=== PATIENT | male | born 1945 | race Caucasian/White ===

== ENCOUNTER 2020-01-24 09:18 | Outpatient (REF) | payer MEDICARE, OTHER, SELFPAY ==
[2020-01-24 11:12] LABS: INTERNATIONAL NORM RATIO 2.7 (0.9-1.1)
== END 2020-01-24 09:19 | disposition home or self-care (01) ==
LOC: HO.HSHHMC 09:18
PROVIDERS: PCP Internal Medicine Interventional Cardiology; Visit Provider Internal Medicine Interventional Cardiology
DX: I48.91 Unspecified atrial fibrillation (principal)
CPT/HCPCS: 36415; 85610

== ENCOUNTER 2020-01-31 | Outpatient (REF) | payer MEDICARE, OTHER, SELFPAY ==
[2020-01-31 11:33] LABS: INTERNATIONAL NORM RATIO 2.7 (0.9-1.1); Prothrombin Time 32.5 SEC (10.8-13.0)
== END 2020-01-31 00:01 | disposition home or self-care (01) ==
LOC: HO.HSHHMC
PROVIDERS: Visit Provider Internal Medicine Interventional Cardiology
DX: I48.91 Unspecified atrial fibrillation (principal)
CPT/HCPCS: 36415; 85610

== ENCOUNTER 2020-02-07 07:18 | Outpatient (REF) | payer MEDICARE, OTHER, SELFPAY ==
[2020-02-07 10:04] LABS: INTERNATIONAL NORM RATIO 3.2 (0.9-1.1)
[2020-02-07 10:13] LABS: Anion Gap 13 (12-20); Blood Urea Nitrogen 21 mg/dL (9-16); Calcium 8.6 mg/dL (8.4-10.2); Carbon Dioxide 24 mmol/L (22-29); Chloride 109 mmol/L (96-108); Estimated Glomerular Filt Rate 45; Phosphorus 3.2 mg/dL (2.7-4.5); Potassium 3.9 mmol/l (3.3-5.1); Sodium 142 mmol/L (135-145)
[2020-02-07 13:58] LABS: Renal w Reflex Lab Use Only Order verified
== END 2020-02-07 07:19 | disposition home or self-care (01) ==
LOC: HO.HSHHMC 07:18
PROVIDERS: Referring Provider Internal Medicine Nephrology; Visit Provider Internal Medicine Interventional Cardiology
DX: I95.1 Orthostatic hypotension (principal); E21.1 Secondary hyperparathyroidism, not elsewhere classified; N18.30 Chronic kidney disease, stage 3 unspecified; I48.91 Unspecified atrial fibrillation
CPT/HCPCS: 36415; 80051; 82310; 82565; 84100; 84520; 85610

== ENCOUNTER 2020-02-14 | Outpatient (REF) | payer MEDICARE, OTHER, SELFPAY ==
[2020-02-14 09:20] LABS: INTERNATIONAL NORM RATIO 3.1 (0.9-1.1); Prothrombin Time 36.8 SEC (10.8-13.0)
== END 2020-02-14 00:01 | disposition home or self-care (01) ==
LOC: HO.HSHHMC
PROVIDERS: Visit Provider Internal Medicine Interventional Cardiology
DX: I48.91 Unspecified atrial fibrillation (principal); Z79.01 Long term (current) use of anticoagulants
CPT/HCPCS: 36415; 85610

== ENCOUNTER 2020-02-21 | Outpatient (REF) | payer MEDICARE, OTHER, SELFPAY ==
[2020-02-21 08:55] LABS: INTERNATIONAL NORM RATIO 2.1 (0.9-1.1); Prothrombin Time 25.6 SEC (10.8-13.0)
== END 2020-02-21 00:01 | disposition home or self-care (01) ==
LOC: HO.HSHHMC
PROVIDERS: Visit Provider Internal Medicine Interventional Cardiology
DX: I48.91 Unspecified atrial fibrillation (principal); Z79.01 Long term (current) use of anticoagulants
CPT/HCPCS: 36415; 85610

== ENCOUNTER 2020-02-28 06:32 | Outpatient (REF) | payer MEDICARE, OTHER, SELFPAY ==
[2020-02-28 09:12] LABS: INTERNATIONAL NORM RATIO 2.6 (0.9-1.1); Prothrombin Time 31.7 SEC (10.8-13.0)
== END 2020-02-28 06:33 | disposition home or self-care (01) ==
LOC: HO.HSHHMC 06:32
PROVIDERS: Visit Provider Internal Medicine Interventional Cardiology
DX: I48.91 Unspecified atrial fibrillation (principal); K58.0 Irritable bowel syndrome with diarrhea; Z87.19 Personal history of other diseases of the digestive system; Z86.19 Personal history of other infectious and parasitic diseases; K64.9 Unspecified hemorrhoids
CPT/HCPCS: 36415; 85610; 99212

== ENCOUNTER 2020-03-13 11:19 | Outpatient (REF) | payer MEDICARE, OTHER, SELFPAY ==
[2020-03-13 09:44] LABS: INTERNATIONAL NORM RATIO 1.9 (0.9-1.1); Prothrombin Time 22.5 SEC (10.8-13.0)
== END 2020-03-13 11:20 | disposition home or self-care (01) ==
LOC: HO.HSHHMC 11:19
PROVIDERS: Visit Provider Internal Medicine Interventional Cardiology
DX: I48.91 Unspecified atrial fibrillation (principal)
CPT/HCPCS: 36415; 85610

== ENCOUNTER 2020-03-21 10:27 | Outpatient (REF) | payer MEDICARE, OTHER, SELFPAY ==
[2020-03-21 10:19] LABS: Prothrombin Time 23.8 SEC (10.8-13.0)
== END 2020-03-21 10:28 | disposition home or self-care (01) ==
LOC: HO.HSHHMC 10:27
PROVIDERS: Visit Provider Internal Medicine Interventional Cardiology
DX: I48.91 Unspecified atrial fibrillation (principal)
CPT/HCPCS: 36415; 85610

== ENCOUNTER 2020-04-04 08:38 | Outpatient (REF) | payer MEDICARE, OTHER, SELFPAY ==
[2020-04-04 08:48] LABS: INTERNATIONAL NORM RATIO 1.8 (0.9-1.1); Prothrombin Time 21.2 SEC (10.8-13.0)
== END 2020-04-04 08:39 | disposition home or self-care (01) ==
LOC: HO.HSHHMC 08:38
PROVIDERS: Visit Provider Internal Medicine Interventional Cardiology
DX: I48.91 Unspecified atrial fibrillation (principal)
CPT/HCPCS: 36415; 85610

== ENCOUNTER 2020-04-11 10:31 | Outpatient (REF) | payer MEDICARE, OTHER, SELFPAY ==
[2020-04-11 09:28] LABS: INTERNATIONAL NORM RATIO 2.4 (0.9-1.1); Prothrombin Time 28.8 SEC (10.8-13.0)
== END 2020-04-11 10:32 | disposition home or self-care (01) ==
LOC: HO.HSHHMC 10:31
PROVIDERS: Visit Provider Internal Medicine Interventional Cardiology
DX: I48.91 Unspecified atrial fibrillation (principal)
CPT/HCPCS: 36415; 85610

== ENCOUNTER 2020-04-24 09:17 | Outpatient (REF) | payer MEDICARE, OTHER, SELFPAY ==
[2020-04-24 09:17] LABS: INTERNATIONAL NORM RATIO 3.2 (0.9-1.1); Prothrombin Time 38.2 SEC (10.8-13.0)
== END 2020-04-24 09:18 | disposition home or self-care (01) ==
LOC: HO.HSHHMC 09:17
PROVIDERS: Visit Provider Internal Medicine Interventional Cardiology
DX: I48.91 Unspecified atrial fibrillation (principal)
CPT/HCPCS: 36415; 85610

== ENCOUNTER 2020-04-30 06:24 | Outpatient (REF) | payer MEDICARE, OTHER, SELFPAY ==
[2020-04-30 09:40] LABS: INTERNATIONAL NORM RATIO 2.6 (0.9-1.1); Prothrombin Time 31.4 SEC (10.8-13.0)
== END 2020-04-30 06:25 | disposition home or self-care (01) ==
LOC: HO.HSHHMC 06:24
PROVIDERS: Visit Provider Internal Medicine Interventional Cardiology
DX: I48.91 Unspecified atrial fibrillation (principal)
CPT/HCPCS: 36415; 85610

== ENCOUNTER 2020-05-07 07:31 | Outpatient (REF) | payer MEDICARE, OTHER, SELFPAY ==
[2020-05-07 09:31] LABS: INTERNATIONAL NORM RATIO 2.4 (0.9-1.1); Prothrombin Time 28.5 SEC (10.8-13.0)
== END 2020-05-07 07:32 | disposition home or self-care (01) ==
LOC: HO.HSHHMC 07:31
PROVIDERS: Visit Provider Internal Medicine Interventional Cardiology
DX: I48.91 Unspecified atrial fibrillation (principal)
CPT/HCPCS: 36415; 85610

== ENCOUNTER 2020-05-14 08:21 | Outpatient (REF) | payer MEDICARE, OTHER, SELFPAY ==
[2020-05-14 10:07] LABS: INTERNATIONAL NORM RATIO 1.6 (0.9-1.1); Prothrombin Time 18.5 SEC (10.8-13.0)
== END 2020-05-14 08:22 | disposition home or self-care (01) ==
LOC: HO.HSHHMC 08:21
PROVIDERS: Visit Provider Internal Medicine Interventional Cardiology
DX: I48.91 Unspecified atrial fibrillation (principal)
CPT/HCPCS: 36415; 85610

== ENCOUNTER 2020-05-21 10:45 | Outpatient (REF) | payer MEDICARE, OTHER, SELFPAY ==
[2020-05-21 11:42] LABS: INTERNATIONAL NORM RATIO 2.1 (0.9-1.1); Prothrombin Time 24.9 SEC (10.8-13.0)
== END 2020-05-21 10:46 | disposition home or self-care (01) ==
LOC: HO.HSHHMC 10:45
PROVIDERS: Visit Provider Internal Medicine Interventional Cardiology
DX: I48.91 Unspecified atrial fibrillation (principal)
CPT/HCPCS: 36415; 85610

== ENCOUNTER 2020-05-28 07:34 | Outpatient (REF) | payer MEDICARE, OTHER, SELFPAY ==
[2020-05-28 08:53] LABS: INTERNATIONAL NORM RATIO 2.4 (0.9-1.1); Prothrombin Time 29.2 SEC (10.8-13.0)
== END 2020-05-28 07:35 | disposition home or self-care (01) ==
LOC: HO.HSHHMC 07:34
PROVIDERS: Visit Provider Internal Medicine Interventional Cardiology
DX: I48.91 Unspecified atrial fibrillation (principal)
CPT/HCPCS: 36415; 85610

== ENCOUNTER 2020-06-04 07:36 | Outpatient (REF) | payer MEDICARE, OTHER, SELFPAY ==
[2020-06-04 09:20] LABS: INTERNATIONAL NORM RATIO 2.7 (0.9-1.1); Prothrombin Time 31.8 SEC (10.8-13.0)
== END 2020-06-04 07:37 | disposition home or self-care (01) ==
LOC: HO.HSHHMC 07:36
PROVIDERS: Visit Provider Internal Medicine Interventional Cardiology
DX: I48.91 Unspecified atrial fibrillation (principal)
CPT/HCPCS: 36415; 85610

== ENCOUNTER 2020-06-11 05:54 | Outpatient (REF) | payer MEDICARE, OTHER, SELFPAY ==
[2020-06-11 09:01] LABS: Prothrombin Time 23.8 SEC (10.8-13.0)
== END 2020-06-11 05:55 | disposition home or self-care (01) ==
LOC: HO.HSHHMC 05:54
PROVIDERS: Visit Provider Internal Medicine Interventional Cardiology
DX: I48.91 Unspecified atrial fibrillation (principal)
CPT/HCPCS: 36415; 85610

== ENCOUNTER 2020-06-25 05:48 | Outpatient (REF) | payer MEDICARE, OTHER, SELFPAY ==
[2020-06-25 08:50] LABS: INTERNATIONAL NORM RATIO 1.8 (0.9-1.1)
== END 2020-06-25 05:49 | disposition home or self-care (01) ==
LOC: HO.HSHHMC 05:48
PROVIDERS: Visit Provider Internal Medicine Interventional Cardiology
DX: I48.91 Unspecified atrial fibrillation (principal)
CPT/HCPCS: 36415; 85610

== ENCOUNTER 2020-07-02 05:42 | Outpatient (REF) | payer MEDICARE, OTHER, SELFPAY ==
[2020-07-02 09:11] LABS: INTERNATIONAL NORM RATIO 1.9 (0.9-1.1); Prothrombin Time 22.7 SEC (10.8-13.0)
== END 2020-07-02 05:43 | disposition home or self-care (01) ==
LOC: HO.HSHHMC 05:42
PROVIDERS: Visit Provider Internal Medicine Interventional Cardiology
DX: I48.91 Unspecified atrial fibrillation (principal)
CPT/HCPCS: 36415; 85610

== ENCOUNTER 2020-07-09 05:41 | Outpatient (REF) | payer MEDICARE, OTHER, SELFPAY ==
[2020-07-09 08:58] LABS: INTERNATIONAL NORM RATIO 3.9 (0.9-1.1); Prothrombin Time 46.6 SEC (10.8-13.0)
== END 2020-07-09 05:42 | disposition home or self-care (01) ==
LOC: HO.HSHHMC 05:41
PROVIDERS: Visit Provider Internal Medicine Interventional Cardiology
DX: I48.91 Unspecified atrial fibrillation (principal)
CPT/HCPCS: 36415; 85610

== ENCOUNTER 2020-07-16 06:38 | Outpatient (REF) | payer MEDICARE, OTHER, SELFPAY ==
[2020-07-16 09:18] LABS: INTERNATIONAL NORM RATIO 2.2 (0.9-1.1); Prothrombin Time 26.4 SEC (10.8-13.0)
== END 2020-07-16 06:39 | disposition home or self-care (01) ==
LOC: HO.HSHHMC 06:38
PROVIDERS: Visit Provider Internal Medicine Interventional Cardiology
DX: I48.91 Unspecified atrial fibrillation (principal)
CPT/HCPCS: 36415; 85610

== ENCOUNTER 2020-07-23 05:32 | Outpatient (REF) | payer MEDICARE, OTHER, SELFPAY ==
[2020-07-23 09:11] LABS: INTERNATIONAL NORM RATIO 2.4 (0.9-1.1)
== END 2020-07-23 05:33 | disposition home or self-care (01) ==
LOC: HO.HSHHMC 05:32
PROVIDERS: Visit Provider Internal Medicine Interventional Cardiology
DX: I48.91 Unspecified atrial fibrillation (principal)
CPT/HCPCS: 36415; 85610

== ENCOUNTER 2020-07-30 07:08 | Outpatient (REF) | payer MEDICARE, SELFPAY ==
[2020-07-30 09:17] LABS: INTERNATIONAL NORM RATIO 3.3 (0.9-1.1); Prothrombin Time 39.4 SEC (10.8-13.0)
== END 2020-07-30 07:09 | disposition home or self-care (01) ==
LOC: HO.HSHHMC 07:08
PROVIDERS: Visit Provider Internal Medicine Interventional Cardiology
DX: I48.91 Unspecified atrial fibrillation (principal)
CPT/HCPCS: 36415; 85610

== ENCOUNTER 2020-08-06 | Outpatient (REF) | payer MEDICARE, OTHER, SELFPAY ==
[2020-08-06 10:48] LABS: INTERNATIONAL NORM RATIO 2.2 (0.9-1.1); Prothrombin Time 26.8 SEC (10.8-13.0)
== END 2020-08-06 00:01 | disposition home or self-care (01) ==
LOC: HO.HSHHMC
PROVIDERS: Visit Provider Internal Medicine
DX: I48.91 Unspecified atrial fibrillation (principal)
CPT/HCPCS: 36415; 85610

== ENCOUNTER 2020-08-13 01:38 | Outpatient (REF) | payer MEDICARE, OTHER, SELFPAY ==
[2020-08-13 10:39] LABS: INTERNATIONAL NORM RATIO 2.9 (0.9-1.1); Prothrombin Time 34.4 SEC (10.8-13.0)
== END 2020-08-13 01:39 | disposition home or self-care (01) ==
LOC: HO.LHD 01:38
PROVIDERS: Visit Provider Internal Medicine Interventional Cardiology
DX: I48.91 Unspecified atrial fibrillation (principal)
CPT/HCPCS: 36415; 85610

== ENCOUNTER 2020-08-22 15:00 | Outpatient (RCR) | payer MEDICARE, OTHER, SELFPAY ==
[2020-03-11 15:04] VITALS: BP 112/62; PULSE 84; RESP 14
--- NOTE | 2020-03-11 16:48 | MHC.PT.EP ---
[facility] [place] [facility] [place] [facility] [place] [facility] [address] Michael Longoria [address] [phone] F: [phone] F: [phone] F: [phone] F: [phone] Physical Therapy Plan of Care Date of Evaluation: 03/11/20 Date of Surgery: NA Diagnosis: VERTIGO Assessment: MADISON PRESENTS WITH C/O DISEQUILIBRIUM AND VERTIGO. UPON EXAM HE TESTED (+) FOR LEFT HORIZONTAL CANALITHISIS WITH (-) RETESTING. HE ALSO DEMONSTRATES A WEAKENED VOR. FUNCTIONAL LIMITATIONS INCLUDE DECREASED INDEPENDENCE WITH WALKING AND STAIR CLIMBING, DECREASED ABILITY TO PERFORM HOMEMAKING TASKS, DECREASED ABILITY TO PERFORM EXERCISE AND FITNESS ACTIVITIES. MADISON WILL BENEFIT FROM PT TO ADDRESS BPPV SYMPTOMS AND PROMOTE IMPROVED BALANCE AND GAIT. Frequency and Duration: The patient will be seen 1 X WEEK FOR 6 WEEKS Short Term Goals: Pt WILL BE (-) FOR NYSTAGMUS OR REPORTS OF VERTIGO IN ALL DIRECTIONS IN 2 WEEKS Half-Way Goals: Pt TO BE ABLE TO MOVE FUNCTIONALLY IN ALL PLANES WITHOUT PROVOKATION OF DIZZINESS AND RETURN TO PLOF 4 WEEK Pt TO BE EDUC IN SYMPTOMS AND THE NEED TO RETURN TO PT FOR ADDITIONAL TREATMENT IN 4 WEEKS Treatment Plan: Modalities to reduce pain, spasms and effusion. Manual therapy to restore motion and function. Therapeutic exercise to improve strength and flexibility. Neuromuscular re-education for posture and balance. Therapeutic activities to return to functional activities of daily living. Please sign and return to therapist. Thank you for your referral.
== END 2020-09-16 15:24 | disposition other institution (70) ==
LOC: HO.PT 15:00
PROVIDERS: PCP Internal Medicine Interventional Cardiology; Visit Provider Otolaryngology
DX: R42 Dizziness and giddiness (principal)
CPT/HCPCS: 95992; 97110; 97112; 97116; 97140; 97162; 97530

== ENCOUNTER 2020-08-27 | Outpatient (REF) | payer MEDICARE, SELFPAY ==
[2020-08-27 10:58] LABS: INTERNATIONAL NORM RATIO 1.7 (0.9-1.1); Prothrombin Time 20.7 SEC (10.8-13.0)
== END 2020-08-27 00:01 ==
LOC: HO.HSHHMC
PROVIDERS: Visit Provider Internal Medicine Interventional Cardiology
DX: I48.91 Unspecified atrial fibrillation (principal); Z79.01 Long term (current) use of anticoagulants
CPT/HCPCS: 36415; 85610

== ENCOUNTER 2020-09-03 00:06 | Outpatient (REF) | payer MEDICARE, SELFPAY ==
[2020-09-03 12:13] LABS: INTERNATIONAL NORM RATIO 2.1 (0.9-1.1); Prothrombin Time 24.6 SEC (10.8-13.0)
== END 2020-09-03 00:07 | disposition home or self-care (01) ==
LOC: HO.LHD 00:06
PROVIDERS: Visit Provider Internal Medicine Interventional Cardiology
DX: I48.91 Unspecified atrial fibrillation (principal)
CPT/HCPCS: 36415; 85610

== ENCOUNTER 2020-09-10 00:24 | Outpatient (REF) | payer MEDICARE, SELFPAY ==
[2020-09-10 11:02] LABS: INTERNATIONAL NORM RATIO 2.6 (0.9-1.1); Prothrombin Time 30.9 SEC (10.8-13.0)
== END 2020-09-10 00:25 | disposition home or self-care (01) ==
LOC: HO.LHD 00:24
PROVIDERS: Visit Provider Internal Medicine Interventional Cardiology
DX: I48.91 Unspecified atrial fibrillation (principal)
CPT/HCPCS: 36415; 85610

== ENCOUNTER 2020-09-17 01:33 | Outpatient (REF) | payer MEDICARE, SELFPAY ==
[2020-09-17 11:21] LABS: INTERNATIONAL NORM RATIO 2.3 (0.9-1.1); Prothrombin Time 27.9 SEC (10.8-13.0)
== END 2020-09-17 01:34 | disposition home or self-care (01) ==
LOC: HO.LHD 01:33
PROVIDERS: Visit Provider Internal Medicine Interventional Cardiology
DX: I48.19 Other persistent atrial fibrillation (principal)
CPT/HCPCS: 36415; 85610

== ENCOUNTER 2020-10-01 06:22 | Outpatient (REF) | payer MEDICARE, SELFPAY ==
[2020-10-01 09:32] LABS: INTERNATIONAL NORM RATIO 1.8 (0.9-1.1); Prothrombin Time 21.3 SEC (10.8-13.0)
== END 2020-10-01 06:23 | disposition home or self-care (01) ==
LOC: HO.HSHHMC 06:22
PROVIDERS: Visit Provider Internal Medicine Interventional Cardiology
DX: Z13.89 Encounter for screening for other disorder (principal)
CPT/HCPCS: 36415; 85610

== ENCOUNTER 2020-10-02 11:04 | Inpatient (IN) | payer MEDICARE, SELFPAY ==
--- NOTE | ~2020-10-02 | XR_ITS ---
EXAMINATION: XR CHEST CLINICAL INFORMATION: Coughing up blood COMPARISON: None TECHNIQUE: 2 views of the chest were obtained. FINDINGS: The lungs are hyperinflated but clear of acute pneumonic process. Heart size and pulmonary vascularity is normal. There are dual pacer electrodes in right atrium and right ventricle. There are median sternotomy sutures and mediastinal xuan from previous CABG. No gross bony abnormality seen. XR/XR chest 2V IMPRESSION: Hyperinflated lungs with no acute pneumonic process.
--- NOTE | ~2020-10-02 | XR_ITS ---
EXAMINATION: PORTABLE CHEST 1 VIEW CLINICAL INFORMATION: sob . COMPARISON: Previous studies including the exam. TECHNIQUE: Portable frontal view of the chest was obtained. FINDINGS: Lungs well-expanded. Small layering right pleural effusion with associated right basilar consolidation/atelectasis similar to yesterday's study. Mild central vascular prominence but no overt edema currently. No pneumothorax. Cardiac silhouette is prominent. Patient status post sternotomy and CABG. Biventricular pacemaker/AICD is again noted with lead tips overlying the expected right ventricle and coronary sinus. Old healed left-sided rib fractures. XR/XR chest 1V IMPRESSION: Small layering right effusion with associated right basilar consolidation/atelectasis similar to yesterday's study. There is mild central vascular prominence but no overt edema.
--- NOTE | ~2020-10-02 | CT_ITS ---
EXAMINATION: CTA of the Abdomen and Pelvis CLINICAL INFORMATION: Suspected abdominal aortic aneurysm rupture. TECHNIQUE: Multiple axial images were obtained through the abdomen and pelvis using a [address] scan. 80 mL's of Omnipaque 350 was administered intravenously. Images will be evaluated on independent dedicated 3-D workstation and 3-D images will be reconstructed. An addendum will be dictated following obtaining the 3-D images. COMPARISON: CT of the abdomen and pelvis done on 09/29/[address] of the chest done on 10/08/2020. DLP: 223.0 mGy-cm. FINDINGS: VASCULAR: Significant atherosclerotic disease is present throughout the aorta and is branches. 1. Mesenteric arteries: The celiac axis, the superior mesenteric arteries appear patent. The MICHAEL is not visualized. 2. Renal arteries: Patent bilaterally. 3. Abdominal aorta: Large partially thrombosed saccular infrarenal abdominal aortic aneurysm is identified extending to just above the level of the aortic bifurcation. The aneurysmal sac measures 5.1 x 5.1 cm at its maximum dimension. There are no evidence of any periaortic stranding, retroperitoneal or intraperitoneal hematoma or contrast extravasation present. There are no evidence of any secondary signs of aortic aneurysmal rupture. 4. Iliac arteries: Proximal visualized part of both common iliac arteries are patent. Significant atherosclerotic disease is present. NONVASCULAR: LUNG BASES: Small volume right-sided pleural effusion with Hounsfield value of 0, consistent with simple appearing effusion is seen, shows interval increase since 10/02/2020. Trace amount of left-sided pleural effusion is noted, new since prior study. Interval development of dense airspace consolidation is noted within the right lung base, new since 10/02/2020. Underlying severe emphysematous disease is present bilaterally within the included visualized lung bases. LIVER, GALLBLADDER, AND BILIARY TREE: Stable pneumobilia within the left lobe. Subcentimeter hypodense lesion within the left lobe, unchanged. No focal liver lesion within the right lobe, unchanged. The gallbladder is surgically absent. PANCREAS: Unremarkable. SPLEEN: Unremarkable. ADRENAL GLANDS: Unremarkable. KIDNEYS AND URETERS: The kidneys are normal in size, shape, and attenuation. No hydronephrosis, hydroureter, or calculi seen. No perinephric stranding. Incidental note is made of significant atherosclerotic calcifications of the renal arterial branches bilaterally, similar to prior study dated 09/29/2019. BLADDER: Not completely included. Appears distended and is partially visualized within the upper part of the included pelvis. GASTROINTESTINAL TRACT: Colonic diverticulosis related changes are noted within the large bowel. The visualized small and large bowel otherwise appear unremarkable. The stomach is decompressed. Stable nonspecific hyper densities are noted along the distal part of the esophagus and GE junction and also along the lesser curvature of the stomach, unchanged since 09/29/2019. ABDOMINAL WALL: No significant hernia is appreciated. LYMPH NODES: Normal. PELVIC VISCERA: Not included within the [id number] and accordingly not evaluated. OSSEOUS STRUCTURES: Unremarkable. CT/CT angio abdomen IMPRESSION: 1. 5.1 x 5.1 cm maximum dimension partially thrombosed infrarenal saccular abdominal aortic aneurysm extending to just above the level of the aortic bifurcation showing no CT evidence of any primary or secondary signs of aortic rupture. 2. Diffuse atherosclerotic disease of the aorta and is branches with patent celiac axis, superior mesenteric artery and both renal arteries. 3. Small volume right-sided pleural effusion, shows interval increase since most recent prior CT of the chest done on 10/08/2020. Interval development of trace amount of left-sided pleural effusion is also noted, new since prior chest CT study done on 10/02/2020.
--- NOTE | ~2020-10-02 | CT_ITS ---
EXAMINATION: CT HEAD WITHOUT CONTRAST CLINICAL INFORMATION: Change in speech. COMPARISON: CT head 09/29/2019 and 06/14/2019. TECHNIQUE: Contiguous axial imaging was performed from the skull base to vertex without intravenous administration of contrast. This CT examination was performed using dose optimization techniques as appropriate, variously including the following: *Automated exposure control. *Adjustment of mA and/or kV according to patient size (this includes techniques or standardized protocols for targeted exams where dose is matched to indication/reason for exam; i.e. extremities or head). *Use of iterative reconstruction technique. DLP: 685 mGy-cm FINDINGS: There is no evidence of acute intracranial hemorrhage or territorial infarction. No abnormal mass effect or midline shift is seen. Wwra-vn-pyboz matter differentiation is well preserved. No extra-axial fluid collections are identified. There is moderate global volume loss with proportionate dilatation of the ventricles and cortical sulci. No hydrocephalus. No significant areas of abnormal parenchymal attenuation are seen. Moderate calcific atherosclerosis of the internal carotid arteries. The osseous structures and soft tissues are normal. Small mucous retention cysts are noted in the bilateral maxillary sinuses. Mild opacification of the ethmoid air cells and sphenoid sinuses. Mastoid air cells and middle ear cavities are well aerated. The patient is status post bilateral lens extraction. CT/CT head/brain wo con IMPRESSION: No acute intracranial abnormality. Specifically, there is no evidence of acute territorial infarction or acute intracranial hemorrhage.
--- NOTE | ~2020-10-02 | XR_ITS ---
EXAMINATION: XR CHEST CLINICAL INFORMATION: Shortness of breath. COMPARISON: Previous chest x-ray and chest CT 10/02/2020 TECHNIQUE: Frontal view of the chest was obtained. FINDINGS: The cardiac silhouette is enlarged. There are post-CABG changes. There is a left subclavian pacemaker and defibrillator device that appears unchanged. There is pulmonary venous redistribution and increased interstitial markings suggestive of pulmonary edema. This is new from previous exam. There is a new small right pleural effusion. There is no left pleural effusion. There is no pneumothorax. There are healing left lower rib fractures. XR/XR chest 1V IMPRESSION: New CHF.
--- NOTE | ~2020-10-02 | CT_ITS ---
EXAMINATION: CT CHEST WITHOUT CONTRAST CLINICAL INFORMATION: Hemoptysis for 2 weeks. COMPARISON: Chest CT dated December 30, 2019. TECHNIQUE: Multidetector volumetric CT imaging of the chest was done. Axial MIP volume rendering provided. Sagittal and coronal reformatted images were obtained. This CT examination was performed using dose optimization techniques as appropriate, variously including the following: *Automated exposure control *Adjustment of mA and/or kV according to patient size (this includes techniques or standardized protocols for targeted exams where dose is matched to indication/reason for exam; i.e. extremities or head) *Use of iterative reconstruction technique DLP: 252 mGy-cm FINDINGS: ROTOR BALANCER: Chest wall AICD with leads positioned in the right ventricle and coronary sinus respectively. Lungs and pleural spaces: Upper and lower lobe centrilobular emphysema. Bibasilar intralobular septal thickening more prominent in the right lower lobe. Mild bronchiectatic changes in the lower lobes. Ground glass opacities in the posterior right lower lobe similar to October 02, 2019 examination suspicious for sequelae of chronic inflammatory process. No lung mass. No enlarging pulmonary nodules. Trace debris in the distal trachea extending toward the right mainstem bronchus (3:26-29). Small right pleural effusion. No pneumothorax. Thoracic lymph nodes: There is no hilar or axillary lymphadenopathy. Similar appearance of borderline mildly enlarged mediastinal lymph nodes similar appearance to 10/02/2019 examination. Cardiovascular, mediastinal structures and thyroid: The heart is normal in size. Coronary vascular calcifications. There is no pericardial effusion. The thoracic aorta is normal in diameter without evidence of aneurysm. Mild aortic atherosclerotic calcifications. The main pulmonary artery is normal in caliber. The visualized thyroid gland is within normal limits. The esophagus appears partially collapsed but otherwise unremarkable. Skeletal, diaphragm and chest wall: Chronic left 9-11 rib fractures. No acute osseous abnormality.. The subcutaneous tissues are unremarkable. Upper abdomen: The visualized liver demonstrates unchanged degree of pneumobilia. Gallbladder is absent. Pancreas, spleen, and adrenal glands are normal. Bilateral renal cortical thinning. The proximal stomach and visualized upper abdominal bowel loops are poorly evaluated but appear unremarkable. Partially visualized aneurysmal dilatation of the abdominal aorta. CT/CT chest wo con IMPRESSION: Diffuse upper and lower lobe emphysema. Right basilar groundglass opacities similar to comparison 10/02/2019 examination suggesting chronic inflammatory process. No pulmonary mass or enlarging pulmonary nodules. Small right pleural effusion. Coronary vascular disease. Similar appearance of borderline lymphadenopathy in the mediastinum in comparison to October 02, 2019 examination. Mild debris in the distal trachea extending into the right mainstem bronchus. Partially visualized abdominal aortic aneurysm.
[2020-10-02 11:54] VITALS: BP 112/75; PULSE 81; RESP 18; TEMP 36.5; O2SAT 97; BMI 18.7
[2020-10-02 14:29] LABS: Hematocrit 36.7 % (42-52); Hemoglobin 11.5 g/dl (14.0-18.0); Mean Corpuscular HGB Conc 31.3 g/dl (31.0-36.0); Mean Corpuscular Hemoglobin 28.9 pg (27.0-33.0); Mean Corpuscular Volume 92.2 fL (80-98); Mean Platelet Volume 9.1 fL (9.4-12.4); Platelet Count 138 X10*3/uL (160-400); Red Blood Count 3.98 X10*6/uL (4.60-5.80); Red Cell Distribution Width 14.8 % (11.0-16.0); White Blood Count 7.5 X10*3/uL (4.8-10.8)
[2020-10-02 14:56] LABS: Anion Gap 13 (12-20); Blood Urea Nitrogen 29 mg/dL (9-16); Calcium 9.5 mg/dL (8.4-10.2); Carbon Dioxide 25 mmol/L (22-29); Chloride 107 mmol/L (96-108); Creatinine Clr Calc Pharmacy 30.5; Estimated Glomerular Filt Rate 33; Glucose Random 87 mg/dL (60-115); Potassium 4.8 mmol/L (3.3-5.1); Sodium 140 mmol/L (135-145)
[2020-10-02 15:13] VITALS: BP 138/75; PULSE 81; RESP 19; TEMP 36.5; O2SAT 99
--- NOTE | 2020-10-02 15:54 | ED.GENADULT ---
HPI - General Adult General Chief complaint: Upper Respiratory Symptoms Stated complaint: coughing up blood Time Seen by Provider: 10/02/20 15:31 Source: patient Mode of arrival: ambulatory Limitations: no limitations History of Present Illness HPI narrative: 75-year-old male who presents emergency department for evaluation of hemoptysis. Patient states that he has been coughing up blood for approximately 2 weeks. States that the symptoms seem to come on after he eats. He states that he coughs up small amounts of dark blood which she states would fill a half of a medicine cup. States that he does this multiple times a day. He states that the symptoms have not gotten worse but been persistent therefore came to the emergency department today for evaluation. The patient states that he has hemorrhoids and always has bright red blood per rectum. He has not noticed any dark stools. He states that he has a history stomach ulcers but they never with bleeding. He denied dysphagia or odynophagia. He states that he has no teeth approximately 2 weeks ago he ate a piece of breath when he swelled a spread he felt as a there was a sharp pain in his epigastric area but otherwise he has had no odynophagia. He denied chest pain, fever, chills, cough. He states that he does have shortness of breath and dyspnea on exertion with minimal exertion. The patient is on Coumadin/warfarin. Related Data Previous Rx's Medication Instructions Recorded sucralfate 1 gram tablet 3 g PO DAILY 30 Days #90 tab 04/23/20 lidocaine HCl 2 % mucosal jelly 1 appl TOPICAL BID-QID PRN #30 ml 09/24/20 Allergies Allergy/AdvReac Type Severity Reaction Status Date / Time codeine [Codeine] Allergy Intermediate RASH Verified 03/27/20 09:54 fludrocortisone Allergy Unknown Unknown Verified 03/27/20 09:54 Review of Systems Review of Systems: Yes all other systems are reviewed and are negative [facility] Past Medical History [facility] Narrative: Past medical history: as below, myocardial infarction, anxiety. Social history: The patient lives with his . He stops smoking cigarettes 12 years ago but has a greater than 30 pack-year history of smoking. He denies alcohol or drug use. Medical History COPD (chronic obstructive pulmonary disease) Kidney disease, chronic, stage III (GFR 30-59 ml/min) Surgical History History of esophagogastroduodenoscopy (EGD) History of open heart surgery Hx of appendectomy Hx of arterial bypass of lower limb Hx of cholecystectomy Hx of colonoscopy Hx of esophageal hernia repair Hx of tonsillectomy Family History Family History Father Myocardial infarction CVD (cardiovascular disease) Mother Myocardial infarction Type 2 diabetes mellitus CVD (cardiovascular disease) Brother Heart failure Brother Heart failure Sister No problems noted. Son No problems noted. Social History Social History Alcohol intake: current Alcohol intake frequency: does not drink Advance Directives: No Advance Directives Information Provided: No Advance Directives Date on File: 01/24/20 Physical Exam Vital Signs: Vital Signs: Last Vital Signs Temp 97.7 F 10/02/20 15:13 Pulse 81 10/02/20 15:13 Resp 19 10/02/20 15:13 BP 138/75 10/02/20 15:13 Pulse Ox 99 10/02/20 16:22 Body Mass Index 18.7 Const: General: cooperative and other (Anxious) Orientation/consciousness: oriented to person and oriented to place Limitations: no limitations HENMT: Head: Yes normal to inspection, Yes normocephalic and Yes atraumatic Ears: external ears normal General nose exam: Normal external nose present Face and sinus: Yes normal facial exam Mouth: Normal oral and palatal mucosa present Throat: Yes posterior oropharynx normal Eyes: Periorbital: periorbital findings normal Eyelids: Yes eyelids normal Conjunctivae: conjunctivae normal Sclerae: sclerae normal Corneas: corneas normal Pupils: Equal, round and reactive pupils present Direct Ophthalmoscopy: normal light reflex Neck: Neck: Yes full ROM, Yes no lymphadenopathy, Yes no meningeal signs, Yes trachea midline and Yes supple Chest: Chest palpation & inspection: normal inspection of the chest and normal palpation of entire chest wall Resp: Effort & Inspection: normal respiratory effort and able to speak in complete sentences Auscultation: clear to auscultation bilaterally Cardio: Rate: regular rate Rhythm: regular rhythm Heart sounds: S1 normal heart sound present, S2 normal heart sound present and no murmurs GI: Inspection: Yes normal to inspection Palpation (GI): Soft to palpation, nontender, no guarding, not rigid and No hepatosplenomegaly present : General: Yes no CVA tenderness Back/Spine/Pelvis: Back: no CVA tenderness Cervical Spine: normal cervical lordosis Thoracic/Lumbar Spine: thoracic and lumbar spine normal to inspection Skin: Lesions: no lesions Rashes: no rashes Wounds: no wounds Neuro: General: oriented to person, oriented to place and no meningeal signs Cranial nerves: Yes CN's II-XII intact bilaterally and Yes Equal, round and reactive pupils present Cognition (Neuro): normal cognition Motor exam (neuro): 5/5 motor strength present throughout Extrem: General: Yes normal to inspection and Yes full ROM Psych: Appearance: well kempt Mental Status: mental status grossly normal Speech and movement: Normal speech and movement present Affect: normal affect Attitude: cooperative Thought process: Normal thought process present Thought content: Normal thought content present Course Course Course Narrative: 75-year-old male who presents to emergency department for evaluation of 2 weeks of small amounts of hemoptysis but seemed to occur after he eats. The patient is on warfarin. He states that he also has hemorrhoids and has frequent blood per rectum. Vital signs were normal. Physical examination was unremarkable, the patient deferred rectal examination. At this time, I am concerned that the patient may have pulmonary embolism, lung mass or GI source for his hemoptysis. A CBC, BMP, LFTs, type and screen. He was ordered to get normal saline IV x1 L. patient is very anxious knee was ordered to get Ativan 1 mg IV. 1602: The patient's CBC revealed mild anemia with an H&H of 11.5 and 36.7, this is chronic. Patient had thrombocytopenia with a platelet count of 138, he has had similar values in the past. The patient's BUN and creatinine were elevated at 29 1.98, again this is chronic. PT/INR was subtherapeutic at 21.3 and 1.8. Chest x-ray was unremarkable. LFTs and CT pulmonary angiogram PE protocol is pending. Medical Decision Making Lab Data Result diagrams: 10/02/20 14:19 10/02/20 14:19 Labs: Lab Results 06/02/1210/02/20 10/02/20 Range/Units 14:19 14:19 16:26 WBC 7.5 (4.8-10.8) X10*3/uL RBC 3.98 L (4.60-5.80) X10*6/uL Hgb 11.5 L (14.0-18.0) g/dl Hct 36.7 L (42-52) % MCV 92.2 (80-98) fL MCH 28.9 (27.0-33.0) pg MCHC 31.3 (31.0-36.0) g/dl RDW 14.8 (11.0-16.0) % Plt Count 138 L (160-400) X10*3/uL MPV 9.1 L (9.4-12.4) fL Absolute Nucleated RBC 0.000 (0.0-0.012) X10*3/uL Nucleated RBC % (auto) 0.0 (0.0-0.2) /100WBC Sodium 140 (135-145) mmol/L Potassium 4.8 (3.3-5.1) mmol/L Chloride 107 (96-108) mmol/L Carbon Dioxide 25 (22-29) mmol/L Anion Gap 13 (12-20) BUN 29 H (9-16) mg/dL Creatinine 1.98 H (0.5-1.4) mg/dL Estim Creat Clear Calc 30.5 Estimated GFR 33 Random Glucose 87 (60-115) mg/dL Calcium 9.5 D (8.4-10.2) mg/dL Total Bilirubin 0.7 (0.0-1.0) mg/dL Direct Bilirubin 0.4 (0.0-0.5) mg/dL AST 14 (5-37) U/L ALT 6 (0-40) U/L Alkaline Phosphatase 68 (39-117) U/L Total Protein 6.9 (6.5-8.0) g/dL Albumin 4.0 (3.5-5.0) g/dL Blood Type A Positive Antibody Screen NEGATIVE Discharge Plan Discharge Prescriptions: No Action sucralfate [Carafate] 1 gram tablet 3 g PO DAILY 30 Days Qty: 90 RF: 6 lidocaine HCl 2 % jelly 1 appl topical BID-QID PRN (Reason: pain) Qty: 30 RF: 2
[2020-10-02] MEDS: 0.9 % Sodium Chloride 1,000 ML 999 ML IV (16:16)
[2020-10-02] MEDS: LORazepam 2 MG/ML VIAL 1 MG IVPUSH (16:16)
[2020-10-02 16:22] VITALS: O2SAT 99
[2020-10-02 16:34] LABS: Alanine Aminotransferase 6 U/L (0-40); Alkaline Phosphatase 68 U/L (39-117); Aspartate Amino Transferase 14 U/L (5-37); Bilirubin Direct 0.4 mg/dL (0.0-0.5); Bilirubin Total 0.7 mg/dL (0.0-1.0); Total Protein 6.9 g/dL (6.5-8.0)
--- NOTE | 2020-10-02 19:12 | PC.NURSE ---
Pt's son called, would like call back [phone]
[2020-10-02 20:29] VITALS: BP 117/73; PULSE 75; RESP 20; TEMP 36.6; O2SAT 95
[2020-10-02] MEDS: cefTRIAXone sodium 1 GM in 0.9 % Sodium Chloride 50 ML IV (20:31)
--- NOTE | 2020-10-02 21:20 | ECG_ITS ---
Test Reason : HEMOPTYSIS Blood Pressure : / mmHG Vent. Rate : 076 BPM Atrial Rate : 075 BPM P-R Int : 000 ms QRS Dur : 178 ms QT Int : 470 ms P-R-T Axes : 000 -30 148 degrees QTc Int : 528 ms Ventricular-paced rhythm Possible Underlying atrial fibrillation Abnormal ECG When compared with ECG of 29-SEP-2019 13:29, Vent. rate has decreased BY 12 BPM Referred By: Esmer Harris Electronically Signed By:DAYAN LOMAX MD
[2020-10-02] MEDS: diazePAM 5 MG TABLET PO (21:33)
--- NOTE | 2020-10-02 22:07 | PHA.MEDREC ---
Pharmacy Consult ? Medication Reconciliation Pharmacy has completed the medication reconciliation and there were no significant medication issues requiring provider attention. Patient wasn't a great historian so confirmed through outpatient pharmacy claim history mostly. Melinda Angeles, PharmD [phone]
--- NOTE | 2020-10-02 23:11 | P.HPHOSP_ITS ---
History of Present Illness Date of Service: 10/02/20 Chief Complaint: Blood in the vomitus 75-year-old male with a past medical history GI bleed, hemorrhoids, peripheral vascular disease/CAD/mi on Coumadin, COPD, chronic kidney disease presented to the hospital with a chief complaint of blood in the vomitus/cough. Patient reported that about a week ago he had frozen food and subsequently had some throat discomfort and since then she has been having cough/intermittent episodes of blood. Denies any fevers. Denies any numbness tingling. Denies any difficulty swallowing. Denies any chest pain or palpitations. Review of all other systems is negative except mentioned above ER course: Per ER team patient denied any rectal examination; hemoglobin stable. Vitals stable. INR subtherapeutic at 1.8. CT chest showed ground- glass opacities. Saturating well on room air. Also noted to have UTI-given ceftriaxone. Admitted for further management. [facility] Medical History (Updated 10/05/20 @ 13:15 by Salvador Patel MD) COPD (chronic obstructive pulmonary disease) Kidney disease, chronic, stage III (GFR 30-59 ml/min) Family History Father Myocardial infarction CVD (cardiovascular disease) Mother Myocardial infarction Type 2 diabetes mellitus CVD (cardiovascular disease) Brother Heart failure Brother Heart failure Sister No problems noted. Son No problems noted. Surgical History History of esophagogastroduodenoscopy (EGD) History of open heart surgery Hx of appendectomy Hx of arterial bypass of lower limb Hx of cholecystectomy Hx of colonoscopy Hx of esophageal hernia repair Hx of tonsillectomy Social History Household Members: Spouse and Family Housing: House Do you presently have visiting nurse or other home services: Yes Alcohol intake: former Patient Tobacco Use Status: Former Tobacco user Quit Date: 12 years ago Tobacco use type: Cigarette Cigarette Packs Per Day: 1 Cigarettes Per Day: 20.0 Smoked in Last 30 Days: No Patient Interested in Nicotine Replacement: No Patient Given Instructions on How to Stop Smoking: No Second Hand Smoke Exposure: No Use of substances other than those prescribed or required for medical reasons: No Currently Displaying Signs/Symptoms of Drug Intoxication Withdrawal: No Any prior treatment program specific to substance use: No Have you been hit, kicked, punched, or otherwise hurt by someone within the past year? If so, by whom?: No Do you feel safe in your current relationship?: Yes Is there a partner from a previous relationship who is making you feel unsafe now?: No Advance Directives: No Advance Directives Information Provided: No Advance Directives Date on File: 01/24/20 Do you have thoughts of harming others: None Do you have a plan to hurt others: No Plan Recently lost weight without trying: Yes How much weight loss: 34pounds or more Eating poorly because of decreased appetite: Yes Nutrition screen score: 7 Nutrition Risks: Emaciation/Cachexia and Poor intake 0-25% >4 days Poor oral hygiene: No service: No Current occupational status: retired [employer] Allergies Allergy/AdvReac Type Severity Reaction Status Date / Time codeine [Codeine] Allergy Intermediate RASH Verified 03/27/20 09:54 fludrocortisone Allergy Unknown Unknown Verified 03/27/20 09:54 Active Medications: Current Medications Generic Name Dose Route Start Last Admin Trade Name Freq PRN Reason Stop Dose Admin Albuterol Sulfate 2 puff 10/03/20 09:00 Albuterol Sulfate 90 Mcg 8 Gm Inhaler INHALE QID [facility] Diazepam 5 mg 10/03/20 09:00 Diazepam 5 Mg Tablet PO TID [facility] Digoxin mg 10/02/20 22:30 Digoxin 0.125 Mg Tablet PO 3XW [facility] Midodrine 10 mg 10/03/20 09:00 Midodrine Hcl 10 Mg Tablet PO TID [facility] Pantoprazole Sodium 40 mg 10/03/20 06:30 Pantoprazole Sodium 40 Mg/10 Ml Vial IVPUSH DAILY@0630 [facility] Pharmacy Consult 1 each 10/02/20 21:32 Consult Rx Perform Med Rec MISCELLANE ONCE PRN Consult order Sertraline HCl 100 mg 10/03/20 09:00 Sertraline Hcl 100 Mg Tablet PO DAILY [facility] Sucralfate 2 gm 10/03/20 09:00 Sucralfate 1 Gm Tablet PO DAILY [facility] Tiotropium [place] 1 puff 10/03/20 09:00 Tiotropium [place] 18 Mcg Cap.W.Dev INHALE DAILY [facility] Vitamin D 50 mcg 10/03/20 09:00 Cholecalciferol (Vitamin D3) 25 Mcg Tablet PO DAILY [facility] Warfarin Sodium 2.5 mg 10/03/20 09:00 Warfarin Sodium 2.5 Mg Tablet PO DAILY [facility] Home Medications Medication Instructions Recorded Confirmed Last Taken Type albuterol sulfate 2 puff PO QID 10/02/20 10/02/20 Unknown History cholecalciferol (vitamin D3) 50 mcg PO DAILY 10/02/20 10/02/20 Unknown History diazepam 5 mg PO TID 10/02/20 10/02/20 10/02/20 History digoxin 1 tab PO 3XW 10/02/20 10/02/20 Unknown History midodrine 10 mg PO TID 10/02/20 10/02/20 10/02/20 History sertraline 100 mg PO DAILY 10/02/20 10/02/20 10/02/20 History sucralfate 2 g PO DAILY 10/02/20 10/02/20 Unknown History tamsulosin 1 cap PO DAILY 10/02/20 10/03/20 Unknown History tiotropium bromide [Spiriva with 1 puff INHALATION DAILY 10/02/20 10/02/20 10/02/20 History HandiHaler] warfarin 2.5 mg PO DAILY 10/02/20 10/02/20 10/02/20 History Physical Exam Vital Signs and Narrative: Vital Signs: Last Vital Signs Temp 97.8 F 10/02/20 20:29 Pulse 75 10/02/20 20:29 Resp 20 10/02/20 20:29 BP 117/73 10/02/20 20:29 Pulse Ox 95 10/02/20 20:29 Body Mass Index 18.7 Gen: Appears be in no acute distress; speaks in full sentences. Saturating well on room air. A HEENT: NCAT, Moist mucosa. Pulmonary: Vesicular breath sounds, fair air entry CVS: Normal S1-S2 Abdomen: BS+, Soft, Nontender Extremities: Warm well perfused Neuro: Alert and awake. Results Labs CBC and Chem 7: 10/05/20 05:20 10/05/20 05:20 Labs: Laboratory Results - last 24 hr 10/02/20 10/02/20 10/02/20 14:19 14:19 16:26 MCV 92.2 MCH 28.9 MCHC 31.3 RDW 14.8 Plt Count 138 L MPV 9.1 L Absolute Nucleated RBC 0.000 Nucleated RBC % (auto) 0.0 Anion Gap 13 Estim Creat Clear Calc 30.5 Estimated GFR 33 Random Glucose 87 Calcium 9.5 D Total Bilirubin 0.7 Direct Bilirubin 0.4 AST 14 ALT 6 Alkaline Phosphatase 68 Total Protein 6.9 Albumin 4.0 Blood Type A Positive Antibody Screen NEGATIVE Imaging Radiologist's Impressions: Impressions Chest X-Ray 10/02/20 12:20 IMPRESSION: Hyperinflated lungs with no acute pneumonic process. Chest CT 10/02/20 15:53 IMPRESSION: Diffuse upper and lower lobe emphysema. Right basilar groundglass opacities similar to comparison 10/02/2019 examination suggesting chronic inflammatory process. No pulmonary mass or enlarging pulmonary nodules. Small right pleural effusion. Coronary vascular disease. Similar appearance of borderline lymphadenopathy in the mediastinum in comparison to October 02, 2019 examination. Mild debris in the distal trachea extending into the right mainstem bronchus. Partially visualized abdominal aortic aneurysm. Assessment and Plan (1) GI bleed: Status: Acute A 75-year-old male with a past medical history of COPD, history of GI bl eed, hemorrhoids, irritable bowel syndrome, peripheral vascular disease/PR on Coumadin presented to the hospital with a chief complaint of blood in the vomitus/cough. Noted to have UTI. UTI: Continue ceftriaxone. Follow up cultures. ? GI bleed versus hemoptysis: CT chest showed no acute findings except for ground-glass opacities. But also noted to have diabetes in the trachea. Patient denied rectal examination. Patient respiratory status is stable. Will consult pulmonology for possible bronchoscopy Will consult GI for possible endoscopy. IV ppi Serial H&H. Will hold the home Coumadin for now. INR is 1.8-will monitor. DVT prophylaxis: SCD boots Code status: Full code
[2020-10-02 23:40] VITALS: BP 108/69; PULSE 85; RESP 16; TEMP 36.6; O2SAT 94
[2020-10-02 23:53] LABS: COVID-19 Test Negative (Negative); IDNOW Serial# 9DD0AD1C
[2020-10-03] VITALS (7 sets, daily range): BP systolic 84–129; BP diastolic 44–82; PULSE 79–91; RESP 18–24; TEMP 36.4–36.6; O2SAT 93–96
[2020-10-03] MEDS: Dextrose 5 % and 0.45 % NaCl 1,000 ML 100 ML IVCONT ×2 (06:41→18:06)
[2020-10-03] MEDS: Pantoprazole Sodium 40 MG/10 ML VIAL IVPUSH (06:41)
[2020-10-03 06:56] LABS: INTERNATIONAL NORM RATIO 1.8 (0.9-1.1); Prothrombin Time 21.6 SEC (10.8-13.0)
--- NOTE | 2020-10-03 07:24 | P.CNGI_ITS ---
History of Present Illness Data of Consult Service Date: 10/03/20 Primary Care Provider: Yoshi Cervantes MD HPI Reason for consult: GI Bleeding 75 YM with AF on chronic anticoagulation, CKD stage 3, ischemic cardiomyopathy LVEF 10-15% status post medtronic biventricular ICD implantation, CAD S/P CABG x 2, CHF, PVD, COPD seen at [facility] on 10/02/2020 with 2 week history of hemoptysis: .The patient is on Coumadin/warfarin . HPI narrative: 75-year-old male who presents emergency department for evaluation of hemoptysis. Patient states that he has been coughing up blood for approximately 2 weeks. States that the symptoms seem to come on after he eats. He states that he coughs up small amounts of dark blood which she states would fill a half of a medicine cup. States that he does this multiple times a day. He states that the symptoms have not gotten worse but been persistent therefore came to the emergency department today for evaluation. The patient states that he has hemorrhoids and always has bright red blood per rectum. He has not noticed any dark stools. He states that he has a history stomach ulcers but they never with bleeding. He denied dysphagia or odynophagia. He states that he has no teeth approximately 2 weeks ago he ate a piece of breath when he swelled a spread he felt as a there was a sharp pain in his epigastric area but otherwise he has had no odynophagia. He denied chest pain, fever, chills, cough. He states that he does have shortness of breath and dyspnea on exertion with minimal exertion Pt reports eating a frozen donut a week ago followed by throat irritation, cough with hemoptysis. Pt denies abdominal pain, dysphagia, past history of peptic ulcer disease or GI bleeding He denies fever, chills, chest pain or worsening shortness of breath. Patient denies recent change in appetite or weight, change in bowel habits, constipation, diarrhea, black stools or rectal bleeding. Family history is noncontributory due to advanced age. Pt is followed in GI by Phuong Benavides NP for IBS with diarrhea. IMAGING STUDIES: 10/02/[address] SCAN SHOWED: Diffuse upper and lower lobe emphysema. Right basilar groundglass opacities similar to comparison 10/02/2019 examination suggesting chronic inflammatory process. No pulmonary mass or enlarging pulmonary nodules. Small right pleural effusion. Coronary vascular disease. Similar appearance of borderline lymphadenopathy in the mediastinum in comparison to October 02, 2019 examination. Mild debris in the distal trachea extending into the right mainstem bronchus. Partially visualized abdominal aortic aneurysm. 10/[address] SCAN SHOWED: 1. Partial small bowel obstruction , transition zone found in the lower midabdomen LEFT of midline. (Fountain image) may consider follow-up small bowel series to assess degree of obstruction. 2. Infrarenal fusiform aneurysm of the abdominal aorta measure up to 4.6 cm. The aorta is heavily calcified. 3. Postsurgical changes of prior cholecystectomy, pneumobilia. 4. Atrophic small kidneys. 5. Diffuse rangel lobar advanced pulmonary emphysema, peripheral interlobular septal thickening and peripheral subpleural honeycombing suggesting pulmonary fibrosis 6. No lung mass. There are subcentimeter lung nodules largest 9 x 7 mm. Please see below Fleischner criteria for follow-up recommendation. 6. Aneurysmal dilatation of ascending aorta 4.3 cm. 7. Enlarged pulmonary artery suggesting pulmonary hypertension. 8. Coronary calcifications. ENDOSCOPIC STUDIES: 11/[address] Glass showed minimal edema of sigmoid wall with some diverticulae. 11/2000 Colonoscopy showed scarring consistent with a history of previous systole and perirectal abscesses. Loss of vascular pattern throughout the bowel consistent with probable colitis - no obvious friability ulcerations. No polyps were detected. Random biopsies obtained from the right and left colon were normal without appears colitis Review of Systems Constitutional: Constitutional: Denies fever(s), Denies headache(s) and Denies weight loss Eyes: Eyes: Denies eye discharge and Denies irritation ENT: Reports Normal hearing present, Denies dysphagia, Denies dizziness and Denies headache(s) Cardiovascular: Cardiovascular: Denies chest pain, Denies leg edema, Reports dyspnea and Denies dyspnea on exertion Respiratory: Respiratory: Reports cough, Reports hemoptysis, Reports dyspnea, Denies dyspnea on exertion and Denies wheezing Gastrointestinal: Gastrointestinal: Denies abdominal pain, Denies change in bowel habits, Denies dysphagia and Denies heartburn Genitourinary: Genitourinary: Denies dysuria Musculoskeletal: Musculoskeletal: Denies back pain and Denies arthralgias Integumentary/Breasts: Skin/Breast: Denies pruritus, Denies rash and Denies jaundice Neurologic: Reports Normal hearing present, Denies Abnormal speech present, Reports confusion, Denies dizziness, Denies headache(s) and Denies seizure-like activity Psychiatric: Psychiatric: Denies anxiety, Reports confusion, Denies depression and Denies panic attacks Endocrine: Endocrine: Denies cold intolerance, Denies flushing and Denies heat intolerance Hematologic/Lymphatic: Hematologic/Lymphatic: Denies easy bleeding and Denies easy bruising Allergic/Immunologic: Allergic/Immunologic: Denies wheezing PMFSH Past Medical History Medical History (Updated 12/16/20 @ 13:50 by Marlon Garcia MD) Abdominal aortic aneurysm Bacteremia Bronchopneumonia COPD (chronic obstructive pulmonary disease) COPD exacerbation Cough with hemoptysis Hemoptysis History of epigastric pain Hypotension Irritable bowel syndrome with diarrhea Kidney disease, chronic, stage III (GFR 30-59 ml/min) Need for rapid response team activation Pleural effusion Severe sepsis Systolic congestive heart failure Family History Family History Father Myocardial infarction CVD (cardiovascular disease) Mother Myocardial infarction Type 2 diabetes mellitus CVD (cardiovascular disease) Brother Heart failure Brother Heart failure Sister No problems noted. Son No problems noted. Surgical History Surgical History History of esophagogastroduodenoscopy (EGD) History of open heart surgery Hx of appendectomy Hx of arterial bypass of lower limb Hx of cholecystectomy Hx of colonoscopy Hx of esophageal hernia repair Hx of tonsillectomy Social History Social History Household Members: Spouse and Family Housing: House Do you presently have visiting nurse or other home services: Yes Alcohol intake: never Patient Tobacco Use Status: Former Tobacco user Quit Date: 12 years ago Tobacco use type: Cigarette Cigarette Packs Per Day: 1 Cigarettes Per Day: 20.0 e-Cigarette/Vaping Use: Never Used Second Hand Smoke Exposure: No Advance Directives Date on File: 01/24/20 service: No Current occupational status: retired Current occupational exposures/hazards: No Meds Allergies Allergy/AdvReac Type Severity Reaction Status Date / Time codeine [Codeine] Allergy Intermediate RASH Verified 04/07/21 15:11 fludrocortisone Allergy Unknown Unknown Verified 04/07/21 15:11 Active Medications: Current Medications Generic Name Dose Route Start Last Admin Trade Name Nat PRN Reason Stop Dose Admin Acetaminophen 650 mg 10/03/20 05:41 Acetaminophen 325 Mg Tablet PO Q6H PRN Pain, Mild (Pain Scale 1-3) Albuterol Sulfate 2 puff 10/03/20 09:00 Albuterol Sulfate 90 Mcg 8 Gm Inhaler INHALE QID [facility] Albuterol/Ipratropium 3 ml 10/02/20 23:16 Albuterol/Iprat 2.5/0.5mg 3 Ml Ampul.Neb INHALE RQ4H PRN Shortness of Breath/Wheezing Diazepam 5 mg 10/03/20 09:00 Diazepam 5 Mg Tablet PO TID [facility] Digoxin 0.125 mg 10/03/20 09:00 Digoxin 0.125 Mg Tablet PO MoWeFr@0900 [facility] Ceftriaxone Sodium 1 gm/ 50 mls @ 100 mls/hr 10/03/20 20:00 Sodium Chloride IV Q24H [facility] Dextrose/Sodium Chloride 1,000 mls @ 100 mls/hr 10/03/20 05:45 10/03/20 06:41 D51/2ns IVCONT 100 mls/hr .Q10H [facility] Administration Midodrine 10 mg 10/03/20 09:00 Midodrine Hcl 10 Mg Tablet PO TID [facility] Pantoprazole Sodium 40 mg 10/03/20 06:30 10/03/20 06:41 Pantoprazole Sodium 40 Mg/10 Ml Vial IVPUSH 40 mg DAILY@0630 [facility] Administration Pharmacy Consult 1 each 10/02/20 21:32 Consult Rx Perform Med Rec MISCELLANE ONCE PRN Consult order Sertraline HCl 100 mg 10/03/20 09:00 Sertraline Hcl 100 Mg Tablet PO DAILY [facility] Sodium Chloride 3 ml 10/03/20 08:00 0.9 % Sodium Chloride Flush 3 Ml Syringe IVFLUSH QSHIFT [facility] Sucralfate 2 gm 10/03/20 09:00 Sucralfate 1 Gm Tablet PO DAILY [facility] Tiotropium [place] 1 puff 10/03/20 09:00 Tiotropium [place] 18 Mcg Cap.W.Dev INHALE DAILY [facility] Vitamin D 50 mcg 10/03/20 09:00 Cholecalciferol (Vitamin D3) 25 Mcg Tablet PO DAILY [facility] Home Medications Medication Instructions Recorded Confirmed Last Taken Type sucralfate 1 gram tablet 2 g PO DAILY 10/02/20 04/02/21 Unknown History tiotropium bromide 18 mcg capsule 1 puff INHALATION DAILY 10/02/20 04/02/21 10/02/20 History with inhalation device (Spiriva with HandiHaler) Physical Exam Vital Signs: Vital Signs: Last Vital Signs Temp 97.8 F 10/03/20 05:10 Pulse 91 10/03/20 05:10 Resp 24 H 10/03/20 05:10 BP 127/82 10/03/20 05:10 Pulse Ox 95 10/03/20 05:10 Body Mass Index 18.7 Const: General: no acute distress, anxious, confusion and ill appearing Nutritional Appearance: average body habitus Orientation/consciousness: confusion Limitations: no limitations HENMT: Head: Yes normal to inspection Ears: hearing grossly normal bilaterally Mouth: Normal oral and palatal mucosa present Eyes: Sclerae: sclerae normal Pupils: Equal, round and reactive pupils p resent Neck: Neck: Yes normal visual inspection Chest: Chest palpation & inspection: normal inspection of the chest Resp: Effort & Inspection: normal respiratory effort Auscultation: clear to auscultation bilaterally, rales (bilateral) and diminished lung sounds Cardio: Palpation: normal PMI Rate: regular rate Rhythm: regular rhythm Heart sounds: S1 normal heart sound present, S2 normal heart sound present and no murmurs GI: Palpation (GI): Soft to palpation, nontender and No hepatosplenomegaly present Auscultation: normal bowel sounds Rectal Exam - Male: Yes deferred Skin: General skin exam: no rashes or lesions noted Neuro: General: gait normal, moves all extremities and confusion Cranial nerves: Yes Equal, round and reactive pupils present and Yes Normal hearing present Speech: No Abnormal speech present Psych: Appearance: grossly normal Mental Status: mental status grossly normal Results Labs CBC & Chem 7: 10/12/20 05:31 10/12/20 05:32 Labs: Short CBC 10/02/20 Range/Units 14:19 WBC 7.5 (4.8-10.8) X10*3/uL Hgb 11.5 L (14.0-18.0) g/dl Hct 36.7 L (42-52) % Plt Count 138 L (160-400) X10*3/uL BMP 10/02/20 14:19 Sodium 140 Potassium 4.8 Chloride 107 Carbon Dioxide 25 BUN 29 H Creatinine 1.98 H Calcium 9.5 D Liver Function 10/02/20 Range/Units 14:19 Total Bilirubin 0.7 (0.0-1.0) mg/dL Direct Bilirubin 0.4 (0.0-0.5) mg/dL AST 14 (5-37) U/L ALT 6 (0-40) U/L Alkaline Phosphatase 68 (39-117) U/L Albumin 4.0 (3.5-5.0) g/dL Assessment and Plan (1) Irritable bowel syndrome with diarrhea: (2) History of epigastric pain: (3) GI bleed: Status: Resolved 75 YM with AF on chronic anticoagulation, CKD stage 3, ischemic cardiomyopathy LVEF 10-15% status post medtronic biventricular ICD implantation, CAD S/P CABG x 2, CHF, PVD, COPD seen at [facility] on 10/02/2020 with 2 week history of hemoptysis/? Hematemesis. The patient is on Coumadin/warfarin . Symptoms started after he ate some frozen foods Pt complains of intermittent rectal bleeding which he attributes to hemorrhoids. The patient deferred rectal examination in the ED. He is hemodynamically stable. Hemoptysis/hematemesis possibly due to mucosal tear of the esophagus while ingesting frozen food Labs showed mild chronic anemia (H&H of 11.5 and 36.7) and thrombocytopenia with a platelet count of 138 (stable). PT/INR was subtherapeutic at 21.3 and 1.8. Chest x-ray was unremarkable. RECOMMENDATIONS: 1. Monitor CBC daily. 2. Continue PPI and Carafate. 3. If he has continued symptoms with decline and H&H, he can be scheduled for further evaluation with an upper endoscopy. Symptoms improve, he can be discharged home and follow up in GI with Phuong Benavides NP as an outpatient. I did discuss scheduling an EGD and possible colonoscopy as an outpatient. Procedures Date of Service Date of Service: 10/03/20
[2020-10-03] MEDS: Cholecalciferol (Vitamin D3) 25 MCG TABLET 50 MCG PO (09:36)
[2020-10-03] MEDS: Midodrine HCl 10 MG TABLET PO ×3 (09:36→20:00)
[2020-10-03] MEDS: Sertraline HCL 100 MG TABLET PO (09:37)
[2020-10-03] MEDS: diazePAM 5 MG TABLET PO ×3 (09:37→20:00)
[2020-10-03] MEDS: Sucralfate 1 GM TABLET 2 GM PO (09:37)
--- NOTE | 2020-10-03 10:37 | PM.EVENT ---
Event Note Date of Service: 10/03/20 Event Note: PULMONARY NOTE THIS 75 YEARS OLD GENTLEMAN IS SEEN IN THE EMERGENCY ROOM SUITE,. HE CAME WITH HISTORY OF INTERMITTENT HEMOPTYSIS FOR THE LAST FEW DAYS. PRESENTLY HE DENIES COUGHING UP ANY BLOOD. ON EXAMINATION HE DOES HAVE EVIDENCE OF CHRONIC OBSTRUCTIVE PULMONARY DISEASE WITH FIBROTIC CHANGES IN THE LOWER LOBES ESPECIALLY ON THE RIGHT SIDE. CT SCAN FINDING IS NOTED, DESCRIBING SOME DEBRIS IN THE DISTAL PART OF TRACHEA. THAT PROBABLY REPRESENTS MUCUS. PATIENT DOES HAVE CHANGES OF CHRONIC OBSTRUCTIVE PULMONARY DISEASE AND CHRONIC FIBROSIS, WITH SOME BRONCHIECTATIC CHANGES IN THE LOWER LOBES. COMPLETE NOTE IS DICTATED. P: CONTINUE TO TREAT WITH DUONEB UPDRAFTS Q.4 HOURS P.R.N.. O2 2 L/MINUTE AG IN CASE HE NEEDS TO KEEP O2 SAT ABOVE 90. HE IS STARTED ON ROCEPHIN FOR UTI AND THIS SHOULD BE APPROPRIATE EVEN FOR RESPIRATORY INFECTION IN CASE. NO NEED OF 0 BRONCHOSCOPY AT THIS TIME. IF HE IS ADMITTED, WILL RE-EVALUATE HIM , IF THERE IS RECURRENCE OF HEMOPTYSIS.
--- NOTE | 2020-10-03 12:34 | CONS_ITS ---
DATE OF SERVICE: 10/03/2020 HISTORY OF PRESENT ILLNESS: This 75-year-old gentleman is seen by me in the emergency room suite. He has been here since yesterday. The patient presented with chief complaint of blood when he coughed up and it is not clear whether the blood came with cough or when he was trying to vomit. The patient is quite confused and not able to describe clearly. It is reported that about 1 week ago, he ate some frozen food and subsequently has had throat irritation with some cough, and apparently, he has had bouts of small amount of blood, which he coughed up. He does not have any difficulty in swallowing and does not have any increased amount of dyspnea. Also, no fever or chills. Denies any chest pain. REVIEW OF SYSTEMS: Not possible because he is not very clear mentally, but as mentioned in the history above, he denies any chest pain, fever, or chills. His main issue is that he has had some problem after eating the frozen food, probably a bagel from the Fridge. PAST MEDICAL HISTORY: Reviewed from the records and he does have chronic obstructive pulmonary disease for some time. He is on Spiriva inhaler 1 inhalation daily and albuterol just p.r.n. In addition, he has chronic kidney disease. From the chest examination, it appeared that he has had CABG in the past and he also has a pacemaker battery in the left pectoral area. The patient denies smoking at this time. PHYSICAL EXAMINATION: GENERAL: 75-year-old gentleman of a very thin build, is alert, but does not converse very clearly. When I was talking to him, his main concern was that he had lost his dentures, which he could not find. THROAT: Looks very clear. No infection. NECK: No JVD. Trachea midline. CHEST: Thin. Percussion note resonant. Breath sounds are quite distant. He has inspiratory crepitations over the basilar areas, especially on the right side. CARDIAC: Sounds are distant. Rhythm is regular. No murmurs or gallops. ABDOMEN: Flat, soft, and nontender. EXTREMITIES: No edema or varicosities. Peripheral pulses are not palpable. DIAGNOSTIC DATA: Chest x-ray shows hyperinflated lungs. No consolidation is noted. The patient has evidence of a pacemaker battery in the left chest wall and evidence of CABG from before. CT scan of the chest consistent with chronic obstructive pulmonary disease. Also, there is some degree of peripheral pulmonary fibrosis in the right lower lobe and left lower lobe and there is some bronchiectasis. There is a faint density in the lower part of the trachea, most likely representing mucous. CLINICAL IMPRESSION: 1. Hemoptysis, most likely due to mild tracheitis or bronchitis. 2. Chronic obstructive pulmonary disease. 3. Chronic pulmonary fibrosis. 4. From pulmonary point of view, he is fairly stable at this time and no further hemoptysis is reported. RECOMMENDATIONS: I do not think he needs bronchoscopy at this time. He should be treated with a course of antibiotic empirically. Rocephin has been started for UTI. I think that should be enough for his respiratory tract infection as well. He should continue his Spiriva inhaler 1 inhalation daily at home. Albuterol 2 puffs q.4-6 hours p.r.n. The patient can be followed as outpatient if needed. In case he continues to have hemoptysis and is admitted to the hospital, we would definitely re-evaluate him after the weekend. Thank you very much for asking me to see this patient. MD TONYA Hallman/LEYDA / [id number]
[2020-10-03] MEDS: Digoxin 0.125 MG TABLET PO (13:57)
--- NOTE | 2020-10-03 14:47 | P.PNIM_ITS ---
Subjective Subjective Date of Service: 10/04/20 Interval History: Pt seen and examined at bedside. Twice. Initially when I saw the patient he was alert and oriented. He denied having any recurrent hemoptysis or hematemesis. no abdominal pain, no difficulty breathing. I discussed with him the social worker school and Gastroenterology recommendations which were to follow-up outpatient. this AM his blood cultures did grow gram positive cocci in both bottles. And therefore I went and saw the patient for the 2nd time. Pt was started on vancomycin. At this time we have no source although patient does have a UTI. I discussed the microbiology findings with the patient, he was unhappy that he had to stay in the hospital for further management and evaluation but agreed to stay. 30 minutes after my 2md visit with the patient, a rapid response was called on the patient due to unresponsiveness. His blood pressure had dropped to 60/40s. During the rapid response patient was minimally responsive, blood pressure was 67/48, heart rate of 90s-120s . Patient did not appear in any respiratory distress although pulse ox showed an O2 of 92% There was no evidence of bleed, no evidence of aspiration. Patient started on IV bolus, ICU attending notified and patient will be transferred to the ICU for further management and vasopressors. Physical Exam Vital Signs: Vital Signs: Last Vital Signs Temp 97.8 F 10/03/20 05:10 Pulse 81 10/03/20 13:58 Resp 24 H 10/03/20 05:10 BP 121/48 L 10/03/20 13:58 Pulse Ox 95 10/03/20 05:10 Body Mass Index 18.7 Const: Other: On my initial exam patient was alert oriented, comfortable, no apparent distress During the rapid response, patient minimally responsive, opens eyes, response yes to his name, Eyes: General: appearance normal, both eyes and all related structures Resp: Other: No respiratory distress although pulse ox initially was reading 60s, sensitive pulse ox was applied to the finger and O2 was found to be 92% on non-rebreather Effort & Inspection: normal respiratory effort Cardio: Other: Tachycardic, very thready pulses in the extremities during the rapid response GI: Palpation (GI): Soft to palpation Auscultation: normal bowel sounds Skin: Other: Mottled, Neuro: Cognition (Neuro): normal cognition Objective Data Current Medications Generic Name Dose Route Start Last Admin Trade Name Freq PRN Reason Stop Dose Admin Acetaminophen 650 mg 10/03/20 05:41 Acetaminophen 325 Mg Tablet PO Q6H PRN Pain, Mild (Pain Scale 1-3) Albuterol Sulfate 2 puff 10/03/20 16:00 Albuterol Sulfate 90 Mcg 8 Gm Inhaler INHALE RQID OLIVIA Albuterol/Ipratropium 3 ml 10/02/20 23:16 Albuterol/Iprat 2.5/0.5mg 3 Ml Ampul.Neb INHALE RQ4H PRN Shortness of Breath/Wheezing Diazepam 5 mg 10/03/20 09:00 10/03/20 13:58 Diazepam 5 Mg Tablet PO 5 mg TID OLVIIA Administration Digoxin 0.125 mg 10/03/20 09:00 10/03/20 13:57 Digoxin 0.125 Mg Tablet PO 0.125 mg MoWeFr@0900 OLIVIA Administration Ceftriaxone Sodium 1 gm/ 50 mls @ 100 mls/hr 10/03/20 20:00 Sodium Chloride IV Q24H OLIVIA Dextrose/Sodium Chloride 1,000 mls @ 100 mls/hr 10/03/20 05:45 10/03/20 06:41 D51/2ns IVCONT 100 mls/hr .Q10H OLIVIA Administration Midodrine 10 mg 10/03/20 09:00 10/03/20 13:58 Midodrine Hcl 10 Mg Tablet PO 10 mg TID OLIVIA Administration Pantoprazole Sodium 40 mg 10/03/20 06:30 10/03/20 06:41 Pantoprazole Sodium 40 Mg/10 Ml Vial IVPUSH 40 mg DAILY@0630 OLIVIA Administration Pharmacy Consult 1 each 10/02/20 21:32 Consult Rx Perform Med Rec MISCELLANE ONCE PRN Consult order Sertraline HCl 100 mg 10/03/20 09:00 10/03/20 09:37 Sertraline Hcl 100 Mg Tablet PO 100 mg DAILY OLIVIA Administration Sodium Chloride 3 ml 10/03/20 08:00 10/03/20 09:45 0.9 % Sodium Chloride Flush 3 Ml Syringe IVFLUSH Not Given QSHIFT OLIVIA Sucralfate 2 gm 10/03/20 09:00 10/03/20 09:37 Sucralfate 1 Gm Tablet PO 2 gm DAILY OLIVIA Administration Tiotropium [place] 1 puff 10/03/20 09:00 10/03/20 07:45 Tiotropium [place] 18 Mcg Cap.W.Dev INHALE Not Given DAILY OLIVIA Vitamin D 50 mcg 10/03/20 09:00 10/03/20 09:36 Cholecalciferol (Vitamin D3) 25 Mcg Tablet PO 50 mcg DAILY OLIVIA Administration Labs CBC & Chem 7: 10/04/20 05:53 10/04/20 05:53 Microbiology Microbiology Results: Microbiology 10/02/20 20:26 Blood - Venous Blood Culture - Preliminary Assessment and Plan (1) Severe sepsis: Status: Acute (2) Need for rapid response team activation: Status: Acute (3) Cough with hemoptysis: Status: Acute (4) Acute UTI: Status: Acute (5) Bacteremia: Status: Acute Assessment and Plan: This is a 75-year-old male who presented initially to the hospital with complaints of hemoptysis. Patient was evaluated by both social worker school who felt no need for bronchoscopy and also by GI who felt that the patient's hemoglobin was stable and therefore no need for further intervention. This a.m. a rapid response was called on patient after he became semi unresponsive with a drop in his O2 as well as BP # severe sepsis - a rapid response was called on the patient on the floor for semi unresponsiveness as well as drop in his BP - patient is bacteremic although source is unclear at this point - patient was being treated for ATN with ceftriaxone - repeat cultures have been sent this a.m. - vancomycin started - patient is being transferred to the ICU for further management and vasopressor # bacteremia - patient found to have positive blood cultures with Gram-positive cocci in clusters - IV antibiotics - follow cultures - infectious disease on consult - further management per ICU team # hemoptysis - possible secondary to injury by frozen food ingestion secondary to tracheitis or bronchitis. - social worker school evaluated patient, do not feel the patient needs any further bronchoscopy. - H&H has remained stable - follow CBC - patient was also evaluated by GI with no recommendation for further intervention in-patient. To continue PPI and Carafate. And can follow-up outpatient with GI office. # UTI - was being treated with IV ceftriaxone - UA repeat this morning is negative - patient's antibiotics are being upgraded as he is being transferred to the ICU for severe sepsis # COPD - No exacerbation DVT prophylaxis: Per ICU
--- NOTE | 2020-10-03 15:35 | MHC.CM.PN ---
CM MET WITH PT WHO REPORTS BEING VERY UPSET AND HUNGRY HE STATES HE HAS NOT EATEN SINCE BREAKFAST. PT THEN REPORTS HE HAS NOT BEEN ABLE TO WALK FOR THE PAST 6 MONTHS BECAUSE HE WAS MISDIAGNOSED WITH A KNEE SPRAIN THAT TURNED OUT TO BE BROKEN. PT REPORTS HE LIVES WITH HIS AND HAS A PP PRICE LISTER THAT IS MORE LIKE FAMILY . PT REPORTS HE USES A CANE TO AMBULATE. PT REPORTS HE DOES NOT HAVE A HCP AND DOES NOT WANT TO DO ONE TODAY. OBS NOTICE DELIVERED CURRENT DC PLAN IS TBD PT REPORTS HIS SON WILL ARRANGE TRANSPORT AT DC
[2020-10-03] MEDS: cefTRIAXone sodium 1 GM in 0.9 % Sodium Chloride 50 ML IV (19:48)
[2020-10-03] MEDS: 0.9 % Sodium Chloride Flush 3 ML SYRINGE IVFLUSH (20:00)
--- NOTE | 2020-10-03 23:48 | PM.CNNEP ---
History of Present Illness Reason for Consult Consult date: 10/03/20 Reason for consult: GAMALIEL/CKD Requesting physician: Noel Jones Chief Complaint Chief complaint: GI Bleed History of Present Illness Narrative: 75-year-old male note incr SCr on CKD in setting of adm of UGIB. No GH/dysuria. PMH: CAD and HFrEF ( 10-15%), Low BP maintained on midridine, GI bleed, hemorrhoids, peripheral vascular disease/CAD/mi on Coumadin, COPD, chronic kidney Review of Systems Review of Systems Yes all other systems are reviewed and are negative Constitutional: Denies fever(s), Denies headache(s) and Denies weight loss Eyes: Denies eye discharge and Denies irritation Reports Normal hearing present, Denies dysphagia, Denies dizziness and Denies headache(s) Cardiovascular: Denies chest pain, Denies leg edema, Reports dyspnea and Denies dyspnea on exertion Respiratory: Reports cough, Reports hemoptysis, Reports dyspnea, Denies dyspnea on exertion and Denies wheezing Gastrointestinal: Denies abdominal pain, Denies change in bowel habits, Denies dysphagia and Denies heartburn Genitourinary: Denies dysuria Musculoskeletal: Denies back pain and Denies arthralgias Skin/Breast: Denies pruritus, Denies rash and Denies jaundice Reports Normal hearing present, Denies Abnormal speech present, Reports confusion, Denies dizziness, Denies headache(s) and Denies seizure-like activity Psychiatric: Denies anxiety, Reports confusion, Denies depression and Denies panic attacks Endocrine: Denies cold intolerance, Denies flushing and Denies heat intolerance Hematologic/Lymphatic: Denies easy bleeding and Denies easy bruising Allergic/Immunologic: Denies wheezing PMFSH Past Medical History Medical History COPD (chronic obstructive pulmonary disease) Kidney disease, chronic, stage III (GFR 30-59 ml/min) Family History Family History Father Myocardial infarction CVD (cardiovascular disease) Mother Myocardial infarction Type 2 diabetes mellitus CVD (cardiovascular disease) Brother Heart failure Brother Heart failure Sister No problems noted. Son No problems noted. Surgical History Surgical History History of esophagogastroduodenoscopy (EGD) History of open heart surgery Hx of appendectomy Hx of arterial bypass of lower limb Hx of cholecystectomy Hx of colonoscopy Hx of esophageal hernia repair Hx of tonsillectomy Social History Social History Household Members: Spouse and Family Housing: House Do you presently have visiting nurse or other home services: Yes Alcohol intake: former Patient Tobacco Use Status: Former Tobacco user Quit Date: 12 years ago Tobacco use type: Cigarette Cigarette Packs Per Day: 1 Cigarettes Per Day: 20.0 Smoked in Last 30 Days: No Patient Interested in Nicotine Replacement: No Patient Given Instructions on How to Stop Smoking: No Second Hand Smoke Exposure: No Use of substances other than those prescribed or required for medical reasons: No Currently Displaying Signs/Symptoms of Drug Intoxication Withdrawal: No Any prior treatment program specific to substance use: No Have you been hit, kicked, punched, or otherwise hurt by someone within the past year? If so, by whom?: No Do you feel safe in your current relationship?: Yes Is there a partner from a previous relationship who is making you feel unsafe now?: No Advance Directives: No Advance Directives Information Provided: No Advance Directives Date on File: 01/24/20 Do you have thoughts of harming others: None Do you have a plan to hurt others: No Plan Recently lost weight without trying: Yes How much weight loss: 34pounds or more Eating poorly because of decreased appetite: Yes Nutrition screen score: 7 Nutrition Risks: Emaciation/Cachexia and Poor intake 0-25% >4 days Poor oral hygiene: No service: No Current occupational status: retired [employer] Allergies Allergy/AdvReac Type Severity Reaction Status Date / Time codeine [Codeine] Allergy Intermediate RASH Verified 03/27/20 09:54 fludrocortisone Allergy Unknown Unknown Verified 03/27/20 09:54 Active Medications: Current Medications Generic Name Dose Route Start Last Admin Trade Name Freq PRN Reason Stop Dose Admin Acetaminophen 650 mg 10/03/20 05:41 Acetaminophen 325 Mg Tablet PO Q6H PRN Pain, Mild (Pain Scale 1-3) Albuterol Sulfate 2 puff 10/03/20 16:00 10/03/20 19:31 Albuterol Sulfate 90 Mcg 8 Gm Inhaler INHALE Not Given RQID OLIVIA Albuterol/Ipratropium 3 ml 10/02/20 23:16 Albuterol/Iprat 2.5/0.5mg 3 Ml Ampul.Neb INHALE RQ4H PRN Shortness of Breath/Wheezing Diazepam 5 mg 10/03/20 09:00 10/03/20 20:00 Diazepam 5 Mg Tablet PO 5 mg TID [facility] Administration Digoxin 0.125 mg 10/03/20 09:00 10/03/20 13:57 Digoxin 0.125 Mg Tablet PO 0.125 mg MoWeFr@0900 [facility] Administration Ceftriaxone Sodium 1 gm/ 50 mls @ 100 mls/hr 10/03/20 20:00 10/03/20 20:38 Sodium Chloride IV Infused Q24H OLIVIA Infusion Dextrose/Sodium Chloride 1,000 mls @ 100 mls/hr 10/03/20 05:45 10/03/20 18:06 D51/2ns IVCONT 100 mls/hr .Q10H [facility] Administration Midodrine 10 mg 10/03/20 09:00 10/03/20 20:00 Midodrine Hcl 10 Mg Tablet PO 10 mg TID [facility] Administration Pantoprazole Sodium 40 mg 10/03/20 06:30 10/03/20 06:41 Pantoprazole Sodium 40 Mg/10 Ml Vial IVPUSH 40 mg DAILY@0630 [facility] Administration Pharmacy Consult 1 each 10/02/20 21:32 Consult Rx Perform Med Rec MISCELLANE ONCE PRN Consult order Sertraline HCl 100 mg 10/03/20 09:00 10/03/20 09:37 Sertraline Hcl 100 Mg Tablet PO 100 mg DAILY [facility] Administration Sodium Chloride 3 ml 10/03/20 08:00 10/03/20 20:00 0.9 % Sodium Chloride Flush 3 Ml Syringe IVFLUSH 3 ml QSHIFT [facility] Administration Sucralfate 2 gm 10/03/20 09:00 10/03/20 09:37 Sucralfate 1 Gm Tablet PO 2 gm DAILY [facility] Administration Tiotropium [place] 1 puff 10/03/20 09:00 10/03/20 07:45 Tiotropium [place] 18 Mcg Cap.W.Dev INHALE Not Given DAILY [facility] Vitamin D 50 mcg 10/03/20 09:00 10/03/20 09:36 Cholecalciferol (Vitamin D3) 25 Mcg Tablet PO 50 mcg DAILY OLIVIA Administration Home Medications Medication Instructions Recorded Confirmed Last Taken Type albuterol sulfate 2 puff PO QID 10/02/20 10/02/20 Unknown History cholecalciferol (vitamin D3) 50 mcg PO DAILY 10/02/20 10/02/20 Unknown History diazepam 5 mg PO TID 10/02/20 10/02/20 10/02/20 History digoxin 1 tab PO 3XW 10/02/20 10/02/20 Unknown History midodrine 10 mg PO TID 10/02/20 10/02/20 10/02/20 History sertraline 100 mg PO DAILY 10/02/20 10/02/20 10/02/20 History sucralfate 2 g PO DAILY 10/02/20 10/02/20 Unknown History tamsulosin 1 cap PO DAILY 10/02/20 10/03/20 Unknown History tiotropium bromide [Spiriva with 1 puff INHALATION DAILY 10/02/20 10/02/20 10/02/20 History HandiHaler] warfarin 2.5 mg PO DAILY 10/02/20 10/02/20 10/02/20 History Physical Exam Vital Signs: Last Vital Signs Temp 97.7 F 10/03/20 19:24 Pulse 89 10/03/20 19:53 Resp 18 10/03/20 19:24 BP 96/58 L 10/03/20 19:53 Pulse Ox 93 10/03/20 19:24 Body Mass Index 18.7 Const General: cooperative, no acute distress, anxious, confusion, ill appearing and other (Anxious) Nutritional Appearance: average body habitus Orientation/consciousness: oriented to person, oriented to place and confusion Limitations: no limitations [facility] Head: Yes normal to inspection, Yes normocephalic and Yes atraumatic Ears: hearing grossly normal bilaterally and external ears normal General nose exam: Normal external nose present Face and sinus: Yes normal facial exam Mouth: Normal oral and palatal mucosa present Throat: Yes posterior oropharynx normal Eyes Periorbital: periorbital findings normal Eyelids: Yes eyelids normal Conjunctivae: conjunctivae normal Sclerae: sclerae normal Corneas: corneas normal Pupils: Equal, round and reactive pupils present Direct Ophthalmoscopy: normal light reflex Neck Neck: Yes normal visual inspection, Yes full ROM, Yes no lymphadenopathy, Yes no meningeal signs, Yes trachea midline and Yes supple Chest Chest palpation & inspection: normal inspection of the chest and normal palpation of entire chest wall Resp Effort & Inspection: normal respiratory effort and able to speak in complete sentences Auscultation: clear to auscultation bilaterally, rales (bilateral) and diminished lung sounds Cardio Palpation: normal PMI Rate: regular rate Rhythm: regular rhythm Heart sounds: S1 normal heart sound present, S2 normal heart sound present and no murmurs GI Inspection: Yes normal to inspection Palpation (GI): Soft to palpation, nontender, no guarding, not rigid and No hepatosplenomegaly present Auscultation: normal bowel sounds Rectal Exam - Male: Yes deferred General: Yes no CVA tenderness Back/Spine/Pelvis Back: no CVA tenderness Cervical Spine: normal cervical lordosis Thoracic/Lumbar Spine: thoracic and lumbar spine normal to inspection Skin General skin exam: no rashes or lesions noted Lesions: no lesions Rashes: no rashes Wounds: no wounds Neuro General: oriented to person, oriented to place, gait normal, moves all extremities, no meningeal signs and confusion Cranial nerves: Yes CN's II-XII intact bilaterally, Yes Equal, round and reactive pupils present and Yes Normal hearing present Cognition (Neuro): normal cognition Speech: No Abnormal speech present Motor exam (neuro): 5/5 motor strength present throughout Extrem General: Yes normal to inspection and Yes full ROM Psych Appearance: grossly normal and well kempt Mental Status: mental status grossly normal Speech and movement: Normal speech and movement present Affect: normal affect Attitude: cooperative Thought process: Normal thought process present Thought content: Normal thought content present Results Lab Results Result Diagrams: 10/02/20 14:19 10/02/20 14:19 Lab results: Chemistry 10/02/20 14:19 Sodium 140 Potassium 4.8 Carbon Dioxide 25 BUN 29 H Creatinine 1.98 H Calcium 9.5 D Hematology 10/02/20 14:19 WBC 7.5 Hgb 11.5 L Plt Count 138 L Assessment and Plan (1) Irritable bowel syndrome with diarrhea: Status: Acute (2) History of epigastric pain: Status: Acute (3) GI bleed: Status: Acute 75 YM GAMALIEL on CKDadm UGIB and mulct chronic med prob including chronic low BPs maiantianed on midrdine and HFrEF 1. GAMALIEL: incr SCr d/t renal hypoperfusion from UGIB 2. CKD 3: CRSyn with low BPs/renal perfusion 3. GIB REC: repeat renal labs and if incr SCr in am then will need additional renal eval; cont midrdine; may need cautious IVF if incr Scr Procedures Date of Service Date of Service: 10/03/20
[2020-10-04] VITALS (28 sets, daily range): BP systolic 60–134; BP diastolic 40–83; PULSE 70–98; RESP 12–25; TEMP 36.4–37; O2SAT 91–99
--- NOTE | 2020-10-04 | ECG_ITS ---
Test Reason : R/O NC Blood Pressure : / mmHG Vent. Rate : 092 BPM Atrial Rate : 088 BPM P-R Int : 160 ms QRS Dur : 118 ms QT Int : 402 ms P-R-T Axes : 000 082 093 degrees QTc Int : 497 ms Atrial fibrillation with Right bundle branch block with Right ventricular hypertrophy ventricular-paced complexes Low voltage QRS Abnormal ECG When compared with ECG of 02-OCT-2020 21:35, No significant changes seen Referred By: Trev Alva Electronically Signed By:DAYAN LOMAX MD
[2020-10-04] MEDS: Pantoprazole Sodium 40 MG/10 ML VIAL IVPUSH (06:24)
[2020-10-04 06:45] LABS: MANUAL DIFF FLAG NO
[2020-10-04 06:58] LABS: Basophils Percent Auto 0.4 % (0-2); Eosinophils Absolute Auto 0.4 X10*3/uL (0.0-0.4); Eosinophils Percent Auto 6.1 % (0-4); Hematocrit 30.2 % (42-52); Hemoglobin 9.5 g/dl (14.0-18.0); Imm Gran Abs Auto 0.02 X10*3/uL (0.00-0.03); Imm Gran Pct Auto 0.4 % (0.0-0.4); Lymphocytes Absolute Auto 0.7 X10*3/uL (1.2-4.9); Lymphocytes Percent Auto 11.9 % (20-40); Mean Corpuscular HGB Conc 31.5 g/dl (31.0-36.0); Mean Corpuscular Hemoglobin 28.8 pg (27.0-33.0); Mean Corpuscular Volume 91.5 fL (80-98); Mean Platelet Volume 9.7 fL (9.4-12.4); Monocytes Absolute Auto 0.4 X10*3/uL (0.1-1.2); Monocytes Percent Auto 6.5 % (2-11); Neutrophils Absolute Auto 4.3 X10*3/uL (2.0-8.3); Neutrophils Percent Auto 74.7 % (45-73); Platelet Count 121 X10*3/uL (160-400); White Blood Count 5.7 X10*3/uL (4.8-10.8)
[2020-10-04 07:19] LABS: Anion Gap 14 (12-20); Carbon Dioxide 21 mmol/L (22-29); Chloride 109 mmol/L (96-108); Creatinine Clr Calc Pharmacy 35.3; Estimated Glomerular Filt Rate 39; Potassium 4.4 mmol/L (3.3-5.1); Sodium 140 mmol/L (135-145)
[2020-10-04 07:43] LABS: Anion Gap 15 (12-20); Blood Urea Nitrogen 25 mg/dL (9-16); Calcium 8.2 mg/dL (8.4-10.2); Carbon Dioxide 21 mmol/L (22-29); Chloride 110 mmol/L (96-108); Creatinine Clr Calc Pharmacy 36.4; Estimated Glomerular Filt Rate 40; Glucose Random 82 mg/dL (60-115); Potassium 4.5 mmol/L (3.3-5.1); Sodium 141 mmol/L (135-145)
[2020-10-04] MEDS: Albuterol Sulfate 90 MCG 8 GM INHALER 2 PUFF INHALE (08:19)
[2020-10-04 09:21] LABS: INTERNATIONAL NORM RATIO 1.7 (0.9-1.1); Prothrombin Time 20.6 SEC (10.8-13.0)
[2020-10-04] MEDS: Sertraline HCL 100 MG TABLET PO (09:56)
[2020-10-04] MEDS: vancomycin HCL 1,500 MG in 0.9 % Sodium Chloride 500 ML 333.33 MG IV (09:56)
[2020-10-04] MEDS: Sucralfate 1 GM TABLET 2 GM PO (09:56)
[2020-10-04] MEDS: Cholecalciferol (Vitamin D3) 25 MCG TABLET 50 MCG PO (09:56)
[2020-10-04] MEDS: Midodrine HCl 10 MG TABLET PO ×3 (09:57→20:08)
[2020-10-04] MEDS: diazePAM 5 MG TABLET PO (09:57)
[2020-10-04 10:42] LABS: Glucose Urine UA NEG (NEG); Leukocyte Esterase Urine NEG (NEG); Nitrite Urine NEG (NEG); PH 5.5 (5.0-8.0); Urine Blood NEG (NEG); Urine Ketones NEG (NEG); Urine Protein NEG (NEG-TRACE)
[2020-10-04 10:45] LABS: Color Urine YELLOW
[2020-10-04 10:46] LABS: Appearance Urine CLEAR
[2020-10-04 11:01] LABS: ABG Base Excess -8.1 mmol/L; ABG HCO3 17 mmol/L (22-26); ABG pCO2 38 mmHg (32-45); ABG pCO2 TC 37 mmHg (32-45); ABG pH 7.27 (7.35-7.45); ABG pH TC 7.28 (7.35-7.45); ABG pO2 362 mmHg (83-108); ABG pO2 TC 359 (83-108)
[2020-10-04 11:05] LABS: Glucose, Whole Blood 149 mg/dL (60-115)
[2020-10-04 11:08] LABS: Creatinine Urine 44.71 mg/dL
[2020-10-04 11:09] LABS: Hematocrit 35.3 % (42-52); Mean Corpuscular HGB Conc 31.2 g/dl (31.0-36.0); Mean Corpuscular Hemoglobin 28.6 pg (27.0-33.0); Mean Corpuscular Volume 91.9 fL (80-98); Mean Platelet Volume 9.4 fL (9.4-12.4); Platelet Count 160 X10*3/uL (160-400); Red Blood Count 3.84 X10*6/uL (4.60-5.80); Red Cell Distribution Width 15.1 % (11.0-16.0); White Blood Count 4.9 X10*3/uL (4.8-10.8)
--- NOTE | 2020-10-04 11:25 | ECG_ITS ---
Test Reason : Rule out AR Blood Pressure : / mmHG Vent. Rate : 114 BPM Atrial Rate : 097 BPM P-R Int : 000 ms QRS Dur : 128 ms QT Int : 398 ms P-R-T Axes : 000 093 266 degrees QTc Int : 548 ms Atrial fibrillation with ventricular-paced complexes Non-specific intra-ventricular conduction block Possible Lateral infarct , age undetermined T wave abnormality, consider inferior ischemia Abnormal ECG When compared to the previous EKG of AF with intermittent natice conduction noted IVCD is present on [place] conduction Referred By: Trev Alva Electronically Signed By:DAYAN LOMAX MD
[2020-10-04 11:27] LABS: Lactic Acid 1.7 mmol/L (0.5-2.0)
[2020-10-04 11:34] LABS: Anion Gap 13 (12-20); Blood Urea Nitrogen 25 mg/dL (9-16); Calcium 7.8 mg/dL (8.4-10.2); Carbon Dioxide 19 mmol/L (22-29); Chloride 113 mmol/L (96-108); Creatinine Clr Calc Pharmacy 35.5; Estimated Glomerular Filt Rate 39; Glucose Random 111 mg/dL (60-115); Potassium 4.1 mmol/L (3.3-5.1); Sodium 141 mmol/L (135-145)
[2020-10-04 11:36] LABS: Troponin-I High Sensitivity 26.2 ng/L (<3.5-35.0)
[2020-10-04] MEDS: Lactated Ringers 500 ML 999 ML IV (11:45)
--- NOTE | 2020-10-04 11:57 | PC.NURSE ---
At approximately 1015 this AM, patient complained he did not feel well. Patients skin appeared ashen. Blood pressure in the 50s/40s. Patient was staring at ceiling and speech was garbled and aphasic. Rapid Response called. Dr. Quiles at bedside along with other staff to assist. Two boluses of fluids ordered and begun. STAT EKG ordered and completed. STAT labs ordered. Blood pressure in the 60s/40s. Patient transferred down to the ICU. Report given to ICU nurse.
--- NOTE | 2020-10-04 13:59 | PM.CCPN ---
Subjective Subjective Date of Service: 10/04/20 Interval History: Mr. Lujan was transferred to ICU this morning after becoming unresponsive and hypotensive on IMC. The patient is a 75 yo M with PMHx of CAD, s/p CABG in , s/p PPM/ICD 1999, atrial fibrillation on Coumadin, peripheral vascular disease status post interventional procedure, COPD, CKD (baseline about 21/1.5), GI bleed, and hemorrhoids. The patient has dilated ischemic CMOP with low BP and is chronically on midodrine. Last echo in 2014 showed: - atrial fibrillation - markedly dilated left ventricle with normal wall thickness. - Severely reduced ejection fraction, approximately 20%, with marked regional wall motion abnormalities: Basal and septal akinesis and apical dyskinesis. - normal right ventricle. - Markedly dilated left atrium. - Mild to moderate MR. - mild TR; CWD jet 2.95 m/sec. -inferior vena cava dilated with poor inspiratory collapse; RVSP 43mm. He presented to the hospital on October 02 with a chief complaint of blood in the vomitus or cough. Patient reported that about a week ago he had frozen food and subsequently had some throat discomfort and since then she has been having cough/intermittent episodes of blood. Denied any fevers. Denied any difficulty swallowing. Denies any chest pain or palpitations. The pt declined a rectal examination; hemoglobin stable. Vitals stable. Sat high 90?s on room air. INR subtherapeutic at 1.8. BUN/creat were 29/1.9. CT chest showed severe emphysema with some borderline ground-glass in the periphery of the lower right lung, and small right pl effusion -- all unchanged from one year ago. The urinalysis in the [facility] records was misread and he was thought to have a UTI (the positive U/A was actually from 2019) and he was given ceftriaxone. The patient was admitted for further management. In regards to poss hemoptysis, he was seen by pulmonary and they rec?d a course of Abx and bronchodilators, with reevaluation if he continued to have hemoptysis. In regards to poss hematemesis, he was seen by GI, who felt that hemoptysis/hematemesis could possibly be due to mucosal tear of the esophagus while ingesting frozen food. Rec?d continuing PPI and Carafate that he takes at home, and endoscopy if he had continued symptoms with Hb decline. As a consequence of the mistaken read of his U/A, the patient had blood cultures drawn in the ED. This morning, 2/2 sets came back positive at 36 hours, one showing GPC in chains, the other one showing GPC in clusters. Blood cultures were redrawn, and the patient was put on Vanco and Zosyn. A short time after the patient was seen by the hospitalist (Dr. Correa) this morning, the patient was found unresponsive. Blood pressure was 60/40 with shallow respirations. There was no evidence of bleed or aspiration, and no respiratory distress. The patient was given a bolus of IV fluids and transferred to the ICU for further management. Upon arrival to the ICU, the patient appeared cachectic and chronically ill, but thoroughly nontoxic. MS was completely intact, with a fairly good memory. I asked him what happened. He told me that all of a sudden he felt hot and couldn?t keep his head up. He said he feels fine now. He?s breathing easy with Sat about 90% on room air, 94-97% on 1L NC. HR 90, afib, sometimes paced. BP 100-110 systolic on Levophed 0.02ug. He?s been afebrile throughout. Has 1 cm JVD at 30?. Chest is CTA with normal exp phase. Pacemaker pocket looks OK. IV sites look OK. Very distant heart tones, no murmur or gallop appreciated. Abdomen is benign. He has no peripheral edema. LABORATORY DATA: White count 4.9, hemoglobin 11.0 (no change). INR this morning 1.7. ABG on NRBFM at the rapid response: 7.27/38/362/-8. BUN/creat 25/1.7 (unchanged), bicarb 19, lactate 1.7, trop 26, repeat trop 31. EKG (d/w Dr. Alan) shows LBBB. No acute ischemic changes. Screening u/a is negative. ECHOCARDIOGRAM done by me at the bedside. Image quality: Good. Findings: 1. LV wall thickness is normal. 2. LV cavity is dilated with severe global hypokinesis and definite regional wall motion abnormalities. The entire septum is akinetic; the apex is dyskinetic. EF approximately 15%, possibly as low as 10%. 3. RV size is normal. 4. Left atrium is huge. 5. Aortic valve is trileaflet with trace AI by color-flow, no . 6. Mitral valve is morphologically normal, with 2+ MR by color flow. 7. Tricuspid valve is morphologically normal, with 1+ TR. CWD jet measures 3.0 m/s. Gradient 36mm. 8. IVC measures 2.3cm, with about 50% insp collapse. Est CVP 10mm. RVSP 46mm. [Findings on echo seem almost identical to report from 2015.] IMPRESSION: Mr. Lujan seems to have sustained some kind of syncopal or near syncopal episode, or a vasovagal episode. He seems to be back to his usual self at this time. He certainly is not acutely ill or septic, and I?m highly doubtful that he is bacteremic, or has any other kind of infection (other than possibly some bronchitis), given that he?s thoroughly nontoxic, he?s afebrile, has a normal WBC, and no skin/soft tissue source of infection. Plan for now is to continue Abx pending the new cultures (which were drawn with the patient getting ceftriaxone). Continue his midodrine and get him off Levophed. Might be stable for transfer back to [facility] later today. Addendum: Repeat lactate came back at 2.5. I?ve given him 500cc crystalloid. Given his severe dilated CMOP, I?m not giving him any more fluids, and I?ll repeat the lactate in the morning. Again, it is a certainty that the patient is not septic. (Current Quick-SOFA score is 0.) Note: Anticoagulation will be held bec of patient?s hemoptysis. Time (including old chart and hospital course review): 85 min. ([id number]) Critical Care Time (minutes): 0 Physical Exam Vital Signs: Vital Signs: Last Vital Signs Temp 97.6 F 10/04/20 12:00 Pulse 85 10/04/20 13:00 Resp 25 H 10/04/20 13:00 BP 115/68 10/04/20 13:00 Pulse Ox 98 10/04/20 13:00 Body Mass Index 18.7 Objective Data Labs CBC & Chem 7: 10/04/20 14:45 10/04/20 10:51 Labs: Laboratory Results - last 24 hr 10/04/20 10/04/20 10/04/20 05:53 05:53 05:53 WBC 5.7 RBC 3.30 L Hgb 9.5 L Hct 30.2 L MCV 91.5 MCH 28.8 MCHC 31.5 RDW 15.0 Plt Count 121 L MPV 9.7 Immature Gran % (Auto) 0.4 Neut % (Auto) 74.7 H Lymph % (Auto) 11.9 L [place] % (Auto) 6.5 Eos % (Auto) 6.1 H Baso % (Auto) 0.4 Lymph # (Auto) 0.7 L [place] # (Auto) 0.4 Eos # (Auto) 0.4 Baso # (Auto) 0.0 Abs Immat Gran (auto) 0.02 Absolute Neuts (auto) 4.3 Absolute Nucleated RBC 0.000 Nucleated RBC % (auto) 0.0 PT INR O2 Saturation ABG pH at Pt Temp ABG pH (Temp Correct) ABG pCO2 at Pt Temp ABG pCO2 (Temp Corrct ABG pO2 at Pt Temp ABG pO2 (Temp Correct ABG HCO3 ABG Base Excess (Actual) Sodium 140 141 Potassium 4.4 4.5 Chloride 109 H 110 H Carbon Dioxide 21 L 21 L Anion Gap 14 15 BUN 25 H Creatinine 1.71 H 1.66 H Estim Creat Clear Calc 35.3 36.4 Estimated GFR 39 40 POC Glucose Random Glucose 82 Lactic Acid Calcium 8.2 L D Troponin I High Sens Urine Color Urine Appearance Urine pH Ur Specific [place] Urine Protein Urine Glucose (UA) Urine Ketones Urine Blood Urine Nitrite Ur Leukocyte Esterase Ur Random Sodium Urine Creatinine 10/04/20 10/04/20 10/04/20 08:27 10:30 10:30 WBC RBC Hgb Hct MCV MCH MCHC RDW Plt Count MPV Immature Gran % (Auto) Neut % (Auto) Lymph % (Auto) [place] % (Auto) Eos % (Auto) Baso % (Auto) Lymph # (Auto) [place] # (Auto) Eos # (Auto) Baso # (Auto) Abs Immat Gran (auto) Absolute Neuts (auto) Absolute Nucleated RBC Nucleated RBC % (auto) PT 20.6 H INR 1.7 H O2 Saturation ABG pH at Pt Temp ABG pH (Temp Correct) ABG pCO2 at Pt Temp ABG pCO2 (Temp Corrct ABG pO2 at Pt Temp ABG pO2 (Temp Correct ABG HCO3 ABG Base Excess (Actual) Sodium Potassium Chloride Carbon Dioxide Anion Gap BUN Creatinine Estim Creat Clear Calc Estimated GFR POC Glucose Random Glucose Lactic Acid Calcium Troponin I High Sens Urine Color YELLOW Urine Appearance CLEAR Urine pH 5.5 Ur Specific [place] 1.010 Urine Protein NEG Urine Glucose (UA) NEG Urine Ketones NEG Urine Blood NEG Urine Nitrite NEG Ur Leukocyte Esterase NEG Ur Random Sodium 44.0 Urine Creatinine 44.71 10/04/20 10/04/20 10/04/20 10:50 10:51 10:51 WBC 4.9 RBC 3.84 L Hgb 11.0 L Hct 35.3 L MCV 91.9 MCH 28.6 MCHC 31.2 RDW 15.1 Plt Count 160 D MPV 9.4 Immature Gran % (Auto) Neut % (Auto) Lymph % (Auto) [place] % (Auto) Eos % (Auto) Baso % (Auto) Lymph # (Auto) [place] # (Auto) Eos # (Auto) Baso # (Auto) Abs Immat Gran (auto) Absolute Neuts (auto) Absolute Nucleated RBC 0.000 Nucleated RBC % (auto) 0.0 PT INR O2 Saturation ABG pH at Pt Temp ABG pH (Temp Correct) ABG pCO2 at Pt Temp ABG pCO2 (Temp Corrct ABG pO2 at Pt Temp ABG pO2 (Temp Correct ABG HCO3 ABG Base Excess (Actual) Sodium 141 Potassium 4.1 Chloride 113 H Carbon Dioxide 19 L Anion Gap 13 BUN 25 H Creatinine 1.70 H Estim Creat Clear Calc 35.5 Estimated GFR 39 POC Glucose 149 H Random Glucose 111 D Lactic Acid Calcium 7.8 L Troponin I High Sens Urine Color Urine Appearance Urine pH Ur Specific [place] Urine Protein Urine Glucose (UA) Urine Ketones Urine Blood Urine Nitrite Ur Leukocyte Esterase Ur Random Sodium Urine Creatinine 10/04/20 10/04/20 10/04/20 10:51 10:51 10:53 WBC RBC Hgb Hct MCV MCH MCHC RDW Plt Count MPV Immature Gran % (Auto) Neut % (Auto) Lymph % (Auto) [place] % (Auto) Eos % (Auto) Baso % (Auto) Lymph # (Auto) [place] # (Auto) Eos # (Auto) Baso # (Auto) Abs Immat Gran (auto) Absolute Neuts (auto) Absolute Nucleated RBC Nucleated RBC % (auto) PT INR O2 Saturation 100.0 ABG pH at Pt Temp 7.27 L ABG pH (Temp Correct) 7.28 L ABG pCO2 at Pt Temp 38 ABG pCO2 (Temp Corrct 37 ABG pO2 at Pt Temp 362 H ABG pO2 (Temp Correct 359 H ABG HCO3 17 L ABG Base Excess (Actual) -8.1 Sodium Potassium Chloride Carbon Dioxide Anion Gap BUN Creatinine Estim Creat Clear Calc Estimated GFR POC Glucose Random Glucose Lactic Acid 1.7 Calcium Troponin I High Sens 26.2 Urine Color Urine Appearance Urine pH Ur Specific [place] Urine Protein Urine Glucose (UA) Urine Ketones Urine Blood Urine Nitrite Ur Leukocyte Esterase Ur Random Sodium Urine Creatinine Microbiology Microbiology Results: Microbiology 10/02/20 20:26 Blood - Venous Blood Culture - Preliminary 10/02/20 20:26 Blood - Venous Blood Culture - Preliminary
[2020-10-04 14:57] LABS: Hematocrit 33.2 % (42-52); Hemoglobin 10.7 g/dl (14.0-18.0)
--- NOTE | 2020-10-04 15:06 | P.CNID_ITS ---
History of Present Illness Data of Consult Service Date: 10/04/20 Requesting physician: Trev Alva Primary Care Provider: Yoshi Cervantes MD HPI Reason for consult: bacteremia He presents to hospital with spitting out blood (about capful mixed with sputum) for two weeks. He has no fever or chills He has blood culture gram positive cocci in chains He is in ICU Review of Systems Review of Systems: Yes all other systems are reviewed and are negative PMFSH Past Medical History Medical History (Updated 10/16/20 @ 00:01 by Ronal Valentin) Abdominal aortic aneurysm Bacteremia Bronchopneumonia COPD (chronic obstructive pulmonary disease) COPD exacerbation Cough with hemoptysis Hemoptysis History of epigastric pain Hypotension Irritable bowel syndrome with diarrhea Kidney disease, chronic, stage III (GFR 30-59 ml/min) Need for rapid response team activation Pleural effusion Severe sepsis Systolic congestive heart failure Family History Family History Father Myocardial infarction CVD (cardiovascular disease) Mother Myocardial infarction Type 2 diabetes mellitus CVD (cardiovascular disease) Brother Heart failure Brother Heart failure Sister No problems noted. Son No problems noted. Surgical History Surgical History History of esophagogastroduodenoscopy (EGD) History of open heart surgery Hx of appendectomy Hx of arterial bypass of lower limb Hx of cholecystectomy Hx of colonoscopy Hx of esophageal hernia repair Hx of tonsillectomy Social History Social History Household Members: Spouse and Family Housing: House Do you presently have visiting nurse or other home services: Yes Alcohol intake: former Patient Tobacco Use Status: Former Tobacco user Quit Date: 12 years ago Tobacco use type: Cigarette Cigarette Packs Per Day: 1 Cigarettes Per Day: 20.0 Second Hand Smoke Exposure: No Advance Directives Date on File: 01/24/20 service: No Current occupational status: retired Meds Allergies Allergy/AdvReac Type Severity Reaction Status Date / Time codeine [Codeine] Allergy Intermediate RASH Verified 03/27/20 09:54 fludrocortisone Allergy Unknown Unknown Verified 03/27/20 09:54 Active Medications: Current Medications Generic Name Dose Route Start Last Admin Trade Name Freq PRN Reason Stop Dose Admin Acetaminophen 650 mg 10/03/20 05:41 Acetaminophen 325 Mg Tablet PO Q6H PRN Pain, Mild (Pain Scale 1-3) Albuterol Sulfate 2 puff 10/03/20 16:00 10/04/20 08:19 Albuterol Sulfate 90 Mcg 8 Gm Inhaler INHALE 2 puff RQID OLIVIA Administration Albuterol/Ipratropium 3 ml 10/02/20 23:16 Albuterol/Iprat 2.5/0.5mg 3 Ml Ampul.Neb INHALE RQ4H PRN Shortness of Breath/Wheezing Diazepam 5 mg 10/03/20 09:00 10/04/20 09:57 Diazepam 5 Mg Tablet PO 5 mg TID OLIVIA Administration Digoxin 0.125 mg 10/03/20 09:00 10/03/20 13:57 Digoxin 0.125 Mg Tablet PO 0.125 mg [id number] OLIVIA Administration Ceftriaxone Sodium 1 gm/ 50 mls @ 100 mls/hr 10/03/20 20:00 10/03/20 20:38 Sodium Chloride IV Infused Q24H OLIVIA Infusion Dextrose/Sodium Chloride 1,000 mls @ 100 mls/hr 10/03/20 05:45 10/04/20 13:23 D51/2ns IVCONT Not Given .Q10H OLIVIA Vancomycin HCl 1,000 mg/ 270 mls @ 270 mls/hr 10/05/20 10:00 Sodium Chloride IV Q24H OLIVIA Midodrine 10 mg 10/03/20 09:00 10/04/20 09:57 Midodrine Hcl 10 Mg Tablet PO 10 mg TID OLIVIA Administration Pantoprazole Sodium 40 mg 10/03/20 06:30 10/04/20 06:24 Pantoprazole Sodium 40 Mg/10 Ml Vial IVPUSH 40 mg DAILY@0630 OLIVIA Administration Pharmacy Consult 1 each 10/02/20 21:32 Consult Rx Perform Med Rec MISCELLANE ONCE PRN Consult order Pharmacy Consult 1 each 10/04/20 08:58 Consult Rx Vancomycin Dosing MISCELLANE DAILY PRN Consult order Sertraline HCl 100 mg 10/03/20 09:00 10/04/20 09:56 Sertraline Hcl 100 Mg Tablet PO 100 mg DAILY OLIVIA Administration Sodium Chloride 3 ml 10/03/20 08:00 10/04/20 09:04 0.9 % Sodium Chloride Flush 3 Ml Syringe IVFLUSH Not Given QSHIFT OLIVIA Sucralfate 2 gm 10/03/20 09:00 10/04/20 09:56 Sucralfate 1 Gm Tablet PO 2 gm DAILY OLIVIA Administration Tiotropium [place] 1 puff 10/03/20 09:00 10/04/20 08:14 Tiotropium [place] 18 Mcg Cap.W.Dev INHALE 1 puff DAILY OLIVIA Administration Vitamin D 50 mcg 10/03/20 09:00 10/04/20 09:56 Cholecalciferol (Vitamin D3) 25 Mcg Tablet PO 50 mcg DAILY OLIVIA Administration Home Medications Medication Instructions Recorded Confirmed Last Taken Type Spiriva with HandiHaler 1 puff INHALATION DAILY 10/02/20 10/02/20 10/02/20 History albuterol sulfate 2 puff PO QID 10/02/20 10/02/20 Unknown History cholecalciferol (vitamin D3) 50 mcg PO DAILY 10/02/20 10/02/20 Unknown History diazepam 5 mg PO TID 10/02/20 10/02/20 10/02/20 History digoxin 1 tab PO 3XW 10/02/20 10/02/20 Unknown History midodrine 10 mg PO TID 10/02/20 10/02/20 10/02/20 History sertraline 100 mg PO DAILY 10/02/20 10/02/20 10/02/20 History sucralfate 2 g PO DAILY 10/02/20 10/02/20 Unknown History tamsulosin 1 cap PO DAILY 10/02/20 10/03/20 Unknown History Physical Exam Vital Signs: Vital Signs: Last Vital Signs Temp 97.6 F 10/04/20 12:00 Pulse 78 10/04/20 14:59 Resp 13 10/04/20 14:59 BP 116/72 10/04/20 14:59 Pulse Ox 97 10/04/20 14:59 Body Mass Index 18.7 Const: General: cooperative HENMT: Head: Yes normal to inspection Mouth: Normal oral and palatal mucosa present Teeth and gingiva: edentulous Throat: Yes posterior oropharynx normal Resp: Effort & Inspection: normal respiratory effort Cardio: Rate: regular rate Rhythm: regular rhythm GI: Palpation (GI): Soft to palpation and nontender : General: Yes no CVA tenderness Back/Spine/Pelvis: Back: no CVA tenderness Skin: General skin exam: no rashes or lesions noted Extrem: General: Yes normal to inspection Results Labs CBC & Chem 7: 10/12/20 05:31 10/12/20 05:32 Labs: Short CBC 10/04/20 10/04/20 10/04/20 Range/Units 05:53 10:51 14:45 WBC 5.7 4.9 (4.8-10.8) X10*3/uL Hgb 9.5 L 11.0 L 10.7 L (14.0-18.0) g/dl Hct 30.2 L 35.3 L 33.2 L (42-52) % Plt Count 121 L 160 D (160-400) X10*3/uL BMP 10/04/20 10/04/20 10/04/20 05:53 05:53 10:51 Sodium 140 141 141 Potassium 4.4 4.5 4.1 Chloride 109 H 110 H 113 H Carbon Dioxide 21 L 21 L 19 L BUN 25 H 25 H Creatinine 1.71 H 1.66 H 1.70 H Calcium 8.2 L D 7.8 L Urine 10/04/20 Range/Units 10:30 Urine Color YELLOW Urine Appearance CLEAR Urine pH 5.5 (5.0-8.0) Ur Specific [place] 1.010 (1.005-1.025) Urine Protein NEG (NEG-TRACE) MG/DL Urine Glucose (UA) NEG (NEG) MG/DL Microbiology Microbiology Results: Microbiology 10/02/20 20:26 Blood - Venous Blood Culture - Preliminary 10/02/20 20:26 Blood - Venous Blood Culture - Preliminary Assessment and Plan (1) Severe sepsis: Blood culture may be due to strep He has possible lung or abdominal source,prior hernia Would continue Vancomycin and Zosyn,cover VRE and enterococcus (2) Bacteremia: (3) Cough with hemoptysis: (4) Need for rapid response team activation:
[2020-10-04 15:28] LABS: Lactic Acid 2.5 mmol/L (0.5-2.0)
[2020-10-04 15:31] LABS: Troponin-I High Sensitivity 31.1 ng/L (<3.5-35.0)
--- NOTE | 2020-10-04 16:08 | PM.EVENT ---
Event Note Date of Service: 10/04/20 Event Note: I am aware of consult and have reviewed the notes and RR intervention and ICU note. Pt with Vamshi in the setting of GP sepsis, potential lung source with hemoptysis on presentation; nonoliguric. Being resuscitated and treated with broad spectrum antibiotics. 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 Full consult to follow in am.
[2020-10-04] MEDS: Piperacillin Sodium/Tazobactam 2.25 GM in 0.9 % Sodium Chloride 50 ML IV ×2 (16:12→21:07)
[2020-10-04] MEDS: 0.9 % Sodium Chloride Flush 3 ML SYRINGE IVFLUSH (16:13)
[2020-10-04 16:50] LABS: Reflex Lactate? Lactic Acid Added
[2020-10-04 16:59] LABS: Cancel Lactic Acid Canceled
[2020-10-04] MEDS: Dextrose 5 % and 0.45 % NaCl 1,000 ML 100 ML IVCONT (20:25)
[2020-10-04] MEDS: diazePAM 2 MG TABLET PO (20:41)
[2020-10-04] MEDS: Melatonin 3 MG TABLET 6 MG PO (21:26)
[2020-10-05] VITALS (19 sets, daily range): BP systolic 89–116; BP diastolic 47–75; PULSE 75–82; RESP 15–23; TEMP 36.2–37; O2SAT 93–100
[2020-10-05] MEDS: Piperacillin Sodium/Tazobactam 2.25 GM in 0.9 % Sodium Chloride 50 ML IV ×4 (03:12→21:26)
[2020-10-05] MEDS: 0.9 % Sodium Chloride Flush 3 ML SYRINGE IVFLUSH ×4 (03:15→21:27)
--- NOTE | 2020-10-05 03:19 | PC.NURSE ---
on initial interaction, pt awake and asking for his valium pill as well as a sleeping agent. 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 he can be forgetfull in regard to short term events. he has frail and chronically ill appearance. skin turgor is decreased. he has accidentally dislodged one of his iv angios. complexion pale. he is wearing supplemental o2 via nasal cannula at 1 lpm. resp effort is regular unlabored. breath sounds cta/diminished. he has a well healed medial sternotomy scar as well as a protruding pacemaker box in the right subclavian region. ecg displays a vpaced rhythm with 100% capture. sbp 90-100 mmhg. abdomen flat/soft/nontender. voided 150 ml of joanie urine.
[2020-10-05 05:27] LABS: VBG HCO3 23 mmol/L (22-26); VBG pCO2 44 mmHg; VBG pH 7.31 (7.32-7.43); VBG pO2 29 mmHg
[2020-10-05 05:30] LABS: MANUAL DIFF FLAG NO
[2020-10-05 05:34] LABS: Venous Blood Gas Refer to POC result
[2020-10-05 05:58] LABS: Lactic Acid 0.9 mmol/L (0.5-2.0)
[2020-10-05 05:59] LABS: Basophils Percent Auto 0.3 % (0-2); Eosinophils Absolute Auto 0.4 X10*3/uL (0.0-0.4); Hematocrit 30.1 % (42-52); Hemoglobin 9.4 g/dl (14.0-18.0); Imm Gran Abs Auto 0.04 X10*3/uL (0.00-0.03); Imm Gran Pct Auto 0.6 % (0.0-0.4); Lymphocytes Absolute Auto 0.8 X10*3/uL (1.2-4.9); Lymphocytes Percent Auto 11.3 % (20-40); Mean Corpuscular HGB Conc 31.2 g/dl (31.0-36.0); Mean Corpuscular Hemoglobin 29.1 pg (27.0-33.0); Mean Corpuscular Volume 93.2 fL (80-98); Mean Platelet Volume 9.6 fL (9.4-12.4); Monocytes Absolute Auto 0.4 X10*3/uL (0.1-1.2); Monocytes Percent Auto 5.6 % (2-11); Neutrophils Absolute Auto 5.6 X10*3/uL (2.0-8.3); Neutrophils Percent Auto 77.2 % (45-73); Platelet Count 124 X10*3/uL (160-400); Red Blood Count 3.23 X10*6/uL (4.60-5.80); Red Cell Distribution Width 15.1 % (11.0-16.0); White Blood Count 7.2 X10*3/uL (4.8-10.8)
[2020-10-05 06:04] LABS: Anion Gap 12 (12-20); Blood Urea Nitrogen 24 mg/dL (9-16); Calcium 8.2 mg/dL (8.4-10.2); Carbon Dioxide 20 mmol/L (22-29); Chloride 114 mmol/L (96-108); Creatinine Clr Calc Pharmacy 36.2; Estimated Glomerular Filt Rate 40; Glucose Random 82 mg/dL (60-115); INTERNATIONAL NORM RATIO 1.6 (0.9-1.1); Magnesium 1.8 mg/dL (1.6-2.6); Phosphorus 3.8 mg/dL (2.7-4.5); Potassium 4.2 mmol/L (3.3-5.1); Prothrombin Time 18.9 SEC (10.8-13.0); Sodium 142 mmol/L (135-145)
[2020-10-05] MEDS: Pantoprazole Sodium 40 MG/10 ML VIAL IVPUSH (06:17)
[2020-10-05 06:22] LABS: Procalcitonin 0.55 ng/mL
--- NOTE | 2020-10-05 08:01 | PM.PNNEP ---
Subjective Subjective Date of Service: 10/05/20 Principal diagnosis: Pt feeling better; BP better with IVF overnight; made 800 cc urine Interval history: Mr. Lujan was transferred to ICU this morning after becoming unresponsive and hypotensive on IMC. The patient is a 75 yo M with PMHx of CAD, s/p CABG in , s/p PPM/ICD 1999, atrial fibrillation on Coumadin, peripheral vascular disease status post interventional procedure, COPD, CKD (baseline about 21/1.5), GI bleed, and hemorrhoids. The patient has dilated ischemic CMOP with low BP and is chronically on midodrine. Last echo in 2014 showed: - atrial fibrillation - markedly dilated left ventricle with normal wall thickness. - Severely reduced ejection fraction, approximately 20%, with marked regional wall motion abnormalities: Basal and septal akinesis and apical dyskinesis. - normal right ventricle. - Markedly dilated left atrium. - Mild to moderate MR. - mild TR; CWD jet 2.95 m/sec. -inferior vena cava dilated with poor inspiratory collapse; RVSP 43mm. He presented to the hospital on October 02 with a chief complaint of blood in the vomitus or cough. Patient reported that about a week ago he had frozen food and subsequently had some throat discomfort and since then she has been having cough/intermittent episodes of blood. Denied any fevers. Denied any difficulty swallowing. Denies any chest pain or palpitations. The pt declined a rectal examination; hemoglobin stable. Vitals stable. Sat high 90?s on room air. INR subtherapeutic at 1.8. BUN/creat were 29/1.9. CT chest showed severe emphysema with some borderline ground-glass in the periphery of the lower right lung, and small right pl effusion -- all unchanged from one year ago. The urinalysis in the [facility] records was misread and he was thought to have a UTI (the positive U/A was actually from 2019) and he was given ceftriaxone. The patient was admitted for further management. In regards to poss hemoptysis, he was seen by pulmonary and they rec?d a course of Abx and bronchodilators, with reevaluation if he continued to have hemoptysis. In regards to poss hematemesis, he was seen by GI, who felt that hemoptysis/hematemesis could possibly be due to mucosal tear of the esophagus while ingesting frozen food. Rec?d continuing PPI and Carafate that he takes at home, and endoscopy if he had continued symptoms with Hb decline. As a consequence of the mistaken read of his U/A, the patient had blood cultures drawn in the ED. This morning, 2/2 sets came back positive at 36 hours, one showing GPC in chains, the other one showing GPC in clusters. Blood cultures were redrawn, and the patient was put on Vanco and Zosyn. A short time after the patient was seen by the hospitalist (Dr. Correa) this morning, the patient was found unresponsive. Blood pressure was 60/40 with shallow respirations. There was no evidence of bleed or aspiration, and no respiratory distress. The patient was given a bolus of IV fluids and transferred to the ICU for further management. Upon arrival to the ICU, the patient appeared cachectic and chronically ill, but thoroughly nontoxic. MS was completely intact, with a fairly good memory. I asked him what happened. He told me that all of a sudden he felt hot and couldn?t keep his head up. He said he feels fine now. He?s breathing easy with Sat about 90% on room air, 94-97% on 1L NC. HR 90, afib, sometimes paced. BP 100-110 systolic on Levophed 0.02ug. He?s been afebrile throughout. Has 1 cm JVD at 30?. Chest is CTA with normal exp phase. Pacemaker pocket looks OK. IV sites look OK. Very distant heart tones, no murmur or gallop appreciated. Abdomen is benign. He has no peripheral edema. LABORATORY DATA: White count 4.9, hemoglobin 11.0 (no change). INR this morning 1.7. ABG on NRBFM at the rapid response: 7.27/38/362/-8. BUN/creat 25/1.7 (unchanged), bicarb 19, lactate 1.7, trop 26, repeat trop 31. EKG (d/w Dr. Alan) shows LBBB. No acute ischemic changes. Screening u/a is negative. ECHOCARDIOGRAM done by me at the bedside. Image quality: Good. Findings: 1. LV wall thickness is normal. 2. LV cavity is dilated with severe global hypokinesis and definite regional wall motion abnormalities. The entire septum is akinetic; the apex is dyskinetic. EF approximately 15%, possibly as low as 10%. 3. RV size is normal. 4. Left atrium is huge. 5. Aortic valve is trileaflet with trace AI by color-flow, no . 6. Mitral valve is morphologically normal, with 2+ MR by color flow. 7. Tricuspid valve is morphologically normal, with 1+ TR. CWD jet measures 3.0 m/s. Gradient 36mm. 8. IVC measures 2.3cm, with about 50% insp collapse. Est CVP 10mm. RVSP 46mm. [Findings on echo seem almost identical to report from 2015.] IMPRESSION: Mr. Lujan seems to have sustained some kind of syncopal or near syncopal episode, or a vasovagal episode. He seems to be back to his usual self at this time. He certainly is not acutely ill or septic, and I?m highly doubtful that he is bacteremic, or has any other kind of infection (other than possibly some bronchitis), given that he?s thoroughly nontoxic, he?s afebrile, has a normal WBC, and no skin/soft tissue source of infection. Plan for now is to continue Abx pending the new cultures (which were drawn with the patient getting ceftriaxone). Continue his midodrine and get him off Levophed. Might be stable for transfer back to [facility] later today. Addendum: Repeat lactate came back at 2.5. I?ve given him 500cc crystalloid. Given his severe dilated CMOP, I?m not giving him any more fluids, and I?ll repeat the lactate in the morning. Again, it is a certainty that the patient is not septic. (Current Quick-SOFA score is 0.) Note: Anticoagulation will be held bec of patient?s hemoptysis. Time (including old chart and hospital course review): 85 min. ([id number]) Physical Exam Vital Signs: Vital Signs: Last Vital Signs Temp 97.2 F 10/05/20 03:16 Pulse 75 10/05/20 07:00 Resp 16 10/05/20 07:00 BP 106/57 L 10/05/20 07:00 Pulse Ox 100 10/05/20 07:00 Body Mass Index 18.7 Const: General: cooperative, comfortable and no acute distress Eyes: General: appearance normal, both eyes and all related structures Chest: Other: Midline sterniotomy scar, cachectic Resp: Effort & Inspection: normal respiratory effort and able to speak in complete sentences Auscultation: clear to auscultation bilaterally Cardio: Jugular venous distension: no JVD Palpation: abnormal PMI Rate: regular rate Heart sounds: S1 normal heart sound present and S2 normal heart sound present Bruits: Abdominal aortic bruit present GI: Inspection: Yes normal to inspection Palpation (GI): Abdominal aortic bruit present Auscultation: normal bowel sounds Extrem: General: Yes no pedal edema Objective Data Labs CBC & Chem 7: 10/05/20 05:20 10/05/20 05:20 Labs: Laboratory Results - last 24 hr 10/04/20 10/04/20 10/04/20 08:27 10:30 10:30 WBC RBC Hgb Hct MCV MCH MCHC RDW Plt Count MPV Immature Gran % (Auto) Neut % (Auto) Lymph % (Auto) [place] % (Auto) Eos % (Auto) Baso % (Auto) Lymph # (Auto) [place] # (Auto) Eos # (Auto) Baso # (Auto) Abs Immat Gran (auto) Absolute Neuts (auto) Absolute Nucleated RBC Nucleated RBC % (auto) PT 20.6 H INR 1.7 H O2 Saturation ABG pH at Pt Temp ABG pH (Temp Correct) ABG pCO2 at Pt Temp ABG pCO2 (Temp Corrct ABG pO2 at Pt Temp ABG pO2 (Temp Correct ABG HCO3 ABG Base Excess (Actual) VBG pH VBG pCO2 VBG pO2 VBG HCO3 VBG O2 Saturation VBG Base Excess Sodium Potassium Chloride Carbon Dioxide Anion Gap BUN Creatinine Estim Creat Clear Calc Estimated GFR POC Glucose Random Glucose Lactic Acid Calcium Phosphorus Magnesium Troponin I High Sens Procalcitonin Urine Color YELLOW Urine Appearance CLEAR Urine pH 5.5 Ur Specific [place] 1.010 Urine Protein NEG Urine Glucose (UA) NEG Urine Ketones NEG Urine Blood NEG Urine Nitrite NEG Ur Leukocyte Esterase NEG Ur Random Sodium 44.0 Urine Creatinine 44.71 10/04/20 10/04/20 10/04/20 10:50 10:51 10:51 WBC 4.9 RBC 3.84 L Hgb 11.0 L Hct 35.3 L MCV 91.9 MCH 28.6 MCHC 31.2 RDW 15.1 Plt Count 160 D MPV 9.4 Immature Gran % (Auto) Neut % (Auto) Lymph % (Auto) [place] % (Auto) Eos % (Auto) Baso % (Auto) Lymph # (Auto) [place] # (Auto) Eos # (Auto) Baso # (Auto) Abs Immat Gran (auto) Absolute Neuts (auto) Absolute Nucleated RBC 0.000 Nucleated RBC % (auto) 0.0 PT INR O2 Saturation ABG pH at Pt Temp ABG pH (Temp Correct) ABG pCO2 at Pt Temp ABG pCO2 (Temp Corrct ABG pO2 at Pt Temp ABG pO2 (Temp Correct ABG HCO3 ABG Base Excess (Actual) VBG pH VBG pCO2 VBG pO2 VBG HCO3 VBG O2 Saturation VBG Base Excess Sodium 141 Potassium 4.1 Chloride 113 H Carbon Dioxide 19 L Anion Gap 13 BUN 25 H Creatinine 1.70 H Estim Creat Clear Calc 35.5 Estimated GFR 39 POC Glucose 149 H Random Glucose 111 D Lactic Acid Calcium 7.8 L Phosphorus Magnesium Troponin I High Sens Procalcitonin Urine Color Urine Appearance Urine pH Ur Specific [place] Urine Protein Urine Glucose (UA) Urine Ketones Urine Blood Urine Nitrite Ur Leukocyte Esterase Ur Random Sodium Urine Creatinine 10/04/20 10/04/20 10/04/20 10:51 10:51 10:53 WBC RBC Hgb Hct MCV MCH MCHC RDW Plt Count MPV Immature Gran % (Auto) Neut % (Auto) Lymph % (Auto) [place] % (Auto) Eos % (Auto) Baso % (Auto) Lymph # (Auto) [place] # (Auto) Eos # (Auto) Baso # (Auto) Abs Immat Gran (auto) Absolute Neuts (auto) Absolute Nucleated RBC Nucleated RBC % (auto) PT INR O2 Saturation 100.0 ABG pH at Pt Temp 7.27 L ABG pH (Temp Correct) 7.28 L ABG pCO2 at Pt Temp 38 ABG pCO2 (Temp Corrct 37 ABG pO2 at Pt Temp 362 H ABG pO2 (Temp Correct 359 H ABG HCO3 17 L ABG Base Excess (Actual) -8.1 VBG pH VBG pCO2 VBG pO2 VBG HCO3 VBG O2 Saturation VBG Base Excess Sodium Potassium Chloride Carbon Dioxide Anion Gap BUN Creatinine Estim Creat Clear Calc Estimated GFR POC Glucose Random Glucose Lactic Acid 1.7 Calcium Phosphorus Magnesium Troponin I High Sens 26.2 Procalcitonin Urine Color Urine Appearance Urine pH Ur Specific [place] Urine Protein Urine Glucose (UA) Urine Ketones Urine Blood Urine Nitrite Ur Leukocyte Esterase Ur Random Sodium Urine Creatinine 10/04/20 10/04/20 10/04/20 14:45 14:45 14:45 WBC RBC Hgb 10.7 L Hct 33.2 L MCV MCH MCHC RDW Plt Count MPV Immature Gran % (Auto) Neut % (Auto) Lymph % (Auto) [place] % (Auto) Eos % (Auto) Baso % (Auto) Lymph # (Auto) [place] # (Auto) Eos # (Auto) Baso # (Auto) Abs Immat Gran (auto) Absolute Neuts (auto) Absolute Nucleated RBC Nucleated RBC % (auto) PT INR O2 Saturation ABG pH at Pt Temp ABG pH (Temp Correct) ABG pCO2 at Pt Temp ABG pCO2 (Temp Corrct ABG pO2 at Pt Temp ABG pO2 (Temp Correct ABG HCO3 ABG Base Excess (Actual) VBG pH VBG pCO2 VBG pO2 VBG HCO3 VBG O2 Saturation VBG Base Excess Sodium Potassium Chloride Carbon Dioxide Anion Gap BUN Creatinine Estim Creat Clear Calc Estimated GFR POC Glucose Random Glucose Lactic Acid 2.5 H* Calcium Phosphorus Magnesium Troponin I High Sens 31.1 Procalcitonin Urine Color Urine Appearance Urine pH Ur Specific [place] Urine Protein Urine Glucose (UA) Urine Ketones Urine Blood Urine Nitrite Ur Leukocyte Esterase Ur Random Sodium Urine Creatinine 10/05/20 10/05/20 10/05/20 05:19 05:19 05:20 WBC 7.2 RBC 3.23 L Hgb 9.4 L Hct 30.1 L MCV 93.2 MCH 29.1 MCHC 31.2 RDW 15.1 Plt Count 124 L MPV 9.6 Immature Gran % (Auto) 0.6 H Neut % (Auto) 77.2 H Lymph % (Auto) 11.3 L [place] % (Auto) 5.6 Eos % (Auto) 5.0 H Baso % (Auto) 0.3 Lymph # (Auto) 0.8 L [place] # (Auto) 0.4 Eos # (Auto) 0.4 Baso # (Auto) 0.0 Abs Immat Gran (auto) 0.04 H Absolute Neuts (auto) 5.6 Absolute Nucleated RBC 0.000 Nucleated RBC % (auto) 0.0 PT INR O2 Saturation ABG pH at Pt Temp ABG pH (Temp Correct) ABG pCO2 at Pt Temp ABG pCO2 (Temp Corrct ABG pO2 at Pt Temp ABG pO2 (Temp Correct ABG HCO3 ABG Base Excess (Actual) VBG pH 7.31 L VBG pCO2 44 VBG pO2 29 VBG HCO3 23 VBG O2 Saturation 35.0 VBG Base Excess -3.0 Sodium Potassium Chloride Carbon Dioxide Anion Gap BUN Creatinine Estim Creat Clear Calc Estimated GFR POC Glucose Random Glucose Lactic Acid 0.9 Calcium Phosphorus Magnesium Troponin I High Sens Procalcitonin Urine Color Urine Appearance Urine pH Ur Specific [place] Urine Protein Urine Glucose (UA) Urine Ketones Urine Blood Urine Nitrite Ur Leukocyte Esterase Ur Random Sodium Urine Creatinine 10/05/20 10/05/20 10/05/20 05:20 05:20 05:20 WBC RBC Hgb Hct MCV MCH MCHC RDW Plt Count MPV Immature Gran % (Auto) Neut % (Auto) Lymph % (Auto) [place] % (Auto) Eos % (Auto) Baso % (Auto) Lymph # (Auto) [place] # (Auto) Eos # (Auto) Baso # (Auto) Abs Immat Gran (auto) Absolute Neuts (auto) Absolute Nucleated RBC Nucleated RBC % (auto) PT 18.9 H INR 1.6 H O2 Saturation ABG pH at Pt Temp ABG pH (Temp Correct) ABG pCO2 at Pt Temp ABG pCO2 (Temp Corrct ABG pO2 at Pt Temp ABG pO2 (Temp Correct ABG HCO3 ABG Base Excess (Actual) VBG pH VBG pCO2 VBG pO2 VBG HCO3 VBG O2 Saturation VBG Base Excess Sodium 142 Potassium 4.2 Chloride 114 H Carbon Dioxide 20 L Anion Gap 12 BUN 24 H Creatinine 1.67 H Estim Creat Clear Calc 36.2 Estimated GFR 40 POC Glucose Random Glucose 82 Lactic Acid Calcium 8.2 L Phosphorus 3.8 Magnesium 1.8 Troponin I High Sens Procalcitonin 0.55 Urine Color Urine Appearance Urine pH Ur Specific [place] Urine Protein Urine Glucose (UA) Urine Ketones Urine Blood Urine Nitrite Ur Leukocyte Esterase Ur Random Sodium Urine Creatinine Microbiology Microbiology Results: Microbiology 10/02/20 20:26 Blood - Venous Blood Culture - Preliminary 10/02/20 20:26 Blood - Venous Blood Culture - Preliminary Assessment & Plan Assessment and plan (1) Severe sepsis: Status: Acute (2) Kidney disease, chronic, stage III (GFR 30-59 ml/min): Status: Acute (3) GI bleed: Status: Acute (4) Acute UTI: Status: Acute Assessment and Plan: Pt seen by Dr. Fernandez on 10/03; has CKD and now in with GIB, UTI and bacteremia/sepsis; has underlying cardiomyopathy; pt is nonoliguric and creat is close to baseline; appears euvolemic presently I reviewed ICU note and ID note. Agree with current management; monitor bicarb Time Spent With Patient Time: Total time spent is greater than 50% in coordination of care (as documented) at patient's floor/unit and/or counseling patient: Procedures Date of Service Date of Service: 10/05/20
[2020-10-05] MEDS: Lactated Ringers 250 ML 999 ML IV (09:17)
[2020-10-05] MEDS: iohexoL 350 MG/ML 100 ML INFUS..BTL IV (10:16)
[2020-10-05] MEDS: diazePAM 2 MG TABLET PO ×3 (10:33→21:26)
[2020-10-05] MEDS: Cholecalciferol (Vitamin D3) 25 MCG TABLET 50 MCG PO (10:33)
[2020-10-05] MEDS: Midodrine HCl 10 MG TABLET PO ×3 (10:33→21:25)
[2020-10-05] MEDS: Sucralfate 1 GM TABLET 2 GM PO (10:33)
[2020-10-05] MEDS: Sertraline HCL 100 MG TABLET PO (10:34)
--- NOTE | 2020-10-05 10:37 | PM.EVENT ---
Event Note Date of Service: 10/05/20 Event Note: I spoke with the radiologist from [facility] this morning about the Chest CT from October 02, which on the lower cuts thru the abdomen shows an abdominal aortic aneurysm that measures about 5.2 cm. This is of interest vis-a-vis the possibility of a ruptured aneurysm or an aortoenteric fistula, given the patient's history of hematemesis or hemoptysis, and in view of the patient's apparent syncopal episode yesterday. The patient?s baseline Hb is about 10.7. His Hb drawn after the syncopal episode yesterday was 11.0, and it?s 9.4 this morning. He hasn?t spit up any more blood, altho yesterday I saw a few tiny specs of blood in a sputum sample he coughed up. The patient declined a rectal exam and hasn?t had a bowel movement yet, so we don?t have a stool sample yet to send for occult blood. And he has no belly or back pain or tenderness. Nor has he had recurrence of the syncopal episode yesterday or any episode of unusual hypotension. (The patient has severe dilated CMOP and chronically runs low BP. He's on midodrine.) I discussed all the above with the radiologist. We reviewed his old films which include an abdominal CT from September,, and another one from October,. The 2019 CT had the abdominal aneurysm measuring 4.7 cm, in addition to dilatation of the ascending aorta to 4.[address] measured the abdominal aneurysm at 4.6cm, and the ascending aorta at 4.3 cm. I discussed all the above by telephone with Dr. Box. He recommended a CT angiogram to r/o a perforation, even in the face of the patients CKD. I discussed that at length with Mr. Lujan, with particular reference to the risk of GAMALIEL. Mr. Lujan consented to the study. I also discussed it with Dr. Alan, in reference to the possibility of causing acute CHF with the dye load. Dr. Alan wasn?t concerned about the latter. So we ?pre-fluid loaded? the patient with 250 cc LR and did the angiogram. It shows a large thrombus in the abdominal aorta, but no leak. Discussed that with Dr. Box. He will review the scan himself shortly, but from what I described to him, his opinion was that thrombus is common in AAAs and not of any danger. Spoke with Dr. Barger at 11am and let her know about all the above. I put in a formal consult to Dr. Box. No urgency, he can see the patient tomorrow if the CT angio so indicates. Time: 50 min. ([id number] [phone] [id number])
[2020-10-05] MEDS: vancomycin HCL 1,000 MG in 0.9 % Sodium Chloride 250 ML 270 MG IV (11:29)
--- NOTE | 2020-10-05 12:20 | MHC.PIE ---
P: RADIOLOGIST'S REPORT FOR ABDOMINAL CT DESCRIBED ABDOMINAL AORTIC ANEURYSM FOR PATIENT I: ASSESSED PATIENT, PULSES WERE EQUAL, ABDOMEN FLAT, CONCAVE, NO MASSES NOTED. PATIENT'S BLOOD PRESSURE HAD BEEN LABILE E: DISCUSSED WITH MD, NEW ORDER FOR CT WITH CONTRAST AND CONSENT REVIEWED WITH PATIENT BY MD. REPORT GIVEN TO [facility], WHO TOOK PATIENT TO CT
--- NOTE | 2020-10-05 13:09 | P.PNIM_ITS ---
Subjective Subjective Date of Service: 10/05/20 Interval History: Patient sitting comfortably in bed eating lunch, denies any further episodes of hemoptysis or hematemesis denies abdominal pain no shortness of breath not aware of history of abdominal aortic aneurysm, wants to know how much she can ambulate, patient transferred out of ICU yesterday after a brief stay in ICU for hypotension for pressors. [employer] no headache no dizziness CVS no chest pain, no palpitation GI denies nausea no vomiting no diarrhea Skin no rash Physical Exam Vital Signs: Vital Signs: Last Vital Signs Temp 98.6 F 10/05/20 11:23 Pulse 77 10/05/20 10:33 Resp 18 10/05/20 10:31 BP 116/73 10/05/20 10:33 Pulse Ox 95 10/05/20 10:31 Body Mass Index 18.7 General sitting comfortably no apparent distress Neck is supple Heart, regular, no peripheral edema Lungs clear to auscultation no respiratory distress Abdomen soft nontender bowel sounds are audible Extremities no clubbing cyanosis or edema Skin no rash Neuro nonfocal Objective Data Current Medications Generic Name Dose Route Start Last Admin Trade Name Freq PRN Reason Stop Dose Admin Acetaminophen 650 mg 10/03/20 05:41 Acetaminophen 325 Mg Tablet PO Q6H PRN Pain, Mild (Pain Scale 1-3) Albuterol Sulfate 2 puff 10/03/20 16:00 10/05/20 12:32 Albuterol Sulfate 90 Mcg 8 Gm Inhaler INHALE Not Given RQID OLIVIA Albuterol/Ipratropium 3 ml 10/02/20 23:16 Albuterol/Iprat 2.5/0.5mg 3 Ml Ampul.Neb INHALE RQ4H PRN Shortness of Breath/Wheezing Diazepam 2 mg 10/04/20 21:00 10/05/20 10:33 Diazepam 2 Mg Tablet PO 2 mg TID OLIVIA Administration Digoxin 0.125 mg 10/03/20 09:00 10/03/20 13:57 Digoxin 0.125 Mg Tablet PO 0.125 mg [id number] OLIVIA Administration Vancomycin HCl 1,000 mg/ 270 mls @ 270 mls/hr 10/05/20 10:00 10/05/20 12:56 Sodium Chloride IV Infused Q24H OLIVIA Infusion Piperacillin Sod/Tazobactam 50 mls @ 100 mls/hr 10/04/20 16:00 10/05/20 11:21 Sod 2.25 gm/ Sodium Chloride IV Infused Q6H [facility] Infusion Midodrine 10 mg 10/03/20 09:00 10/05/20 10:33 Midodrine Hcl 10 Mg Tablet PO 10 mg TID [facility] Administration Pantoprazole Sodium 40 mg 10/03/20 06:30 10/05/20 06:17 Pantoprazole Sodium 40 Mg/10 Ml Vial IVPUSH 40 mg DAILY@0630 [facility] Administration Pharmacy Consult 1 each 10/02/20 21:32 Consult Rx Perform Med Rec MISCELLANE ONCE PRN Consult order Pharmacy Consult 1 each 10/04/20 08:58 Consult Rx Vancomycin Dosing MISCELLANE DAILY PRN Consult order Sertraline HCl 100 mg 10/03/20 09:00 10/05/20 10:34 Sertraline Hcl 100 Mg Tablet PO 100 mg DAILY [facility] Administration Sodium Chloride 3 ml 10/03/20 08:00 10/05/20 09:13 0.9 % Sodium Chloride Flush 3 Ml Syringe IVFLUSH 3 ml QSHIFT [facility] Administration Sucralfate 2 gm 10/03/20 09:00 10/05/20 10:33 Sucralfate 1 Gm Tablet PO 2 gm DAILY [facility] Administration Tamsulosin HCl 0.4 mg 10/05/20 16:30 Tamsulosin Hcl 0.4 Mg Capsule PO DAILY@1630 [facility] Tiotropium [place] 1 puff 10/03/20 09:00 10/05/20 09:51 Tiotropium [place] 18 Mcg Cap.W.Dev INHALE Not Given DAILY [facility] Vitamin D 50 mcg 10/03/20 09:00 10/05/20 10:33 Cholecalciferol (Vitamin D3) 25 Mcg Tablet PO 50 mcg DAILY [facility] Administration Labs CBC & Chem 7: 10/05/20 05:20 10/05/20 05:20 Microbiology Microbiology Results: Microbiology 10/04/20 09:22 Blood - Venous Blood Culture - Preliminary No growth after 24 hours. 10/04/20 09:25 Blood - Venous Blood Culture - Preliminary No growth after 24 hours. 10/02/20 20:26 Blood - Venous Blood Culture - Preliminary Gram positive cocci 10/02/20 20:26 Blood - Venous Blood Culture - Final Coag negative Staphylococcus Assessment and Plan (1) Bacteremia: Status: Acute (2) Kidney disease, chronic, stage III (GFR 30-59 ml/min): Status: Acute (3) Cough with hemoptysis: Status: Acute (4) Shortness of breath: Status: Acute (5) Acute UTI: Status: Acute (6) Hypotension: Status: Acute (7) Abdominal aortic aneurysm: Status: Acute Assessment and Plan: 75-year-old male who presented initially to the hospital with complaints of hemoptysis. Patient was evaluated by both bit tapper who felt no need for bronchoscopy and also by GI who felt that the patient's hemoglobin was stable and therefore no need for further intervention. # syncope/near-syncope Patient diagnosed to have syncopal episode question cause of syncope ddx vasovagal episode less likely due to sepsis since patient appears nontoxic, History of abdominal aortic aneurysm, CT angiogram today showed 5.2 ce ntimetres abdominal aortic aneurysm with thrombus, Dr. jones discuss case with Dr. Box he is going to see patient To give further recommendation, continue tele monitor and follow blood pressure closely Patient with history of CABG status post pacemaker placement/ICD, is history of a failure with poor EF therefore has chronically low blood pressure on midodrine Please refer to detailed note by ICU # sepsis - blood cultures positive for gram-positive cocci in clusters and Gram-positive cocci in chains, repeat blood culture pending question source of infection UA negative Continue IV vancomycin and Zosyn, lactic acid normalized # hemoptysis - possible secondary to injury by frozen food ingestion with mucosal injury to esophgus - bit tapper evaluated patient, do not feel the patient needs any further bronchoscopy,hct stable. - follow CBC - evaluated by GI with no recommendation for further intervention in-patient, continue PPI and Carafate.outpatient follow-up with GI office. # COPD - No exacerbation DVT prophylaxis: Compression boots.
[2020-10-05] MEDS: Tamsulosin HCL 0.4 MG CAPSULE PO (16:36)
[2020-10-05 17:05] LABS: OBS Int Ctl Valid YES; OBS1 NEGATIVE (NEGATIVE)
[2020-10-05] MEDS: Albuterol Sulfate 90 MCG 8 GM INHALER 2 PUFF INHALE (19:57)
[2020-10-06] VITALS (8 sets, daily range): BP systolic 92–147; BP diastolic 51–84; PULSE 75–97; RESP 18–21; TEMP 36.4–37; O2SAT 93–99; BMI 18.7
[2020-10-06] MEDS: Piperacillin Sodium/Tazobactam 2.25 GM in 0.9 % Sodium Chloride 50 ML IV ×2 (04:09→10:11)
[2020-10-06] MEDS: Pantoprazole Sodium 40 MG/10 ML VIAL IVPUSH (05:30)
[2020-10-06 06:33] LABS: MANUAL DIFF FLAG NO
[2020-10-06 06:58] LABS: Basophils Percent Auto 0.3 % (0-2); Eosinophils Absolute Auto 0.4 X10*3/uL (0.0-0.4); Eosinophils Percent Auto 6.5 % (0-4); Hemoglobin 8.9 g/dl (14.0-18.0); Imm Gran Abs Auto 0.06 X10*3/uL (0.00-0.03); Imm Gran Pct Auto 0.9 % (0.0-0.4); Lymphocytes Absolute Auto 0.7 X10*3/uL (1.2-4.9); Lymphocytes Percent Auto 10.4 % (20-40); Mean Corpuscular HGB Conc 30.7 g/dl (31.0-36.0); Mean Corpuscular Hemoglobin 28.6 pg (27.0-33.0); Mean Corpuscular Volume 93.2 fL (80-98); Monocytes Absolute Auto 0.4 X10*3/uL (0.1-1.2); Monocytes Percent Auto 5.8 % (2-11); Neutrophils Absolute Auto 5.1 X10*3/uL (2.0-8.3); Neutrophils Percent Auto 76.1 % (45-73); Platelet Count 131 X10*3/uL (160-400); Red Blood Count 3.11 X10*6/uL (4.60-5.80); Red Cell Distribution Width 15.5 % (11.0-16.0); White Blood Count 6.7 X10*3/uL (4.8-10.8)
[2020-10-06 06:59] LABS: INTERNATIONAL NORM RATIO 1.4 (0.9-1.1); Prothrombin Time 17.2 SEC (10.8-13.0)
[2020-10-06 07:02] LABS: Anion Gap 13 (12-20); Blood Urea Nitrogen 23 mg/dL (9-16); Carbon Dioxide 21 mmol/L (22-29); Chloride 112 mmol/L (96-108); Creatinine Clr Calc Pharmacy 34.5; Estimated Glomerular Filt Rate 38; Glucose Random 78 mg/dL (60-115); Potassium 4.3 mmol/L (3.3-5.1); Sodium 142 mmol/L (135-145)
--- NOTE | 2020-10-06 09:29 | P.PNPL_ITS ---
Subjective Subjective Date of Service: 10/06/20 Principal diagnosis: Pt feeling better; BP better with IVF overnight; made 800 cc urine Interval history: The patient was seen and examined. Clinically feels better with no evidence of significant hemoptysis. Although, he does feel tired. Currently on multiple antibiotics. He is concerned about the aortic aneurysm at this time. I explained to him that before anything the infections have to be dealt with and treated and is reassuring that he is not coughing up any significant amount blood and further. Therefore bronchoscopy is not warranted. I did review the CT scan of the chest with the patient demonstrating a small right-sided pleural effusion as well as what appears to be some airspace disease just adjacent to it. This is likely the source of the coughing up blood. Objective Data Labs CBC & Chem 7: 10/06/20 05:34 10/06/20 05:34 Labs: Laboratory Results - last 24 hr 10/05/20 10/06/20 10/06/20 14:12 05:34 05:34 WBC 6.7 RBC 3.11 L Hgb 8.9 L Hct 29.0 L MCV 93.2 MCH 28.6 MCHC 30.7 L RDW 15.5 Plt Count 131 L MPV 10.0 Immature Gran % (Auto) 0.9 H Neut % (Auto) 76.1 H Lymph % (Auto) 10.4 L [place] % (Auto) 5.8 Eos % (Auto) 6.5 H Baso % (Auto) 0.3 Lymph # (Auto) 0.7 L [place] # (Auto) 0.4 Eos # (Auto) 0.4 Baso # (Auto) 0.0 Abs Immat Gran (auto) 0.06 H Absolute Neuts (auto) 5.1 Absolute Nucleated RBC 0.000 Nucleated RBC % (auto) 0.0 PT 17.2 H INR 1.4 H Sodium Potassium Chloride Carbon Dioxide Anion Gap BUN Creatinine Estim Creat Clear Calc Estimated GFR Random Glucose Calcium Stool Occult Blood NEGATIVE 10/06/20 05:34 WBC RBC Hgb Hct MCV MCH MCHC RDW Plt Count MPV Immature Gran % (Auto) Neut % (Auto) Lymph % (Auto) [place] % (Auto) Eos % (Auto) Baso % (Auto) Lymph # (Auto) [place] # (Auto) Eos # (Auto) Baso # (Auto) Abs Immat Gran (auto) Absolute Neuts (auto) Absolute Nucleated RBC Nucleated RBC % (auto) PT INR Sodium 142 Potassium 4.3 Chloride 112 H Carbon Dioxide 21 L Anion Gap 13 BUN 23 H Creatinine 1.75 H Estim Creat Clear Calc 34.5 Estimated GFR 38 Random Glucose 78 Calcium 8.0 L Stool Occult Blood Microbiology Microbiology Results: Microbiology 10/02/20 20:26 Blood - Venous Blood Culture - Final Streptococcus salivarius Viridans streptococcus group 10/04/20 09:22 Blood - Venous Blood Culture - Preliminary No growth after 24 hours. 10/04/20 09:25 Blood - Venous Blood Culture - Preliminary No growth after 24 hours. 10/02/20 20:26 Blood - Venous Blood Culture - Final Coag negative Staphylococcus Review of Systems Constitutional: Denies night sweats Denies change in voice, Denies lip swelling, Denies mouth pain, Reports nasal congestion, Reports nasal discharge and Denies tongue swelling Cardiovascular: Denies chest pain Respiratory: Reports cough and Reports hemoptysis (scant) Gastrointestinal: Denies abdominal pain Musculoskeletal: Denies no additional musculoskeletal complaints Denies Neuro-related abnormal movements Psychiatric: Denies no additional psychiatric complaints Hematologic/Lymphatic: Denies easy bleeding and Denies lymphadenopathy Allergic/Immunologic: Denies lip swelling and Denies tongue swelling Physical Exam Vital Signs: Vital Signs: Last Vital Signs Temp 97.8 F 10/06/20 07:22 Pulse 79 10/06/20 07:22 Resp 21 H 10/06/20 07:22 BP 112/67 10/06/20 07:22 Pulse Ox 99 10/06/20 07:22 Body Mass Index 18.7 Const: General: alert Neck: Neck: Yes normal visual inspection, Yes full ROM and Yes no lymphad enopathy Chest: Chest palpation & inspection: normal inspection of the chest Resp: Auscultation: diminished lung sounds Cardio: Rate: regular rate Rhythm: regular rhythm Heart sounds: S1 normal heart sound present and S2 normal heart sound present GI: Palpation (GI): Soft to palpation and nontender Auscultation: normal bowel sounds Skin: General skin exam: rashes and/or lesions noted Procedures Date of Service Date of Service: 10/06/20 Assessment and Plan Assessment and plan (1) Bacteremia: Status: Acute (2) Bronchopneumonia: Status: Acute (3) Pleural effusion: Status: Acute (4) Hemoptysis: Status: Acute Assessment and Plan: Continue antibiotic regimen as per Infectious Disease Bronchoscopy not warranted Serial imaging studies to make sure the pleural effusion does not worsen Time Spent With Patient Time: Total time spent is greater than 50% in coordination of care (as documented) at patient's floor/unit and/or counseling patient: Time with patient: 15 - 24 minutes
[2020-10-06 09:50] LABS: Vancomycin Random 9.1 mcg/mL (15-20)
[2020-10-06] MEDS: Sucralfate 1 GM TABLET 2 GM PO (10:10)
[2020-10-06] MEDS: Cholecalciferol (Vitamin D3) 25 MCG TABLET 50 MCG PO (10:10)
[2020-10-06] MEDS: 0.9 % Sodium Chloride Flush 3 ML SYRINGE IVFLUSH ×2 (10:10→15:31)
[2020-10-06] MEDS: Midodrine HCl 10 MG TABLET PO ×3 (10:10→20:44)
[2020-10-06] MEDS: diazePAM 2 MG TABLET PO ×3 (10:11→20:45)
[2020-10-06] MEDS: Sertraline HCL 100 MG TABLET PO (10:12)
[2020-10-06] MEDS: Digoxin 0.125 MG TABLET PO (10:16)
--- NOTE | 2020-10-06 11:17 | P.PNNP_ITS ---
Subjective Subjective Date of Service: 10/07/20 Principal diagnosis: Pt feeling better; BP better with IVF overnight; made 800 cc urine Interval history: Events noted Physical Exam Vital Signs: Vital Signs: Last Vital Signs Temp 97.6 F 10/06/20 11:04 Pulse 75 10/06/20 11:04 Resp 20 10/06/20 11:04 BP 128/65 10/06/20 11:04 Pulse Ox 99 10/06/20 11:04 Body Mass Index 18.7 Objective Data Labs CBC & Chem 7: 10/07/20 06:01 10/07/20 06:01 Labs: Laboratory Results - last 24 hr 10/05/20 10/06/20 10/06/20 14:12 05:34 05:34 WBC 6.7 RBC 3.11 L Hgb 8.9 L Hct 29.0 L MCV 93.2 MCH 28.6 MCHC 30.7 L RDW 15.5 Plt Count 131 L MPV 10.0 Immature Gran % (Auto) 0.9 H Neut % (Auto) 76.1 H Lymph % (Auto) 10.4 L [place] % (Auto) 5.8 Eos % (Auto) 6.5 H Baso % (Auto) 0.3 Lymph # (Auto) 0.7 L [place] # (Auto) 0.4 Eos # (Auto) 0.4 Baso # (Auto) 0.0 Abs Immat Gran (auto) 0.06 H Absolute Neuts (auto) 5.1 Absolute Nucleated RBC 0.000 Nucleated RBC % (auto) 0.0 PT 17.2 H INR 1.4 H Sodium Potassium Chloride Carbon Dioxide Anion Gap BUN Creatinine Estim Creat Clear Calc Estimated GFR Random Glucose Calcium Stool Occult Blood NEGATIVE Random Vancomycin 10/06/20 10/06/20 05:34 08:45 WBC RBC Hgb Hct MCV MCH MCHC RDW Plt Count MPV Immature Gran % (Auto) Neut % (Auto) Lymph % (Auto) [place] % (Auto) Eos % (Auto) Baso % (Auto) Lymph # (Auto) [place] # (Auto) Eos # (Auto) Baso # (Auto) Abs Immat Gran (auto) Absolute Neuts (auto) Absolute Nucleated RBC Nucleated RBC % (auto) PT INR Sodium 142 Potassium 4.3 Chloride 112 H Carbon Dioxide 21 L Anion Gap 13 BUN 23 H Creatinine 1.75 H Estim Creat Clear Calc 34.5 Estimated GFR 38 Random Glucose 78 Calcium 8.0 L Stool Occult Blood Random Vancomycin 9.1 L Microbiology Microbiology Results: Microbiology 10/02/20 20:26 Blood - Venous Blood Culture - Final Streptococcus salivarius Viridans streptococcus group 10/04/20 09:22 Blood - Venous Blood Culture - Preliminary No growth after 24 hours. 10/04/20 09:25 Blood - Venous Blood Culture - Preliminary No growth after 24 hours. 10/02/20 20:26 Blood - Venous Blood Culture - Final Coag negative Staphylococcus Assessment & Plan Assessment and plan (1) Kidney disease, chronic, stage III (GFR 30-59 ml/min): Status: Acute Assessment and Plan: 75 YM GAMALIEL on CKD with UGIB and chronic med prob including chronic low BPs maintained on midordine and HFrEF 1. GAMALIEL: incr SCr d/t renal hypoperfusion from UGIB 2. CKD 3: CRSyn with low BPs/renal perfusion 3. GIB Suggest: Follow renal panel cont midordine; Keep I > O Time Spent With Patient Time: Total time spent is greater than 50% in coordination of care (as documented) at patient's floor/unit and/or counseling patient: Procedures Date of Service Date of Service: 10/06/20
--- NOTE | 2020-10-06 12:07 | MHC.CM.PN ---
CM met with Patient and his PP GIS CONSULTANT at bedside to discuss PT's recommendation for STR.Patient adamantly refused STR and wants to go home with a new referral to [facility]. Referral has been made to [facility] and MD is aware of Patient's choice to go home.Per MD, will try to wean patient off o@ with goal to dc home tomorrow. CM will follow.
--- NOTE | 2020-10-06 12:21 | PM.CNGS ---
History of Present Illness Consult details Consult date: 10/06/20 Reason for consult: other (AAA) Narrative: Very pleasant 75-year-old gentleman presents for evaluation of abdominal aortic aneurysm. Notes any vents from the ICU were reviewed. It appears that he regionally presented for some hemoptysis. There was a question of a septic picture. It all appears to have significantly improved over the weekend. Upon his workup there is concern a finding of an aortic aneurysm. It was a finding on the inferior cuts of a chest CT. Due to the concern of the aneurysm and the hemoptysis a CT angiogram was undertaken. He now presents to us for vascular evaluation. Of note he is resting comfortably on a floor bed. Hemoptysis according to the patient has completely resolved. In general feels significantly better. Review of Systems Review of Systems: Yes all other systems are reviewed and are negative Constitutional: Constitutional: Reports no additional constitutional complaints ENT: Reports Normal hearing present Cardiovascular: Cardiovascular: Denies chest pain, Denies chest pain at rest, Denies chest pain with activity and Denies pedal edema Respiratory: Respiratory: Denies cough Gastrointestinal: Gastrointestinal: Denies abdominal pain Musculoskeletal: Musculoskeletal: Denies abnormal gait, Denies muscle cramps and Denies radiating pain into limb Integumentary/Breasts: Skin/Breast: Denies skin ulcer and Denies wounds Neurologic: Reports Normal hearing present and Denies abnormal gait Psychiatric: Psychiatric: Reports no additional psychiatric complaints [facility] Past Medical History Medical History (Updated 10/06/20 @ 12:24 by Man Box MD) COPD (chronic obstructive pulmonary disease) Kidney disease, chronic, stage III (GFR 30-59 ml/min) Family History Family History Father Myocardial infarction CVD (cardiovascular disease) Mother Myocardial infarction Type 2 diabetes mellitus CVD (cardiovascular disease) Brother Heart failure Brother Heart failure Sister No problems noted. Son No problems noted. Surgical History Surgical History History of esophagogastroduodenoscopy (EGD) History of open heart surgery Hx of appendectomy Hx of arterial bypass of lower limb Hx of cholecystectomy Hx of colonoscopy Hx of esophageal hernia repair Hx of tonsillectomy Social History Social History Household Members: Spouse and Family Housing: House Do you presently have visiting nurse or other home services: Yes Alcohol intake: former Patient Tobacco Use Status: Former Tobacco user Quit Date: 12 years ago Tobacco use type: Cigarette Cigarette Packs Per Day: 1 Cigarettes Per Day: 20.0 Smoked in Last 30 Days: No Patient Interested in Nicotine Replacement: No Patient Given Instructions on How to Stop Smoking: No Second Hand Smoke Exposure: No Use of substances other than those prescribed or required for medical reasons: No Currently Displaying Signs/Symptoms of Drug Intoxication Withdrawal: No Any prior treatment program specific to substance use: No Have you been hit, kicked, punched, or otherwise hurt by someone within the past year? If so, by whom?: No Do you feel safe in your current relationship?: Yes Is there a partner from a previous relationship who is making you feel unsafe now?: No Advance Directives: No Advance Directives Information Provided: No Advance Directives Date on File: 01/24/20 Do you have thoughts of harming others: None Do you have a plan to hurt others: No Plan Recently lost weight without trying: Yes How much weight loss: 34pounds or more Eating poorly because of decreased appetite: Yes Nutrition screen score: 7 Nutrition Risks: Emaciation/Cachexia and Poor intake 0-25% >4 days Poor oral hygiene: No service: No Current occupational status: retired Meds Allergies Allergy/AdvReac Type Severity Reaction Status Date / Time codeine [Codeine] Allergy Intermediate RASH Verified 03/27/20 09:54 fludrocortisone Allergy Unknown Unknown Verified 03/27/20 09:54 Active Medications: Current Medications Generic Name Dose Route Start Last Admin Trade Name Freq PRN Reason Stop Dose Admin Acetaminophen 650 mg 10/03/20 05:41 Acetaminophen 325 Mg Tablet PO Q6H PRN Pain, Mild (Pain Scale 1-3) Albuterol Sulfate 2 puff 10/03/20 16:00 10/06/20 07:50 Albuterol Sulfate 90 Mcg 8 Gm Inhaler INHALE Not Given RQID OLIVIA Albuterol/Ipratropium 3 ml 10/02/20 23:16 Albuterol/Iprat 2.5/0.5mg 3 Ml Ampul.Neb INHALE RQ4H PRN Shortness of Breath/Wheezing Diazepam 2 mg 10/04/20 21:00 10/06/20 10:11 Diazepam 2 Mg Tablet PO 2 mg TID OLIVIA Administration Digoxin 0.125 mg 10/03/20 09:00 10/06/20 10:16 Digoxin 0.125 Mg Tablet PO 0.125 mg [id number] [facility] Administration Doxycycline Hyclate 100 mg 10/06/20 12:30 Doxycycline Hyclate 100 Mg Tablet PO Q12H [facility] Midodrine 10 mg 10/03/20 09:00 10/06/20 10:10 Midodrine Hcl 10 Mg Tablet PO 10 mg TID [facility] Administration Pharmacy Consult 1 each 10/02/20 21:32 Consult Rx Perform Med Rec MISCELLANE ONCE PRN Consult order Pharmacy Consult 1 each 10/04/20 08:58 Consult Rx Vancomycin Dosing MISCELLANE DAILY PRN Consult order Sertraline HCl 100 mg 10/03/20 09:00 10/06/20 10:12 Sertraline Hcl 100 Mg Tablet PO 100 mg DAILY [facility] Administration Sodium Chloride 3 ml 10/03/20 08:00 10/06/20 10:10 0.9 % Sodium Chloride Flush 3 Ml Syringe IVFLUSH 3 ml QSHIFT [facility] Administration Sucralfate 2 gm 10/03/20 09:00 10/06/20 10:10 Sucralfate 1 Gm Tablet PO 2 gm DAILY [facility] Administration Tamsulosin HCl 0.4 mg 10/05/20 16:30 10/05/20 16:36 Tamsulosin Hcl 0.4 Mg Capsule PO 0.4 mg DAILY@1630 [facility] Administration Tiotropium [place] 1 puff 10/03/20 09:00 10/06/20 07:50 Tiotropium [place] 18 Mcg Cap.W.Dev INHALE Not Given DAILY [facility] Vitamin D 50 mcg 10/03/20 09:00 10/06/20 10:10 Cholecalciferol (Vitamin D3) 25 Mcg Tablet PO 50 mcg DAILY [facility] Administration Home Medications Medication Instructions Recorded Confirmed Last Taken Type albuterol sulfate 2 puff PO QID 10/02/20 10/02/20 Unknown History cholecalciferol (vitamin D3) 50 mcg PO DAILY 10/02/20 10/02/20 Unknown History diazepam 5 mg PO TID 10/02/20 10/02/20 10/02/20 History digoxin 1 tab PO 3XW 10/02/20 10/02/20 Unknown History midodrine 10 mg PO TID 10/02/20 10/02/20 10/02/20 History sertraline 100 mg PO DAILY 10/02/20 10/02/20 10/02/20 History sucralfate 2 g PO DAILY 10/02/20 10/02/20 Unknown History tamsulosin 1 cap PO DAILY 10/02/20 10/03/20 Unknown History tiotropium bromide [Spiriva with 1 puff INHALATION DAILY 10/02/20 10/02/20 10/02/20 History HandiHaler] warfarin 2.5 mg PO DAILY 10/02/20 10/02/20 10/02/20 History Physical Exam Vital Signs: Vital Signs: Last Vital Signs Temp 97.6 F 10/06/20 11:04 Pulse 75 10/06/20 11:04 Resp 20 10/06/20 11:04 BP 128/65 10/06/20 11:04 Pulse Ox 99 10/06/20 11:04 Body Mass Index 18.7 Const: General: cooperative, healthy appearing and comfortable Orientation/consciousness: oriented to person, oriented to place and oriented to time HENMT: Head: Yes normal to inspection Neck: Neck: Yes normal visual inspection Carotids: no bruits Chest: Chest palpation & inspection: normal inspection of the chest Resp: Effort & Inspection: normal respiratory effort and able to speak in complete sentences Auscultation: crackles, rales, rhonchi and wheezes Cardio: Rate: regular rate Rhythm: regular rhythm Heart sounds: S1 normal heart sound present and S2 normal heart sound present Bruits: no carotid bruits Peripheral pulses: Peripheral pulses 2+ throughout GI: Inspection: Yes normal to inspection Skin: Wounds: no wounds Hair: normal Neuro: General: oriented to person, oriented to place and oriented to time Cranial nerves: Yes CN's II-XII intact bilaterally and Yes Normal hearing present Cognition (Neuro): normal cognition Motor exam (neuro): 5/5 motor strength present throughout Extrem: Other: venous exam: No significant superficial varicosities or spider telangiectasias, minimal edema General: No clubbing, No cyanosis and No edema Psych: Appearance: grossly normal Mental Status: mental status grossly normal Speech and movement: Normal speech and movement present Results Labs Result diagrams: 10/06/20 05:34 10/06/20 05:34 Labs: Abnormal lab results 10/06/20 10/06/20 10/06/20 Range/Units 05:34 05:34 05:34 RBC 3.11 L (4.60-5.80) X10*6/uL Hgb 8.9 L (14.0-18.0) g/dl Hct 29.0 L (42-52) % MCHC 30.7 L (31.0-36.0) g/dl Plt Count 131 L (160-400) X10*3/uL Immature Gran % (Auto) 0.9 H (0.0-0.4) % Neut % (Auto) 76.1 H (45-73) % Lymph % (Auto) 10.4 L (20-40) % Eos % (Auto) 6.5 H (0-4) % Lymph # (Auto) 0.7 L (1.2-4.9) X10*3/uL Abs Immat Gran (auto) 0.06 H (0.00-0.03) X10*3/uL PT 17.2 H (10.8-13.0) SEC INR 1.4 H (0.9-1.1) Chloride 112 H (96-108) mmol/L Carbon Dioxide 21 L (22-29) mmol/L BUN 23 H (9-16) mg/dL Creatinine 1.75 H (0.5-1.4) mg/dL Calcium 8.0 L (8.4-10.2) mg/dL Random Vancomycin (15-20) mcg/mL 10/06/20 Range/Units 08:45 RBC (4.60-5.80) X10*6/uL Hgb (14.0-18.0) g/dl Hct (42-52) % MCHC (31.0-36.0) g/dl Plt Count (160-400) X10*3/uL Immature Gran % (Auto) (0.0-0.4) % Neut % (Auto) (45-73) % Lymph % (Auto) (20-40) % Eos % (Auto) (0-4) % Lymph # (Auto) (1.2-4.9) X10*3/uL Abs Immat Gran (auto) (0.00-0.03) X10*3/uL PT (10.8-13.0) SEC INR (0.9-1.1) Chloride (96-108) mmol/L Carbon Dioxide (22-29) mmol/L BUN (9-16) mg/dL Creatinine (0.5-1.4) mg/dL Calcium (8.4-10.2) mg/dL Random Vancomycin 9.1 L (15-20) mcg/mL Short CBC 10/06/20 Range/Units 05:34 WBC 6.7 (4.8-10.8) X10*3/uL Hgb 8.9 L (14.0-18.0) g/dl Hct 29.0 L (42-52) % Plt Count 131 L (160-400) X10*3/uL BMP 10/06/20 05:34 Sodium 142 Potassium 4.3 Chloride 112 H Carbon Dioxide 21 L BUN 23 H Creatinine 1.75 H Calcium 8.0 L Urine 10/04/20 Range/Units 10:30 Urine Color YELLOW Urine Appearance CLEAR Urine pH 5.5 (5.0-8.0) Ur Specific [place] 1.010 (1.005-1.025) Urine Protein NEG (NEG-TRACE) MG/DL Urine Glucose (UA) NEG (NEG) MG/DL All other labs normal. Imaging Abdomen CT scan report/results: report reviewed and image reviewed Assessment and Plan (1) Abdominal aortic aneurysm: Qualifiers: Presence of rupture: without rupture Qualified Code(s): I71.4 - Abdominal aortic aneurysm, without rupture Status: Acute In short patient has a 5.1 cm aneurysm. There appears to be no extravasation of contrast or concern of an aortoenteric fistula. It appears to be quite stable. There is some thrombus within which is a usual normal finding. Would start back on Coumadin once stable from a GI perspective in terms of his hemoptysis. In addition he does have a prior history a lower extremity bypass. I will have to try to delve in and figure out who performed that. Pending that he may need to return to his prior vascular surgeon for better coordinated care in terms of his aneurysm and lower extremity bypass. I will follow-up with the patient. Thank you for allowing us to assist in his care. If there are any questions or concerns please do not hesitate to contact us. Procedures Date of Service Date of Service: 10/06/20
--- NOTE | 2020-10-06 12:26 | MHC.CLN ---
PT IS MODERATELY MALNOURISHED PT WITH MILDLY DEPLETED SUBCUTANEOUS FAT AND MUSCLE MASS, BMI 18.7 AND POOR PO X 2 WEEKS DIET RX: REGULAR-APPROPRIATE PT EATING SERBIAN FRIES UPON INTERVIEW WITH SNACKS AT BEDSIDE BROUGHT IN BY VISITOR PT RECEPTIVE TO DRINKING ENSURE TID SUPPLEMENT TO PROVIDE 1050KCALS, 60G PROTEIN MONITOR PO INTAKE CLOSELY SEE ALSO CLINICAL NUTRITION ASSESSMENT
--- NOTE | 2020-10-06 12:48 | HO.PM.IMPN ---
Subjective Subjective Date of Service: 10/06/20 Interval History: Sitting comfortably, denies further episode of hemoptysis has been coughing with clear phlegm, no fever chills feel depressed about his current medical issues, denies shortness of breath. 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 no dizziness CVS no chest pain, no palpitation GI denies nausea, no vomiting, no diarrhea, no hematemesis Skin no rash Physical Exam Vital Signs: Vital Signs: Last Vital Signs Temp 97.6 F 10/06/20 11:04 Pulse 75 10/06/20 11:04 Resp 20 10/06/20 11:04 BP 128/65 10/06/20 11:04 Pulse Ox 99 10/06/20 11:04 Body Mass Index 18.7 General sitting comfortably no apparent distress Neck is supple Heart, regular, no peripheral edema Lungs clear to auscultation , diminished breath sound, no wheeze, no crackles, no respiratory distress Abdomen soft nontender bowel sounds are audible Extremities no clubbing cyanosis or edema Skin no rash Neuro nonfocal Objective Data Current Medications Generic Name Dose Route Start Last Admin Trade Name Freq PRN Reason Stop Dose Admin Acetaminophen 650 mg 10/03/20 05:41 Acetaminophen 325 Mg Tablet PO Q6H PRN Pain, Mild (Pain Scale 1-3) Albuterol Sulfate 2 puff 10/03/20 16:00 10/06/20 07:50 Albuterol Sulfate 90 Mcg 8 Gm Inhaler INHALE Not Given RQID [facility] Albuterol/Ipratropium 3 ml 10/02/20 23:16 Albuterol/Iprat 2.5/0.5mg 3 Ml Ampul.Neb INHALE RQ4H PRN Shortness of Breath/Wheezing Diazepam 2 mg 10/04/20 21:00 10/06/20 10:11 Diazepam 2 Mg Tablet PO 2 mg TID [facility] Administration Digoxin 0.125 mg 10/03/20 09:00 10/06/20 10:16 Digoxin 0.125 Mg Tablet PO 0.125 mg MoWeFr@0900 [facility] Administration Doxycycline Hyclate 100 mg 10/06/20 12:30 Doxycycline Hyclate 100 Mg Tablet PO Q12H [facility] Midodrine 10 mg 10/03/20 09:00 10/06/20 10:10 Midodrine Hcl 10 Mg Tablet PO 10 mg TID [facility] Administration Pharmacy Consult 1 each 10/02/20 21:32 Consult Rx Perform Med Rec MISCELLANE ONCE PRN Consult order Pharmacy Consult 1 each 10/04/20 08:58 Consult Rx Vancomycin Dosing MISCELLANE DAILY PRN Consult order Sertraline HCl 100 mg 10/03/20 09:00 10/06/20 10:12 Sertraline Hcl 100 Mg Tablet PO 100 mg DAILY OLIVIA Administration Sodium Chloride 3 ml 10/03/20 08:00 10/06/20 10:10 0.9 % Sodium Chloride Flush 3 Ml Syringe IVFLUSH 3 ml QSHIFT OLIVIA Administration Sucralfate 2 gm 10/03/20 09:00 10/06/20 10:10 Sucralfate 1 Gm Tablet PO 2 gm DAILY OLIVIA Administration Tamsulosin HCl 0.4 mg 10/05/20 16:30 10/05/20 16:36 Tamsulosin Hcl 0.4 Mg Capsule PO 0.4 mg DAILY@1630 OLIVIA Administration Tiotropium [place] 1 puff 10/03/20 09:00 10/06/20 07:50 Tiotropium [place] 18 Mcg Cap.W.Dev INHALE Not Given DAILY [facility] Vitamin D 50 mcg 10/03/20 09:00 10/06/20 10:10 Cholecalciferol (Vitamin D3) 25 Mcg Tablet PO 50 mcg DAILY OLIVIA Administration Labs CBC & Chem 7: 10/06/20 05:34 10/06/20 05:34 Labs: Laboratory Results - last 24 hr 10/05/20 10/06/20 10/06/20 14:12 05:34 05:34 WBC 6.7 RBC 3.11 L Hgb 8.9 L Hct 29.0 L MCV 93.2 MCH 28.6 MCHC 30.7 L RDW 15.5 Plt Count 131 L MPV 10.0 Immature Gran % (Auto) 0.9 H Neut % (Auto) 76.1 H Lymph % (Auto) 10.4 L [place] % (Auto) 5.8 Eos % (Auto) 6.5 H Baso % (Auto) 0.3 Lymph # (Auto) 0.7 L [place] # (Auto) 0.4 Eos # (Auto) 0.4 Baso # (Auto) 0.0 Abs Immat Gran (auto) 0.06 H Absolute Neuts (auto) 5.1 Absolute Nucleated RBC 0.000 Nucleated RBC % (auto) 0.0 PT 17.2 H INR 1.4 H Sodium Potassium Chloride Carbon Dioxide Anion Gap BUN Creatinine Estim Creat Clear Calc Estimated GFR Random Glucose Calcium Stool Occult Blood NEGATIVE Random Vancomycin 10/06/20 10/06/20 05:34 08:45 WBC RBC Hgb Hct MCV MCH MCHC RDW Plt Count MPV Immature Gran % (Auto) Neut % (Auto) Lymph % (Auto) [place] % (Auto) Eos % (Auto) Baso % (Auto) Lymph # (Auto) [place] # (Auto) Eos # (Auto) Baso # (Auto) Abs Immat Gran (auto) Absolute Neuts (auto) Absolute Nucleated RBC Nucleated RBC % (auto) PT INR Sodium 142 Potassium 4.3 Chloride 112 H Carbon Dioxide 21 L Anion Gap 13 BUN 23 H Creatinine 1.75 H Estim Creat Clear Calc 34.5 Estimated GFR 38 Random Glucose 78 Calcium 8.0 L Stool Occult Blood Random Vancomycin 9.1 L Microbiology Microbiology Results: Microbiology 10/04/20 09:22 Blood Culture - Preliminary Blood - Venous No growth after 48 hours. 10/04/20 09:25 Blood Culture - Preliminary Blood - Venous No growth after 48 hours. 10/02/20 20:26 Blood Culture - Final Blood - Venous Streptococcus salivarius Viridans streptococcus group Assessment and Plan (1) Hemoptysis: Status: Acute (2) Pleural effusion: Status: Acute (3) Bronchopneumonia: Status: Acute (4) Abdominal aortic aneurysm: Status: Acute (5) Hypotension: Status: Acute (6) Kidney disease, chronic, stage III (GFR 30-59 ml/min): Status: Acute Assessment and Plan: 75-year-old male who presented initially to the hospital with complaints of hemoptysis. Patient was evaluated by both emergency physician who felt no need for bronchoscopy and also by GI who felt that the patient's hemoglobin was stable and therefore no need for further intervention. # syncope/near-syncope Patient diagnosed to have syncopal episode while on the floor 10/04 question cause of syncope patient transferred to ICU was briefly treated with vasopressors, in ICU patient was noted to be awake alert offers no acute complaints blood pressure was low stable, patient underwent CTA abdomen with history of abdominal aortic aneurysm that showed large thrombus within a 5.2 centimetre aneurysm, there was no leak or rupture noted and was felt not to be the cause of syncope, echocardiogram showed EF 10-15%, large left atrium Likely patient had a vasovagal episode, no recurrent sepsis was noted since patient appeared nontoxic Patient seen by Dr. Box this morning, he will have outpatient follow-up no acute surgery planned at this time # hypotension Patient with history of CABG status post pacemaker placement/ICD, history of heart failure with poor EF therefore has chronically low blood pressure on midodrine # sepsis likely due to bronchitis - initially felt to have severe sepsis but patient with history of chronic hypotension, appeared nontoxic and was felt not to have severe sepsis Initial blood cultures were positive but had non pathogenic bacteria/contamination, repeat blood cultures negative Case discussed with ID she recommend to discontinue IV Vanco and Zosyn Patient placed on by mouth doxycycline for total 7 days # hemoptysis - possible secondary to injury by frozen food ingestion with mucosal injury to esophgus/bronchitis - emergency physician evaluated patient, do not feel the patient needs any further bronchoscopy,hct stable. - hematocrit stable no further hemoptysis since last 24 hours - evaluated by GI with no recommendation for further intervention in-patient, continue PPI and Carafate.outpatient follow-up with GI office. # COPD - No exacerbation continue home inhalers Spiriva and albuterol # atrial fibrillation on Coumadin currently on hold due to hemoptysis will discuss with GI /pulmonology when to resume Coumadin inr 1.4 today Disposition patient was seen by PT and referred short-term rehab however patient declined therefore will be discharged home with services tomorrow since patient chair lift is broken and will be fixed today. DVT prophylaxis: Compression boots.
[2020-10-06] MEDS: Albuterol Sulfate 90 MCG 8 GM INHALER 2 PUFF INHALE ×3 (13:15→19:15)
[2020-10-06] MEDS: Tamsulosin HCL 0.4 MG CAPSULE PO (15:31)
--- NOTE | 2020-10-06 16:05 | P.PNID_ITS ---
Subjective Subjective Date of Service: 10/06/20 Interval History: he has some whitish sputum Critical Care Time (minutes): 15 Objective Data Labs CBC & Chem 7: 10/06/20 05:34 10/06/20 05:34 Labs: Laboratory Results - last 24 hr 10/05/20 10/06/20 10/06/20 14:12 05:34 05:34 WBC 6.7 RBC 3.11 L Hgb 8.9 L Hct 29.0 L MCV 93.2 MCH 28.6 MCHC 30.7 L RDW 15.5 Plt Count 131 L MPV 10.0 Immature Gran % (Auto) 0.9 H Neut % (Auto) 76.1 H Lymph % (Auto) 10.4 L [place] % (Auto) 5.8 Eos % (Auto) 6.5 H Baso % (Auto) 0.3 Lymph # (Auto) 0.7 L [place] # (Auto) 0.4 Eos # (Auto) 0.4 Baso # (Auto) 0.0 Abs Immat Gran (auto) 0.06 H Absolute Neuts (auto) 5.1 Absolute Nucleated RBC 0.000 Nucleated RBC % (auto) 0.0 PT 17.2 H INR 1.4 H Sodium Potassium Chloride Carbon Dioxide Anion Gap BUN Creatinine Estim Creat Clear Calc Estimated GFR Random Glucose Calcium Stool Occult Blood NEGATIVE Random Vancomycin 10/06/20 10/06/20 05:34 08:45 WBC RBC Hgb Hct MCV MCH MCHC RDW Plt Count MPV Immature Gran % (Auto) Neut % (Auto) Lymph % (Auto) [place] % (Auto) Eos % (Auto) Baso % (Auto) Lymph # (Auto) [place] # (Auto) Eos # (Auto) Baso # (Auto) Abs Immat Gran (auto) Absolute Neuts (auto) Absolute Nucleated RBC Nucleated RBC % (auto) PT INR Sodium 142 Potassium 4.3 Chloride 112 H Carbon Dioxide 21 L Anion Gap 13 BUN 23 H Creatinine 1.75 H Estim Creat Clear Calc 34.5 Estimated GFR 38 Random Glucose 78 Calcium 8.0 L Stool Occult Blood Random Vancomycin 9.1 L Microbiology Microbiology Results: Microbiology 10/04/20 09:22 Blood - Venous Blood Culture - Preliminary No growth after 48 hours. 10/04/20 09:25 Blood - Venous Blood Culture - Preliminary No growth after 48 hours. 10/02/20 20:26 Blood - Venous Blood Culture - Final Streptococcus salivarius Viridans streptococcus group 10/02/20 20:26 Blood - Venous Blood Culture - Final Coag negative Staphylococcus Physical Exam Vital Signs: Vital Signs: Last Vital Signs Temp 98.6 F 10/06/20 15:20 Pulse 97 10/06/20 15:20 Resp 18 10/06/20 15:20 BP 100/61 10/06/20 15:20 Pulse Ox 97 10/06/20 15:20 Body Mass Index 18.7 Const: General: cooperative HENMT: Head: Yes normal to inspection Mouth: Normal oral and palatal mucosa present Resp: Effort & Inspection: normal respiratory effort Cardio: Rate: regular rate Rhythm: regular rhythm GI: Palpation (GI): Soft to palpation and nontender Skin: General skin exam: no rashes or lesions noted Assessment and Plan Assessment and plan (1) Hemoptysis: Problem details: He has no complaints at this time Status: Acute Assessment and Plan: Would change to po Doxycycline for a week (2) Pleural effusion: Status: Acute Time Spent With Patient Time: Total time spent is greater than 50% in coordination of care (as documented) at patient's floor/unit and/or counseling patient: Time with patient: 15 - 24 minutes
[2020-10-07] VITALS (12 sets, daily range): BP systolic 99–142; BP diastolic 54–78; PULSE 72–95; RESP 18–20; TEMP 35.8–37.4; O2SAT 3–98
[2020-10-07] MEDS: 0.9 % Sodium Chloride Flush 3 ML SYRINGE IVFLUSH ×4 (00:40→20:31)
[2020-10-07] MEDS: Albuterol Sulfate 90 MCG 8 GM INHALER 2 PUFF INHALE ×4 (07:02→19:55)
[2020-10-07 07:30] LABS: MANUAL DIFF FLAG NO
[2020-10-07 07:39] LABS: Basophils Percent Auto 0.2 % (0-2); Eosinophils Absolute Auto 0.2 X10*3/uL (0.0-0.4); Eosinophils Percent Auto 2.2 % (0-4); Hematocrit 30.3 % (42-52); Hemoglobin 9.4 g/dl (14.0-18.0); Imm Gran Abs Auto 0.05 X10*3/uL (0.00-0.03); Imm Gran Pct Auto 0.5 % (0.0-0.4); Lymphocytes Absolute Auto 0.6 X10*3/uL (1.2-4.9); Lymphocytes Percent Auto 5.6 % (20-40); Mean Corpuscular Volume 93.5 fL (80-98); Mean Platelet Volume 10.8 fL (9.4-12.4); Monocytes Absolute Auto 0.7 X10*3/uL (0.1-1.2); Monocytes Percent Auto 6.6 % (2-11); Neutrophils Absolute Auto 8.8 X10*3/uL (2.0-8.3); Neutrophils Percent Auto 84.9 % (45-73); Platelet Count 131 X10*3/uL (160-400); Red Blood Count 3.24 X10*6/uL (4.60-5.80); Red Cell Distribution Width 15.3 % (11.0-16.0); White Blood Count 10.3 X10*3/uL (4.8-10.8)
[2020-10-07] MEDS: diazePAM 2 MG TABLET PO (08:16)
[2020-10-07] MEDS: Midodrine HCl 10 MG TABLET PO ×2 (08:16→20:30)
[2020-10-07] MEDS: Sertraline HCL 100 MG TABLET PO (08:16)
[2020-10-07 08:31] LABS: Anion Gap 17 (12-20); Blood Urea Nitrogen 22 mg/dL (9-16); Calcium 8.3 mg/dL (8.4-10.2); Carbon Dioxide 16 mmol/L (22-29); Chloride 112 mmol/L (96-108); Creatinine Clr Calc Pharmacy 35.9; Estimated Glomerular Filt Rate 40; Glucose Random 86 mg/dL (60-115); Sodium 140 mmol/L (135-145)
[2020-10-07 08:50] LABS: Potassium 5.2 mmol/L (3.3-5.1)
--- NOTE | 2020-10-07 09:53 | PM.PNPUL ---
Subjective Subjective Date of Service: 10/07/20 Principal diagnosis: Pt feeling better; BP better with IVF overnight; made 800 cc urine Interval history: The patient was seen and examined. Complaining of worsening dyspnea this morning along with significant nausea and dry heaving. Denies any significant hemoptysis although he did cough up some sputum with blood this morning. He said it was diluted almost like a watermelon color. He was upset about hearing about needing rehabilitation. Objective Data Labs CBC & Chem 7: 10/07/20 06:01 10/07/20 06:01 Labs: Laboratory Results - last 24 hr 10/07/20 10/07/20 06:01 06:01 WBC 10.3 RBC 3.24 L Hgb 9.4 L Hct 30.3 L MCV 93.5 MCH 29.0 MCHC 31.0 RDW 15.3 Plt Count 131 L MPV 10.8 Immature Gran % (Auto) 0.5 H Neut % (Auto) 84.9 H Lymph % (Auto) 5.6 L [place] % (Auto) 6.6 Eos % (Auto) 2.2 Baso % (Auto) 0.2 Lymph # (Auto) 0.6 L [place] # (Auto) 0.7 Eos # (Auto) 0.2 Baso # (Auto) 0.0 Abs Immat Gran (auto) 0.05 H Absolute Neuts (auto) 8.8 H Absolute Nucleated RBC 0.000 Nucleated RBC % (auto) 0.0 Sodium 140 Potassium 5.2 H D Chloride 112 H Carbon Dioxide 16 L Anion Gap 17 BUN 22 H Creatinine 1.68 H Estim Creat Clear Calc 35.9 Estimated GFR 40 Random Glucose 86 Calcium 8.3 L Microbiology Microbiology Results: Microbiology 10/04/20 09:22 Blood - Venous Blood Culture - Preliminary No growth after 48 hours. 10/04/20 09:25 Blood - Venous Blood Culture - Preliminary No growth after 48 hours. 10/02/20 20:26 Blood - Venous Blood Culture - Final Streptococcus salivarius Viridans streptococcus group 10/02/20 20:26 Blood - Venous Blood Culture - Final Coag negative Staphylococcus Review of Systems Constitutional: Denies night sweats Denies change in voice, Denies lip swelling, Denies mouth pain, Reports nasal congestion, Reports nasal discharge and Denies tongue swelling Cardiovascular: Denies chest pain and Reports dyspnea Respiratory: Reports cough, Reports hemoptysis (scant) and Reports dyspnea Gastrointestinal: Denies abdominal pain, Reports dyspepsia, Reports nausea and Reports vomiting Musculoskeletal: Denies no additional musculoskeletal complaints Denies Neuro-related abnormal movements Psychiatric: Denies no additional psychiatric complaints Hematologic/Lymphatic: Denies easy bleeding and Denies lymphadenopathy Allergic/Immunologic: Denies lip swelling and Denies tongue swelling Physical Exam Vital Signs: Vital Signs: Last Vital Signs Temp 97.2 F 10/07/20 07:35 Pulse 95 10/07/20 08:16 Resp 18 10/07/20 07:35 BP 129/76 10/07/20 08:16 Pulse Ox 97 10/07/20 07:35 Body Mass Index 18.7 Const: General: alert Neck: Neck: Yes normal visual inspection, Yes full ROM and Yes no lymphadenopathy Chest: Chest palpation & inspection: normal inspection of the chest Resp: Auscultation: diminished lung sounds Cardio: Rate: regular rate Rhythm: regular rhythm Heart sounds: S1 normal heart sound present and S2 normal heart sound present GI: Palpation (GI): Soft to palpation and nontender Auscultation: normal bowel sounds Skin: General skin exam: rashes and/or lesions noted Procedures Date of Service Date of Service: 10/07/20 Assessment and Plan Assessment and plan (1) Hemoptysis: Problem details: He has no complaints at this time Status: Acute (2) Pleural effusion: Status: Acute (3) Bronchopneumonia: Status: Acute Assessment and Plan: Repeat CXR today Continue Doxycycline x 14 days Time Spent With Patient Time: Total time spent is greater than 50% in coordination of care (as documented) at patient's floor/unit and/or counseling patient: Time with patient: 15 - 24 minutes
[2020-10-07] MEDS: ondansetron HCL 4 MG/2 ML VIAL IVPUSH ×2 (10:50→15:18)
--- NOTE | 2020-10-07 10:55 | PM.PNNEP ---
Subjective Subjective Date of Service: 10/07/20 Principal diagnosis: Pt feeling better; BP better with IVF overnight; made 800 cc urine Interval history: Events noted Physical Exam Vital Signs: Vital Signs: Last Vital Signs Temp 97.2 F 10/07/20 07:35 Pulse 95 10/07/20 08:16 Resp 18 10/07/20 07:35 BP 129/76 10/07/20 08:16 Pulse Ox 97 10/07/20 07:35 Body Mass Index 18.7 Const: General: comfortable Neck: Neck: Yes supple Resp: Auscultation: clear to auscultation bilaterally Cardio: Heart sounds: no rubs Neuro: Motor exam (neuro): No Asterixis during motor activity present Objective Data Labs CBC & Chem 7: 10/07/20 06:01 10/07/20 06:01 Labs: Laboratory Results - last 24 hr 10/07/20 10/07/20 06:01 06:01 WBC 10.3 RBC 3.24 L Hgb 9.4 L Hct 30.3 L MCV 93.5 MCH 29.0 MCHC 31.0 RDW 15.3 Plt Count 131 L MPV 10.8 Immature Gran % (Auto) 0.5 H Neut % (Auto) 84.9 H Lymph % (Auto) 5.6 L [place] % (Auto) 6.6 Eos % (Auto) 2.2 Baso % (Auto) 0.2 Lymph # (Auto) 0.6 L [place] # (Auto) 0.7 Eos # (Auto) 0.2 Baso # (Auto) 0.0 Abs Immat Gran (auto) 0.05 H Absolute Neuts (auto) 8.8 H Absolute Nucleated RBC 0.000 Nucleated RBC % (auto) 0.0 Sodium 140 Potassium 5.2 H D Chloride 112 H Carbon Dioxide 16 L Anion Gap 17 BUN 22 H Creatinine 1.68 H Estim Creat Clear Calc 35.9 Estimated GFR 40 Random Glucose 86 Calcium 8.3 L Microbiology Microbiology Results: Microbiology 10/04/20 09:22 Blood - Venous Blood Culture - Preliminary No growth after 48 hours. 10/04/20 09:25 Blood - Venous Blood Culture - Preliminary No growth after 48 hours. 10/02/20 20:26 Blood - Venous Blood Culture - Final Streptococcus salivarius Viridans streptococcus group 10/02/20 20:26 Blood - Venous Blood Culture - Final Coag negative Staphylococcus Assessment & Plan Assessment and plan (1) Kidney disease, chronic, stage III (GFR 30-59 ml/min): Status: Acute Assessment and Plan: 75 YM GAMALIEL on CKD with UGIB and chronic med prob including chronic low BPs maintained on midordine and HFrEF 1. GAMALIEL: incr SCr d/t renal hypoperfusion from UGIB 2. CKD 3: CRSyn with low BPs/renal perfusion 3. GIB Mild acidosis with hyperkalemia Suggest: Follow renal panel and it appears that creatinine is close to baseline cont midordine; ADD NaHCO3 650 mg BID to correct acidosis. K should improve once acidosis is addressed Time Spent With Patient Time: Total time spent is greater than 50% in coordination of care (as documented) at patient's floor/unit and/or counseling patient: Procedures Date of Service Date of Service: 10/07/20
--- NOTE | 2020-10-07 12:48 | P.PNIM_ITS ---
Subjective Subjective Date of Service: 10/07/20 Interval History: sob, nausea this morning Cardiovascular Cardiovascular: Reports no additional cardiovascular complaints Gastrointestinal Gastrointestinal: Reports no additional gastrointestinal complaints Physical Exam Vital Signs: Vital Signs: Last Vital Signs Temp 98.6 F 10/07/20 11:29 Pulse 76 10/07/20 11:29 Resp 18 10/07/20 11:29 BP 99/54 L 10/07/20 11:29 Pulse Ox 98 10/07/20 11:29 Body Mass Index 18.7 General: lethargic O X 3, ill appearing Resp: Crackles CVS: S1,S2,RRR GI: soft, non tender, non distended Neuro: motor grossly intact Psych: appropriate affect Objective Data Current Medications Generic Name Dose Route Start Last Admin Trade Name Freq PRN Reason Stop Dose Admin Acetaminophen 650 mg 10/03/20 05:41 Acetaminophen 325 Mg Tablet PO Q6H PRN Pain, Mild (Pain Scale 1-3) Albuterol Sulfate 2 puff 10/03/20 16:00 10/07/20 11:09 Albuterol Sulfate 90 Mcg 8 Gm Inhaler INHALE 2 puff RQID OLIVIA Administration Albuterol/Ipratropium 3 ml 10/02/20 23:16 Albuterol/Iprat 2.5/0.5mg 3 Ml Ampul.Neb INHALE RQ4H PRN Shortness of Breath/Wheezing Diazepam 2 mg 10/04/20 21:00 10/07/20 08:16 Diazepam 2 Mg Tablet PO 2 mg TID OLIVIA Administration Digoxin 0.125 mg 10/03/20 09:00 10/06/20 10:16 Digoxin 0.125 Mg Tablet PO 0.125 mg MoWeFr@0900 OLIVIA Administration Doxycycline Hyclate 100 mg 10/06/20 12:30 10/07/20 00:39 Doxycycline Hyclate 100 Mg Tablet PO 100 mg Q12H OLIVIA Administration Furosemide 40 mg 10/07/20 18:00 Furosemide 40 Mg/4 Ml Vial IVPUSH BID@0900,1800 [facility] Protocol Midodrine 10 mg 10/03/20 09:00 10/07/20 08:16 Midodrine Hcl 10 Mg Tablet PO 10 mg TID OLIVIA Administration Ondansetron HCl 4 mg 10/07/20 09:45 10/07/20 10:50 Ondansetron Hcl 4 Mg/2 Ml Vial IVPUSH 4 mg Q6H PRN Administration Nausea Pharmacy Consult 1 each 10/02/20 21:32 Consult Rx Perform Med Rec MISCELLANE ONCE PRN Consult order Pharmacy Consult 1 each 10/04/20 08:58 Consult Rx Vancomycin Dosing MISCELLANE DAILY PRN Consult order Sertraline HCl 100 mg 10/03/20 09:00 10/07/20 08:16 Sertraline Hcl 100 Mg Tablet PO 100 mg DAILY OLIVIA Administration Sodium Bicarbonate 650 mg 10/07/20 15:00 Sodium Bicarbonate 650 Mg Tablet PO TID [facility] Sodium Chloride 3 ml 10/03/20 08:00 10/07/20 07:02 0.9 % Sodium Chloride Flush 3 Ml Syringe IVFLUSH 3 ml QSHIFT [facility] Administration Sucralfate 2 gm 10/03/20 09:00 10/07/20 08:16 Sucralfate 1 Gm Tablet PO Not Given DAILY [facility] Tamsulosin HCl 0.4 mg 10/05/20 16:30 10/06/20 15:31 Tamsulosin Hcl 0.4 Mg Capsule PO 0.4 mg DAILY@1630 [facility] Administration Tiotropium [place] 1 puff 10/03/20 09:00 10/07/20 07:53 Tiotropium Delta 18 Mcg Cap.W.Dev INHALE 1 puff DAILY [facility] Administration Vitamin D 50 mcg 10/03/20 09:00 10/07/20 08:16 Cholecalciferol (Vitamin D3) 25 Mcg Tablet PO Not Given DAILY [facility] Labs CBC & Chem 7: 10/07/20 06:01 10/07/20 06:01 Labs: Laboratory Results - last 24 hr 10/07/20 10/07/20 06:01 06:01 WBC 10.3 RBC 3.24 L Hgb 9.4 L Hct 30.3 L MCV 93.5 MCH 29.0 MCHC 31.0 RDW 15.3 Plt Count 131 L MPV 10.8 Immature Gran % (Auto) 0.5 H Neut % (Auto) 84.9 H Lymph % (Auto) 5.6 L [place] % (Auto) 6.6 Eos % (Auto) 2.2 Baso % (Auto) 0.2 Lymph # (Auto) 0.6 L [place] # (Auto) 0.7 Eos # (Auto) 0.2 Baso # (Auto) 0.0 Abs Immat Gran (auto) 0.05 H Absolute Neuts (auto) 8.8 H Absolute Nucleated RBC 0.000 Nucleated RBC % (auto) 0.0 Sodium 140 Potassium 5.2 H D Chloride 112 H Carbon Dioxide 16 L Anion Gap 17 BUN 22 H Creatinine 1.68 H Estim Creat Clear Calc 35.9 Estimated GFR 40 Random Glucose 86 Calcium 8.3 L Microbiology Microbiology Results: Microbiology 10/04/20 09:22 Blood Culture - Preliminary Blood - Venous No growth after 48 hours. 10/04/20 09:25 Blood Culture - Preliminary Blood - Venous No growth after 48 hours. 10/02/20 20:26 Blood Culture - Final Blood - Venous Streptococcus salivarius Viridans streptococcus group Assessment and Plan (1) Hemoptysis: Status: Acute (2) Pleural effusion: Status: Acute (3) Bronchopneumonia: Status: Acute (4) Abdominal aortic aneurysm: Status: Acute (5) Hypotension: Status: Acute (6) Kidney disease, chronic, stage III (GFR 30-59 ml/min): Status: Acute Assessment and Plan: 75-year-old male who presented initially to the hospital with complaints of hemoptysis. Patient was evaluated by both product marketing consultant who felt no need for bronchoscopy and also by GI who felt that the patient's hemoglobin was stable and therefore no need for further intervention. today patient complaining of worsening sob especially on exertion syncope/near-syncope Patient diagnosed to have syncopal episode while on the floor 10/04 question cause of syncope patient transferred to ICU was briefly treated with vasopressors, in ICU patient was noted to be awake alert offers no acute complaints blood pressure was low stable, patient underwent CTA abdomen with history of abdominal aortic aneurysm that showed large thrombus within a 5.2 centimetre aneurysm, there was no leak or rupture noted and was felt not to be the cause of syncope, echocardiogram showed EF 10-15%, large left atrium Likely patient had a vasovagal episode, no recurrent sepsis was noted since patient appeared nontoxic Patient seen by Dr. Box this morning, he will have outpatient follow-up no acute surgery planned at this time hypotension Patient with history of CABG status post pacemaker placement/ICD, history of heart failure with poor EF therefore has chronically low blood pressure on midodrine acute on chronic systolic chf will start on some lasix, monitor sepsis likely due to bronchitis - initially felt to have severe sepsis but patient with history of chronic hypotension, appeared nontoxic and was felt not to have severe sepsis Initial blood cultures were positive but had non pathogenic [place]/contamination, repeat blood cultures negative Case discussed with ID she recommend to discontinue IV Vanco and Zosyn Patient placed on by mouth doxycycline for total 7 days hemoptysis - possible secondary to injury by frozen food ingestion with mucosal injury to esophgus/bronchitis - product marketing consultant evaluated patient, do not feel the patient needs any further bronchoscopy,hct stable. - hematocrit stable no further hemoptysis since last 48 hours - evaluated by GI with no recommendation for further intervention in-patient, continue PPI and Carafate.outpatient follow-up with GI office. COPD - No exacerbation continue home inhalers Spiriva and albuterol atrial fibrillation on Coumadin currently on hold due to hemoptysis will discuss with GI /pulmonology when to resume Coumadin inr 1.4 yesterday Disposition patient was seen by PT and referred short-term rehab however patient declined DVT prophylaxis: Compression boots.
[2020-10-07] MEDS: Sodium Bicarbonate 650 MG TABLET PO ×2 (15:11→20:30)
[2020-10-07] MEDS: Furosemide 40 MG/4 ML VIAL IVPUSH (16:49)
[2020-10-07] MEDS: diazePAM 5 MG TABLET PO (20:30)
[2020-10-07] MEDS: traZODone HCL 25 MG HALFTAB PO (22:49)
[2020-10-08] VITALS (16 sets, daily range): BP systolic 95–128; BP diastolic 50–80; PULSE 76–100; RESP 15–20; TEMP 36–37.3; O2SAT 90–98
[2020-10-08] MEDS: Midodrine HCl 10 MG TABLET PO ×3 (08:35→21:37)
[2020-10-08] MEDS: Sucralfate 1 GM TABLET 2 GM PO (08:35)
[2020-10-08] MEDS: Sertraline HCL 100 MG TABLET PO (08:35)
[2020-10-08] MEDS: diazePAM 5 MG TABLET PO ×3 (08:36→21:37)
[2020-10-08] MEDS: 0.9 % Sodium Chloride Flush 3 ML SYRINGE IVFLUSH ×3 (08:36→21:48)
[2020-10-08] MEDS: Sodium Bicarbonate 650 MG TABLET PO ×3 (08:36→21:37)
[2020-10-08] MEDS: Cholecalciferol (Vitamin D3) 25 MCG TABLET 50 MCG PO (08:36)
[2020-10-08] MEDS: Furosemide 40 MG/4 ML VIAL IVPUSH ×2 (08:36→17:20)
[2020-10-08] MEDS: Digoxin 0.125 MG TABLET PO (08:40)
[2020-10-08 09:16] LABS: Hematocrit 33.4 % (42-52); Hemoglobin 10.3 g/dl (14.0-18.0); Mean Corpuscular HGB Conc 30.8 g/dl (31.0-36.0); Mean Corpuscular Hemoglobin 28.3 pg (27.0-33.0); Mean Corpuscular Volume 91.8 fL (80-98); Mean Platelet Volume 9.5 fL (9.4-12.4); Platelet Count 145 X10*3/uL (160-400); Red Blood Count 3.64 X10*6/uL (4.60-5.80); White Blood Count 10.3 X10*3/uL (4.8-10.8)
[2020-10-08] MEDS: Albuterol Sulfate 90 MCG 8 GM INHALER 2 PUFF INHALE ×2 (09:28→13:14)
[2020-10-08 09:45] LABS: Anion Gap 14 (12-20); Blood Urea Nitrogen 24 mg/dL (9-16); Calcium 8.8 mg/dL (8.4-10.2); Carbon Dioxide 26 mmol/L (22-29); Chloride 104 mmol/L (96-108); Creatinine Clr Calc Pharmacy 33.4; Estimated Glomerular Filt Rate 37; Glucose Fasting 103 mg/dL (60-99); Potassium 4.4 mmol/L (3.3-5.1); Sodium 140 mmol/L (135-145)
[2020-10-08 09:47] LABS: B Type Natriuretic Peptide 2561 pg/mL (<100)
--- NOTE | 2020-10-08 09:59 | PM.PNNEP ---
Subjective Subjective Date of Service: 10/08/20 Principal diagnosis: Pt feeling better; BP better with IVF overnight; made 800 cc urine Interval history: Events noted On Lasix with increased frequency Physical Exam Vital Signs: Vital Signs: Last Vital Signs Temp 98.5 F 10/08/20 07:55 Pulse 80 10/08/20 08:40 Resp 18 10/08/20 07:55 BP 109/58 L 10/08/20 08:35 Pulse Ox 96 10/08/20 07:55 Body Mass Index 18.7 Const: General: comfortable Neck: Neck: Yes supple Resp: Auscultation: clear to auscultation bilaterally Cardio: Heart sounds: no rubs Neuro: Motor exam (neuro): No Asterixis during motor activity present Objective Data Labs CBC & Chem 7: 10/08/20 08:52 10/08/20 08:52 Labs: Laboratory Results - last 24 hr 10/08/20 10/08/20 10/08/20 08:52 08:52 08:52 WBC 10.3 RBC 3.64 L Hgb 10.3 L Hct 33.4 L MCV 91.8 MCH 28.3 MCHC 30.8 L RDW 15.0 Plt Count 145 L MPV 9.5 Absolute Nucleated RBC 0.000 Nucleated RBC % (auto) 0.0 Sodium 140 Potassium 4.4 Chloride 104 Carbon Dioxide 26 Anion Gap 14 BUN 24 H Creatinine 1.81 H Estim Creat Clear Calc 33.4 Estimated GFR 37 Fasting Glucose 103 H Calcium 8.8 D B-Natriuretic Peptide 2561 H Microbiology Microbiology Results: Microbiology 10/04/20 09:22 Blood - Venous Blood Culture - Preliminary No growth after 48 hours. 10/04/20 09:25 Blood - Venous Blood Culture - Preliminary No growth after 48 hours. 10/02/20 20:26 Blood - Venous Blood Culture - Final Streptococcus salivarius Viridans streptococcus group 10/02/20 20:26 Blood - Venous Blood Culture - Final Coag negative Staphylococcus Assessment & Plan Assessment and plan (1) Kidney disease, chronic, stage III (GFR 30-59 ml/min): Status: Acute Assessment and Plan: 75 YM GAMALIEL on CKD with UGIB and chronic med prob including chronic low BPs maintained on midordine and HFrEF 1. GAMALIEL: incr SCr d/t renal hypoperfusion from UGIB 2. CKD 3: CRSyn with low BPs/renal perfusion 3. GIB Mild acidosis with hyperkalemia - stands corrected. Suggest: Follow renal panel and it appears that creatinine is close to baseline cont midordine; Keep NaHCO3 ; Can decrease to 650 mg BID . Time Spent With Patient Time: Total time spent is greater than 50% in coordination of care (as documented) at patient's floor/unit and/or counseling patient: Procedures Date of Service Date of Service: 10/08/20
--- NOTE | 2020-10-08 11:25 | MHC.CM.PN ---
Per ROUNDS discussion, Patient is not yet medically cleared for dc (IV Lasix, still on O2).Home is the goal for dc and CM will continue to follow for possible need to adjust the dc plan.
--- NOTE | 2020-10-08 13:32 | MHC.CLN ---
F/U PO INTAKE 75% AVG DIET RX: REGULAR-APPROPRIATE PT RECEICING ENSURE TID SUPPLEMENT PROVIDES 1050KCALS, 60G PROTEIN CONTINUE TO MONITOR PO INTAKE CLOSELY
--- NOTE | 2020-10-08 16:26 | HO.PM.IMPN ---
Subjective Subjective Date of Service: 10/08/20 Interval History: Patient offers no acute complaints but appears short of breath, difficulty talking in full sentences, evaluated by psych physical therapy and they continue to recommend rehab however patient is adamant about going home without good explanation. 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, no dizziness CVS no chest pain, no palpitation GI no nausea, no vomiting Respiratory cough with clear phlegm, shortness of breath Physical Exam Vital Signs: Vital Signs: Last Vital Signs Temp 98.5 F 10/08/20 15:36 Pulse 86 10/08/20 15:36 Resp 15 10/08/20 15:36 BP 95/50 L 10/08/20 15:36 Pulse Ox 94 10/08/20 15:36 Body Mass Index 18.7 General: Appears short of breath, use of accessory muscles, appears to be in respiratory distress Neck positive JVD Resp: Diminished breath sound bilaterally, no wheeze no rhonchi CVS: S1,S2,RRR GI: soft, non tender, non distended Extremities no edema Neuro: motor grossly intact Psych: appropriate affect Objective Data Current Medications Generic Name Dose Route Start Last Admin Trade Name Freq PRN Reason Stop Dose Admin Acetaminophen 650 mg 10/03/20 05:41 Acetaminophen 325 Mg Tablet PO Q6H PRN Pain, Mild (Pain Scale 1-3) Albuterol Sulfate 2 puff 10/03/20 16:00 10/08/20 13:14 Albuterol Sulfate 90 Mcg 8 Gm Inhaler INHALE 2 puff RQID OLIVIA Administration Albuterol/Ipratropium 3 ml 10/02/20 23:16 Albuterol/Iprat 2.5/0.5mg 3 Ml Ampul.Neb INHALE RQ4H PRN Shortness of Breath/Wheezing Diazepam 5 mg 10/07/20 21:00 10/08/20 14:46 Diazepam 5 Mg Tablet PO 5 mg TID OLIVIA Administration Digoxin 0.125 mg 10/03/20 09:00 10/08/20 08:40 Digoxin 0.125 Mg Tablet PO 0.125 mg MoWeFr@0900 OLIVIA Administration Doxycycline Hyclate 100 mg 10/06/20 12:30 10/08/20 13:24 Doxycycline Hyclate 100 Mg Tablet PO 100 mg Q12H OLIVIA Administration Furosemide 40 mg 10/07/20 18:00 10/08/20 08:36 Furosemide 40 Mg/4 Ml Vial IVPUSH 40 mg BID@0900,1800 [facility] Administration Protocol Midodrine 10 mg 10/03/20 09:00 10/08/20 14:47 Midodrine Hcl 10 Mg Tablet PO 10 mg TID OLIVIA Administration Ondansetron HCl 4 mg 10/07/20 09:45 10/07/20 15:18 Ondansetron Hcl 4 Mg/2 Ml Vial IVPUSH 4 mg Q6H PRN Administration Nausea Pharmacy Consult 1 each 10/02/20 21:32 Consult Rx Perform Med Rec MISCELLANE ONCE PRN Consult order Pharmacy Consult 1 each 10/04/20 08:58 Consult Rx Vancomycin Dosing MISCELLANE DAILY PRN Consult order Sertraline HCl 100 mg 10/03/20 09:00 10/08/20 08:35 Sertraline Hcl 100 Mg Tablet PO 100 mg DAILY [facility] Administration Sodium Bicarbonate 650 mg 10/07/20 15:00 10/08/20 14:46 Sodium Bicarbonate 650 Mg Tablet PO 650 mg TID [facility] Administration Sodium Chloride 3 ml 10/03/20 08:00 10/08/20 14:51 0.9 % Sodium Chloride Flush 3 Ml Syringe IVFLUSH 3 ml QSHIFT [facility] Administration Sucralfate 2 gm 10/03/20 09:00 10/08/20 08:35 Sucralfate 1 Gm Tablet PO 2 gm DAILY [facility] Administration Tamsulosin HCl 0.4 mg 10/05/20 16:30 10/07/20 16:50 Tamsulosin Hcl 0.4 Mg Capsule PO Not Given DAILY@1630 [facility] Tiotropium [place] 1 puff 10/03/20 09:00 10/08/20 13:13 Tiotropium [place] 18 Mcg Cap.W.Dev INHALE 1 puff DAILY [facility] Administration Vitamin D 50 mcg 10/03/20 09:00 10/08/20 08:36 Cholecalciferol (Vitamin D3) 25 Mcg Tablet PO 50 mcg DAILY [facility] Administration Labs CBC & Chem 7: 10/08/20 08:52 10/08/20 08:52 Labs: Laboratory Results - last 24 hr 10/08/20 10/08/20 10/08/20 08:52 08:52 08:52 WBC 10.3 RBC 3.64 L Hgb 10.3 L Hct 33.4 L MCV 91.8 MCH 28.3 MCHC 30.8 L RDW 15.0 Plt Count 145 L MPV 9.5 Absolute Nucleated RBC 0.000 Nucleated RBC % (auto) 0.0 Sodium 140 Potassium 4.4 Chloride 104 Carbon Dioxide 26 Anion Gap 14 BUN 24 H Creatinine 1.81 H Estim Creat Clear Calc 33.4 Estimated GFR 37 Fasting Glucose 103 H Calcium 8.8 D B-Natriuretic Peptide Random Vancomycin 4.0 L 10/08/20 08:52 WBC RBC Hgb Hct MCV MCH MCHC RDW Plt Count MPV Absolute Nucleated RBC Nucleated RBC % (auto) Sodium Potassium Chloride Carbon Dioxide Anion Gap BUN Creatinine Estim Creat Clear Calc Estimated GFR Fasting Glucose Calcium B-Natriuretic Peptide 2561 H Random Vancomycin Quality Stroke Does the patient have a stroke diagnosis?: No VTE Prior VTE?: No VTE Risk Level:: Medical - moderate - high VTE Device Contraindication: N/A - Device Ordered VTE Drug Contraindication: N/A - Med Ordered Assessment and Plan (1) Systolic congestive heart failure: Status: Acute (2) Hemoptysis: Status: Acute (3) Hypotension: Status: Acute (4) Kidney disease, chronic, stage III (GFR 30-59 ml/min): Status: Acute (5) Cough with hemoptysis: Status: Acute (6) Shortness of breath: Status: Acute Assessment and Plan: 75-year-old male who presented initially to the hospital with complaints of hemoptysis. Patient was evaluated by both bullet lubricating machine operator who felt no need for bronchoscopy and also by GI who felt that the patient's hemoglobin was stable and therefore no need for further intervention. today patient complaining of worsening sob especially on exertion syncope/near-syncope had syncopal episode while on the floor 10/04, patient transferred to ICU was briefly treated with vasopressors, in ICU patient was noted to be awake alert offered no acute complaints blood pressure was low stable, patient underwent CTA abdomen with history of abdominal aortic aneurysm that showed large thrombus within a 5.2 centimetre aneurysm, there was no leak or rupture noted and was felt not to be the cause of syncope, echocardiogram showed EF 10-15%, large left atrium Likely patient had a vasovagal episode, no recurrent sepsis was noted since patient appeared nontoxic Patient seen by Dr. Box , he will have outpatient follow-up no acute surgery planned at this time, no recurrent symptoms noted since then hypotension Patient with history of CABG status post pacemaker placement/ICD, history of heart failure with poor EF therefore has chronically low blood pressure on midodrine acute on chronic systolic chf Patient continue to have fluid overload, and respiratory distress will continue IV Lasix place external Hannah catheter, will check BNP, monitor clinical course with strict I's and O's sepsis likely due to bronchitis initially felt to have severe sepsis but patient with history of chronic hypotension, appeared nontoxic and was felt not to have severe sepsis Initial blood cultures were positive but had non pathogenic bacteria/contamination, repeat blood cultures negative Case discussed with ID she recommend to discontinue IV Vanco and Zosyn Patient placed on by mouth doxycycline for total 7 days hemoptysis possible secondary to injury by frozen food ingestion with mucosal injury to esophgus/bronchitis bullet lubricating machine operator evaluated patient, do not feel the patient needs any further bronchoscopy,hct stable. hematocrit stable no further hemoptysis since last 72 hrs evaluated by GI no intervention planned since symptoms resolved, continue PPI and Carafate.outpatient follow-up with GI office. COPD No exacerbation continue home inhalers Spiriva and albuterol atrial fibrillation on Coumadin currently on hold due to hemoptysis will discuss with GI /pulmonology when to resume Coumadin last inr 1.4 Disposition patient was seen by PT and referred short-term rehab however patient declined, will obtain competency eval if patient continued to decline rehab since patient is very weak to be discharged home. DVT prophylaxis: Compression boots.
[2020-10-08] MEDS: Tamsulosin HCL 0.4 MG CAPSULE PO (17:20)
[2020-10-08] MEDS: Albuterol/Iprat 2.5/0.5MG 3 ML AMPUL.NEB INHALE (20:32)
[2020-10-09] VITALS (13 sets, daily range): BP systolic 92–126; BP diastolic 47–82; PULSE 75–94; RESP 17–19; TEMP 36.7–37.1; O2SAT 92–99
[2020-10-09 07:27] LABS: B Type Natriuretic Peptide 1847 pg/mL (<100)
[2020-10-09 07:33] LABS: Anion Gap 12 (12-20); Blood Urea Nitrogen 32 mg/dL (9-16); Calcium 9.1 mg/dL (8.4-10.2); Carbon Dioxide 32 mmol/L (22-29); Chloride 101 mmol/L (96-108); Creatinine Clr Calc Pharmacy 32.1; Estimated Glomerular Filt Rate 35; Glucose Random 95 mg/dL (60-115); Potassium 4.4 mmol/L (3.3-5.1); Sodium 141 mmol/L (135-145)
[2020-10-09] MEDS: Albuterol Sulfate 90 MCG 8 GM INHALER 2 PUFF INHALE ×3 (08:34→15:46)
[2020-10-09] MEDS: Midodrine HCl 10 MG TABLET PO ×3 (08:49→20:42)
[2020-10-09] MEDS: Cholecalciferol (Vitamin D3) 25 MCG TABLET 50 MCG PO (08:50)
[2020-10-09] MEDS: Sucralfate 1 GM TABLET 2 GM PO (08:50)
[2020-10-09] MEDS: Furosemide 40 MG/4 ML VIAL IVPUSH (08:50)
[2020-10-09] MEDS: Sertraline HCL 100 MG TABLET PO (08:50)
[2020-10-09] MEDS: Sodium Bicarbonate 650 MG TABLET PO (08:50)
[2020-10-09] MEDS: diazePAM 5 MG TABLET PO ×3 (08:50→20:42)
[2020-10-09] MEDS: 0.9 % Sodium Chloride Flush 3 ML SYRINGE IVFLUSH ×3 (08:50→20:43)
--- NOTE | 2020-10-09 09:11 | PM.PNNEP ---
Subjective Subjective Date of Service: 10/09/20 Principal diagnosis: Pt feeling better; BP better with IVF overnight; made 800 cc urine Interval history: Events noted Physical Exam Vital Signs: Vital Signs: Last Vital Signs Temp 98.6 F 10/09/20 07:27 Pulse 75 10/09/20 08:49 Resp 19 10/09/20 07:27 BP 108/62 10/09/20 08:49 Pulse Ox 92 10/09/20 07:27 Body Mass Index 18.7 Const: General: comfortable Neck: Neck: Yes supple Resp: Auscultation: clear to auscultation bilaterally Cardio: Heart sounds: no rubs Neuro: Motor exam (neuro): No Asterixis during motor activity present Objective Data Labs CBC & Chem 7: 10/08/20 08:52 10/09/20 05:48 Labs: Laboratory Results - last 24 hr 10/08/20 10/08/20 10/08/20 08:52 08:52 08:52 WBC 10.3 RBC 3.64 L Hgb 10.3 L Hct 33.4 L MCV 91.8 MCH 28.3 MCHC 30.8 L RDW 15.0 Plt Count 145 L MPV 9.5 Absolute Nucleated RBC 0.000 Nucleated RBC % (auto) 0.0 Sodium 140 Potassium 4.4 Chloride 104 Carbon Dioxide 26 Anion Gap 14 BUN 24 H Creatinine 1.81 H Estim Creat Clear Calc 33.4 Estimated GFR 37 Random Glucose Fasting Glucose 103 H Calcium 8.8 D B-Natriuretic Peptide Random Vancomycin 4.0 L 10/08/20 10/09/20 10/09/20 08:52 05:48 05:48 WBC RBC Hgb Hct MCV MCH MCHC RDW Plt Count MPV Absolute Nucleated RBC Nucleated RBC % (auto) Sodium 141 Potassium 4.4 Chloride 101 Carbon Dioxide 32 H Anion Gap 12 BUN 32 H Creatinine 1.88 H Estim Creat Clear Calc 32.1 Estimated GFR 35 Random Glucose 95 Fasting Glucose Calcium 9.1 B-Natriuretic Peptide 2561 H 1847 H Random Vancomycin Microbiology Microbiology Results: Microbiology 10/04/20 09:22 Blood - Venous Blood Culture - Preliminary No growth after 48 hours. 10/04/20 09:25 Blood - Venous Blood Culture - Preliminary No growth after 48 hours. 10/02/20 20:26 Blood - Venous Blood Culture - Final Streptococcus salivarius Viridans streptococcus group 10/02/20 20:26 Blood - Venous Blood Culture - Final Coag negative Staphylococcus Assessment & Plan Assessment and plan (1) Kidney disease, chronic, stage III (GFR 30-59 ml/min): Status: Acute Assessment and Plan: 75 YM GAMALIEL on CKD with UGIB and chronic med prob including chronic low BPs maintained on midordine and HFrEF 1. GAMALIEL: incr SCr d/t renal hypoperfusion from UGIB 2. CKD 3: CRSyn with low BPs/renal perfusion 3. GIB Mild acidosis with hyperkalemia - stands corrected. Suggest: Follow renal panel prn and it appears that creatinine is close to baseline cont midodrine; STOP NaHCO3 due to alkalosis. Supportive care Time Spent With Patient Time: Total time spent is greater than 50% in coordination of care (as documented) at patient's floor/unit and/or counseling patient: Procedures Date of Service Date of Service: 10/09/20 Progress Note: Quality Stroke Does the patient have a stroke diagnosis?: No
[2020-10-09 09:54] LABS: INTERNATIONAL NORM RATIO 1.2 (0.9-1.1); Prothrombin Time 14.5 SEC (10.8-13.0)
--- NOTE | 2020-10-09 13:04 | MHC.CM.PN ---
CM met with Patient again, regarding dc planning and PT's strong recommendation for STR. Patient is still adamantly refusing to consider . MARI has made MD aware.
[2020-10-09] MEDS: Tamsulosin HCL 0.4 MG CAPSULE PO (15:30)
--- NOTE | 2020-10-09 17:01 | P.PNIM_ITS ---
Subjective Subjective Date of Service: 10/10/20 Interval History: Patient appears weak short of breath, complaining of urinary burning has indwelling Hannah catheter placed overnight, complaining that he has difficulty speaking, but able to talk for a long time and become short of breath while speaking. 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, no dizziness CVS no chest pain, no palpitation GI no nausea, no vomiting, no hematemesis Respiratory cough with clear phlegm, shortness of breath, no hemoptysis in last few days Physical Exam Vital Signs: Vital Signs: Last Vital Signs Temp 98.1 F 10/09/20 16:00 Pulse 87 10/09/20 16:00 Resp 18 10/09/20 16:00 BP 110/68 10/09/20 16:00 Pulse Ox 99 10/09/20 16:00 Body Mass Index 18.7 General: Appears short of breath, appears to be in mild respiratory distress Neck no JVD Resp: Diminished breath sound bilaterally, no wheeze no rhonchi CVS: S1,S2,RRR GI: soft, non tender, non distended Extremities no edema Neuro: motor grossly intact Psych: appropriate affect Objective Data Current Medications Generic Name Dose Route Start Last Admin Trade Name Freq PRN Reason Stop Dose Admin Acetaminophen 650 mg 10/03/20 05:41 Acetaminophen 325 Mg Tablet PO Q6H PRN Pain, Mild (Pain Scale 1-3) Albuterol/Ipratropium 3 ml 10/02/20 23:16 10/08/20 20:32 Albuterol/Iprat 2.5/0.5mg 3 Ml Ampul.Neb INHALE 3 ml RQ4H PRN Administration Shortness of Breath/Wheezing Albuterol/Ipratropium 3 ml 10/09/20 20:00 Albuterol/Iprat 2.5/0.5mg 3 Ml Ampul.Neb INHALE RQID OLIVIA Diazepam 5 mg 10/07/20 21:00 10/09/20 15:30 Diazepam 5 Mg Tablet PO 5 mg TID OLIVIA Administration Digoxin 0.125 mg 10/03/20 09:00 10/08/20 08:40 Digoxin 0.125 Mg Tablet PO 0.125 mg MoWeFr@0900 OLIVIA Administration Doxycycline Hyclate 100 mg 10/06/20 12:30 10/09/20 13:03 Doxycycline Hyclate 100 Mg Tablet PO 100 mg Q12H OLIVIA Administration Midodrine 10 mg 10/03/20 09:00 10/09/20 15:30 Midodrine Hcl 10 Mg Tablet PO 10 mg TID OLIVIA Administration Ondansetron HCl 4 mg 10/07/20 09:45 10/07/20 15:18 Ondansetron Hcl 4 Mg/2 Ml Vial IVPUSH 4 mg Q6H PRN Administration Nausea Pharmacy Consult 1 each 10/02/20 21:32 Consult Rx Perform Med Rec MISCELLANE ONCE PRN Consult order Pharmacy Consult 1 each 10/04/20 08:58 Consult Rx Vancomycin Dosing MISCELLANE DAILY PRN Consult order Sertraline HCl 100 mg 10/03/20 09:00 10/09/20 08:50 Sertraline Hcl 100 Mg Tablet PO 100 mg DAILY OLIVIA Administration Sodium Chloride 3 ml 10/03/20 08:00 10/09/20 15:30 0.9 % Sodium Chloride Flush 3 Ml Syringe IVFLUSH 3 ml QSHIFT [facility] Administration Sucralfate 2 gm 10/03/20 09:00 10/09/20 08:50 Sucralfate 1 Gm Tablet PO 2 gm DAILY OLIVIA Administration Tamsulosin HCl 0.4 mg 10/05/20 16:30 10/09/20 15:30 Tamsulosin Hcl 0.4 Mg Capsule PO 0.4 mg DAILY@1630 [facility] Administration Tiotropium [place] 1 puff 10/03/20 09:00 10/09/20 08:34 Tiotropium [place] 18 Mcg Cap.W.Dev INHALE 1 puff DAILY [facility] Administration Vitamin D 50 mcg 10/03/20 09:00 10/09/20 08:50 Cholecalciferol (Vitamin D3) 25 Mcg Tablet PO 50 mcg DAILY OLIVIA Administration Warfarin Sodium 2.5 mg 10/09/20 18:00 Warfarin Sodium 2.5 Mg Tablet PO DAILY@1800 [facility] Labs CBC & Chem 7: 10/08/20 08:52 10/10/20 05:31 Labs: Laboratory Results - last 24 hr 10/09/20 10/09/20 10/09/20 05:48 05:48 09:22 PT 14.5 H INR 1.2 H Sodium 141 Potassium 4.4 Chloride 101 Carbon Dioxide 32 H Anion Gap 12 BUN 32 H Creatinine 1.88 H Estim Creat Clear Calc 32.1 Estimated GFR 35 Random Glucose 95 Calcium 9.1 B-Natriuretic Peptide 1847 H Microbiology Microbiology Results: Microbiology 10/04/20 09:22 Blood Culture - Final Blood - Venous No growth after 5 days. 10/04/20 09:25 Blood Culture - Final Blood - Venous No growth after 5 days. Quality Stroke Does the patient have a stroke diagnosis?: No VTE Prior VTE?: No VTE Risk Level:: Medical - moderate - high VTE Device Contraindication: N/A - Device Ordered VTE Drug Contraindication: N/A - Med Ordered Assessment and Plan (1) Systolic congestive heart failure: Status: Acute (2) COPD exacerbation: Status: Acute (3) Hemoptysis: Status: Acute (4) Bronchopneumonia: Status: Acute (5) Abdominal aortic aneurysm: Status: Acute (6) Hypotension: Status: Acute (7) Kidney disease, chronic, stage III (GFR 30-59 ml/min): Status: Acute Assessment and Plan: 75-year-old male who presented initially to the hospital with complaints of hemoptysis. 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 today patient complaining of worsening sob especially on exertion syncope/near-syncope had syncopal episode while on the floor 10/04, patient transferred to ICU was briefly treated with vasopressors, in ICU patient was noted to be awake alert offered no acute complaints blood pressure was low stable, patient underwent CTA abdomen with history of abdominal aortic aneurysm that showed large thrombus within a 5.2 centimetre aneurysm, there was no leak or rupture noted and was felt not to be the cause of syncope, echocardiogram showed EF 10-15%, large left atrium Likely patient had a vasovagal episode, no recurrent sepsis was noted since patient appeared nontoxic Patient seen by Dr. Box , he will have outpatient follow-up no acute surgery planned at this time, no recurrent symptoms noted since then hypotension Patient with history of CABG status post pacemaker placement/ICD, history of heart failure with poor EF therefore has chronically low blood pressure on midodrine BP stable. acute on chronic systolic chf Less short of breath today, appears euvolemic, will DC IV Lasix, BNP trending down will restrict by mouth fluid, repeat BNP and BMP at a.m. follow clinical course closely, patient not on Lasix at home. sepsis likely due to bronchitis initially felt to have severe sepsis but patient with history of chronic hypotension, appeared nontoxic and was felt not to have severe sepsis Initial blood cultures were positive but had non pathogenic bacteria/contamination, repeat blood cultures negative Case discussed with ID she recommend to discontinue IV Vanco and Zosyn Patient placed on by mouth doxycycline for total 7 days hemoptysis possible secondary to injury by frozen food ingestion with mucosal injury to esophgus/bronchitis trolley coach driver evaluated patient, do not feel the patient needs any further bronchoscopy,hct stable. hematocrit stable no further hemoptysis since last 3-4 days evaluated by GI no intervention planned since symptoms resolved, continue PPI and Carafate.outpatient follow-up with GI office. COPD exacerbation, noted to have mild COPD exacerbation with bilateral wheeze and diminished breath sounds continue home inhalers Spiriva and start low-dose steroids in schedule DuoNeb updraft, continue albuterol MDI as needed, add cough syrup atrial fibrillation heart rate well controlled continue digoxin and resume Coumadin since no hemoptysis noted in last few days case discussed with Dr. Mckinney Disposition patient was seen by PT and referred short-term rehab however patient declined, will obtain competency eval if patient continued to decline rehab sinc e patient is very weak to be discharged home. DVT prophylaxis: Compression boots/resume Coumadin.
[2020-10-09] MEDS: Warfarin Sodium 2.5 MG TABLET PO (17:43)
[2020-10-09] MEDS: guaiFENesin DM 100/10/5 ML 5 ML SYRUP 10 ML PO ×2 (17:43→23:16)
[2020-10-09] MEDS: methylPREDNISolone Sod Succ 40 MG/ML VIAL IVPUSH (17:43)
[2020-10-09] MEDS: Albuterol/Iprat 2.5/0.5MG 3 ML AMPUL.NEB INHALE (20:02)
[2020-10-10] VITALS (14 sets, daily range): BP systolic 91–138; BP diastolic 50–72; PULSE 76–89; RESP 18–20; TEMP 36.1–37; O2SAT 94–99
[2020-10-10] MEDS: methylPREDNISolone Sod Succ 40 MG/ML VIAL IVPUSH ×2 (05:36→17:51)
[2020-10-10] MEDS: guaiFENesin DM 100/10/5 ML 5 ML SYRUP 10 ML PO ×4 (05:36→20:53)
[2020-10-10 06:33] LABS: INTERNATIONAL NORM RATIO 1.2 (0.9-1.1); Prothrombin Time 13.8 SEC (10.8-13.0)
--- NOTE | 2020-10-10 06:37 | PC.NURSE ---
Hannah removed at 0600, pt tolerated well. Due to void by 1200. Urinal placed at bedside.
[2020-10-10 06:42] LABS: Anion Gap 19 (12-20); Blood Urea Nitrogen 36 mg/dL (9-16); Carbon Dioxide 28 mmol/L (22-29); Chloride 99 mmol/L (96-108); Creatinine Clr Calc Pharmacy 35.9; Estimated Glomerular Filt Rate 40; Glucose Random 120 mg/dL (60-115); Potassium 4.5 mmol/L (3.3-5.1); Sodium 141 mmol/L (135-145)
[2020-10-10 06:46] LABS: B Type Natriuretic Peptide 911 pg/mL (<100)
[2020-10-10] MEDS: Albuterol/Iprat 2.5/0.5MG 3 ML AMPUL.NEB INHALE ×2 (07:51→19:26)
[2020-10-10] MEDS: Digoxin 0.125 MG TABLET PO (08:30)
[2020-10-10] MEDS: Sucralfate 1 GM TABLET 2 GM PO (08:31)
[2020-10-10] MEDS: diazePAM 5 MG TABLET PO ×3 (08:31→20:52)
[2020-10-10] MEDS: Midodrine HCl 10 MG TABLET PO ×3 (08:31→20:52)
[2020-10-10] MEDS: Cholecalciferol (Vitamin D3) 25 MCG TABLET 50 MCG PO (08:31)
[2020-10-10] MEDS: Omeprazole 20 MG CAPSULE.DR PO ×2 (08:31→15:37)
[2020-10-10] MEDS: 0.9 % Sodium Chloride Flush 3 ML SYRINGE IVFLUSH ×3 (08:31→20:53)
[2020-10-10] MEDS: Sertraline HCL 100 MG TABLET PO (08:31)
--- NOTE | 2020-10-10 09:58 | PM.PNNEP ---
Subjective Subjective Date of Service: 10/10/20 Principal diagnosis: Pt feeling better; BP better with IVF overnight; made 800 cc urine Interval history: Events noted Physical Exam Vital Signs: Vital Signs: Last Vital Signs Temp 97 F 10/10/20 07:21 Pulse 88 10/10/20 08:31 Resp 18 10/10/20 07:21 BP 106/62 10/10/20 08:31 Pulse Ox 98 10/10/20 07:21 Body Mass Index 18.7 Const: General: comfortable Neck: Neck: Yes supple Resp: Auscultation: clear to auscultation bilaterally Cardio: Heart sounds: no rubs Neuro: Motor exam (neuro): No Asterixis during motor activity present Objective Data Labs CBC & Chem 7: 10/08/20 08:52 10/10/20 05:31 Labs: Laboratory Results - last 24 hr 10/10/20 10/10/20 10/10/20 05:31 05:31 05:31 PT 13.8 H INR 1.2 H Sodium 141 Potassium 4.5 Chloride 99 Carbon Dioxide 28 Anion Gap 19 BUN 36 H Creatinine 1.68 H Estim Creat Clear Calc 35.9 Estimated GFR 40 Random Glucose 120 H Calcium 9.0 B-Natriuretic Peptide 911 H Microbiology Microbiology Results: Microbiology 10/04/20 09:22 Blood - Venous Blood Culture - Final No growth after 5 days. 10/04/20 09:25 Blood - Venous Blood Culture - Final No growth after 5 days. 10/02/20 20:26 Blood - Venous Blood Culture - Final Streptococcus salivarius Viridans streptococcus group 10/02/20 20:26 Blood - Venous Blood Culture - Final Coag negative Staphylococcus Assessment & Plan Assessment and plan (1) Kidney disease, chronic, stage III (GFR 30-59 ml/min): Status: Acute Assessment and Plan: 75 YM GAMALIEL on CKD with UGIB and chronic med prob including chronic low BPs maintained on midodrine and HFrEF 1. GAMALIEL: incr SCr d/t renal hypoperfusion from UGIB 2. CKD 3: CRSyn with low BPs/renal perfusion 3. GIB Mild acidosis with hyperkalemia - stands corrected. Suggest: Follow renal panel prn and it appears that creatinine is close to baseline cont midodrine; Keep O > I Supportive care Time Spent With Patient Time: Total time spent is greater than 50% in coordination of care (as documented) at patient's floor/unit and/or counseling patient: Procedures Date of Service Date of Service: 10/10/20 Progress Note: Quality Stroke Does the patient have a stroke diagnosis?: No
--- NOTE | 2020-10-10 11:10 | MHC.CM.PN ---
Per MD's request, MARI has provided MD with contact info for Patient's Caregiver/PUTTY AND CAULKING SUPERVISOR, Sherlyn Jasso @ [phone]. Patient continues to refuse STR.MARI will continue to follow.
--- NOTE | 2020-10-10 11:32 | PC.NURSE ---
Did wound assessment on patient, the small slit between buttocks is healed. Nurses will continue to apply EPC cream for protection.
--- NOTE | 2020-10-10 13:57 | HO.PM.IMPN ---
Subjective Subjective Date of Service: 10/10/20 Interval History: Feels better this morning denies shortness of breath no chest pain concern about becoming weak with difficulty in speech during afternoon for last 3 days, feels that he is more weaker now than when he came to the hospital No acute issues overnight. ROS [employer] no headache, no dizziness CVS no chest pain, no palpitation GI no nausea, no vomiting, no hematemesis Respiratory cough with clear phlegm,no shortness of breath, no hemoptysis Physical Exam Vital Signs: Vital Signs: Last Vital Signs Temp 97.4 F 10/10/20 11:19 Pulse 77 10/10/20 13:18 Resp 18 10/10/20 11:19 BP 111/57 L 10/10/20 13:18 Pulse Ox 97 10/10/20 13:18 Body Mass Index 18.7 General: Awake alert no distress, talking in full sentences Neck no JVD Resp: Diminished breath sound bilaterally, with occasional expiratory wheeze, no rales CVS: S1,S2,RRR GI: soft, non tender, non distended Extremities no edema Neuro: motor grossly intact Psych: appropriate affect Objective Data Current Medications Generic Name Dose Route Start Last Admin Trade Name Freq PRN Reason Stop Dose Admin Acetaminophen 650 mg 10/03/20 05:41 Acetaminophen 325 Mg Tablet PO Q6H PRN Pain, Mild (Pain Scale 1-3) Albuterol/Ipratropium 3 ml 10/09/20 20:00 10/10/20 11:12 Albuterol/Iprat 2.5/0.5mg 3 Ml Ampul.Neb INHALE Not Given RQID OLIVIA Diazepam 5 mg 10/07/20 21:00 10/10/20 08:31 Diazepam 5 Mg Tablet PO 5 mg TID OLIVIA Administration Digoxin 0.125 mg 10/03/20 09:00 10/10/20 08:30 Digoxin 0.125 Mg Tablet PO 0.125 mg MoWeFr@0900 OLIVIA Administration Doxycycline Hyclate 100 mg 10/06/20 12:30 10/10/20 11:53 Doxycycline Hyclate 100 Mg Tablet PO 100 mg Q12H OLIVIA Administration Guaifenesin/Dextromethorphan 10 ml 10/09/20 17:15 10/10/20 11:53 Guaifenesin Dm 100/10/5 Ml 5 Ml Syrup PO 10 ml Q6H OLIVIA Administration Methylprednisolone Sodium Succinate 40 mg 10/09/20 17:15 10/10/20 05:36 Methylprednisolone Sod Succ 40 Mg/Ml Vial IVPUSH 40 mg Q12H OLIVIA Administration Midodrine 10 mg 10/03/20 09:00 10/10/20 08:31 Midodrine Hcl 10 Mg Tablet PO 10 mg TID OLIVIA Administration Omeprazole 20 mg 10/10/20 08:15 10/10/20 08:31 Omeprazole 20 Mg Capsule.Dr PO 20 mg BID@0630,1630 OLIVIA Administration Ondansetron HCl 4 mg 10/07/20 09:45 10/07/20 15:18 Ondansetron Hcl 4 Mg/2 Ml Vial IVPUSH 4 mg Q6H PRN Administration Nausea Pharmacy Consult 1 each 10/02/20 21:32 Consult Rx Perform Med Rec MISCELLANE ONCE PRN Consult order Pharmacy Consult 1 each 10/04/20 08:58 Consult Rx Vancomycin Dosing MISCELLANE DAILY PRN Consult order Sertraline HCl 100 mg 10/03/20 09:00 10/10/20 08:31 Sertraline Hcl 100 Mg Tablet PO 100 mg DAILY OLIVIA Administration Sodium Chloride 3 ml 10/03/20 08:00 10/10/20 08:31 0.9 % Sodium Chloride Flush 3 Ml Syringe IVFLUSH 3 ml QSHIFT [facility] Administration Sucralfate 2 gm 10/03/20 09:00 10/10/20 08:31 Sucralfate 1 Gm Tablet PO 2 gm DAILY OLIVIA Administration Tamsulosin HCl 0.4 mg 10/05/20 16:30 10/09/20 15:30 Tamsulosin Hcl 0.4 Mg Capsule PO 0.4 mg DAILY@1630 OLIVIA Administration Tiotropium [place] 1 puff 10/03/20 09:00 10/10/20 07:54 Tiotropium [place] 18 Mcg Cap.W.Dev INHALE 1 puff DAILY OLIVIA Administration Vitamin D 50 mcg 10/03/20 09:00 10/10/20 08:31 Cholecalciferol (Vitamin D3) 25 Mcg Tablet PO 50 mcg DAILY OLIVIA Administration Warfarin Sodium 2.5 mg 10/09/20 18:00 10/09/20 17:43 Warfarin Sodium 2.5 Mg Tablet PO 2.5 mg DAILY@1800 OLIVIA Administration Labs CBC & Chem 7: 10/08/20 08:52 10/10/20 05:31 Labs: Laboratory Results - last 24 hr 10/10/20 10/10/20 10/10/20 05:31 05:31 05:31 PT 13.8 H INR 1.2 H Sodium 141 Potassium 4.5 Chloride 99 Carbon Dioxide 28 Anion Gap 19 BUN 36 H Creatinine 1.68 H Estim Creat Clear Calc 35.9 Estimated GFR 40 Random Glucose 120 H Calcium 9.0 B-Natriuretic Peptide 911 H Microbiology Microbiology Results: Microbiology 10/04/20 09:22 Blood Culture - Final Blood - Venous No growth after 5 days. 10/04/20 09:25 Blood Culture - Final Blood - Venous No growth after 5 days. Quality Stroke Does the patient have a stroke diagnosis?: No VTE Prior VTE?: No VTE Risk Level:: Medical - moderate - high VTE Device Contraindication: N/A - Device Ordered VTE Drug Contraindication: N/A - Med Ordered Assessment and Plan (1) Systolic congestive heart failure: Status: Acute (2) COPD exacerbation: Status: Acute (3) Hemoptysis: Status: Acute (4) Pleural effusion: Status: Acute (5) Abdominal aortic aneurysm: Status: Acute (6) Hypotension: Status: Acute (7) Kidney disease, chronic, stage III (GFR 30-59 ml/min): Status: Acute Assessment and Plan: 75-year-old male who presented initially to the hospital with complaints of hemoptysis. Patient was evaluated by both collar closer lockstitch who felt no need for bronchoscopy and also by GI who felt that the patient's hemoglobin was stable and therefore no need for further intervention. today patient complaining of worsening sob especially on exertion syncope/near-syncope had syncopal episode while on the floor 10/04, patient transferred to ICU was briefly treated with vasopressors, in ICU patient was noted to be awake alert offered no acute complaints blood pressure was low stable, patient underwent CTA abdomen with history of abdominal aortic aneurysm that showed large thrombus within a 5.2 centimetre aneurysm, there was no leak or rupture noted and was felt not to be the cause of syncope, echocardiogram showed EF 10-15%, large left atrium Likely patient had a vasovagal episode, no recurrent sepsis was noted since patient appeared nontoxic Patient seen by Dr. Box , he will have outpatient follow-up no acute surgery planned at this time, no recurrent symptoms noted since then hypotension Patient with history of CABG status post pacemaker placement/ICD, history of heart failure with poor EF therefore has chronically low blood pressure on midodrine BP stable. acute on chronic systolic chf Likely due to fluid overload with excessive IV fluid hydration with episode of syncope and hypotension and with EF 10-15% no short of breath today, appears euvolemic, s/p IV Lasix stopped yesterday, BNP trending down from 2561 to911 will restrict by mouth fluid, patient not on Lasix at home, will place on Lasix 20 mg daily and follow labs. sepsis likely due to bronchitis initially felt to have severe sepsis but patient with history of chronic hypotension, appeared nontoxic and was felt not to have severe sepsis Initial blood cultures were positive but had non pathogenic bacteria/contamination, repeat blood cultures negative Case discussed with ID she recommend to discontinue IV Vanco and Zosyn and treat patient with doxy for 7 on day 5 of doxy hemoptysis possible secondary to injury by frozen food ingestion with mucosal injury to esophgus/bronchitis collar closer lockstitch evaluated patient, do not feel the patient needs any further bronchoscopy,hct stable. hematocrit stable no further hemoptysis since last 3-4 days evaluated by GI no intervention planned since symptoms resolved, continue PPI and Carafate.outpatient follow-up with GI office. COPD exacerbation, noted to have mild COPD exacerbation with bilateral wheeze and diminished breath sounds continue home inhalers Spiriva and low-dose steroids ,day 2, continue schedule DuoNeb updraft, continue albuterol MDI as needed, and cough syrup, will transition to by mouth steroids tomorrow, patient not on updrafts at home. atrial fibrillation heart rate well controlled continue digoxin and Coumadin resumed on 10/09 since no hemoptysis noted in last few days case discussed with Dr. Mckinney. Disposition patient was seen by PT and ambulated well today, therefore PT recommends short-term rehab, but if patient declines then discharged home with PT services, patient is adamant that he wishes to be discharged home therefore will make arrangements to be discharged home with PT services Patient has home health aide involved in his care her name is Sherlyn Reyes and she can be reached at [phone] DVT prophylaxis: Compression boots/resume Coumadin.
--- NOTE | 2020-10-10 14:13 | P.EN_ITS ---
Event Note Date of Service: 10/10/20 Event Note: This patient despite hypotension, rapid response and bacteremia en ded up not having severe sepsis as blood cultures ended up as contaminant.
--- NOTE | 2020-10-10 14:13 | PM.EVENT ---
Event Note Date of Service: 10/10/20 Event Note: This patient despite hypotension, rapid response and bacteremia ended up not having severe sepsis as blood cultures ended up as contaminant.
--- NOTE | 2020-10-10 14:54 | MHC.CLN ---
F/U WT STABLE PO INTAKE 75% AVG DIET RX: REGULAR-APPROPRIATE PT RECEICING ENSURE TID SUPPLEMENT PROVIDES 1050KCALS, 60G PROTEIN CONTINUE TO MONITOR PO INTAKE CLOSELY
[2020-10-10] MEDS: Tamsulosin HCL 0.4 MG CAPSULE PO (15:37)
[2020-10-10] MEDS: Warfarin Sodium 2.5 MG TABLET PO (17:51)
[2020-10-11] VITALS (12 sets, daily range): BP systolic 98–115; BP diastolic 52–60; PULSE 72–97; RESP 15–20; TEMP 36–37.4; O2SAT 90–98
[2020-10-11] MEDS: guaiFENesin DM 100/10/5 ML 5 ML SYRUP 10 ML PO ×4 (05:59→22:34)
[2020-10-11] MEDS: Omeprazole 20 MG CAPSULE.DR PO ×2 (05:59→16:26)
[2020-10-11] MEDS: methylPREDNISolone Sod Succ 40 MG/ML VIAL IVPUSH ×2 (06:00→17:31)
[2020-10-11 07:43] LABS: INTERNATIONAL NORM RATIO 1.1 (0.9-1.1); Prothrombin Time 12.9 SEC (10.8-13.0)
[2020-10-11] MEDS: diazePAM 5 MG TABLET PO ×3 (07:49→22:33)
[2020-10-11] MEDS: Cholecalciferol (Vitamin D3) 25 MCG TABLET 50 MCG PO (07:49)
[2020-10-11] MEDS: Midodrine HCl 10 MG TABLET PO ×3 (07:49→20:01)
[2020-10-11] MEDS: Sucralfate 1 GM TABLET 2 GM PO (07:49)
[2020-10-11] MEDS: 0.9 % Sodium Chloride Flush 3 ML SYRINGE IVFLUSH ×3 (07:49→22:34)
[2020-10-11] MEDS: Sertraline HCL 100 MG TABLET PO (07:50)
[2020-10-11] MEDS: Albuterol/Iprat 2.5/0.5MG 3 ML AMPUL.NEB INHALE ×3 (08:24→15:26)
[2020-10-11] MEDS: predniSONE 20 MG TABLET 40 MG PO (11:01)
--- NOTE | 2020-10-11 14:57 | HO.PM.IMPN ---
Subjective Subjective Date of Service: 10/11/20 Interval History: dyspnea improving no chest pain only c/o is of generalized weakness but still does not want to go to STR despite our recommendation Physical Exam Vital Signs: Vital Signs: Last Vital Signs Temp 96.8 F 10/11/20 11:04 Pulse 72 10/11/20 11:04 Resp 20 10/11/20 11:04 BP 98/60 10/11/20 11:04 Pulse Ox 98 10/11/20 11:04 Body Mass Index 18.7 Gen: in no acute distress HEENT: sclera anicteric, moist mucus membranes Neck: supple Lungs: diminished bilaterally Heart: regular rate and rhythm, no murmurs Abd: soft, non-tender, non-distended Ext: no edema Skin: warm/well-perfused Neuro: alert and oriented x3, no focal findings Psych: appropriate affect Objective Data Current Medications Generic Name Dose Route Start Last Admin Trade Name Freq PRN Reason Stop Dose Admin Acetaminophen 650 mg 10/03/20 05:41 Acetaminophen 325 Mg Tablet PO Q6H PRN Pain, Mild (Pain Scale 1-3) Albuterol/Ipratropium 3 ml 10/09/20 20:00 10/11/20 11:23 Albuterol/Iprat 2.5/0.5mg 3 Ml Ampul.Neb INHALE 3 ml RQID OLIVIA Administration Diazepam 5 mg 10/07/20 21:00 10/11/20 07:49 Diazepam 5 Mg Tablet PO 5 mg TID OLIVIA Administration Digoxin 0.125 mg 10/03/20 09:00 10/10/20 08:30 Digoxin 0.125 Mg Tablet PO 0.125 mg MoWeFr@0900 OLIVIA Administration Doxycycline Hyclate 100 mg 10/06/20 12:30 10/11/20 12:05 Doxycycline Hyclate 100 Mg Tablet PO 100 mg Q12H OLIVIA Administration Guaifenesin/Dextromethorphan 10 ml 10/09/20 17:15 10/11/20 11:01 Guaifenesin Dm 100/10/5 Ml 5 Ml Syrup PO 10 ml Q6H OLIVIA Administration Methylprednisolone Sodium Succinate 40 mg 10/09/20 17:15 10/11/20 06:00 Methylprednisolone Sod Succ 40 Mg/Ml Vial IVPUSH 40 mg Q12H OLIVIA Administration Midodrine 10 mg 10/03/20 09:00 10/11/20 07:49 Midodrine Hcl 10 Mg Tablet PO 10 mg TID OLIVIA Administration Omeprazole 20 mg 10/10/20 08:15 10/11/20 05:59 Omeprazole 20 Mg Capsule. PO 20 mg BID@0630,1630 OLIVIA Administration Ondansetron HCl 4 mg 10/07/20 09:45 10/07/20 15:18 Ondansetron Hcl 4 Mg/2 Ml Vial IVPUSH 4 mg Q6H PRN Administration Nausea Pharmacy Consult 1 each 10/02/20 21:32 Consult Rx Perform Med Rec MISCELLANE ONCE PRN Consult order Prednisone 40 mg 10/11/20 09:00 10/11/20 11:01 Prednisone 20 Mg Tablet PO 40 mg DAILY OLIVIA Administration Sertraline HCl 100 mg 10/03/20 09:00 10/11/20 07:50 Sertraline Hcl 100 Mg Tablet PO 100 mg DAILY OLIVIA Administration Sodium Chloride 3 ml 10/03/20 08:00 10/11/20 07:49 0.9 % Sodium Chloride Flush 3 Ml Syringe IVFLUSH 3 ml QSHIFT [facility] Administration Sucralfate 2 gm 10/03/20 09:00 10/11/20 07:49 Sucralfate 1 Gm Tablet PO 2 gm DAILY OLIVIA Administration Tamsulosin HCl 0.4 mg 10/05/20 16:30 10/10/20 15:37 Tamsulosin Hcl 0.4 Mg Capsule PO 0.4 mg DAILY@1630 OLIVAI Administration Tiotropium [place] 1 puff 10/03/20 09:00 10/11/20 08:24 Tiotropium [place] 18 Mcg Cap.W.Dev INHALE 1 puff DAILY OLIVIA Administration Vitamin D 50 mcg 10/03/20 09:00 10/11/20 07:49 Cholecalciferol (Vitamin D3) 25 Mcg Tablet PO 50 mcg DAILY OLIVIA Administration Warfarin Sodium 2.5 mg 10/09/20 18:00 10/10/20 17:51 Warfarin Sodium 2.5 Mg Tablet PO 2.5 mg DAILY@1800 [facility] Administration Labs CBC & Chem 7: 10/08/20 08:52 10/10/20 05:31 Labs: Laboratory Results - last 24 hr 10/11/20 07:03 PT 12.9 INR 1.1 Quality Stroke Does the patient have a stroke diagnosis?: No VTE Prior VTE?: No VTE Risk Level:: Medical - moderate - high VTE Device Contraindication: N/A - Device Ordered VTE Drug Contraindication: N/A - Med Ordered Assessment and Plan (1) Systolic congestive heart failure: Status: Acute (2) COPD exacerbation: Status: Acute (3) Hemoptysis: Status: Acute (4) Pleural effusion: Status: Acute (5) Abdominal aortic aneurysm: Status: Acute (6) Hypotension: Status: Acute (7) Kidney disease, chronic, stage III (GFR 30-59 ml/min): Status: Acute Assessment and Plan: hospital d#10 75yo M with CAD, HFrEF, COPD, AF presented with hemoptysis not requiring intervention hospital course complicated by syncopal episode and worsening dyspnea # syncope - syncopal event on floor 10/04, briefly requiring vasopressors in the ICU - worked up and found to have large AAA not thought to be the cause of syncope. not septic. thought ultimately to have vasovagal episode vs due to underlying hypotension from cardiomyopathy # incidental AAA 5.2 cm with thrombus - not leaking or ruptured; needs outpt Vascular f/u per Dr Box # acute/chronic HFrEF. LVEF 10-15% - fluid overload precipitated by IV fluid resuscitation. Was given IV furosemide, stopped 10/09/2020, now on oral maintenance dosing and appears euvolemic # bacteremia, not - initially thought to have sepsis from bacteremia but ultimately blood culture revealed contamination # hemoptysis, resolved - possible secondary to mucosal injury to esophagus vs bronchi by frozen food ingestion; per Pulmonology, no bronchoscopy warranted - likewise, no GI intervention warranted per strategy planning consultant; continue PPI + sucralfate, f/u as outpt - warfarin resumed with careful monitoring # COPD exacerbation - continue steroid burst, tiotropium, nebulizer treatments, and cough syrup; also on doxycycline d#09/29 # AF - ventricular rate controlled. continue digoxin. warfarin resumed 10/09. INR subtherapeutic, continue daily monitoring # dispo - STR recommended for balance/strength/safety but if pt refuses will arrange home with [facility]NA - patient has home health aide involved in his care her name is Sherlyn Reyes and she can be reached at [phone] # VTE ppx - warfarin, SCDs
[2020-10-11] MEDS: Tamsulosin HCL 0.4 MG CAPSULE PO (16:26)
--- NOTE | 2020-10-11 16:56 | P.PNNP_ITS ---
Subjective Subjective Date of Service: 10/11/20 Interval history: dyspnea improving no chest pain Physical Exam Vital Signs: Vital Signs: Last Vital Signs Temp 98.3 F 10/11/20 15:21 Pulse 77 10/11/20 15:31 Resp 15 10/11/20 15:21 BP 110/60 10/11/20 15:21 Pulse Ox 97 10/11/20 15:21 Body Mass Index 18.7 Const: General: cooperative, comfortable, no acute distress, anxious, confusion, ill appearing and other (Anxious) Nutritional Appearance: average body habitus Orientation/consciousness: oriented to person, oriented to place and confusion Limitations: no limitations HENMT: Head: Yes normal to inspection, Yes normocephalic and Yes atraumatic Ears: hearing grossly normal bilaterally and external ears normal General nose exam: Normal external nose present Face and sinus: Yes normal facial exam Mouth: Normal oral and palatal mucosa present Throat: Yes posterior oropharynx normal Eyes: General: appearance normal, both eyes and all related structures Periorbital: periorbital findings normal Eyelids: Yes eyelids normal Conjunctivae: conjunctivae normal Sclerae: sclerae normal Corneas: corneas normal Pupils: Equal, round and reactive pupils present Direct Ophthalmoscopy: normal light reflex Neck: Neck: Yes normal visual inspection, Yes full ROM, Yes no lymphadenopathy, Yes no meningeal signs, Yes trachea midline and Yes supple Chest: Other: Midline sterniotomy scar, cachectic Chest palpation & inspection: normal inspection of the chest and normal palpation of entire chest wall Resp: Effort & Inspection: normal respiratory effort and able to speak in complete sentences Auscultation: clear to auscultation bilaterally, rales (bilateral) and diminished lung sounds Cardio: Jugular venous distension: no JVD Palpation: normal PMI and abnorm al PMI Rate: regular rate Rhythm: regular rhythm Heart sounds: S1 normal heart sound present, S2 normal heart sound present, no murmurs and no rubs Bruits: Abdominal aortic bruit present GI: Inspection: Yes normal to inspection Palpation (GI): Abdominal aortic bruit present, Soft to palpation, nontender, no guarding, not rigid and No hepatosplenomegaly present Auscultation: normal bowel sounds Rectal Exam - Male: Yes deferred : General: Yes no CVA tenderness Back/Spine/Pelvis: Back: no CVA tenderness Cervical Spine: normal cervical lordosis Thoracic/Lumbar Spine: thoracic and lumbar spine normal to inspection Skin: General skin exam: no rashes or lesions noted Lesions: no lesions Rashes: no rashes Wounds: no wounds Neuro: General: oriented to person, oriented to place, gait normal, moves all extremities, no meningeal signs and confusion Cranial nerves: Yes CN's II-XII intact bilaterally, Yes Equal, round and reactive pupils present and Yes Normal hearing present Cognition (Neuro): normal cognition Speech: No Abnormal speech present Motor exam (neuro): 5/5 motor strength present throughout and No Asterixis during motor activity present Extrem: General: Yes normal to inspection, Yes full ROM and Yes no pedal edema Psych: Appearance: grossly normal and well kempt Mental Status: mental status grossly normal Speech and movement: Normal speech and movement present Affect: normal affect Attitude: cooperative Thought process: Normal thought process present Thought content: Normal thought content present Objective Data Labs CBC & Chem 7: 10/08/20 08:52 10/10/20 05:31 Labs: Laboratory Results - last 24 hr 10/11/20 07:03 PT 12.9 INR 1.1 Microbiology Microbiology Results: Microbiology 10/04/20 09:22 Blood - Venous Blood Culture - Final No growth after 5 days. 10/04/20 09:25 Blood - Venous Blood Culture - Final No growth after 5 days. 10/02/20 20:26 Blood - Venous Blood Culture - Final Streptococcus salivarius Viridans streptococcus group 10/02/20 20:26 Blood - Venous Blood Culture - Final Coag negative Staphylococcus Assessment & Plan Assessment and plan (1) Systolic congestive heart failure: Status: Acute (2) COPD exacerbation: Status: Acute (3) Hemoptysis: Status: Acute (4) Pleural effusion: Status: Acute (5) Abdominal aortic aneurysm: Status: Acute (6) Hypotension: Status: Acute (7) Kidney disease, chronic, stage III (GFR 30-59 ml/min): Status: Acute Assessment and Plan: 75 YM GAMALIEL on CKD with UGIB and chronic med prob including chronic low BPs maintained on midodrine and HFrEF 1. GAMALIEL: incr SCr d/t renal hypoperfusion from UGIB 2. CKD 3: CRSyn with low BPs/renal perfusion 3. GIB Mild acidosis with hyperkalemia - stands corrected. Suggest: Cr 1.75 today Follow renal panel prn and it appears that creatinine is close to baseline cont midodrine; Keep O > I Supportive care F/u with Dr. Carlos Manuel regan d/c Time Spent With Patient Time: Total time spent is greater than 50% in coordination of care (as documented) at patient's floor/unit and/or counseling patient: Procedures Date of Service Date of Service: 10/11/20 Progress Note: Quality Stroke Does the patient have a stroke diagnosis?: No
[2020-10-11] MEDS: Warfarin Sodium 2.5 MG TABLET PO (17:31)
[2020-10-11] MEDS: Albuterol Sulfate 90 MCG 8 GM INHALER 2 PUFF INHALE (19:56)
[2020-10-12] VITALS (12 sets, daily range): BP systolic 102–132; BP diastolic 55–76; PULSE 76–97; RESP 18–21; TEMP 36.2–37.2; O2SAT 89–95
[2020-10-12] MEDS: guaiFENesin DM 100/10/5 ML 5 ML SYRUP 10 ML PO ×4 (05:50→21:48)
[2020-10-12] MEDS: methylPREDNISolone Sod Succ 40 MG/ML VIAL IVPUSH (05:50)
[2020-10-12] MEDS: Omeprazole 20 MG CAPSULE.DR PO ×2 (05:51→16:53)
[2020-10-12 06:15] LABS: Hematocrit 28.4 % (42-52); Hemoglobin 9.2 g/dl (14.0-18.0); Mean Corpuscular HGB Conc 32.4 g/dl (31.0-36.0); Mean Corpuscular Hemoglobin 28.8 pg (27.0-33.0); Mean Platelet Volume 9.2 fL (9.4-12.4); Platelet Count 210 X10*3/uL (160-400); Red Blood Count 3.19 X10*6/uL (4.60-5.80); Red Cell Distribution Width 14.3 % (11.0-16.0); White Blood Count 10.1 X10*3/uL (4.8-10.8)
[2020-10-12 06:20] LABS: INTERNATIONAL NORM RATIO 1.1 (0.9-1.1); Prothrombin Time 12.9 SEC (10.8-13.0)
[2020-10-12 06:46] LABS: Anion Gap 14 (12-20); Blood Urea Nitrogen 45 mg/dL (9-16); Carbon Dioxide 28 mmol/L (22-29); Chloride 100 mmol/L (96-108); Creatinine Clr Calc Pharmacy 39.5; Estimated Glomerular Filt Rate 44; Glucose Random 126 mg/dL (60-115); Magnesium 1.8 mg/dL (1.6-2.6); Potassium 3.7 mmol/L (3.3-5.1); Sodium 138 mmol/L (135-145)
[2020-10-12 06:47] LABS: B Type Natriuretic Peptide 545 pg/mL (<100)
[2020-10-12] MEDS: Albuterol Sulfate 90 MCG 8 GM INHALER 2 PUFF INHALE ×4 (08:24→19:44)
[2020-10-12] MEDS: predniSONE 20 MG TABLET 40 MG PO (08:31)
[2020-10-12] MEDS: diazePAM 5 MG TABLET PO ×2 (08:31→14:31)
[2020-10-12] MEDS: Sertraline HCL 100 MG TABLET PO (08:31)
[2020-10-12] MEDS: Midodrine HCl 10 MG TABLET PO ×3 (08:31→21:48)
[2020-10-12] MEDS: Cholecalciferol (Vitamin D3) 25 MCG TABLET 50 MCG PO (08:31)
[2020-10-12] MEDS: Sucralfate 1 GM TABLET 2 GM PO (08:31)
[2020-10-12] MEDS: 0.9 % Sodium Chloride Flush 3 ML SYRINGE IVFLUSH ×2 (08:31→17:05)
--- NOTE | 2020-10-12 12:54 | P.PNIM_ITS ---
Subjective Subjective Date of Service: 10/12/20 Interval History: continues to improve- weaned off O2 still quite weak and undecided about STR Physical Exam Vital Signs: Vital Signs: Last Vital Signs Temp 98.3 F 10/12/20 12:00 Pulse 85 10/12/20 12:00 Resp 20 10/12/20 12:00 BP 108/64 10/12/20 12:00 Pulse Ox 92 10/12/20 12:00 Body Mass Index 18.7 Gen: in no acute distress HEENT: sclera anicteric, moist mucus membranes Neck: supple Lungs: diminished bilaterally Heart: regular rate and rhythm, 2/6 systolic murmur at apex Abd: soft, non-tender, non-distended Ext: no edema Skin: warm/well-perfused Neuro: alert and oriented x3, no focal findings Psych: appropriate affect Objective Data Current Medications Generic Name Dose Route Start Last Admin Trade Name Freq PRN Reason Stop Dose Admin Acetaminophen 650 mg 10/03/20 05:41 Acetaminophen 325 Mg Tablet PO Q6H PRN Pain, Mild (Pain Scale 1-3) Albuterol Sulfate 2 puff 10/11/20 15:54 10/12/20 11:30 Albuterol Sulfate 90 Mcg 8 Gm Inhaler INHALE 2 puff RQ4H PRN Administration Shortness of Breath/Wheezing Albuterol/Ipratropium 3 ml 10/09/20 20:00 10/12/20 11:31 Albuterol/Iprat 2.5/0.5mg 3 Ml Ampul.Neb INHALE Not Given RQID OLIVIA Diazepam 5 mg 10/07/20 21:00 10/12/20 08:31 Diazepam 5 Mg Tablet PO 5 mg TID OLIVIA Administration Digoxin 0.125 mg 10/03/20 09:00 10/10/20 08:30 Digoxin 0.125 Mg Tablet PO 0.125 mg MoWeFr@0900 OLIVIA Administration Docusate Sodium 100 mg 10/12/20 12:45 Docusate Sodium 100 Mg Capsule PO BID OLIVIA Doxycycline Hyclate 100 mg 10/06/20 12:30 10/12/20 12:31 Doxycycline Hyclate 100 Mg Tablet PO 100 mg Q12H OLIVIA Administration Guaifenesin/Dextromethorphan 10 ml 10/09/20 17:15 10/12/20 12:31 Guaifenesin Dm 100/10/5 Ml 5 Ml Syrup PO 10 ml Q6H [facility] Administration Midodrine 10 mg 10/03/20 09:00 10/12/20 08:31 Midodrine Hcl 10 Mg Tablet PO 10 mg TID [facility] Administration Omeprazole 20 mg 10/10/20 08:15 10/12/20 05:51 Omeprazole 20 Mg Capsule. PO 20 mg BID@0630,1630 [facility] Administration Ondansetron HCl 4 mg 10/07/20 09:45 10/07/20 15:18 Ondansetron Hcl 4 Mg/2 Ml Vial IVPUSH 4 mg Q6H PRN Administration Nausea Pharmacy Consult 1 each 10/02/20 21:32 Consult Rx Perform Med Rec MISCELLANE ONCE PRN Consult order Prednisone 40 mg 10/11/20 09:00 10/12/20 08:31 Prednisone 20 Mg Tablet PO 40 mg DAILY [facility] Administration Sertraline HCl 100 mg 10/03/20 09:00 10/12/20 08:31 Sertraline Hcl 100 Mg Tablet PO 100 mg DAILY [facility] Administration Sodium Chloride 3 ml 10/03/20 08:00 10/12/20 08:31 0.9 % Sodium Chloride Flush 3 Ml Syringe IVFLUSH 3 ml QSHIFT [facility] Administration Sucralfate 2 gm 10/03/20 09:00 10/12/20 08:31 Sucralfate 1 Gm Tablet PO 2 gm DAILY [facility] Administration Tamsulosin HCl 0.4 mg 10/05/20 16:30 10/11/20 16:26 Tamsulosin Hcl 0.4 Mg Capsule PO 0.4 mg DAILY@1630 [facility] Administration Tiotropium [place] 1 puff 10/03/20 09:00 10/12/20 08:28 Tiotropium [place] 18 Mcg Cap.W.Dev INHALE Not Given DAILY [facility] Vitamin D 50 mcg 10/03/20 09:00 10/12/20 08:31 Cholecalciferol (Vitamin D3) 25 Mcg Tablet PO 50 mcg DAILY [facility] Administration Warfarin Sodium 5 mg 10/12/20 18:00 Warfarin Sodium 5 Mg Tablet PO DAILY@1800 [facility] Labs CBC & Chem 7: 10/12/20 05:31 10/12/20 05:32 Labs: Laboratory Results - last 24 hr 10/12/20 10/12/20 10/12/20 05:31 05:32 05:32 WBC 10.1 RBC 3.19 L Hgb 9.2 L Hct 28.4 L MCV 89.0 MCH 28.8 MCHC 32.4 RDW 14.3 Plt Count 210 D MPV 9.2 L Absolute Nucleated RBC 0.000 Nucleated RBC % (auto) 0.0 PT 12.9 INR 1.1 Sodium 138 Potassium 3.7 Chloride 100 Carbon Dioxide 28 Anion Gap 14 BUN 45 H Creatinine 1.53 H Estim Creat Clear Calc 39.5 Estimated GFR 44 Random Glucose 126 H Calcium 9.0 Magnesium 1.8 B-Natriuretic Peptide 10/12/20 05:32 WBC RBC Hgb Hct MCV MCH MCHC RDW Plt Count MPV Absolute Nucleated RBC Nucleated RBC % (auto) PT INR Sodium Potassium Chloride Carbon Dioxide Anion Gap BUN Creatinine Estim Creat Clear Calc Estimated GFR Random Glucose Calcium Magnesium B-Natriuretic Peptide 545 H Quality Stroke Does the patient have a stroke diagnosis?: No VTE Prior VTE?: No VTE Risk Level:: Medical - moderate - high VTE Device Contraindication: N/A - Device Ordered VTE Drug Contraindication: N/A - Med Ordered Assessment and Plan (1) Systolic congestive heart failure: Status: Acute (2) COPD exacerbation: Status: Acute (3) Hemoptysis: Status: Acute (4) Pleural effusion: Status: Acute (5) Abdominal aortic aneurysm: Status: Acute (6) Hypotension: Status: Acute (7) Kidney disease, chronic, stage III (GFR 30-59 ml/min): Status: Acute Assessment and Plan: hospital d#11 75yo M with CAD, HFrEF, COPD, AF presented with hemoptysis not requiring intervention hospital course complicated by syncopal episode and worsening dyspnea # syncope - syncopal event on floor 10/04, briefly requiring vasopressors in the ICU - worked up and found to have large AAA not thought to be the cause of syncope. not septic. thought ultimately to have vasovagal episode vs due to underlying hypotension from cardiomyopathy # incidental AAA 5.2 cm with thrombus - not leaking or ruptured; needs outpt Vascular f/u per Dr Box # acute/chronic HFrEF. LVEF 10-15% - fluid overload precipitated by IV fluid resuscitation. Was given IV furosemide, stopped 10/09/2020, now on oral maintenance dosing and appears euvolemic # acute hypoxic respiratory failure 2/2 COPD exacerbation - wean O2 as tolerated # bacteremia, not - initially thought to have sepsis from bacteremia but ultimately blood culture revealed contamination # hemoptysis, resolved - possible secondary to mucosal injury to esophagus vs bronchi by frozen food ingestion; per Pulmonology, no bronchoscopy warranted - likewise, no GI intervention warranted per medical record consultant; continue PPI + sucralfate, f/u as outpt - warfarin resumed with careful monitoring # COPD exacerbation - continue PO steroid taper, tiotropium, nebulizer treatments, and cough syrup; also on doxycycline d#10/29 # AF - ventricular rate controlled. continue digoxin. warfarin resumed 10/09. INR subtherapeutic; increase warfarin dose from 2.5 to 5 mg/d and continue daily monitoring # dispo - STR recommended for balance/strength/safety but if pt refuses will arrange home with [facility]NA - patient has home health aide involved in his care her name is Sherlyn Reyes and she can be reached at [phone] # VTE ppx - warfarin, SCDs
[2020-10-12] MEDS: Docusate Sodium 100 MG CAPSULE PO ×2 (14:31→21:48)
--- NOTE | 2020-10-12 15:45 | MHC.CM.PN ---
spoke withmd ,pts and pt ..pt is reluctant to agree to str pt is agreeing today if he does not have tostay 4 weeks we discussed pts rights hcp filed and placed on chart referrrals have been made
[2020-10-12] MEDS: Tamsulosin HCL 0.4 MG CAPSULE PO (16:52)
[2020-10-12] MEDS: Warfarin Sodium 5 MG TABLET PO (16:53)
--- NOTE | 2020-10-12 18:35 | PC.NURSE ---
Patient OOB to recliner for majority of the day, 1 assist with walker. In better spirits. Patient having difficulty passing stool, order obtained for colace. Patient reports not sleeping well for the past 2 nights, hospitalist notified, awaiting orders. No further complaints or complications.
[2020-10-12] MEDS: Melatonin 3 MG TABLET PO (21:51)
[2020-10-13] VITALS (9 sets, daily range): BP systolic 104–121; BP diastolic 54–69; PULSE 76–95; RESP 16–20; TEMP 35.3–36.8; O2SAT 92–95
[2020-10-13] MEDS: 0.9 % Sodium Chloride Flush 3 ML SYRINGE IVFLUSH ×3 (00:24→15:32)
[2020-10-13] MEDS: Omeprazole 20 MG CAPSULE.DR PO ×2 (05:34→16:52)
[2020-10-13] MEDS: guaiFENesin DM 100/10/5 ML 5 ML SYRUP 10 ML PO ×3 (05:34→17:09)
--- NOTE | 2020-10-13 06:00 | PC.NURSE ---
Patient's speech was garbled, and slurred at the beginning of shift, no other deficits . Neuros intact.Dr. Correa notified. Ct scan of head ordered. Patient stating this has been happening for several days in a row in the afternoon. Ct Scan negative , symtoms have resolved. Will continue to monitor.
[2020-10-13 06:50] LABS: INTERNATIONAL NORM RATIO 1.2 (0.9-1.1); Prothrombin Time 14.1 SEC (10.8-13.0)
[2020-10-13] MEDS: Albuterol/Iprat 2.5/0.5MG 3 ML AMPUL.NEB INHALE ×3 (07:34→15:34)
[2020-10-13] MEDS: predniSONE 20 MG TABLET 40 MG PO (08:42)
[2020-10-13] MEDS: Digoxin 0.125 MG TABLET PO (08:42)
[2020-10-13] MEDS: Midodrine HCl 10 MG TABLET PO ×2 (08:42→15:31)
[2020-10-13] MEDS: Sucralfate 1 GM TABLET 2 GM PO (08:42)
[2020-10-13] MEDS: Docusate Sodium 100 MG CAPSULE PO (08:42)
[2020-10-13] MEDS: Cholecalciferol (Vitamin D3) 25 MCG TABLET 50 MCG PO (08:43)
[2020-10-13] MEDS: Sertraline HCL 100 MG TABLET PO (08:43)
--- NOTE | 2020-10-13 11:34 | MHC.CLN ---
F/U PO INTAKE REMAINS 75% AVG DIET RX: REGULAR-APPROPRIATE PT RECEICING ENSURE TID SUPPLEMENT PROVIDES 1050KCALS (50% EST KCAL NEEDS), 60G PROTEIN (73% EST PROTEIN NEEDS) CONTINUE TO MONITOR PO INTAKE CLOSELY NOTED NSG REPORTS PRESSURE INJURY HEALED 10/12 OBTAIN CURRENT WT
--- NOTE | 2020-10-13 11:44 | MHC.CM.PN ---
Male 75 Is discharged home today with [facility]. Family will provide transportation. CM will follow.
--- NOTE | 2020-10-13 14:27 | P.F2F_ITS ---
Service Date Service Date: 10/13/20 Encounter Date of encounter: 10/13/20 Reasons for Services Reason for group home: monitoring of PT/INR, medication management, medication treatment and teach disease management Reason for physical therapy: home safety and mobility, therapeutic exercises, gait/transfer training, assess need for DME, ADL training and energy conservation Reason for occupational therapy: home safety and mobility, therapeutic exercises, gait/transfer training, assess need for DME, ADL training and energy conservation MD Overseeing Care: Yoshi Cervantes Homebound: Leaving the home is medically contraindicated at this time without the asist of a device and/or another person due th the listed conditions above and below. Reason homebound: unsteady gait / fall risk, shortness of breath with minimal effort and weakness related to hospital stay Certification: Based on the above findings, I certify that this patient is confined to the home and needs intermittent group home care, physical therapy and/or speech therapy, or continues to need occupational therapy. The patient is under my care, and I have initiated the establishment of the plan of care. The patient will be followed by a physician who will periodically review the plan of care.
--- NOTE | 2020-10-13 14:33 | P.DS_ITS ---
DS: Providers Provider Date of Service: 10/13/20 Date of admission: 10/02/20 23:41 Primary care physician: Yoshi Cervantes MD Consults: 10/02/20 22:26 Consult to Gastroenterology Routine Consulting Provider: Raul Ortega Reason for consultation: GI bleed Consult to Nephrology Routine Consulting Provider: Percy Horowitz Reason for consultation: zuly on ckd Consult to Pulmonology Routine Consulting Provider: Anita Torres Reason for consultation: abnormal CT chest; GGO; Debris in Trachea; ?bronch 10/04/20 08:59 Consult to Infectious Diseases Routine Consulting Provider: Janet Mota Reason for consultation: Bacterimic Has provider been notified: No 10/05/20 11:15 Consult to Vascular Surgery Routine Consulting Provider: Man Box Reason for consultation: AAA Has provider been notified: Yes DS: Diagnosis Discharge Diagnosis (1) Systolic congestive heart failure: Status: Acute (2) COPD exacerbation: Status: Acute (3) Hemoptysis: Status: Acute (4) Pleural effusion: Status: Acute (5) Abdominal aortic aneurysm: Status: Acute (6) Hypotension: Status: Acute (7) Kidney disease, chronic, stage III (GFR 30-59 ml/min): Status: Acute (8) Acute on chronic HFrEF (heart failure with reduced ejection fraction): Status: Acute (9) Atrial fibrillation: Status: Acute (10) Anticoagulated on warfarin: Status: Acute DS: Medications Discharge Medications Home Medications: Home Medications Medication Instructions Recorded Confirmed Spiriva with HandiHaler 1 puff INHALATION DAILY 10/02/20 10/02/20 albuterol sulfate 2 puff PO QID 10/02/20 10/02/20 cholecalciferol (vitamin D3) 50 mcg PO DAILY 10/02/20 10/02/20 diazepam 5 mg PO TID 10/02/20 10/02/20 digoxin 1 tab PO 3XW 10/02/20 10/02/20 midodrine 10 mg PO TID 10/02/20 10/02/20 sertraline 100 mg PO DAILY 10/02/20 10/02/20 sucralfate 2 g PO DAILY 10/02/20 10/02/20 tamsulosin 1 cap PO DAILY 10/02/20 10/03/20 Previous Rx's Medication Instructions Recorded lidocaine HCl 2 % mucosal jelly 1 appl TOPICAL BID-QID PRN #30 ml 09/24/20 lidocaine-prilocaine 2.5 %-2.5 % 1 appl TOPICAL BID-QID PRN #5 g 10/08/20 topical cream prednisone See Rx Instructions .ROUTE 10/13/20 .COMPLEX #15 tab warfarin [Jantoven] 5 mg PO DAILY@1800 #30 tab 10/13/20 DS: Summary Hospital Course Hospital Course: from admission H+P by hospitalist James Tang, 10/02/20: 75-year-old male with a past medical history GI bleed, hemorrhoids, peripheral vascular disease/CAD/mi on Coumadin, COPD, chronic kidney disease presented to the hospital with a chief complaint of blood in the vomitus/cough. Patient reported that about a week ago he had frozen food and subsequently had some t hroat discomfort and since then she has been having cough/intermittent episodes of blood. Denies any fevers. Denies any numbness tingling. Denies any difficulty swallowing. Denies any chest pain or palpitations. Review of all other systems is negative except mentioned above ER course: Per ER team patient denied any rectal examination; hemoglobin stable. Vitals stable. INR subtherapeutic at 1.8. CT chest showed ground- glass opacities. Saturating well on room air. Also noted to have UTI-given ceftriaxone. Admitted for further management The patient was admitted to the [facility] but had a syncopal event with hypotension and was briefly managed in the ICU on vasopressors. There was a question of sepsis from bacteremia but ultimately blood culture revealed contamination.Ultimately, the event was attributed to vasovagal response with underlying hypotension from advanced cardiomyopathy. He was transferred back to the [facility] and ended up getting diuresed with IV furosemide for fluid overload precipitated by IV fluid resuscitation. Hemoptysis resolved without intervention; no bronchoscopy or EGD was deemed warranted by Pulmonology or GI, and mostly likely he had sustained minor mucosal injury from frozen food ingestion. Warfarin was resumed on 10/09/20 without recurrence of hemoptysis. At the time of discharge, INR was still subtherapeutic; warfarin dose was increased from 2.5 to 5 mg/d on 10/12/20 and he should continue daily monitoring until the INR is therapeutic. He was treated for COPD exacerbation with doxycycline and steroids and was initially oxygen-dependent, but was successfully weaned off oxygen. Short-term rehabilitation was recommended at a SNF for balance, strength and safety training, but the patient refused and as such, was discharged home with VNA/PT services. Time Spent with Patient Time attestation: Total time spent providing and/or coordinating discharge services: 45 Discharge coordination time: Greater than 30 minutes Quality: Stroke Does the patient have a stroke diagnosis?: No Physical Exam Vital Signs: Vital Signs: Last Vital Signs Temp 97.9 F 10/13/20 11:52 Pulse 79 10/13/20 11:52 Resp 20 10/13/20 11:52 BP 105/62 10/13/20 11:52 Pulse Ox 95 10/13/20 11:52 Body Mass Index 18.7 Gen: in no acute distress HEENT: sclera anicteric, moist mucus membranes Neck: supple Lungs: diminished bilaterally Heart: regular rate and rhythm, 2/6 systolic murmur at apex Abd: soft, non-tender, non-distended Ext: no edema Skin: warm/well-perfused Neuro: alert and oriented x3, no focal findings Psych: appropriate affect DS: Data Data Completed and Pending Completed studies during hospitalization [Text1]: Laboratory Results WBC 10.1 X10*3/uL (4.8-10.8) 10/12/20 05:31 RBC 3.19 X10*6/uL (4.60-5.80) L 10/12/20 05:31 Hgb 9.2 g/dl (14.0-18.0) L 10/12/20 05:31 Hct 28.4 % (42-52) L 10/12/20 05:31 MCV 89.0 fL (80-98) 10/12/20 05:31 MCH 28.8 pg (27.0-33.0) 10/12/20 05:31 MCHC 32.4 g/dl (31.0-36.0) 10/12/20 05:31 RDW 14.3 % (11.0-16.0) 10/12/20 05:31 Plt Count 210 X10*3/uL (160-400) D 10/12/20 05:31 MPV 9.2 fL (9.4-12.4) L 10/12/20 05:31 Immature Gran % (Auto) 0.5 % (0.0-0.4) H 10/07/20 06:01 Neut % (Auto) 84.9 % (45-73) H 10/07/20 06:01 Lymph % (Auto) 5.6 % (20-40) L 10/07/20 06:01 [place] % (Auto) 6.6 % (2-11) 10/07/20 06:01 Eos % (Auto) 2.2 % (0-4) 10/07/20 06:01 Baso % (Auto) 0.2 % (0-2) 10/07/20 06:01 Lymph # (Auto) 0.6 X10*3/uL (1.2-4.9) L 10/07/20 06:01 [place] # (Auto) 0.7 X10*3/uL (0.1-1.2) 10/07/20 06:01 Eos # (Auto) 0.2 X10*3/uL (0.0-0.4) 10/07/20 06:01 Baso # (Auto) 0.0 X10*3/uL (0.0-0.2) 10/07/20 06:01 Abs Immat Gran (auto) 0.05 X10*3/uL (0.00-0.03) H 10/07/20 06:01 Absolute Neuts (auto) 8.8 X10*3/uL (2.0-8.3) H 10/07/20 06:01 Absolute Nucleated RBC 0.000 X10*3/uL (0.0-0.012) 10/12/20 05:31 Nucleated RBC % (auto) 0.0 /100WBC (0.0-0.2) 10/12/20 05:31 PT 14.1 SEC (10.8-13.0) H 10/13/20 05:21 INR 1.2 (0.9-1.1) H 10/13/20 05:21 O2 Saturation 100.0 % 10/04/20 10:53 ABG pH at Pt Temp 7.27 (7.35-7.45) L 10/04/20 10:53 ABG pH (Temp Correct) 7.28 (7.35-7.45) L 10/04/20 10:53 ABG pCO2 at Pt Temp 38 mmHg (32-45) 10/04/20 10:53 ABG pCO2 (Temp Corrct 37 mmHg (32-45) 10/04/20 10:53 ABG pO2 at Pt Temp 362 mmHg (83-108) H 10/04/20 10:53 ABG pO2 (Temp Correct 359 (83-108) H 10/04/20 10:53 ABG HCO3 17 mmol/L (22-26) L 10/04/20 10:53 ABG Base Excess (Actual) -8.1 mmol/L 10/04/20 10:53 VBG pH 7.31 (7.32-7.43) L 10/05/20 05:19 VBG pCO2 44 mmHg 10/05/20 05:19 VBG pO2 29 mmHg 10/05/20 05:19 VBG HCO3 23 mmol/L (22-26) 10/05/20 05:19 VBG O2 Saturation 35.0 % 10/05/20 05:19 VBG Base Excess -3.0 mmol/L 10/05/20 05:19 Sodium 138 mmol/L (135-145) 10/12/20 05:32 Potassium 3.7 mmol/L (3.3-5.1) 10/12/20 05:32 Chloride 100 mmol/L (96-108) 10/12/20 05:32 Carbon Dioxide 28 mmol/L (22-29) 10/12/20 05:32 Anion Gap 14 (12-20) 10/12/20 05:32 BUN 45 mg/dL (9-16) H 10/12/20 05:32 Creatinine 1.53 mg/dL (0.5-1.4) H 10/12/20 05:32 Estim Creat Clear Calc 39.5 10/12/20 05:32 Estimated GFR 44 10/12/20 05:32 POC Glucose 149 mg/dL (60-115) H 10/04/20 10:50 Random Glucose 126 mg/dL (60-115) H 10/12/20 05:32 Fasting Glucose 103 mg/dL (60-99) H 10/08/20 08:52 Lactic Acid 0.9 mmol/L (0.5-2.0) 10/05/20 05:19 Calcium 9.0 mg/dL (8.4-10.2) 10/12/20 05:32 Phosphorus 3.8 mg/dL (2.7-4.5) 10/05/20 05:20 Magnesium 1.8 mg/dL (1.6-2.6) 10/12/20 05:32 Total Bilirubin 0.7 mg/dL (0.0-1.0) 10/02/20 14:19 Direct Bilirubin 0.4 mg/dL (0.0-0.5) 10/02/20 14:19 AST 14 U/L (5-37) 10/02/20 14:19 ALT 6 U/L (0-40) 10/02/20 14:19 Alkaline Phosphatase 68 U/L (39-117) 10/02/20 14:19 Troponin I High Sens 31.1 ng/L (<3.5-35.0) 10/04/20 14:45 B-Natriuretic Peptide 545 pg/mL (<100) H 10/12/20 05:32 Total Protein 6.9 g/dL (6.5-8.0) 10/02/20 14:19 Albumin 4.0 g/dL (3.5-5.0) 10/02/20 14:19 Procalcitonin 0.55 ng/mL 10/05/20 05:20 Urine Color YELLOW 10/04/20 10:30 Urine Appearance CLEAR 10/04/20 10:30 Urine pH 5.5 (5.0-8.0) 10/04/20 10:30 Ur Specific [place] 1.010 (1.005-1.025) 10/04/20 10:30 Urine Protein NEG MG/DL (NEG-TRACE) 10/04/20 10:30 Urine Glucose (UA) NEG MG/DL (NEG) 10/04/20 10:30 Urine Ketones NEG MG/DL (NEG) 10/04/20 10:30 Urine Blood NEG (NEG) 10/04/20 10:30 Urine Nitrite NEG (NEG) 10/04/20 10:30 Ur Leukocyte Esterase NEG (NEG) 10/04/20 10:30 Ur Random Sodium 44.0 mmol/L 10/04/20 10:30 Urine Creatinine 44.71 mg/dL 10/04/20 10:30 Stool Occult Blood NEGATIVE (NEGATIVE) 10/05/20 14:12 Random Vancomycin 4.0 mcg/mL (15-20) L 10/08/20 08:52 COVID-19 (SHANDA) Negative (Negative) 10/02/20 23:32 COVID-19 Clin Com See Note 10/02/20 23:32 Blood Type A Positive 10/02/20 16:26 Antibody Screen NEGATIVE 10/02/20 16:[address] 10/02/20 15:53 IMPRESSION: Diffuse upper and lower lobe emphysema. Right basilar groundglass opacities similar to comparison 10/02/2019 examination suggesting chronic inflammatory process. No pulmonary mass or enlarging pulmonary nodules. Small right pleural effusion. Coronary vascular disease. Similar appearance of borderline lymphadenopathy in the mediastinum in comparison to October 02, 2019 examination. Mild debris in the distal trachea extending into the right mainstem bronchus. Partially visualized abdominal aortic aneurysm. Abdomen CTA 10/05/20 10:05 IMPRESSION: 1. 5.1 x 5.1 cm maximum dimension partially thrombosed infrarenal saccular abdominal aortic aneurysm extending to just above the level of the aortic bifurcation showing no CT evidence of any primary or secondary signs of aortic rupture. 2. Diffuse atherosclerotic disease of the aorta and is branches with patent celiac axis, superior mesenteric artery and both renal arteries. 3. Small volume right-sided pleural effusion, shows interval increase since most recent prior CT of the chest done on 10/08/2020. Interval development of trace amount of left-sided pleural effusion is also noted, new since prior chest CT study done on 10/02/2020. Chest X-Ray 10/08/20 20:55 IMPRESSION: Small layering right effusion with associated right basilar consolidation/atelectasis similar to yesterday's study. There is mild central vascular prominence but no overt edema. Head CT 10/12/20 21:20 IMPRESSION: No acute intracranial abnormality. Specifically, there is no evidence of acute territorial infarction or acute intracranial hemorrhage. Bedside TTE 10/04/20 1. LV wall thickness is normal. 2. LV cavity is dilated with severe global hypokinesis and definite regional wall motion abnormalities. The entire septum is akinetic; the apex is dyskinetic. EF approximately 15%, possibly as low as 10%. 3. RV size is normal. 4. Left atrium is huge. 5. Aortic valve is trileaflet with trace AI by color-flow, no . 6. Mitral valve is morphologically normal, with 2+ MR by color flow. 7. Tricuspid valve is morphologically normal, with 1+ TR. CWD jet measures 3.0 m/s. Gradient 36mm. 8. IVC measures 2.3cm, with about 50% insp collapse. Est CVP 10mm. RVSP 46mm. Labs on day of discharge: Laboratory Results - last 24 hr 10/13/20 05:21 PT 14.1 H INR 1.2 H Discharge Plan Discharge Patient Disposition: Home Health Service Discharge Diagnosis: Hemoptysis, resolved Syncope, resolved Heart failure exacerbation, resolved COPD exacerbation Atrial fibrillation Abdominal aortic aneurysm Referrals: [facility] WADE [Outside] - 1 Week Man Box MD [Physician] - 1 Month (f/u AAA) Yoshi Cervantes MD [Primary Care Provider] - 1 Week Discharge Medications: New warfarin [Jantoven] 5 mg Tablet 5 mg PO DAILY@1800 Qty: 30 RF: 0 prednisone 10 mg tablet See Rx Instructions .ROUTE .COMPLEX Qty: 15 RF: 0 Continued lidocaine HCl 2 % jelly 1 appl topical BID-QID PRN (Reason: pain) Qty: 30 RF: 2 lidocaine-prilocaine 2.5-2.5 % cream 1 appl topical BID-QID PRN (Reason: pain) Qty: 5 RF: 3 sucralfate 1 gram tablet 2 g PO DAILY RF: 0 sertraline 100 mg tablet 100 mg PO DAILY RF: 0 tamsulosin 0.4 mg capsule 1 cap PO DAILY RF: 0 digoxin 125 mcg (0.125 mg) tablet 1 tab PO 3XW RF: 0 albuterol sulfate 90 mcg/actuation HFA aerosol inhaler 2 puff PO QID RF: 0 diazepam 5 mg tablet 5 mg PO TID RF: 0 midodrine 10 mg tablet 10 mg PO TID RF: 0 Spiriva with HandiHaler 18 mcg capsule, w/inhalation device 1 puff inhalation DAILY RF: 0 cholecalciferol (vitamin D3) 50 mcg (2,000 unit) capsule 50 mcg PO DAILY RF: 0 Discontinued warfarin 2.5 mg tablet 2.5 mg PO DAILY RF: 0 Discharge Orders: Discharge Order (Routine); Ordered 10/13/20 Ordered By: Fermín Arnold Diet: advance to usual diet Activity on Discharge: As tolerated Stand Alone Forms: Patient Portal Discharge page Other Ambulatory Orders: Prothrombin Time INR (DAILY) Timeframe: 20201015 Facility: [facility] - Location: Laboratory Ordered By: Fermín Arnold Prothrombin Time INR (DAILY) Timeframe: 20201016 Facility: [facility] - Location: Laboratory Ordered By: Fermín Arnold Prothrombin Time INR (DAILY) Timeframe: 20201017 Facility: [facility] - Location: Laboratory Ordered By: Fermín Arnold Prothrombin Time INR (DAILY) Timeframe: 20201018 Facility: [facility] - Location: Laboratory Ordered By: Fermín Arnold Care Plan Goals: Avoid bleeding, avoid hospitalization, recovery Health Concerns: Hemoptysis, resolved Syncope, resolved Heart failure exacerbation, resolved COPD exacerbation Atrial fibrillation Abdominal aortic aneurysm Plan of Treatment: COPD exacerbation: take prednisone [steroid] taper for 8 days: 40 mg daily x 2 days 20 mg daily x 2 days 10 mg daily x 2 days 5 mg daily x 2 days Afib: increase warfarin from 2.5 to 5 mg daily. Check INR daily until INR is 2- 3 [today it is 1.2] AAA: not leaking or ruptured; need follow up with Dr Box from Vascular Surgery for monitoring [address], [address] [place] [address] Assessment: as above Discharge Date/Time: 10/13/20 15:33
[2020-10-13] MEDS: Tamsulosin HCL 0.4 MG CAPSULE PO (16:52)
[2020-10-13] MEDS: diazePAM 2 MG TABLET 5 MG PO (17:09)
[2020-10-13] MEDS: Warfarin Sodium 5 MG TABLET PO (17:11)
== END 2020-10-13 15:33 | disposition home health service (06) | DRG 190 ==
LOC: HO.ED 20:49 → HO.EDOVER 10-03 07:19 → HO.IMC 10-04 07:45 → HO.EDOVER 10-04 13:56 → HO.ICU 10-04 13:56 → HO.IMC 10-04 13:56 → HO.ICU 10-05 07:15 → HO.IMC 10-05 07:47
PROVIDERS: Anesthesiology; Emergency Medicine Emergency Medical Services; Hospitalist; Internal Medicine; Internal Medicine Nephrology; Physician Assistant Medical; Admitting Provider Hospitalist; Emergency Provider Emergency Medicine; PCP Internal Medicine Interventional Cardiology; Visit Provider Family Medicine
DX: J44.1 Chronic obstructive pulmonary disease with (acute) exacerbation (principal); N17.0 Acute kidney failure with tubular necrosis; I50.23 Acute on chronic systolic (congestive) heart failure; J96.01 Acute respiratory failure with hypoxia; R04.2 Hemoptysis; N39.0 Urinary tract infection, site not specified; I42.0 Dilated cardiomyopathy; K58.0 Irritable bowel syndrome with diarrhea; I48.91 Unspecified atrial fibrillation; Z95.1 Presence of aortocoronary bypass graft; N18.30 Chronic kidney disease, stage 3 unspecified; I71.4 Abdominal aortic aneurysm, without rupture; R79.1 Abnormal coagulation profile; I25.10 Atherosclerotic heart disease of native coronary artery without angina pectoris; F17.210 Nicotine dependence, cigarettes, uncomplicated; I95.9 Hypotension, unspecified; Z95.810 Presence of automatic (implantable) cardiac defibrillator; Z71.6 Tobacco abuse counseling; Z20.822 Contact with and (suspected) exposure to COVID-19; Z79.01 Long term (current) use of anticoagulants; Z79.899 Other long term (current) drug therapy
CPT/HCPCS: 36415; 70450; 71045; 71046; 71250; 74175; 80048; 80051; 80076; 80202; 81003; 82272; 82565; 82947; 83605; 83735; 83880; 84100; 84145; 84300; 84484; 85014; 85018; 85025; 85027; 85610; 86850; 86900; 86901; 87040; 87077; 87147; 87186; 87205; 87635; 93005; 97110; 97116; 97162; 99285; C1758; J0696; J1940; J2060; J2405; J2543; J2920; J3370; Q9967

== ENCOUNTER 2020-10-08 08:14 | Outpatient (REF) | payer MEDICARE, SELFPAY | END 2020-10-08 08:15 | disposition home or self-care (01) | LOC: HO.HSHHMC 08:14 | PROVIDERS: Visit Provider Internal Medicine Interventional Cardiology | DX: Z13.89 Encounter for screening for other disorder (principal) ==

== ENCOUNTER 2020-10-16 06:07 | Outpatient (REF) | payer MEDICARE, SELFPAY ==
[2020-10-16 10:31] LABS: INTERNATIONAL NORM RATIO 1.7 (0.9-1.1); Prothrombin Time 20.8 SEC (10.8-13.0)
== END 2020-10-16 06:08 | disposition home or self-care (01) ==
LOC: HO.HSHHMC 06:07
PROVIDERS: Visit Provider Internal Medicine Interventional Cardiology
DX: I48.91 Unspecified atrial fibrillation (principal)
CPT/HCPCS: 36415; 85610

== ENCOUNTER 2020-10-20 | Outpatient (REF) | payer OTHER, SELFPAY ==
[2020-10-20 09:29] LABS: INTERNATIONAL NORM RATIO 3.4 (0.9-1.1); Prothrombin Time 40.6 SEC (10.8-13.0)
== END 2020-10-20 00:01 | disposition home or self-care (01) ==
LOC: HO.HSHHMC
PROVIDERS: Visit Provider Internal Medicine Interventional Cardiology
DX: I48.91 Unspecified atrial fibrillation (principal)
CPT/HCPCS: 36415; 85610

== ENCOUNTER 2020-10-23 | Outpatient (REF) | payer OTHER, SELFPAY ==
[2020-10-23 09:57] LABS: INTERNATIONAL NORM RATIO 3.1 (0.9-1.1); Prothrombin Time 37.1 SEC (10.8-13.0)
== END 2020-10-23 00:01 | disposition home or self-care (01) ==
LOC: HO.HSHHMC
PROVIDERS: Visit Provider Internal Medicine Interventional Cardiology
DX: I48.91 Unspecified atrial fibrillation (principal)
CPT/HCPCS: 36415; 85610

== ENCOUNTER 2020-10-28 22:30 | Emergency (ER) | payer OTHER, SELFPAY ==
--- NOTE | ~2020-10-28 | CT_ITS ---
EXAMINATION: CT HEAD WITHOUT CONTRAST CLINICAL INFORMATION: Multiple falls. On Coumadin. COMPARISON: 10/12/2020 TECHNIQUE: Contiguous axial imaging was performed from the skull base to vertex without intravenous contrast. This CT examination was performed using dose optimization techniques as appropriate, variously including the following: * Automated exposure control * Adjustment of mA and/or kV according to patient size (this includes techniques or standardized protocols for targeted exams where dose is matched to indication/reason for exam; i.e. extremities or head) Use of iterative reconstruction technique DLP: 670 mGy-cm. FINDINGS: There is no evidence of acute intracranial hemorrhage or territorial infarction. No abnormal mass effect or midline shift is seen. Jacobs to white matter differentiation is well preserved. No extra-axial fluid collections are identified. No hydrocephalus. Proportional prominence of the ventricles and sulcal spaces is consistent with moderate volume loss. Patchy periventricular and deep white matter hypoattenuation is consistent with mild small vessel ischemic changes. The osseous structures and soft tissues are normal. Mild opacification of the maxillary sinuses. Mild opacification of both sphenoid sinuses. The mastoid air cells and visualized portions of the paranasal sinuses are otherwise well aerated. CT/CT head/brain wo con IMPRESSION: No acute intracranial pathology.
[2020-10-28 22:36] VITALS: BP 104/65; BP 123/65; PULSE 67; PULSE 79; RESP 16; TEMP 36.4; O2SAT 96; O2SAT 97; BMI 19.5
--- NOTE | 2020-10-28 23:39 | ECG_ITS ---
Test Reason : WEAKNESS Blood Pressure : / mmHG Vent. Rate : 083 BPM Atrial Rate : 046 BPM P-R Int : 000 ms QRS Dur : 174 ms QT Int : 462 ms P-R-T Axes : 000 -76 092 degrees QTc Int : 542 ms Ventricular-paced rhythm Atiral fibrillation likely Abnormal ECG When compared with ECG of 04-OCT-2020 11:38, No other significant changes seen Referred By: Esmer Harris Electronically Signed By:SIMRAN ZUNIGA
--- NOTE | 2020-10-28 23:41 | ED.WEAKNESS ---
HPI - Weakness General Chief complaint: Failure to Thrive Stated complaint: falls Time Seen by Provider: 10/28/20 23:00 Source: patient Mode of arrival: EMS Limitations: other ( Patient has difficulty remembering the time line of his recent falls) History of Present Illness HPI Narrative: 75-year-old male who presents emergency department for evaluation of right-sided neck pain, weakness and multiple falls. Information came from the patient and from the ED nurse about information from EMS. The patient told me that he came to the emergency department because he had sudden onset of throat pain. He states approximately 2-1/2 hours prior to coming to the emergency department he developed a burning sensation his left throat area. He states that the sensation is constant and the pain is severe. The pain is worse with swallowing. He denies fever, chills, cough, chest pain, shortness of breath, jaw pain, back pain or arm pain. States that he had similar pain 2 years ago and was treated with a throat spray. Patient also states that he is weak and he is falling frequently. He states that he fell 3 weeks prior any fell yesterday as well. He is vague in describing yesterday's fall and cannot give me details. He also believes that 3 weeks ago he fell and fractured his knee however he is not in a cast or knee brace. According to the ED nursing note the called EMS for the patient's throat pain. The patient is not eating or drinking according to EMS. Patient was also complaining of left knee pain unable to ambulate. Patient has been to multiple rehabs recently and gets discharged home. The patient was seen in the emergency department on 10/02/2020 by me for hemoptysis /hematemesis without a clear etiology. Related Data Home Medications Medication Instructions Recorded Confirmed Spiriva with HandiHaler 1 puff INHALATION DAILY 10/02/20 10/29/20 albuterol sulfate 2 puff PO QID 10/02/20 10/29/20 cholecalciferol (vitamin D3) 50 mcg PO DAILY 10/02/20 10/29/20 diazepam 5 mg PO TID 10/02/20 10/29/20 digoxin 1 tab PO 3XW 10/02/20 10/29/20 midodrine 10 mg PO TID 10/02/20 10/29/20 sertraline 100 mg PO DAILY 10/02/20 10/29/20 sucralfate 2 g PO DAILY 10/02/20 10/29/20 tamsulosin 1 cap PO DAILY 10/02/20 10/29/20 Previous Rx's Medication Instructions Recorded lidocaine-prilocaine 2.5 %-2.5 % 1 appl TOPICAL BID-QID PRN #5 g 10/08/20 topical cream warfarin [Jantoven] 5 mg PO DAILY@1800 #30 tab 10/13/20 Allergies Allergy/AdvReac Type Severity Reaction Status Date / Time codeine [Codeine] Allergy Intermediate RASH Verified 03/27/20 09:54 fludrocortisone Allergy Unknown Unknown Verified 03/27/20 09:54 Review of Systems Review of Systems: Yes all other systems are reviewed and are negative PMFSH Past Medical History Medical History Abdominal aortic aneurysm Bacteremia Bronchopneumonia COPD (chronic obstructive pulmonary disease) COPD exacerbation Cough with hemoptysis Hemoptysis History of epigastric pain Hypotension Irritable bowel syndrome with diarrhea Kidney disease, chronic, stage III (GFR 30-59 ml/min) Need for rapid response team activation Pleural effusion Severe sepsis Systolic congestive heart failure Surgical History History of esophagogastroduodenoscopy (EGD) History of open heart surgery Hx of appendectomy Hx of arterial bypass of lower limb Hx of cholecystectomy Hx of colonoscopy Hx of esophageal hernia repair Hx of tonsillectomy Family History Family History Father Myocardial infarction CVD (cardiovascular disease) Mother Myocardial infarction Type 2 diabetes mellitus CVD (cardiovascular disease) Brother Heart failure Brother Heart failure Sister No problems noted. Son No problems noted. Social History Social History Household Members: Spouse and Family Housing: House Do you presently have visiting nurse or other home services: Yes Alcohol intake: former Patient Tobacco Use Status: Former Tobacco user Quit Date: 12 years ago Tobacco use type: Cigarette Cigarette Packs Per Day: 1 Cigarettes Per Day: 20.0 Second Hand Smoke Exposure: No Advance Directives: Yes Advance Directives on File: Yes Advance Directives Date on File: 01/24/20 service: No Current occupational status: retired Physical Exam Vital Signs: Vital Signs: Last Vital Signs Temp 97.8 F 10/29/20 01:31 Pulse 85 10/29/20 01:31 Resp 12 10/29/20 01:31 BP 107/61 10/29/20 01:31 Pulse Ox 93 10/29/20 01:31 Body Mass Index 19.5 Const: Other: Awake, alert, male, oriented to person and place, he is confused about the timeline of his recent falls and cannot give detailed but is fall that occurred yesterday. HENMT: Head: Yes normal to inspection, Yes normocephalic and Yes atraumatic Ears: external ears normal General nose exam: Normal external nose present Face and sinus: Yes normal facial exam Mouth: Normal oral and palatal mucosa present Throat: Yes posterior oropharynx normal Eyes: Periorbital: periorbital findings normal Eyelids: Yes eyelids normal Conjunctivae: conjunctivae normal Sclerae: sclerae normal Corneas: corneas normal Pupils: Equal, round and reactive pupils present Direct Ophthalmoscopy: normal light reflex Neck: Neck: Yes full ROM, Yes no lymphadenopathy, Yes no meningeal signs, Yes trachea midline and Yes supple Chest: Chest palpation & inspection: normal inspection of the chest and normal palpation of entire chest wall Resp: Effort & Inspection: normal respiratory effort and able to speak in complete sentences Auscultation: clear to auscultation bilaterally Cardio: Rate: regular rate Rhythm: regular rhythm Heart sounds: S1 normal heart sound present, S2 normal heart sound present and no murmurs GI: Inspection: Yes normal to inspection Palpation (GI): Soft to palpation, nontender, no guarding, not rigid and No hepatosplenomegaly present : General: Yes no CVA tenderness Back/Spine/Pelvis: Back: no CVA tenderness Cervical Spine: normal cervical lordosis Thoracic/Lumbar Spine: thoracic and lumbar spine normal to inspection Skin: Rashes: no rashes Neuro: General: no meningeal signs Cranial nerves: Yes CN's II-XII intact bilaterally and Yes Equal, round and reactive pupils present Cognition (Neuro): normal cognition Motor exam (neuro): 5/5 motor strength present throughout Extrem: Other: The patient does have scabs on his knees bilaterally consistent with subacute falls, his lower extremities are very thin, there neurovascularly intact, he is able to flex and extend his knees without any li Psych: Mental Status: mental status grossly normal Speech and movement: Normal speech and movement present Affect: normal affect Attitude: cooperative Course Course Course Narrative: 75-year-old male brought to the emergency department by EMS for evaluation of sudden onset of left sided throat pain which began 2-1/2 hours prior to coming the emergency department, the pain is worse with swallowing. Patient is also complaining of weakness with multiple falls and difficulty ambulating. Patient's physical examination did not reveal any significant findings on this throat examination, he does have scabs his knees bilaterally consistent with subacute injuries from a fall but he has full range of motion of his lower extremities with the limitations. I did order a medical workup to include CBC, CMP, lipase, troponin, CPK, PT/INR, PTT urinalysis,,EKG. A strep throat test will also be obtained. The patient was ordered to get Valium 5 mg orally for his anxiety and Tylenol 975 mg orally for his throat pain. MDM - Weakness ECG Data Attestation: I personally reviewed and interpreted this ECG as follows: Interpretation: 2259: Ventricular paced rhythm with a rate of 83. Discharge Plan Discharge Prescriptions: No Action lidocaine-prilocaine 2.5-2.5 % cream 1 appl topical BID-QID PRN (Reason: pain) Qty: 5 RF: 3 sucralfate 1 gram tablet 2 g PO DAILY RF: 0 sertraline 100 mg tablet 100 mg PO DAILY RF: 0 tamsulosin 0.4 mg capsule 1 cap PO DAILY RF: 0 digoxin 125 mcg (0.125 mg) tablet 1 tab PO 3XW RF: 0 albuterol sulfate 90 mcg/actuation HFA aerosol inhaler 2 puff PO QID RF: 0 diazepam 5 mg tablet 5 mg PO TID RF: 0 midodrine 10 mg tablet 10 mg PO TID RF: 0 Spiriva with HandiHaler 18 mcg capsule, w/inhalation device 1 puff inhalation DAILY RF: 0 cholecalciferol (vitamin D3) 50 mcg (2,000 unit) capsule 50 mcg PO DAILY RF: 0 warfarin [Jantoven] 5 mg Tablet 5 mg PO DAILY@1800 Qty: 30 RF: 0
--- NOTE | 2020-10-28 23:44 | PC.NURSE ---
PT TO ROOM, CHG INTO GOWN, ON MONITOR, AND EKG OBTAINED TO MD. PT IS RAMBLING AND SEEMS SLIGHTLY CONFUSED AT TIMES REGARDING PAST HISTORY WITH HIS LEFT LEG. MD AT BEDSIDE FOR EVAL.
[2020-10-28] MEDS: Acetaminophen 325 MG TABLET 975 MG PO (23:53)
[2020-10-28] MEDS: diazePAM 5 MG TABLET PO (23:53)
[2020-10-29] VITALS (10 sets, daily range): BP systolic 90–113; BP diastolic 47–68; PULSE 75–85; RESP 12–19; TEMP 36.6; O2SAT 93–99
--- NOTE | 2020-10-29 02:15 | PC.NURSE ---
PT RESTING IN STRETCHER, WAKES TO VOICE. PT DENIES COMPLAINTS. PT UNABLE TO URINATE AT THIS TIME. WILL CONTINUE TO MONITOR PT.
[2020-10-29 02:25] LABS: MANUAL DIFF FLAG NO
[2020-10-29 02:33] LABS: Basophils Percent Auto 0.1 % (0-2); Eosinophils Absolute Auto 0.1 X10*3/uL (0.0-0.4); Eosinophils Percent Auto 1.2 % (0-4); Hemoglobin 12.3 g/dl (14.0-18.0); Imm Gran Abs Auto 0.03 X10*3/uL (0.00-0.03); Imm Gran Pct Auto 0.4 % (0.0-0.4); Lymphocytes Absolute Auto 0.7 X10*3/uL (1.2-4.9); Mean Corpuscular HGB Conc 31.5 g/dl (31.0-36.0); Mean Corpuscular Hemoglobin 27.9 pg (27.0-33.0); Mean Corpuscular Volume 88.4 fL (80-98); Mean Platelet Volume 9.2 fL (9.4-12.4); Monocytes Absolute Auto 0.2 X10*3/uL (0.1-1.2); Monocytes Percent Auto 2.8 % (2-11); Neutrophils Absolute Auto 7.1 X10*3/uL (2.0-8.3); Neutrophils Percent Auto 87.5 % (45-73); Platelet Count 199 X10*3/uL (160-400); Red Blood Count 4.41 X10*6/uL (4.60-5.80); Red Cell Distribution Width 14.5 % (11.0-16.0); White Blood Count 8.1 X10*3/uL (4.8-10.8)
[2020-10-29 02:39] LABS: IDNOW Serial# 9DD0AD1C; Strep A Nucleic Acid Negative (Negative)
[2020-10-29 02:45] LABS: Prothrombin Time 65.9 SEC (9.9-13.0)
[2020-10-29 02:53] LABS: Ethanol < 10 mg/dL
[2020-10-29 02:54] LABS: INTERNATIONAL NORM RATIO 5.6 (0.9-1.1); Partial Thromboplastin Time 67.3 SEC (24.1-38.0)
[2020-10-29 02:56] LABS: Alanine Aminotransferase 12 U/L (0-40); Albumin Level 3.6 g/dL (3.5-5.0); Alkaline Phosphatase 61 U/L (39-117); Anion Gap 17 (12-20); Aspartate Amino Transferase 22 U/L (5-37); Bilirubin Total 0.6 mg/dL (0.0-1.0); Blood Urea Nitrogen 21 mg/dL (9-16); Calcium 8.7 mg/dL (8.4-10.2); Carbon Dioxide 21 mmol/L (22-29); Chloride 107 mmol/L (96-108); Creatinine Clr Calc Pharmacy 29.5; Estimated Glomerular Filt Rate 40; Glucose Random 100 mg/dL (60-115); Lipase 36 U/L (8-78); Potassium 4.2 mmol/L (3.3-5.1); Sodium 141 mmol/L (135-145); Total Protein 6.7 g/dL (6.5-8.0)
[2020-10-29 03:26] LABS: Troponin-I High Sensitivity 41.5 ng/L (<3.5-35.0)
--- NOTE | 2020-10-29 04:11 | PC.NURSE ---
PT RESTING IN STRETCHER, PT GIVEN URINAL BUT UNABLE TO URINATE AT THIS TIME. PT DENIES ANY COMPLAINTS/PAIN. PT GIVEN APPLE JUICE TO DRINK AND WILL CONTINUE TO MONITOR PT.
[2020-10-29] MEDS: Phytonadione (Vit K1) Oral 10 MG/ML AMPUL 5 MG PO (05:03)
[2020-10-29 05:27] LABS: INTERNATIONAL NORM RATIO 5.8 (0.9-1.1)
[2020-10-29 05:49] LABS: Troponin-I High Sensitivity 38.6 ng/L (<3.5-35.0)
--- NOTE | 2020-10-29 06:04 | PC.NURSE ---
PT ON MONITOR WITH A HR OF 75, VS OBTAINED. IV PLACED TO LEFT FA, PT DENIES CP OR SOB AT THIS TIME. PT AWAKE AND WATCHING BASKETBALL ON TV. CALL ADAME W/I REACH, BED IN LOW LOCKED POSITION. WILL CONTINUE TO MONITOR PT.
[2020-10-29 06:40] LABS: Glucose Urine UA NEG (NEG); Leukocyte Esterase Urine NEG (NEG); Nitrite Urine NEG (NEG); PH 5.5 (5.0-8.0); Specific Gravity - Urine >= 1.030 (1.005-1.025); Urine Blood NEG (NEG); Urine Ketones NEG (NEG); Urine Protein NEG (NEG-TRACE)
[2020-10-29 06:41] LABS: Appearance Urine CLEAR; Color Urine DARK YELLOW; UACC Culture Trigger NO
--- NOTE | 2020-10-29 09:34 | PC.NURSE ---
plan to redraw inr tomorrow
--- NOTE | 2020-10-29 10:52 | MHC.CM.ED ---
pt want's to go to STR in the [facility], he says he has been to STR in the past. he reports that his ambulation is poor and he needs some tuning up. he has requested to have refs. made in the [facility] and he will choose depending on who is offering a bed. at this time we are waiting for a PT eval, necessary in getting patient into STR, due to patient having an elevated INR. per PT , when the INR is less than 5 then they can eval him; this will most likely not happen until tomorrow. ref's to area SNF's have not been made until we have a PT eval to include c referral. cm to cont .to follow.
--- NOTE | 2020-10-29 12:28 | PHA.MEDREC ---
Pharmacy Consult ? Medication Reconciliation Pharmacy has completed the medication reconciliation. Spoke with the patient and also called his Kyra to confirm medications. Both patient and unable to confirm the dose of warfarin
[2020-10-29] MEDS: Cholecalciferol (Vitamin D3) 25 MCG TABLET 50 MCG PO (14:05)
[2020-10-29] MEDS: Tamsulosin HCL 0.4 MG CAPSULE PO (14:05)
[2020-10-29] MEDS: Midodrine HCl 10 MG TABLET PO ×2 (14:05→22:50)
[2020-10-29] MEDS: Sucralfate 1 GM TABLET 2 GM PO (14:05)
[2020-10-29] MEDS: Sertraline HCL 100 MG TABLET PO (14:05)
[2020-10-29] MEDS: diazePAM 5 MG TABLET PO ×2 (14:05→22:50)
--- NOTE | 2020-10-29 15:40 | PC.NURSE ---
manager rn case at bedside
[2020-10-29] MEDS: Albuterol Sulfate 90 MCG 8 GM INHALER 2 PUFF INHALE ×2 (15:59→20:02)
--- NOTE | 2020-10-29 17:20 | MHC.CM.ED ---
Met with patient. A&O x3. Very talkative. Pt feels he is weak and needs rehab. Multiple falls. PT evaluation held until INR <5. Will re-assess tomorrow. Pt lives with , Kyra, who is also his HCP ([phone]). Pt uses a walker and has an aide, who is a family friend, paid for by his son, Sherlyn Reyes ([phone]). Sherlyn helps with doctors appointments, transportation, groceries and light housekeeping. Pt tells me that his son, Nicholas, suddenly last November and it has been very difficult on him and especially his . Sherlyn, who was a friend of her son's, helps them with whatever they need. Pt insurance was verified by Patient Registration- Pt has Medicare part A only. Pt tells me that there was a problem with non-payment as his usually handles those finances and she was unable secondary to grief. Sherlyn has been helping him get his insurance re-instated. Pt is very upset that Part B is not listed. CM spoke with Sherlyn at request of pt, who verifies above and will look into re-instating part B. CM spoke with /HCP Kyra who also verified above, but seems a bit confused regarding insurance and suggested I speak with Sherlyn. Sherlyn will be in to see patient in the am. Pt is a vet and sees Dr. Cervantes at the [facility]. Pt does not think he has Vet insurance. Unable to verify at this time. Pt requests that referrals be placed at [facility] as first choice, then [facility] and [facility] for STR. D/C plan is STR pending PT recommendations. CM will follow for d/c needs.
--- NOTE | 2020-10-30 01:15 | PC.NURSE ---
pt ate all of his dinner last night and had 16oz of water.
[2020-10-30 06:20] VITALS: BP 103/57; PULSE 78; RESP 19; O2SAT 98
[2020-10-30 07:35] VITALS: BP 111/72; PULSE 76; PULSE 78; RESP 16; O2SAT 98
[2020-10-30] MEDS: Albuterol Sulfate 90 MCG 8 GM INHALER 2 PUFF INHALE ×2 (08:17→12:43)
[2020-10-30 08:20] VITALS: PULSE 75; O2SAT 94
[2020-10-30 08:25] VITALS: BP 111/72; PULSE 79
[2020-10-30] MEDS: Sertraline HCL 100 MG TABLET PO (08:25)
[2020-10-30] MEDS: Cholecalciferol (Vitamin D3) 25 MCG TABLET 50 MCG PO (08:25)
[2020-10-30] MEDS: Sucralfate 1 GM TABLET 2 GM PO (08:25)
[2020-10-30] MEDS: Midodrine HCl 10 MG TABLET PO (08:25)
[2020-10-30] MEDS: diazePAM 5 MG TABLET PO (08:25)
[2020-10-30] MEDS: Tamsulosin HCL 0.4 MG CAPSULE PO (08:25)
--- NOTE | 2020-10-30 08:37 | PC.NURSE ---
Pt is alert and oriented. Reports generalized weakness and feeling down depressed but denies SI or HI states I hurt too much already to hurt myself. Pt aware of plan. reports headache but states scheduled Valium usually helps. Accepted all AM meds in pudding whole. Mild throat discomfort with swallowing meds. Voiding in bedside urinal as needed. Congested cough at times, 98% on room air. Reports junky cough at baseline in AM. Speaking full sentences. Repeat INR obtained/sent. No active bleeding noted. V Paced on tele rate 70s. Neuros are intact. Abrasions to b/l knees from frequent falls at home. Able to make needs known to staff.
[2020-10-30 08:38] LABS: INTERNATIONAL NORM RATIO 1.4 (0.9-1.1)
--- NOTE | 2020-10-30 09:01 | PC.NURSE ---
Pharmacy called to reconcile Coumadin dose as INR 1.4 COVID swab order obtained
[2020-10-30 09:32] LABS: COVID-19 Test Negative (Negative)
--- NOTE | 2020-10-30 09:40 | PC.NURSE ---
Physical therapy to bedside for evaluation
[2020-10-30 09:51] VITALS: BP 111/72; PULSE 79
--- NOTE | 2020-10-30 10:08 | MHC.CM.PN ---
PATIENT'S FIRST CHOICE IS [facility] IN [place]. REFERRAL STARTED CM AWAITING P.T. EVALUATION COMPLETION TO UPLOAD.
--- NOTE | 2020-10-30 10:15 | MHC.CM.PN ---
PHYSICAL THERAPY EVAL UPLOADED. CASE MANAGEMENT CONTINUING TO FOLLOW AND ATTEMPT DISCHARGE TODAY
--- NOTE | 2020-10-30 12:18 | MHC.CM.PN ---
Addendum entered by Agatha Jacobsen 10/30/20 12:20: [facility] Original Note: PATIENT TO TRANSFER TO [facility] VIA [facility] RN, PATIENT, AND UNIT AWARE.
--- NOTE | 2020-10-30 12:37 | MHC.CM.PN ---
PER CONVERSATION WITH EVONNE ([phone]) [employer], PATIENT DOES NOT HAVE [facility] FOR TRANSPORT. PATIENT IS DC ON HIS MEDICARE BENEFIT.
[2020-10-30 12:43] VITALS: PULSE 75; O2SAT 93
== END 2020-10-30 13:19 | disposition skilled nursing facility (03) ==
PROVIDERS: Emergency Medicine Emergency Medical Services; Physician Assistant Medical; Emergency Provider Emergency Medicine
DX: D68.8 Other specified coagulation defects (principal); R53.1 Weakness; R62.7 Adult failure to thrive; R07.0 Pain in throat; M25.562 Pain in left knee; Z91.81 History of falling; I13.0 Hypertensive heart and chronic kidney disease with heart failure and stage 1 through stage 4 chronic kidney disease, or unspecified chronic kidney disease; N18.30 Chronic kidney disease, stage 3 unspecified; I50.9 Heart failure, unspecified; Z79.01 Long term (current) use of anticoagulants; Z51.81 Encounter for therapeutic drug level monitoring; Z20.822 Contact with and (suspected) exposure to COVID-19
CPT/HCPCS: 36415; 70450; 80053; 81003; 82077; 82550; 83690; 84484; 85025; 85610; 85730; 87635; 87651; 93005; 94640; 97162; 99285

== ENCOUNTER 2020-12-15 11:37 | Outpatient (REF) | payer MEDICARE, SELFPAY ==
[2020-12-15 12:30] LABS: Hematocrit 36.7 % (42-52); Hemoglobin 11.6 g/dl (14.0-18.0); Mean Corpuscular HGB Conc 31.6 g/dl (31.0-36.0); Mean Corpuscular Hemoglobin 27.4 pg (27.0-33.0); Mean Corpuscular Volume 86.8 fL (80-98); Mean Platelet Volume 9.3 fL (9.4-12.4); Platelet Count 175 X10*3/uL (160-400); Red Blood Count 4.23 X10*6/uL (4.60-5.80); White Blood Count 8.3 X10*3/uL (4.8-10.8)
[2020-12-15 12:53] LABS: Alanine Aminotransferase 10 U/L (0-40); Albumin Level 3.7 g/dL (3.5-5.0); Alkaline Phosphatase 63 U/L (39-117); Anion Gap 14 (12-20); Aspartate Amino Transferase 16 U/L (5-37); Bilirubin Direct 0.2 mg/dL (0.0-0.5); Bilirubin Total 0.5 mg/dL (0.0-1.0); Blood Urea Nitrogen 22 mg/dL (9-16); Calcium 8.8 mg/dL (8.4-10.2); Carbon Dioxide 23 mmol/L (22-29); Chloride 110 mmol/L (96-108); Cholesterol 125 mg/dL; Estimated Glomerular Filt Rate 41; Glucose Random 88 mg/dL (60-115); HDL Cholesterol 44 mg/dL; LDL Cholesterol Calculated 69 mg/dl; Potassium 4.8 mmol/L (3.3-5.1); Sodium 142 mmol/L (135-145); Total Protein 6.7 g/dL (6.5-8.0); Triglycerides 60 mg/dL
[2020-12-15 13:14] LABS: Thyroid Stimulating Hormone 4.17 uIU/mL (0.32-4.0)
== END 2020-12-15 11:38 | disposition home or self-care (01) ==
LOC: HO.LAB 11:37
PROVIDERS: PCP Internal Medicine; Visit Provider Internal Medicine
DX: I48.91 Unspecified atrial fibrillation (principal); I50.23 Acute on chronic systolic (congestive) heart failure; Z51.81 Encounter for therapeutic drug level monitoring; Z79.01 Long term (current) use of anticoagulants
CPT/HCPCS: 36415; 80048; 80061; 80076; 84443; 85027; 85610; 99211

== ENCOUNTER → 2020-12-23 15:13 | Outpatient (BNVA) | payer MEDICARE, SELFPAY | PROVIDERS: PCP Internal Medicine; Visit Provider Internal Medicine | DX: I48.91 Unspecified atrial fibrillation (principal); I50.23 Acute on chronic systolic (congestive) heart failure; Z51.81 Encounter for therapeutic drug level monitoring; Z79.01 Long term (current) use of anticoagulants | CPT/HCPCS: 85610; 99211 ==

== ENCOUNTER → 2021-01-06 15:08 | Outpatient (BNVA) | payer MEDICARE, SELFPAY | PROVIDERS: PCP Internal Medicine; Visit Provider Internal Medicine | DX: I50.23 Acute on chronic systolic (congestive) heart failure (principal); I48.91 Unspecified atrial fibrillation; Z51.81 Encounter for therapeutic drug level monitoring; Z79.01 Long term (current) use of anticoagulants | CPT/HCPCS: 85610; 99211 ==

== ENCOUNTER → 2021-01-27 15:19 | Outpatient (BNVA) | payer MEDICARE, SELFPAY | PROVIDERS: PCP Internal Medicine; Visit Provider Internal Medicine | DX: I50.23 Acute on chronic systolic (congestive) heart failure (principal); I48.91 Unspecified atrial fibrillation; Z51.81 Encounter for therapeutic drug level monitoring; Z79.01 Long term (current) use of anticoagulants | CPT/HCPCS: 85610; 99211 ==

== ENCOUNTER → 2021-02-19 15:21 | Outpatient (BNVA) | payer MEDICARE, SELFPAY | PROVIDERS: PCP Internal Medicine; Visit Provider Internal Medicine | DX: I50.23 Acute on chronic systolic (congestive) heart failure (principal); I48.91 Unspecified atrial fibrillation; Z51.81 Encounter for therapeutic drug level monitoring; Z79.01 Long term (current) use of anticoagulants | CPT/HCPCS: 85610; 99211 ==

== ENCOUNTER → 2021-04-02 15:21 | Outpatient (BNVA) | payer MEDICARE, SELFPAY | PROVIDERS: PCP Internal Medicine; Visit Provider Internal Medicine | DX: I48.91 Unspecified atrial fibrillation (principal); I50.23 Acute on chronic systolic (congestive) heart failure; Z51.81 Encounter for therapeutic drug level monitoring; Z79.01 Long term (current) use of anticoagulants | CPT/HCPCS: 85610; 99211 ==

== ENCOUNTER → 2021-04-07 15:10 | Outpatient (BNVA) | payer MEDICARE, SELFPAY | PROVIDERS: PCP Internal Medicine; Visit Provider Internal Medicine | DX: I48.91 Unspecified atrial fibrillation (principal); I50.23 Acute on chronic systolic (congestive) heart failure; Z51.81 Encounter for therapeutic drug level monitoring; Z79.01 Long term (current) use of anticoagulants | CPT/HCPCS: 85610; 99211 ==

== ENCOUNTER 2021-06-17 15:49 | Outpatient (REF) | payer MEDICARE, SELFPAY ==
[2021-06-17 16:12] LABS: MANUAL DIFF FLAG NO
[2021-06-17 17:12] LABS: Basophils Percent Auto 0.3 % (0-2); Eosinophils Absolute Auto 0.3 X10*3/uL (0.0-0.4); Eosinophils Percent Auto 3.9 % (0-4); Hematocrit 40.1 % (42.0-52.0); Hemoglobin 12.2 g/dl (14.0-18.0); Imm Gran Abs Auto 0.04 X10*3/uL (0.00-0.03); Imm Gran Pct Auto 0.6 % (0.0-0.4); Lymphocytes Absolute Auto 1.2 X10*3/uL (1.2-4.9); Lymphocytes Percent Auto 16.4 % (20-40); Mean Corpuscular HGB Conc 30.4 g/dl (31.0-36.0); Mean Corpuscular Hemoglobin 27.9 pg (27.0-33.0); Mean Corpuscular Volume 91.8 fL (80.0-98.0); Mean Platelet Volume 9.8 fL (9.4-12.4); Monocytes Absolute Auto 0.5 X10*3/uL (0.1-1.2); Monocytes Percent Auto 6.9 % (2-11); Neutrophils Absolute Auto 5.2 x10*3/uL (2.0-8.3); Neutrophils Percent Auto 71.9 % (45-73); Platelet Count 186 X10*3/uL (160-400); Red Blood Count 4.37 X10*6/uL (4.60-5.80); Red Cell Distribution Width 15.9 % (11.0-16.0); White Blood Count 7.3 X10*3/uL (4.8-10.8)
[2021-06-17 19:57] LABS: Anion Gap 16 (12-20); Blood Urea Nitrogen 21 mg/dL (9-16); Carbon Dioxide 21 mmol/L (22-29); Chloride 112 mmol/L (96-108); Estimated Glomerular Filt Rate 43; Phosphorus 3.2 mg/dL (2.7-4.5); Potassium 4.8 mmol/L (3.3-5.1); Sodium 144 mmol/L (135-145)
[2021-06-17 20:18] LABS: Vitamin D 25-OH Total 74.7 ng/mL (>30)
[2021-06-18 13:45] LABS: Calcium (PTHI) 9.1 mg/dL (8.6-10.3); PTHI 161 pg/mL (14-64)
== END 2021-06-17 15:50 | disposition home or self-care (01) ==
LOC: HO.LAB 15:49
PROVIDERS: PCP Internal Medicine; Visit Provider Internal Medicine Nephrology
DX: N18.31 Chronic kidney disease, stage 3a (principal); E21.1 Secondary hyperparathyroidism, not elsewhere classified; R30.0 Dysuria
CPT/HCPCS: 36415; 80051; 82306; 82310; 82565; 83970; 84100; 84520; 85025

== ENCOUNTER 2021-09-04 21:01 | Observation (INO) | payer MEDICARE, SELFPAY ==
--- NOTE | ~2021-09-04 | CT_ITS ---
EXAMINATION: NONCONTRAST HEAD CT NONCONTRAST CERVICAL SPINE CT INDICATION INFORMATION: Fall COMPARISON: 09/04/2021 TECHNIQUE: Separate noncontrast CT examinations of the head and cervical spine were performed. Coronal and sagittal images were created for each examination at the technologist workstation. This CT examination was performed using dose optimization techniques as appropriate, variously including the following: *Automated exposure control *Adjustment of mA and/or kV according to patient size (this includes techniques or standardized protocols for targeted exams where dose is matched to indication/reason for exam; i.e. extremities or head) *Use of iterative reconstruction technique DLP: 1755 mGy-cm, in conjunction with the chest, abdomen, pelvis imaging. FINDINGS: Head: There is no evidence of acute intracranial hemorrhage or territorial infarction. No abnormal mass effect or midline shift is seen. Jacobs to white matter differentiation is well preserved. No extra-axial fluid collections are identified. No hydrocephalus. Proportional prominence of the ventricles and sulcal spaces is consistent with moderate volume loss. Patchy periventricular and deep white matter hypoattenuation is consistent with mild small vessel ischemic changes. No acute osseous or soft tissue abnormality. Mild opacification of the right maxillary sinus. The mastoid air cells and visualized portions of the paranasal sinuses are otherwise well aerated. Cervical spine: There is anatomic alignment of the vertebral bodies and posterior elements. The atlantoaxial and atlantooccipital articulations are intact. Vertebral body heights are maintained. There is multilevel intervertebral disc space narrowing with endplate osteophyte formation and facet arthropathy. Bony fusion of the C5-C6 vertebral bodies. Calcific pannus surrounds the dens. No evidence of acute fracture. No prevertebral soft tissue swelling. Emphysema noted at the lung apices. Right-sided pleural effusion seen.. The thyroid gland is unremarkable. CT/CT cervical spine wo con IMPRESSION: 1. No acute intracranial finding. Chronic volume loss with small vessel ischemic changes. 2. No fracture or malalignment of the cervical spine. Advanced multilevel degenerative change.
--- NOTE | ~2021-09-04 | CT_ITS ---
Indication: Fall EXAMINATION: CT brain and CT cervical spine. Axial imaging with coronal and sagittal reformatted images. This CT examination was performed using dose optimization techniques as appropriate, variously including the following: *Automated exposure control *Adjustment of mA and/or kV according to patient size (this includes techniques or standardized protocols for targeted exams where dose is matched to indication/reason for exam; i.e. extremities or head) *Use of iterative reconstruction technique. Radiation dose [address] brain; Comparison is made to previous dated 10/29/2020. There is no midline shift. There is no mass effect. There is no hemorrhage. The basilar cisterns appear patent. The posterior fossa is grossly within normal limits. There is no extra-axial collection. There is atrophy and white matter ischemic changes. There is no fracture on the bone windows. Sinus disease is noted. CT cervical spine; Degenerative changes. No acute fracture or dislocation. Partially visualized right pleural effusion. CT/CT head/brain wo con IMPRESSION: Negative acute noncontrast CT of the brain. Atrophy and white matter ischemic changes are noted. No acute fracture or dislocation of the cervical spine. Right sided pleural effusion is noted. Recommend chest film
--- NOTE | ~2021-09-04 | CT_ITS ---
Indication: Fall EXAMINATION: CT brain and CT cervical spine. Axial imaging with coronal and sagittal reformatted images. This CT examination was performed using dose optimization techniques as appropriate, variously including the following: *Automated exposure control *Adjustment of mA and/or kV according to patient size (this includes techniques or standardized protocols for targeted exams where dose is matched to indication/reason for exam; i.e. extremities or head) *Use of iterative reconstruction technique. Radiation dose [address] brain; Comparison is made to previous dated 10/29/2020. There is no midline shift. There is no mass effect. There is no hemorrhage. The basilar cisterns appear patent. The posterior fossa is grossly within normal limits. There is no extra-axial collection. There is atrophy and white matter ischemic changes. There is no fracture on the bone windows. Sinus disease is noted. CT cervical spine; Degenerative changes. No acute fracture or dislocation. Partially visualized right pleural effusion. CT/CT cervical spine wo con IMPRESSION: Negative acute noncontrast CT of the brain. Atrophy and white matter ischemic changes are noted. No acute fracture or dislocation of the cervical spine. Right sided pleural effusion is noted. Recommend chest film
--- NOTE | ~2021-09-04 | CT_ITS ---
EXAMINATION: CT CHEST WITHOUT CONTRAST CT ABDOMEN AND PELVIS WITHOUT CONTRAST CLINICAL INFORMATION: Fall COMPARISON: 09/04/2021 TECHNIQUE: Multidetector volumetric imaging was performed through the chest, abdomen and pelvis without contrast. Sagittal and coronal reformatted images were obtained on the technologist's workstation. Axial MIP volume rendering provided. This CT examination was performed using dose optimization techniques as appropriate, variously including the following: *Automated exposure control *Adjustment of mA and/or kV according to patient size (this includes techniques or standardized protocols for targeted exams where dose is matched to indication/reason for exam; i.e. extremities or head) *Use of iterative reconstruction technique DLP: 1755 mGy-cm., In conjunction with head and cervical spine imaging FINDINGS: CHEST: Lungs: The central airways show secretions in the trachea. These are similar to recent prior. There is severe emphysema with bronchial wall thickening present. Similar appearance of the small right pleural effusion with basilar atelectasis. Unchanged right lower lobe pulmonary nodules. Mediastinum: Enlarged heart size. No pericardial effusion. Vascular calcifications. No mediastinal lymphadenopathy. Chest Wall/Axilla: No lymphadenopathy. No chest wall mass. Left chest wall pacer. ABDOMEN/PELVIS: Liver, Gallbladder, Biliary Tree: The liver is normal in size, shape, and attenuation. No focal hepatic lesion or biliary ductal dilatation is present. Pneumobilia present. Cholecystectomy. Pancreas: Unremarkable. Spleen: Unremarkable. Adrenal Glands: Unremarkable. Kidneys and Ureters: The kidneys are normal in size, shape, and attenuation. No hydronephrosis, hydroureter or calculi seen. No perinephric stranding. Vascular calcifications. Bladder: Hannah catheter in place within the decompressed bladder. Gastrointestinal Tract: The stomach is unremarkable. Normal caliber small bowel. No obstruction. Colonic diverticulosis without diverticulitis. The appendix is not definitively seen. Abdominal Wall: No hernia is demonstrated. Lymphovascular Structures: Lymph nodes: Normal. Vascular: Redemonstration of the infrarenal abdominal aortic aneurysm which is unchanged from the recent prior. This measures 5.5 x 6.1 cm. Pelvic Viscera: Enlarged prostate measuring 5 cm transverse. OSSEOUS STRUCTURES: No suspicious sclerotic or lytic bone lesions are identified. Vertebral body height and alignment maintained. L4-L5 disc space narrowing with grade 1 anterolisthesis of L4 on L5. There is a subacute left posterior 11th rib fracture. Chronic healed left posterior ninth and 10th rib fractures. The sternum is intact. CT/CT abdomen pelvis wo con IMPRESSION: No acute traumatic finding of the chest, abdomen, or pelvis.
--- NOTE | ~2021-09-04 | CT_ITS ---
STUDY PERFORMED: CTA OF THE CHEST, ABDOMEN AND PELVIS WITH AND WITHOUT CONTRAST CLINICAL INFORMATION: Reason for Exam New aneurysm, suspect dissection DESCRIPTION: Initial noncontrast CT of the chest was performed. Contrast timing was performed at the level of the distal descending thoracic aorta. Subsequently, arterial phase multidetector volumetric imaging was performed through the chest, abdomen and pelvis following the administration of 70 mL Omnipaque 350 intravenous contrast. No contrast reaction reported Sagittal and coronal reformatted images were obtained on the technologist workstation. Three-dimensional MIP reformatted imaging was performed and reviewed. This CT examination was performed using dose optimization techniques as appropriate, variously including the following: *Automated exposure control *Adjustment of mA and/or kV according to patient size (this includes techniques or standardized protocols for targeted exams where dose is matched to indication/reason for exam; i.e. extremities or head) *Use of iterative reconstruction technique Total exam dose-length product 902 mGy-cm COMPARISON: 10/02/2019 and 10/02/[address] angiogram of the abdomen 10/05/2020. FINDINGS: VASCULAR: 1. 3 cusped aortic valve. Normal origins of the main coronary arteries. Coronary artery calcifications. The ascending thoracic aorta is normal in course and caliber without dissection. 2. The aortic arch is normal in course and caliber without dissection. Normal 3 vessel branching configuration. 3. The descending thoracic aorta is normal in course and caliber without dissection. Mild atherosclerotic calcifications. 4. There is redemonstration of an abdominal aortic infrarenal aneurysm. This measures 5.5 x 6.1 cm. On the study from 10/05/2020 this had measured 5.1 x 5.4 cm. There is the majority of the lumen excluded and not opacified. This is similar to prior. Normal caliber common iliac vessels with severe atherosclerotic disease. Severe disease extends into the level of the femoral arteries bilaterally. There is partially visualized patent femoral bypass graft on the left. There is a right femoral stent noted. There is also what is likely an occluded partially visualized bypass graft on the right. The right profunda femoral artery is not opacified. 5. The celiac axis is patent. Mild stenosis at the origin of the superior mesenteric artery. Atherosclerotic disease seen more distally with mild stenosis. Inferior mesenteric artery origin not well seen. 6. Mild stenosis at the origin of the dominant right renal artery. There are 2 right renal arteries. Single left renal artery with mild stenosis. 7. Although not tailored for evaluation of the pulmonary arteries, there is no central pulmonary embolism. Nonvascular: CHEST: LUNG/PLEURA: Secretions in the trachea noted. No airway occlusion. Bronchial wall thickening noted. There is severe paracentral and centrilobular emphysema. Ill-defined opacification in the right lower lobe. There are new right lower lobe nodules. These measure 1.6 cm on series 5 image 41 and 0.7 cm on image 471. These abut one another. No pneumothorax. Small right pleural effusion. MEDIASTINUM: Enlarged heart size. No pericardial effusion. No hilar or mediastinal lymphadenopathy. Cardiac pacer. CHEST WALL/AXILLA: No axillary or internal mammary lymphadenopathy. No chest wall mass. ABDOMEN AND PELVIS: LIVER, GALLBLADDER, AND BILIARY TREE: The liver is normal in size, shape, and attenuation. No focal hepatic lesion or biliary ductal dilatation is present. Pneumobilia noted. Cholecystectomy. PANCREAS: Unremarkable. SPLEEN: Unremarkable. ADRENAL GLANDS: Unremarkable. KIDNEYS AND URETERS: The kidneys are normal in size, shape, and attenuation. No hydronephrosis, hydroureter, or calculi seen. No perinephric stranding. BLADDER: Hannah catheter in the bladder. No wall thickening. GASTROINTESTINAL TRACT: The stomach is unremarkable. Normal caliber small bowel. No obstruction. Colonic diverticulosis without diverticulitis. No free air or free fluid. ABDOMINAL WALL: No significant hernia is appreciated. LYMPH NODES: Normal. PELVIC VISCERA: Enlarged prostate impinging upon the base of the bladder. OSSEOUS STRUCTURES: No acute or suspicious osseous abnormality. Degenerative changes in the spine. Mild degenerative change of the hips. Status post median sternotomy. CT/CT angio abdomen pelvis IMPRESSION: 1. Abdominal aortic aneurysm which has increased in size since the prior. This currently measures 5.5 x 6.1 cm, compared to 5.1 x 5.4 cm on 10/05/2020. 2. Severe emphysema. Small right pleural effusion. Secretions in the trachea with bronchial wall thickening noted. This could be associated with aspiration. 3. There are 2 new right lower lobe nodules measuring up to 1.6 cm. There is also ill-defined opacity throughout the right lower lobe with more groundglass appearance. This could be an infectious process, and short follow-up is recommended. 3 month follow-up would be appropriate given the presence of the nodules. 4. Prostatomegaly.
--- NOTE | 2021-09-04 21:09 | ECG_ITS ---
Test Reason : FALL Blood Pressure : / mmHG Vent. Rate : 081 BPM Atrial Rate : 085 BPM P-R Int : 000 ms QRS Dur : 180 ms QT Int : 450 ms P-R-T Axes : 000 -55 099 degrees QTc Int : 522 ms Ventricular-paced rhythm with occasional Premature ventricular complexes Possible Underlyinf AF Biventricular pacemaker detected Abnormal ECG When compared with ECG of 28-OCT-2020 22:59, Premature ventricular complexes are now Present Vent. rate has decreased BY 2 BPM Referred By: Kristi Hickey Electronically Signed By:DAYAN LOMAX MD
[2021-09-04 21:26] VITALS: BP 116/66; BP 122/74; PULSE 83; PULSE 95; RESP 15; TEMP 36.6; O2SAT 94; O2SAT 96
--- NOTE | 2021-09-04 21:40 | ED.FALL ---
HPI - Fall General Chief Complaint: Fall Stated Complaint: fall on thinners Time Seen by Provider: 09/04/21 21:09 Source: patient Mode of arrival: EMS History of Present Illness HPI Narrative: 76-year-old male brought in by EMS after he sustained a mechanical fall wall trying to adjust his Hannah catheter and arrange his clothing and he states he lost his balance and fell onto his bottom and back but denies hitting his head or loss of consciousness. He expresses some irritation with the fact that his did not help him out very well and otherwise has no acute complaints. Otherwise, patient denies any dizziness, shortness breath, chest pain/palpitations. Patient states he had some bleeding in his mouth but denies coughing or vomiting any of the blood. Related Data Home Medications Medication Instructions Recorded Confirmed tiotropium bromide 18 mcg capsule 1 puff INHALATION DAILY 10/02/20 04/30/21 with inhalation device (Spiriva with HandiHaler) Previous Rx's Medication Instructions Recorded lidocaine-prilocaine 2.5 %-2.5 % 1 appl TOPICAL BID-QID PRN #5 g 10/08/20 topical cream cholecalciferol (vitamin D3) 50 50 mcg PO DAILY #90 cap 02/08/21 mcg (2,000 unit) capsule tamsulosin 0.4 mg capsule 0.4 mg PO DAILY #90 cap 02/08/21 digoxin 125 mcg (0.125 mg) tablet 125 mcg PO MOWEFRSA@0900 #90 tab 06/24/21 sertraline 100 mg tablet 100 mg PO DAILY #90 tab 06/24/21 albuterol sulfate 90 mcg/actuation 2 puff PO QID PRN #8.5 ea 07/31/21 aerosol inhaler midodrine 10 mg tablet 10 mg PO TID #90 tab 08/04/21 sucralfate 1 gram tablet 2 g PO DAILY 30 Days #60 tab 08/14/21 diazepam 5 mg tablet 5 mg PO Q8H #90 tab 08/26/21 simvastatin 10 mg tablet 10 mg PO DAILY #90 tab 08/26/21 Allergies Allergy/AdvReac Type Severity Reaction Status Date / Time codeine [Codeine] Allergy Intermediate RASH Verified 04/30/21 07:53 fludrocortisone Allergy Unknown Unknown Verified 04/30/21 07:53 Review of Systems Review of Systems: Pertinent positives and negatives as stated in HPI 10 point review of systems is otherwise negative. [facility] Past Medical History Source: nursing notes reviewed Medical History Abdominal aortic aneurysm Bacteremia Bronchopneumonia COPD (chronic obstructive pulmonary disease) COPD exacerbation Cough with hemoptysis Hemoptysis History of epigastric pain Hypotension Irritable bowel syndrome with diarrhea Kidney disease, chronic, stage III (GFR 30-59 ml/min) Need for rapid response team activation Pleural effusion Severe sepsis Systolic congestive heart failure Surgical History History of esophagogastroduodenoscopy (EGD) History of open heart surgery Hx of appendectomy Hx of arterial bypass of lower limb Hx of cholecystectomy Hx of colonoscopy Hx of esophageal hernia repair Hx of tonsillectomy Family History Family History Father Myocardial infarction CVD (cardiovascular disease) Mother Myocardial infarction Type 2 diabetes mellitus CVD (cardiovascular disease) Brother Heart failure Brother Heart failure Sister No problems noted. Son No problems noted. Social History Social History Household Members: Spouse and Family Housing: House Do you presently have visiting nurse or other home services: Yes Alcohol intake: never Patient Tobacco Use Status: Former Tobacco user Quit Date: 12 years ago Tobacco use type: Cigarette Cigarette Packs Per Day: 1 Cigarettes Per Day: 20.0 e-Cigarette/Vaping Use: Never Used Second Hand Smoke Exposure: No Advance Directives: Yes Advance Directives on File: Yes Advance Directives Date on File: 01/24/20 service: No Current occupational status: retired Current occupational exposures/hazards: No Physical Exam Vital Signs: Vital Signs: Last Vital Signs Temp 98 F 09/04/21 21:26 Pulse 77 09/04/21 23:45 Resp 14 09/04/21 23:45 BP 113/62 09/04/21 23:45 Pulse Ox 96 09/04/21 23:45 BMI result Body Mass Index 20.0 VITAL SIGNS: Reviewed. GENERAL: Well developed, well nourished, in no acute distress. HEAD: Normocephalic/atraumatic EYES: PERRLA, EOMI EARS: Ext canals without abnormality OROPHARYNX: no oral lesions noted, posterior pharynx clear, stigmata of bleeding noted on patient's tongue LUNGS: Normal breath sounds. No adventitious sounds or accessory muscle use. SpO2<94> CARDIOVASCULAR: Regular rate and rhythm without noted murmurs, no JVD or lower extremity edema. ABDOMEN: Soft, non-tender, non-distended with bowel sounds. BACK: No midline vertebral tenderness or step-offs noted PELVIS: Stable and nontender MUSCULOSKELETAL: No tenderness, deformities, or effusions noted on gross inspection. EXTREMITIES: No cyanosis, clubbing or edema, patient is able to full range of motion bring his knees to his chest without pain symmetrically. SKIN: Inspection of the skin reveals no rashes NEUROLOGIC: Alert and oriented x 4. Strength and sensation to light touch were grossly intact x 4. Course Course Course Narrative: 76-year-old male with history and clinical presentation consistent with mechanical fall and apparently intraoral bleeding will obtain labs, imaging as well as EKG and coags. Review of all investigations demonstrates a significant drop in hemoglobin although patient remains hemodynamically stable and has no signs of active bleeding at this time. In addition, patient has known AAA has increased in size since his last imaging studies in September 2020. Patient does not have any complaints of back or chest pain at this time. Patient will be admitted for GI bleed with an INR that is within normal limits and this case was discussed with the inpatient hospitalist who accepts admission. [facility] - Fall Lab Data Result diagrams: 09/04/21 22:01 09/04/21 22:01 Labs: Lab Results 09/04/21 09/04/21 09/04/21 Range/Units 22:01 22:01 22:01 WBC 8.2 (4.8-10.8) X10*3/uL RBC 3.44 L D (4.60-5.80) X10*6/uL Hgb 9.8 L (14.0-18.0) g/dl Hct 30.6 L D (42.0-52.0) % MCV 89.0 (80.0-98.0) fL MCH 28.5 (27.0-33.0) pg MCHC 32.0 (31.0-36.0) g/dl RDW 17.5 H (11.0-16.0) % Plt Count 165 (160-400) X10*3/uL MPV 9.0 L (9.4-12.4) fL Immature Gran % (Auto) 0.5 H (0.0-0.4) % Neut % (Auto) 80.2 H (45-73) % Lymph % (Auto) 10.0 L (20-40) % [place] % (Auto) 6.7 (2-11) % Eos % (Auto) 2.2 (0-4) % Baso % (Auto) 0.4 (0-2) % Lymph # (Auto) 0.8 L (1.2-4.9) X10*3/uL [place] # (Auto) 0.6 (0.1-1.2) X10*3/uL Eos # (Auto) 0.2 (0.0-0.4) X10*3/uL Baso # (Auto) 0.0 (0.0-0.2) X10*3/uL Abs Immat Gran (auto) 0.04 H (0.00-0.03) X10*3/uL Absolute Neuts (auto) 6.5 (2.0-8.3) x10*3/uL Absolute Nucleated RBC 0.000 (0.0-0.012) X10*3/uL Nucleated RBC % (auto) 0.0 (0.0-0.2) /100WBC PT 16.7 H (9.9-13.0) SEC INR 1.5 H (0.9-1.1) Sodium 137 (135-145) mmol/L Potassium 4.5 (3.3-5.1) mmol/L Chloride 106 (96-108) mmol/L Carbon Dioxide 22 (22-29) mmol/L Anion Gap 14 (12-20) BUN 43 H D (9-16) mg/dL Creatinine 1.87 H (0.5-1.4) mg/dL Estim Creat Clear Calc 25.5 Estimated GFR 35 Random Glucose 99 (60-115) mg/dL Calcium 9.1 (8.4-10.2) mg/dL Total Bilirubin 0.8 (0.0-1.0) mg/dL AST 54 H (5-37) U/L ALT 38 (0-40) U/L Alkaline Phosphatase 71 (39-117) U/L Total Protein 6.7 (6.5-8.0) g/dL Albumin 3.7 (3.5-5.0) g/dL Urine Color Urine Appearance Urine pH (5.0-8.0) Ur Specific [place] (1.005-1.025) Urine Protein (NEG-TRACE) MG/DL Urine Glucose (UA) (NEG) MG/DL Urine Ketones (NEG) MG/DL Urine Blood (NEG) Urine Nitrite (NEG) Ur Leukocyte Esterase (NEG) Urine RBC (0) /HPF Urine WBC (0-4) /HPF Ur Squamous Epith Cells /LPF Urine Bacteria /LPF Urine Mucus /LPF COVID-19 ([facility]ANDA) (Negative) COVID-19 Clin Com 09/04/21 09/05/21 Range/Units 23:30 00:06 WBC (4.8-10.8) X10*3/uL RBC (4.60-5.80) X10*6/uL Hgb (14.0-18.0) g/dl Hct (42.0-52.0) % MCV (80.0-98.0) fL MCH (27.0-33.0) pg MCHC (31.0-36.0) g/dl RDW (11.0-16.0) % Plt Count (160-400) X10*3/uL MPV (9.4-12.4) fL Immature Gran % (Auto) (0.0-0.4) % Neut % (Auto) (45-73) % Lymph % (Auto) (20-40) % [place] % (Auto) (2-11) % Eos % (Auto) (0-4) % Baso % (Auto) (0-2) % Lymph # (Auto) (1.2-4.9) X10*3/uL [place] # (Auto) (0.1-1.2) X10*3/uL Eos # (Auto) (0.0-0.4) X10*3/uL Baso # (Auto) (0.0-0.2) X10*3/uL Abs Immat Gran (auto) (0.00-0.03) X10*3/uL Absolute Neuts (auto) (2.0-8.3) x10*3/uL Absolute Nucleated RBC (0.0-0.012) X10*3/uL Nucleated RBC % (auto) (0.0-0.2) /100WBC PT (9.9-13.0) SEC INR (0.9-1.1) Sodium (135-145) mmol/L Potassium (3.3-5.1) mmol/L Chloride (96-108) mmol/L Carbon Dioxide (22-29) mmol/L Anion Gap (12-20) BUN (9-16) mg/dL Creatinine (0.5-1.4) mg/dL Estim Creat Clear Calc Estimated GFR Random Glucose (60-115) mg/dL Calcium (8.4-10.2) mg/dL Total Bilirubin (0.0-1.0) mg/dL AST (5-37) U/L ALT (0-40) U/L Alkaline Phosphatase (39-117) U/L Total Protein (6.5-8.0) g/dL Albumin (3.5-5.0) g/dL Urine Color YELLOW Urine Appearance CLEAR Urine pH 6.0 (5.0-8.0) Ur Specific [place] 1.015 (1.005-1.025) Urine Protein NEG (NEG-TRACE) MG/DL Urine Glucose (UA) NEG (NEG) MG/DL Urine Ketones NEG (NEG) MG/DL Urine Blood 2+ H (NEG) Urine Nitrite NEG (NEG) Ur Leukocyte Esterase TRACE H (NEG) Urine RBC 15-29 H (0) /HPF Urine WBC 1-4 (0-4) /HPF Ur Squamous Epith Cells 1+ /LPF Urine Bacteria 1+ /LPF Urine Mucus 2+ /LPF COVID-19 ([facility]ANDA) Negative (Negative) COVID-19 Clin Com See Note ECG Data Attestation: I personally reviewed and interpreted this ECG as follows: Prior ECG tracings: available for review Interpretation: Anterior paced rhythm with occasional PVCs, no STEMI Discharge Plan Discharge Clinical Impression: GI bleed, Atrial fibrillation, Anticoagulated on warfarin, AAA (abdominal aortic aneurysm) without rupture, Fall Patient Disposition: Admitted As Inpatient Prescriptions: No Action lidocaine-prilocaine 2.5-2.5 % cream 1 appl topical BID-QID PRN (Reason: pain) Qty: 5 3RF cholecalciferol (vitamin D3) 50 mcg (2,000 unit) capsule 50 mcg PO DAILY Qty: 90 1RF tamsulosin 0.4 mg capsule 0.4 mg PO DAILY Qty: 90 1RF digoxin 125 mcg (0.125 mg) tablet 125 mcg PO MOWEFRSA@0900 Qty: 90 0RF sertraline 100 mg tablet 100 mg PO DAILY Qty: 90 1RF albuterol sulfate 90 mcg/actuation HFA aerosol inhaler 2 puff PO QID PRN (Reason: for wheezing) Qty: 8.5 0RF midodrine 10 mg tablet 10 mg PO TID Qty: 90 1RF sucralfate 1 gram tablet 2 g PO DAILY 30 Days Qty: 60 0RF simvastatin 10 mg tablet 10 mg PO DAILY Qty: 90 1RF diazepam 5 mg tablet 5 mg PO Q8H Qty: 90 0RF Spiriva with HandiHaler 18 mcg capsule, w/inhalation device 1 puff inhalation DAILY 0RF
[2021-09-04 22:05] LABS: MANUAL DIFF FLAG NO
[2021-09-04 22:06] LABS: Basophils Percent Auto 0.4 % (0-2); Eosinophils Absolute Auto 0.2 X10*3/uL (0.0-0.4); Eosinophils Percent Auto 2.2 % (0-4); Hematocrit 30.6 % (42.0-52.0); Hemoglobin 9.8 g/dl (14.0-18.0); Imm Gran Abs Auto 0.04 X10*3/uL (0.00-0.03); Imm Gran Pct Auto 0.5 % (0.0-0.4); Lymphocytes Absolute Auto 0.8 X10*3/uL (1.2-4.9); Mean Corpuscular Hemoglobin 28.5 pg (27.0-33.0); Monocytes Absolute Auto 0.6 X10*3/uL (0.1-1.2); Monocytes Percent Auto 6.7 % (2-11); Neutrophils Absolute Auto 6.5 x10*3/uL (2.0-8.3); Neutrophils Percent Auto 80.2 % (45-73); Platelet Count 165 X10*3/uL (160-400); Red Blood Count 3.44 X10*6/uL (4.60-5.80); Red Cell Distribution Width 17.5 % (11.0-16.0); White Blood Count 8.2 X10*3/uL (4.8-10.8)
[2021-09-04 22:12] LABS: INTERNATIONAL NORM RATIO 1.5 (0.9-1.1); Prothrombin Time 16.7 SEC (9.9-13.0)
[2021-09-04 22:35] LABS: Alanine Aminotransferase 38 U/L (0-40); Albumin Level 3.7 g/dL (3.5-5.0); Alkaline Phosphatase 71 U/L (39-117); Anion Gap 14 (12-20); Aspartate Amino Transferase 54 U/L (5-37); Bilirubin Total 0.8 mg/dL (0.0-1.0); Blood Urea Nitrogen 43 mg/dL (9-16); Calcium 9.1 mg/dL (8.4-10.2); Carbon Dioxide 22 mmol/L (22-29); Chloride 106 mmol/L (96-108); Creatinine Clr Calc Pharmacy 25.5; Estimated Glomerular Filt Rate 35; Glucose Random 99 mg/dL (60-115); Potassium 4.5 mmol/L (3.3-5.1); Sodium 137 mmol/L (135-145); Total Protein 6.7 g/dL (6.5-8.0)
[2021-09-04] MEDS: iohexoL 350 MG/ML 100 ML INFUS..BTL IV (22:47)
--- NOTE | 2021-09-04 23:25 | MHC.CM.ED ---
CM met with patient at request of nursing. Pt fell at home and EMS reported that patient and are living in a home that is very unclean. Pt is unkempt. Very thin, unshaven, f/c in place. Pt is A&Ox4. Pt states he will not stay in the hospital and will not go to any PT or rehab at any facility. Pt states he hasn't seen his PCP in over a year and is unsure of his name, as he only saw him once. 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 HCP on File. HCP#1/ Kyra Lujan ([phone]) and HCP #2/son Devendra ([phone]). CM called Devendra at request of Dr. Hickey at [phone] and left a message asking him to call the ED and speak with . Explained that his father fell, appears okay and is having a medical work up. Explained that there was some concern regarding the condition of the home. Medical evaluation pending. CM will follow for d/c needs. RN aware.
[2021-09-04 23:45] VITALS: BP 113/62; PULSE 77; RESP 14; O2SAT 96
[2021-09-05] VITALS (8 sets, daily range): BP systolic 94–117; BP diastolic 56–69; PULSE 75–83; RESP 14–20; TEMP 36.3–36.5; O2SAT 92–99
[2021-09-05 00:06] LABS: COVID-19 Test Negative (Negative)
[2021-09-05 00:14] LABS: Appearance Urine CLEAR; Color Urine YELLOW; Glucose Urine UA NEG (NEG); Leukocyte Esterase Urine TRACE (NEG); Nitrite Urine NEG (NEG); Specific Gravity - Urine 1.015 (1.005-1.025); UACC Culture Trigger NO; Urine Blood 2+ (NEG); Urine Ketones NEG (NEG); Urine Protein NEG (NEG-TRACE)
[2021-09-05 00:27] LABS: Squamous Epithelial Cell Urine 1+ /LPF
[2021-09-05 00:28] LABS: Bacteria Urine 1+ /LPF; Mucus Urine 2+ /LPF
[2021-09-05] MEDS: Pantoprazole Sodium 40 MG/10 ML VIAL 80 MG IVPUSH (01:09)
--- NOTE | 2021-09-05 01:55 | PC.NURSE ---
pt has mulitple bruises to bilateral upper extremities, scabs in healing stages, as well as bilateral superficial knee abrasions
--- NOTE | 2021-09-05 04:38 | PM.IMHP ---
History of Present Illness Date of Service: 09/05/21 Chief Complaint: Fall 76-year-old male with a past medical history of hypertension, hyperlipidemia, diabetes, abdominal aortic aneurysm, COPD, irritable bowel syndrome, chronic kidney disease, CHF, AFib on Coumadin presented to the hospital with a chief complaint of fall. Patient reported that he was trying to adjust his Hannah that potentially tripped and fell over. Denies any chest pain or palpitations. Denies any headaches numbness tingling or focal weakness. Denies any loss of consciousness. Patient reports that he was recently admitted to the [facility] where he was treated for pneumonia. At that time he had urinary retention and had Hannah placed. Denies any GI symptoms. Denies any abdominal pain Review of all other systems is negative except mentioned above ER course: Per ER team patient noted dose nonfocal examination; CT head showed no acute intracranial process; imaging negative for any fracture. On labs noted to have slightly drop in hemoglobin; also patient has a increasing in size. PENDING SALE TO [facility] Medical History Abdominal aortic aneurysm Bacteremia Bronchopneumonia COPD (chronic obstructive pulmonary disease) COPD exacerbation Cough with hemoptysis Hemoptysis History of epigastric pain Hypotension Irritable bowel syndrome with diarrhea Kidney disease, chronic, stage III (GFR 30-59 ml/min) Need for rapid response team activation Pleural effusion Severe sepsis Systolic congestive heart failure Family History Father Myocardial infarction CVD (cardiovascular disease) Mother Myocardial infarction Type 2 diabetes mellitus CVD (cardiovascular disease) Brother Heart failure Brother Heart failure Sister No problems noted. Son No problems noted. Surgical History History of esophagogastroduodenoscopy (EGD) History of open heart surgery Hx of appendectomy Hx of arterial bypass of lower limb Hx of cholecystectomy Hx of colonoscopy Hx of esophageal hernia repair Hx of tonsillectomy Social History Household Members: Spouse and Family Housing: House Do you presently have visiting nurse or other home services: Yes Alcohol intake: never Patient Tobacco Use Status: Former Tobacco user Quit Date: 12 years ago Tobacco use type: Cigarette Cigarette Packs Per Day: 1 Cigarettes Per Day: 20.0 e-Cigarette/Vaping Use: Never Used Second Hand Smoke Exposure: No Advance Directives: Yes Advance Directives on File: Yes Advance Directives Date on File: 01/24/20 service: No Current occupational status: retired Current occupational exposures/hazards: No Meds Allergies Allergy/AdvReac Type Severity Reaction Status Date / Time codeine [Codeine] Allergy Intermediate RASH Verified 04/30/21 07:53 fludrocortisone Allergy Unknown Unknown Verified 04/30/21 07:53 Active Medications: Current Medications Acetaminophen (Acetaminophen 325 Mg Tablet) 650 mg PO Q6H PRN PRN Reason: Pain, Mild (Pain Scale 1-3) Heparin Sodium (Porcine) (Heparin Sodium,Porcine 5,000 Unit/Ml Vial) 5,000 unit SUBCUT Q12H [facility], [facility] Melatonin (Melatonin 3 Mg Tablet) 6 mg PO BEDTIME PRN PRN Reason: Insomnia Senna (Sennosides 8.6 Mg Tablet) 17.2 mg PO BEDTIME PRN PRN Reason: Constipation Sodium Chloride (0.9 % Sodium Chloride Flush 3 Ml Syringe) 3 ml IVFLUSH QSHIFT [facility], [facility] Home Medications Medication Instructions Recorded Confirmed Last Taken Type tiotropium bromide 18 mcg capsule 1 puff INHALATION DAILY 10/02/20 09/05/21 10/02/20 History with inhalation device (Spiriva with HandiHaler) diazepam 5 mg tablet 5 mg PO Q8H PRN 09/05/21 09/05/21 Unknown History warfarin 5 mg tablet 1 tab PO QPM 09/05/21 09/05/21 Unknown History Physical Exam Vital Signs and Narrative: Vital Signs: Last Vital Signs Temp 98 F 09/04/21 21:26 Pulse 76 09/05/21 03:54 Resp 16 09/05/21 03:54 BP 98/56 L 09/05/21 03:54 Pulse Ox 96 09/05/21 03:54 BMI result Body Mass Index 20.0 Gen: Appears be in no acute distress HEENT: NCAT, Moist mucosa. Pulmonary: Vesicular breath sounds, fair air entry CVS: Normal S1-S2 Abdomen: BS+, Soft, Nontender Extremities: Warm well perfused Neuro: Alert and awake. Grossly nonfocal Results Labs CBC and Chem 7: 09/04/21 22:01 09/04/21 22:01 Labs: Laboratory Results - last 24 hr 09/04/21 09/04/21 09/04/21 22:01 22:01 22:01 MCV 89.0 MCH 28.5 MCHC 32.0 RDW 17.5 H Plt Count 165 MPV 9.0 L Immature Gran % (Auto) 0.5 H Neut % (Auto) 80.2 H Lymph % (Auto) 10.0 L [place] % (Auto) 6.7 Eos % (Auto) 2.2 Baso % (Auto) 0.4 Lymph # (Auto) 0.8 L [place] # (Auto) 0.6 Eos # (Auto) 0.2 Baso # (Auto) 0.0 Abs Immat Gran (auto) 0.04 H Absolute Neuts (auto) 6.5 Absolute Nucleated RBC 0.000 Nucleated RBC % (auto) 0.0 PT 16.7 H INR 1.5 H Anion Gap 14 Estim Creat Clear Calc 25.5 Estimated GFR 35 Random Glucose 99 Calcium 9.1 Total Bilirubin 0.8 AST 54 H ALT 38 Alkaline Phosphatase 71 Total Protein 6.7 Albumin 3.7 Urine Color Urine Appearance Urine pH Ur Specific [place] Urine Protein Urine Glucose (UA) Urine Ketones Urine Blood Urine Nitrite Ur Leukocyte Esterase Urine RBC Urine WBC Ur Squamous Epith Cells Urine Bacteria Urine Mucus COVID-19 (SHANDA) COVID-19 Clin Com 09/04/21 09/05/21 23:30 00:06 MCV MCH MCHC RDW Plt Count MPV Immature Gran % (Auto) Neut % (Auto) Lymph % (Auto) [place] % (Auto) Eos % (Auto) Baso % (Auto) Lymph # (Auto) [place] # (Auto) Eos # (Auto) Baso # (Auto) Abs Immat Gran (auto) Absolute Neuts (auto) Absolute Nucleated RBC Nucleated RBC % (auto) PT INR Anion Gap Estim Creat Clear Calc Estimated GFR Random Glucose Calcium Total Bilirubin AST ALT Alkaline Phosphatase Total Protein Albumin Urine Color YELLOW Urine Appearance CLEAR Urine pH 6.0 Ur Specific [place] 1.015 Urine Protein NEG Urine Glucose (UA) NEG Urine Ketones NEG Urine Blood 2+ H Urine Nitrite NEG Ur Leukocyte Esterase TRACE H Urine RBC 15-29 H Urine WBC 1-4 Ur Squamous Epith Cells 1+ Urine Bacteria 1+ Urine Mucus 2+ COVID-19 (SHANDA) Negative COVID-19 Clin Com See Note Imaging Radiologist's Impressions: Impressions Cervical Spine CT 09/04/21 21:39 IMPRESSION: Negative acute noncontrast CT of the brain. Atrophy and white matter ischemic changes are noted. No acute fracture or dislocation of the cervical spine. Right sided pleural effusion is noted. Recommend chest film Head CT 09/04/21 21:39 IMPRESSION: Negative acute noncontrast CT of the brain. Atrophy and white matter ischemic changes are noted. No acute fracture or dislocation of the cervical spine. Right sided pleural effusion is noted. Recommend chest film Chest CT 09/04/21 22:45 IMPRESSION: 1. Abdominal aortic aneurysm which has increased in size since the prior. This currently measures 5.5 x 6.1 cm, compared to 5.1 x 5.4 cm on 10/05/2020. 2. Severe emphysema. Small right pleural effusion. Secretions in the trachea with bronchial wall thickening noted. This could be associated with aspiration. 3. There are 2 new right lower lobe nodules measuring up to 1.6 cm. There is also ill-defined opacity throughout the right lower lobe with more groundglass appearance. This could be an infectious process, and short follow-up is recommended. 3 month follow-up would be appropriate given the presence of the nodules. 4. Prostatomegaly. Abdomen/Pelvis CTA 09/04/21 22:56 IMPRESSION: 1. Abdominal aortic aneurysm which has increased in size since the prior. This currently measures 5.5 x 6.1 cm, compared to 5.1 x 5.4 cm on 10/05/2020. 2. Severe emphysema. Small right pleural effusion. Secretions in the trachea with bronchial wall thickening noted. This could be associated with aspiration. 3. There are 2 new right lower lobe nodules measuring up to 1.6 cm. There is also ill-defined opacity throughout the right lower lobe with more groundglass appearance. This could be an infectious process, and short follow-up is recommended. 3 month follow-up would be appropriate given the presence of the nodules. 4. Prostatomegaly. Chest CTA 09/04/21 22:56 IMPRESSION: 1. Abdominal aortic aneurysm which has increased in size since the prior. This currently measures 5.5 x 6.1 cm, compared to 5.1 x 5.4 cm on 10/05/2020. 2. Severe emphysema. Small right pleural effusion. Secretions in the trachea with bronchial wall thickening noted. This could be associated with aspiration. 3. There are 2 new right lower lobe nodules measuring up to 1.6 cm. There is also ill-defined opacity throughout the right lower lobe with more groundglass appearance. This could be an infectious process, and short follow-up is recommended. 3 month follow-up would be appropriate given the presence of the nodules. 4. Prostatomegaly. Assessment and Plan (1) AAA (abdominal aortic aneurysm) without rupture: Status: Acute (2) Fall: Status: Acute Plan 76-year-old male with a past medical history of hypertension, hyperlipidemia, abdominal aortic aneurysm, COPD, irritable bowel syndrome, chronic kidney disease, CHF, AFib on Coumadin presented to the hospital with a chief complaint of fall. Fall: Mechanical in nature. PT/OT. Fall precautions. Supportive care. Increasing abdominal aortic aneurysm size: Will consult Dr. Box for further recommendations. Patient currently asymptomatic. Vitals stable. Goal blood pressure less than 140/90. Urinary retention: Patient has been on Hannah catheter. Urology follow-up. COPD: Stable continue home inhalers CKD: Monitor renal function History of AFib: Patient on Coumadin. Rate controlled. History of CHF: Stable. DVT prophylaxis: Subcu heparin Code status: Full code Quality Stroke Does the patient have a stroke diagnosis?: No VTE Prior VTE?: No VTE Risk Level:: Medical - moderate - high VTE Device Contraindication: Treatment Not Indicated VTE Drug Contraindication: N/A - Med Ordered
[2021-09-05 06:56] LABS: MANUAL DIFF FLAG NO
[2021-09-05 07:06] LABS: Basophils Percent Auto 0.5 % (0-2); Eosinophils Absolute Auto 0.3 X10*3/uL (0.0-0.4); Eosinophils Percent Auto 3.8 % (0-4); Hematocrit 30.1 % (42.0-52.0); Hemoglobin 9.7 g/dl (14.0-18.0); Imm Gran Abs Auto 0.04 X10*3/uL (0.00-0.03); Imm Gran Pct Auto 0.6 % (0.0-0.4); Lymphocytes Percent Auto 15.3 % (20-40); Mean Corpuscular HGB Conc 32.2 g/dl (31.0-36.0); Mean Corpuscular Volume 90.1 fL (80.0-98.0); Mean Platelet Volume 9.4 fL (9.4-12.4); Monocytes Absolute Auto 0.6 X10*3/uL (0.1-1.2); Monocytes Percent Auto 8.4 % (2-11); Neutrophils Absolute Auto 4.7 x10*3/uL (2.0-8.3); Neutrophils Percent Auto 71.4 % (45-73); Platelet Count 166 X10*3/uL (160-400); Red Blood Count 3.34 X10*6/uL (4.60-5.80); Red Cell Distribution Width 17.5 % (11.0-16.0); White Blood Count 6.5 X10*3/uL (4.8-10.8)
[2021-09-05 07:08] LABS: INTERNATIONAL NORM RATIO 1.3 (0.9-1.1); Prothrombin Time 15.2 SEC (9.9-13.0)
[2021-09-05 07:36] LABS: Anion Gap 14 (12-20); Blood Urea Nitrogen 42 mg/dL (9-16); Calcium 8.9 mg/dL (8.4-10.2); Carbon Dioxide 21 mmol/L (22-29); Chloride 107 mmol/L (96-108); Creatinine Clr Calc Pharmacy 28.9; Estimated Glomerular Filt Rate 41; Glucose Random 78 mg/dL (60-115); Potassium 4.2 mmol/L (3.3-5.1); Sodium 138 mmol/L (135-145)
[2021-09-05] MEDS: Atorvastatin Calcium 10 MG TABLET PO (08:34)
[2021-09-05] MEDS: Sucralfate 1 GM TABLET 2 GM PO (08:34)
[2021-09-05] MEDS: Digoxin 0.125 MG TABLET PO (08:34)
[2021-09-05] MEDS: Midodrine HCl 10 MG TABLET PO ×3 (08:34→22:01)
[2021-09-05] MEDS: diazePAM 5 MG TABLET PO ×2 (08:35→18:50)
[2021-09-05] MEDS: Cholecalciferol (Vitamin D3) 25 MCG TABLET 50 MCG PO (08:35)
[2021-09-05] MEDS: Sertraline HCL 100 MG TABLET PO (08:35)
[2021-09-05] MEDS: Heparin Sodium,Porcine 5,000 UNIT/ML VIAL 5000 UNIT SUBCUT (08:35)
[2021-09-05] MEDS: 0.9 % Sodium Chloride Flush 3 ML SYRINGE IVFLUSH ×2 (08:36→23:03)
--- NOTE | 2021-09-05 09:36 | PC.NURSE ---
MD came down and sons phone number given as he has questions about his dad. pt does not want to go to rehab as they are all terrible and he gets worse VSS
[2021-09-05] MEDS: Tamsulosin HCL 0.4 MG CAPSULE PO (11:05)
--- NOTE | 2021-09-05 11:06 | PC.NURSE ---
primary RN aware of BP trending low.
--- NOTE | 2021-09-05 12:10 | MHC.CM.PN ---
Addendum entered by Meka Black 09/07/21 10:19: CM MET WITH PT AND HIS HOME CARE PROVIDER, MAIN, LATE YESTERDAY. AFTER SPEAKING WITH AMIN, PT IS AGREEABLE TO STR. PT ASKS THAT HE NOT BE SENT TO [facility] OR [facility]. MAIN ASKS THAT PT BE PLACED CLOSE TO [place] POSSIBLE SO THAT SHE WILL BE ABLE TO VISIT. REFERRALS MADE TO LOCAL FACILITIES CURRENTLY AWAITING RESPONSES Addendum entered by Meka Black 09/06/21 09:04: RN MARI WAS ABLE TO CONFIRM, PT IS IN FACT ACTIVE WITH HOME CARE SERVICES THROUGH [facility]. HE IS ALSO ACTIVE WITH [facility] FOR PRIMARY CARE. PT WILL DC HOME TODAY WITH RESUMPTION OF SERVICES TRANSPORTATION TBD. MECHANICAL ASSEMBLY MAIN VS CHAIR HO Addendum entered by Meka Black 09/05/21 16:15: CM CALLED PTS SONYANNICK, AGAIN TO TRY TO CONFIRM IF SERVICES WERE SET UP THROUGH [facility]. YANNICK WAS UNSURE AND INDICATED MAIN WOULD BE THE BEST CONTACT' CM ATTEMPTED TO CONTACT MAIN [phone], A VM MESSAGE WAS LEFT REQUESTING A RETURN CALL Addendum entered by Meka Black 09/05/21 14:42: CM MET WITH PT TO DISCUSS DC PLANS AND CONCERNS. PT REPORTS HE IS NOT GOING TO STR AND FEELS THE HOSPITAL IS JUST KEEPING HIM FOR MONEY. HE REPORTS HE HAS BEEN TO 10 REHAB FACILITIES AND ENDED UP RIGHT BACK IN THE HOSPITAL AFTER 9 OF THEM. HE REPORTS HE HAS AN APPT WITH A NEW PCP ON TUESDAY AT 0945 BUT HE DOES NOT REMEMBER THE NAME. HE REPORTS HE WAS RECENTLY AT [facility] AND THEY SET HIM UP WITH SERVICES IN THE HOME AND A PT HAS ALREADY BEEN TO SEE HIM AND WILL BE BACK ON TUESDAY. HE ALSO REPORTS HIS AND SON ARE JUST TRYING TO GET RID OF HIM SO THAT THEY CAN SELL HIS HOUSE AND CAR FOR THE MONEY HE REPORTS HIS SON, HIEU, LAST YEAR AND HIS ENDED UP GIVING THEIR OTHER SON OVER 400K, HE REPORTS THEY JUST WANT THE REST OF HIS MONEY. PT REPORTS HE WANTS TO DC HOME TODAY. CM INFORMED HIM HIS HOME SERVICES WOULD NEED TO BE CONFIRMED FIRST. CM ALSO MADE AWARE AN ELDER AT RISK WAS FILED WHEN PT WAS IN [facility] Original Note: CM CALLED PTS YANNICK RHODES [phone], WHO REPORTS THE PT LIVES WITH HIS AND HAS A PP MECHANICAL ASSEMBLY THAT COMES IN 3-4 DAYS PER WEEK. HE REPORTS THE PT USES A WALKER AT BASELINE BUT HAS FALLEN TWICE IN THE PAST WEEK. HE REPORTS HE IS UNSURE IF THE PT HAS A PCP HCP ON FILE, YANNICK IS ALTERNATE YANNICK SAYS PT IS COVID-19 VACCINATED OBSERVATION NOTICE DELIVERED, COPY SENT TO [facility] YANNICK ASKS THAT ALL BILLS BE SENT TO HIM AT [address] [place] [id number] TASKS SENT TO [facility] REGISTRATION AND BILLING YANNICK REPORTS THE WOMAN HE PAYS TO PROVIDE HOME CARE TO THE PT, MAIN, CALLED HIM AND TOLD HIM THE PT WAS IN REALLY BAD SHAPE AND LIKELY NEEDS HOSPICE CARE. HE REPORTS HE DOES NOT WANT TO PULL THE TRIGGER ON THIS BUT IS WORRIED THE PT MAY NOT BE GETTING WHAT HE NEEDS. CM EXPLAINED HOSPICE HAD NOT BEEN INDICATED HOWEVER STR HAS BEEN RECOMMENDED. PT HAS ADAMANTLY REFUSED STR IN THE PAST AND PER YANNICK, WILL THIS TIME. YANNICK ASKS THAT CM EXPLAIN TO PT THE RAMIFICATIONS OF NOT GOING TO STR, INCLUDING THE LIKELIHOOD OF LESS TIME AT HOME SAFELY AND AN ELDER AT RISK BEING FILED. CM WILL DISCUSS DC WITH PT AND ENCOURAGE STR. YANNICK ASKS THAT PT AT LEAST NOT DC UNTIL TOMORROW. CM WILL UPDATED YANNICK ONCE STR IS DISCUSSED WITH PT
--- NOTE | 2021-09-05 14:03 | PM.EVENT ---
Event Note Date of Service: 09/05/21 Event Note: day hospitalist update S denies lightheadedness denies chest pain no dyspnea O Temperature 97.5 F 09/05/21 11:05 Pulse Rate 77 09/05/21 11:05 Respiratory Rate 18 09/05/21 11:05 Blood Pressure 94/58 L 09/05/21 11:05 Pulse Oximetry 97 09/05/21 11:05 gen- frail, cachectic lungs- CTAB CV- RRR, paced abd- soft/NT ext- no edema neuro- no focal findings Laboratory Results - last 24 hr 09/04/21 09/04/21 09/04/21 22:01 22:01 22:01 WBC 8.2 RBC 3.44 L D Hgb 9.8 L Hct 30.6 L D MCV 89.0 MCH 28.5 MCHC 32.0 RDW 17.5 H Plt Count 165 MPV 9.0 L Immature Gran % (Auto) 0.5 H Neut % (Auto) 80.2 H Lymph % (Auto) 10.0 L [place] % (Auto) 6.7 Eos % (Auto) 2.2 Baso % (Auto) 0.4 Lymph # (Auto) 0.8 L [place] # (Auto) 0.6 Eos # (Auto) 0.2 Baso # (Auto) 0.0 Abs Immat Gran (auto) 0.04 H Absolute Neuts (auto) 6.5 Absolute Nucleated RBC 0.000 Nucleated RBC % (auto) 0.0 PT 16.7 H INR 1.5 H Sodium 137 Potassium 4.5 Chloride 106 Carbon Dioxide 22 Anion Gap 14 BUN 43 H D Creatinine 1.87 H Estim Creat Clear Calc 25.5 Estimated GFR 35 Random Glucose 99 Calcium 9.1 Total Bilirubin 0.8 AST 54 H ALT 38 Alkaline Phosphatase 71 Total Protein 6.7 Albumin 3.7 Procalcitonin Urine Color Urine Appearance Urine pH Ur Specific [place] Urine Protein Urine Glucose (UA) Urine Ketones Urine Blood Urine Nitrite Ur Leukocyte Esterase Urine RBC Urine WBC Ur Squamous Epith Cells Urine Bacteria Urine Mucus COVID-19 (SHANDA) COVID-19 Clin Com 09/04/21 09/05/21 09/05/21 23:30 00:06 06:01 WBC 6.5 RBC 3.34 L Hgb 9.7 L Hct 30.1 L MCV 90.1 MCH 29.0 MCHC 32.2 RDW 17.5 H Plt Count 166 MPV 9.4 Immature Gran % (Auto) 0.6 H Neut % (Auto) 71.4 Lymph % (Auto) 15.3 L [place] % (Auto) 8.4 Eos % (Auto) 3.8 Baso % (Auto) 0.5 Lymph # (Auto) 1.0 L [place] # (Auto) 0.6 Eos # (Auto) 0.3 Baso # (Auto) 0.0 Abs Immat Gran (auto) 0.04 H Absolute Neuts (auto) 4.7 Absolute Nucleated RBC 0.000 Nucleated RBC % (auto) 0.0 PT INR Sodium Potassium Chloride Carbon Dioxide Anion Gap BUN Creatinine Estim Creat Clear Calc Estimated GFR Random Glucose Calcium Total Bilirubin AST ALT Alkaline Phosphatase Total Protein Albumin Procalcitonin Urine Color YELLOW Urine Appearance CLEAR Urine pH 6.0 Ur Specific [place] 1.015 Urine Protein NEG Urine Glucose (UA) NEG Urine Ketones NEG Urine Blood 2+ H Urine Nitrite NEG Ur Leukocyte Esterase TRACE H Urine RBC 15-29 H Urine WBC 1-4 Ur Squamous Epith Cells 1+ Urine Bacteria 1+ Urine Mucus 2+ COVID-19 (SHANDA) Negative COVID-19 Clin Com See Note 09/05/21 09/05/21 09/05/21 06:01 06:01 06:01 WBC RBC Hgb Hct MCV MCH MCHC RDW Plt Count MPV Immature Gran % (Auto) Neut % (Auto) Lymph % (Auto) [place] % (Auto) Eos % (Auto) Baso % (Auto) Lymph # (Auto) [place] # (Auto) Eos # (Auto) Baso # (Auto) Abs Immat Gran (auto) Absolute Neuts (auto) Absolute Nucleated RBC Nucleated RBC % (auto) PT 15.2 H INR 1.3 H Sodium 138 Potassium 4.2 Chloride 107 Carbon Dioxide 21 L Anion Gap 14 BUN 42 H Creatinine 1.65 H Estim Creat Clear Calc 28.9 Estimated GFR 41 Random Glucose 78 Calcium 8.9 Total Bilirubin AST ALT Alkaline Phosphatase Total Protein Albumin Procalcitonin 0.10 Urine Color Urine Appearance Urine pH Ur Specific [place] Urine Protein Urine Glucose (UA) Urine Ketones Urine Blood Urine Nitrite Ur Leukocyte Esterase Urine RBC Urine WBC Ur Squamous Epith Cells Urine Bacteria Urine Mucus COVID-19 (SHANDA) COVID-19 Clin Com A/P 76yo M with AF on warfarin, COPD, BPH, CAD, HLD, HTN, CKD3 admitted to [facility] 08/24-09/03/21 after mechanical fall without LOC and admitted for CAP- treated with ceftriaxone, azithromycin, and O2 [weaned off] developed urinary retention requiring Hannah catheter, failed voiding trial was discharged home [STR had been recommended, but pt declined] presented this time with another mecahnical fall without LOC # AAA - seen by Dr Simon [Vascular Surgery], plan outpt f/u # AF - continue digoxin - increase warfarin dose. INR was 1.6 on 09/03/21. # ischemic CM, chronic HFrEF [15%] - has [employer]-D, on midodrine for orthostatic hypotension + unable to tolerate neurohormonal modulation # HLD - continue statin # COPD - tiotropium, prn albuterol # CKD3 - SCr at baseline # urinary retention due to BPH - Hannah, Urology f/u, continue tamsulosin # anxiety - continue diazepam, sertraline # sev pr-ivan malnutrition - supplements # dispo - PT saw pt, STR recommended - at [facility], Elder at Risk was filed updated son Devendra by phone
--- NOTE | 2021-09-05 17:06 | PC.NURSE ---
caregiver of pt and family is requesting him to go to [facility] for his rehab
[2021-09-05] MEDS: Warfarin Sodium 7.5 MG TABLET PO (18:53)
--- NOTE | 2021-09-05 21:25 | PC.NURSE ---
Patient arrived to room 10, RICHARD BELL noted. Hannah in place and draining joanie urine. Will monitor closely.
[2021-09-06 06:00] VITALS: BP 108/72; PULSE 91; RESP 18; TEMP 36.6; O2SAT 95
[2021-09-06 07:10] LABS: INTERNATIONAL NORM RATIO 1.3 (0.9-1.1); Prothrombin Time 14.6 SEC (9.9-13.0)
--- NOTE | 2021-09-06 07:15 | PC.NURSE ---
assuming care of this patient, pt is sleeping resp even and unlabored. nad at this time. plan is for pt to see physical therapy.
[2021-09-06] MEDS: Midodrine HCl 10 MG TABLET PO ×2 (09:21→19:52)
[2021-09-06] MEDS: Sucralfate 1 GM TABLET 2 GM PO (09:21)
[2021-09-06] MEDS: Sertraline HCL 100 MG TABLET PO (09:21)
[2021-09-06] MEDS: Cholecalciferol (Vitamin D3) 25 MCG TABLET 50 MCG PO (09:21)
[2021-09-06] MEDS: Atorvastatin Calcium 10 MG TABLET PO (09:21)
[2021-09-06] MEDS: Tamsulosin HCL 0.4 MG CAPSULE PO (09:21)
[2021-09-06] MEDS: 0.9 % Sodium Chloride Flush 3 ML SYRINGE IVFLUSH ×3 (09:21→23:48)
[2021-09-06] MEDS: diazePAM 5 MG TABLET PO ×2 (10:14→19:52)
--- NOTE | 2021-09-06 10:16 | PC.NURSE ---
pt medicated per request with valium. pt requesting dc. this rn to contact
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
--- NOTE | 2021-09-06 13:16 | PC.NURSE ---
animal caretaker supervisor at bedside to discuss str
[2021-09-06 13:29] VITALS: BP 92/53; PULSE 74; RESP 18; TEMP 36.4
--- NOTE | 2021-09-06 14:32 | P.PNIM_ITS ---
Subjective Subjective Date of Service: 09/06/21 Interval History: refused rehab but now agreeable denies pain no GI bleeding Hannah in place Review of Systems Review of Systems: Yes all other systems are reviewed and are negative Physical Exam Vital Signs: Vital Signs: Last Vital Signs Temp 97.5 F 09/06/21 13:29 Pulse 74 09/06/21 13:29 Resp 18 09/06/21 13:29 BP 92/53 L 09/06/21 13:29 Pulse Ox 95 09/06/21 06:00 BMI result Body Mass Index 20.0 gen- frail, cachectic lungs- CTAB CV- RRR, paced abd- soft/NT - Hannah draining clear yellow urine ext- no edema neuro- no focal findings Objective Data Active Medications Acetaminophen (Acetaminophen 325 Mg Tablet) 650 mg PO Q6H PRN PRN Reason: Pain, Mild (Pain Scale 1-3) Albuterol Sulfate (Albuterol Sulfate 90 Mcg 8 Gm Inhaler) 2 puff INHALE QID PRN PRN Reason: for wheezing Atorvastatin Calcium (Atorvastatin Calcium 10 Mg Tablet) 10 mg PO DAILY [facility] Last Admin: 09/06/21 09:21 Dose: 10 mg Documented by: RICHARD Diazepam (Diazepam 5 Mg Tablet) 5 mg PO Q8H PRN PRN Reason: Anxiety Last Admin: 09/06/21 10:14 Dose: 5 mg Documented by: RICHARD Digoxin (Digoxin 0.125 Mg Tablet) 0.125 mg PO MOWEFRSA@0900 [facility] Last Admin: 09/05/21 08:34 Dose: 0.125 mg Documented by: BRIDGER Melatonin (Melatonin 3 Mg Tablet) 6 mg PO BEDTIME PRN PRN Reason: Insomnia Midodrine (Midodrine Hcl 10 Mg Tablet) 10 mg PO TID [facility] Last Admin: 09/06/21 09:21 Dose: 10 mg Documented by: RICHARD Senna (Sennosides 8.6 Mg Tablet) 17.2 mg PO BEDTIME PRN PRN Reason: Constipation Sertraline HCl (Sertraline Hcl 100 Mg Tablet) 100 mg PO DAILY [facility] Last Admin: 09/06/21 09:21 Dose: 100 mg Documented by: RICHARD Sodium Chloride (0.9 % Sodium Chloride Flush 3 Ml Syringe) 3 ml IVFLUSH QSHIFT [facility] Last Admin: 09/06/21 09:21 Dose: 3 ml Documented by: RICHARD Sucralfate (Sucralfate 1 Gm Tablet) 2 gm PO DAILY [facility] Last Admin: 09/06/21 09:21 Dose: 2 gm Documented by: RICHARD Tamsulosin HCl (Tamsulosin Hcl 0.4 Mg Capsule) 0.4 mg PO DAILY [facility] Last Admin: 09/06/21 09:21 Dose: 0.4 mg Documented by: RICHARD Tiotropium Ravenna (Tiotropium Ravenna 18 Mcg Cap.W.Dev) 1 puff INHALE DAILY [facility] Last Admin: 09/06/21 09:06 Dose: 1 puff Documented by: YUNG Vitamin D (Cholecalciferol (Vitamin D3) 25 Mcg Tablet) 50 mcg PO DAILY [facility] Last Admin: 09/06/21 09:21 Dose: 50 mcg Documented by: RICHARD Warfarin Sodium (Warfarin Sodium 7.5 Mg Tablet) 7.5 mg PO DAILY@1800 [facility] Last Admin: 09/05/21 18:53 Dose: 7.5 mg Documented by: BRIDGER Labs CBC & Chem 7: 09/05/21 06:01 09/05/21 06:01 Labs: Laboratory Results - last 24 hr 09/06/21 06:47 PT 14.6 H INR 1.3 H Assessment and Plan (1) Severe protein-calorie malnutrition: Status: Acute Plan hospital d#2 76yo M with AF on warfarin, COPD, BPH, CAD, HLD, HTN, CKD3 admitted to [facility] 08/24-09/03/21 after mechanical fall without LOC and admitted for CAP- treated with ceftriaxone, azithromycin, and O2 [weaned off] developed urinary retention requiring Hannah catheter, failed voiding trial was discharged home [STR had been recommended, but pt declined] presented this time with another mecahnical fall without LOC # AAA - seen by Dr Simon [Vascular Surgery], plan outpt f/u # AF - continue digoxin - increased warfarin dose.? INR was 1.6 on 09/03/21, 1.3 yesterday and today -> will give 7.5 mg daily for now # chronic anemia - Hb stable, was 9.3 at discharge from [facility] # ischemic CM, chronic HFrEF [15%] - has [employer]IPMENT [employer]IST-D, on midodrine for orthostatic hypotension + unable to tolerate neurohormonal modulation # HLD - continue statin # COPD - tiotropium, prn albuterol # CKD3 - SCr at baseline # urinary retention due to BPH - Hannah, Urology f/u, continue tamsulosin # anxiety - continue diazepam, sertraline # sev pr-ivan malnutrition - supplements # dispo - STR placement Quality Stroke Does the patient have a stroke diagnosis?: No VTE Prior VTE?: No VTE Risk Level:: Medical - moderate - high VTE Device Contraindication: Treatment Not Indicated VTE Drug Contraindication: N/A - Med Ordered
--- NOTE | 2021-09-06 16:42 | PC.NURSE ---
pt refused meds- states i dont feel good unwilling to elaborate more
[2021-09-06] MEDS: Warfarin Sodium 7.5 MG TABLET PO (19:52)
[2021-09-06] MEDS: Melatonin 3 MG TABLET 6 MG PO (19:52)
--- NOTE | 2021-09-06 20:16 | PC.NURSE ---
patient agitated, argumentative with staff. patient reports no one is doing anything for me, you all suck . patient has not expressed needs to RN prior to this. patient offered medication and meal tray at this time which patient accepted
[2021-09-06 23:57] VITALS: BMI 21.5
[2021-09-07] VITALS: BP 114/66; PULSE 84; RESP 16; TEMP 37; O2SAT 94
[2021-09-07 02:35] VITALS: BP 133/85; PULSE 109; RESP 18; O2SAT 90
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
[2021-09-07 03:11] VITALS: BP 107/64; PULSE 76; RESP 18; O2SAT 97
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
--- NOTE | 2021-09-07 06:21 | PC.NURSE ---
Pt also said to Elliot BLACKMAN, I plan on dying today.
[2021-09-07 09:22] VITALS: BP 106/59; PULSE 78; TEMP 35.7; O2SAT 98
[2021-09-07] MEDS: Sucralfate 1 GM TABLET 2 GM PO (09:39)
[2021-09-07] MEDS: Cholecalciferol (Vitamin D3) 25 MCG TABLET 50 MCG PO (09:40)
[2021-09-07] MEDS: Sertraline HCL 100 MG TABLET PO (09:40)
[2021-09-07] MEDS: Midodrine HCl 10 MG TABLET PO (09:40)
[2021-09-07] MEDS: Digoxin 0.125 MG TABLET PO (09:40)
[2021-09-07] MEDS: Atorvastatin Calcium 10 MG TABLET PO (09:40)
[2021-09-07] MEDS: Tamsulosin HCL 0.4 MG CAPSULE PO (09:40)
[2021-09-07] MEDS: diazePAM 5 MG TABLET PO (09:40)
--- NOTE | 2021-09-07 10:06 | PC.NURSE ---
pt yelling and swearing at staff, accusing staff of taking away his dentures from him. pt yelling, swearing, stated GO BACK TO [facility] at Dr. Arnold. he was compliant with taking meds. there is a 1:1 staff at his bedside. Case Management at pt's bedside.
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
--- NOTE | 2021-09-07 10:42 | PM.CNGS ---
History of Present Illness Consult details Consult date: 09/07/21 Reason for consult: other (AAA) Narrative: Complex 76-year-old gentleman well known to me with a prior history of abdominal aortic aneurysm. He had seen me in the remote past and it was at that time approximately 5.1 cm. Was being worked up for GI bleed. He was subsequently lost to follow-up. Most recently he showed up at [facility] with community-acquired pneumonia. He has been treated for that for nearly 10 days. He was subsequently discharged. He returned to [facility] with a fall and confusion. He has been subsequently quite combative and confused during his hospital visit. He is being remanded for psych evaluation. He now presents to us for vascular follow-up. Review of Systems Review of Systems: Yes all other systems are reviewed and are negative Constitutional: Constitutional: Reports no additional constitutional complaints ENT: Reports Normal hearing present Cardiovascular: Cardiovascular: Denies chest pain, Denies chest pain at rest, Denies chest pain with activity and Denies pedal edema Respiratory: Respiratory: Denies cough Gastrointestinal: Gastrointestinal: Denies abdominal pain Musculoskeletal: Musculoskeletal: Denies abnormal gait, Denies muscle cramps and Denies radiating pain into limb Integumentary/Breasts: Skin/Breast: Denies skin ulcer and Denies wounds Neurologic: Reports Normal hearing present and Denies abnormal gait Psychiatric: Psychiatric: Reports no additional psychiatric complaints PMFSH Past Medical History Medical History Abdominal aortic aneurysm Bacteremia Bronchopneumonia COPD (chronic obstructive pulmonary disease) COPD exacerbation Cough with hemoptysis Hemoptysis History of epigastric pain Hypotension Irritable bowel syndrome with diarrhea Kidney disease, chronic, stage III (GFR 30-59 ml/min) Need for rapid response team activation Pleural effusion Severe sepsis Systolic congestive heart failure Family History Family History Father Myocardial infarction CVD (cardiovascular disease) Mother Myocardial infarction Type 2 diabetes mellitus CVD (cardiovascular disease) Brother Heart failure Brother Heart failure Sister No problems noted. Son No problems noted. Surgical History Surgical History History of esophagogastroduodenoscopy (EGD) History of open heart surgery Hx of appendectomy Hx of arterial bypass of lower limb Hx of cholecystectomy Hx of colonoscopy Hx of esophageal hernia repair Hx of tonsillectomy Social History Social History Household Members: Spouse and Family Housing: House Do you presently have visiting nurse or other home services: Yes Alcohol intake: never Patient Tobacco Use Status: Former Tobacco user Quit Date: 12 years ago Tobacco use type: Cigarette Cigarette Packs Per Day: 1 Cigarettes Per Day: 20.0 e-Cigarette/Vaping Use: Never Used Second Hand Smoke Exposure: No Advance Directives: Yes Advance Directives on File: Yes Advance Directives Date on File: 01/24/20 service: No Current occupational status: retired Current occupational exposures/hazards: No Meds Allergies Allergy/AdvReac Type Severity Reaction Status Date / Time codeine [Codeine] Allergy Intermediate RASH Verified 04/30/21 07:53 fludrocortisone Allergy Unknown Unknown Verified 04/30/21 07:53 Active Medications: Current Medications Acetaminophen (Acetaminophen 325 Mg Tablet) 650 mg PO Q6H PRN PRN Reason: Pain, Mild (Pain Scale 1-3) Albuterol Sulfate (Albuterol Sulfate 90 Mcg 8 Gm Inhaler) 2 puff INHALE QID PRN PRN Reason: for wheezing Atorvastatin Calcium (Atorvastatin Calcium 10 Mg Tablet) 10 mg PO DAILY [facility] Last Admin: 09/07/21 09:40 Dose: 10 mg Documented by: Diazepam (Diazepam 5 Mg Tablet) 5 mg PO Q8H PRN PRN Reason: Anxiety Last Admin: 09/07/21 09:40 Dose: 5 mg Documented by: Digoxin (Digoxin 0.125 Mg Tablet) 0.125 mg PO MOWEFRSA@0900 [facility] Last Admin: 09/07/21 09:40 Dose: 0.125 mg Documented by: Melatonin (Melatonin 3 Mg Tablet) 6 mg PO BEDTIME PRN PRN Reason: Insomnia Last Admin: 09/06/21 19:52 Dose: 6 mg Documented by: Midodrine (Midodrine Hcl 10 Mg Tablet) 10 mg PO TID [facility] Last Admin: 09/07/21 09:40 Dose: 10 mg Documented by: Senna (Sennosides 8.6 Mg Tablet) 17.2 mg PO BEDTIME PRN PRN Reason: Constipation Sertraline HCl (Sertraline Hcl 100 Mg Tablet) 100 mg PO DAILY [facility] Last Admin: 09/07/21 09:40 Dose: 100 mg Documented by: Sodium Chloride (0.9 % Sodium Chloride Flush 3 Ml Syringe) 3 ml IVFLUSH QSHIFT [facility] Last Admin: 09/07/21 09:41 Dose: Not Given Documented by: Sucralfate (Sucralfate 1 Gm Tablet) 2 gm PO DAILY [facility] Last Admin: 09/07/21 09:39 Dose: 2 gm Documented by: Tamsulosin HCl (Tamsulosin Hcl 0.4 Mg Capsule) 0.4 mg PO DAILY [facility] Last Admin: 09/07/21 09:40 Dose: 0.4 mg Documented by: Tiotropium [place] (Tiotropium [place] 18 Mcg Cap.W.Dev) 1 puff INHALE DAILY [facility] Last Admin: 09/07/21 08:16 Dose: Not Given Documented by: Vitamin D (Cholecalciferol (Vitamin D3) 25 Mcg Tablet) 50 mcg PO DAILY [facility] Last Admin: 09/07/21 09:40 Dose: 50 mcg Documented by: Warfarin Sodium (Warfarin Sodium 7.5 Mg Tablet) 7.5 mg PO DAILY@1800 [facility] Last Admin: 09/06/21 19:52 Dose: 7.5 mg Documented by: Home Medications Medication Instructions Recorded Confirmed Last Taken Type tiotropium bromide 18 mcg capsule 1 puff INHALATION DAILY 10/02/20 09/05/21 10/02/20 History with inhalation device (Spiriva with HandiHaler) diazepam 5 mg tablet 5 mg PO Q8H PRN 09/05/21 09/05/21 Unknown History warfarin 5 mg tablet 1 tab PO MOTH@1800 09/05/21 09/05/21 Unknown History warfarin 5 mg tablet 2.5 mg PO SUTUWEFRSA@1800 09/05/21 09/05/21 Unknown History Physical Exam Vital Signs: Vital Signs: Last Vital Signs Temp 96.3 F L 09/07/21 09:22 Pulse 78 09/07/21 09:22 Resp 18 09/07/21 03:11 BP 106/59 L 09/07/21 09:22 Pulse Ox 98 09/07/21 09:22 BMI result Body Mass Index 21.5 Const: General: cooperative, healthy appearing and comfortable Orientation/consciousness: oriented to person, oriented to place and oriented to time HEENT: Head: Yes normal to inspection Neck: Neck: Yes normal visual inspection Carotids: no bruits Chest: Chest palpation & inspection: normal inspection of the chest Resp: Effort & Inspection: normal respiratory effort and able to speak in complete sentences Auscultation: clear to auscultation bilaterally, no crackles, no rales, no rhonchi and no wheezes Cardio: Rate: regular rate Rhythm: regular rhythm Heart sounds: S1 normal heart sound present and S2 normal heart sound present Bruits: no carotid bruits Peripheral pulses: Peripheral pulses 2+ throughout GI: Inspection: Yes normal to inspection Skin: Wounds: no wounds Hair: normal Neuro: General: oriented to person, oriented to place and oriented to time Cranial nerves: Yes CN's II-XII intact bilaterally and Yes Normal hearing present Cognition (Neuro): normal cognition Motor exam (neuro): 5/5 motor strength present throughout Extrem: Other: venous exam: No significant superficial varicosities or spider telangiectasias, minimal edema General: No clubbing, No cyanosis and No edema Psych: Appearance: grossly normal Mental Status: mental status grossly normal Speech and movement: Normal speech and movement present Results Labs Result diagrams: 09/05/21 06:01 09/05/21 06:01 Labs: Urine 09/05/21 Range/Units 00:06 Urine Color YELLOW Urine Appearance CLEAR Urine pH 6.0 (5.0-8.0) Ur Specific [place] 1.015 (1.005-1.025) Urine Protein NEG (NEG-TRACE) MG/DL Urine Glucose (UA) NEG (NEG) MG/DL All other labs normal. Assessment and Plan (1) AAA (abdominal aortic aneurysm) without rupture: Status: Acute Plan In short patient has a 5.5 cm abdominal aortic aneurysm. At the current time it appears to be stable and he is asymptomatic from that. The concern is his overall general medical status. In addition to his psychiatric issues there is the concern of his previous GI bleed. In addition he is recovering from pneumonia. At the current time would like him to stabilized from a medical standpoint. He is stable from a vascular surgery standpoint for right now. He may be better served seeing Dr. Luna at [facility] as it is a tertiary care center. We will follow as needed. Thank you for allowing us to participate in his care. If there are any questions or concerns please do not hesitate to contact us. Procedures Date of Service Date of Service: 09/07/21
[2021-09-07 13:01] LABS: INTERNATIONAL NORM RATIO 1.8 (0.9-1.1); Prothrombin Time 20.3 SEC (9.9-13.0)
[2021-09-07 13:08] LABS: Alanine Aminotransferase 46 U/L (0-40); Albumin Level 3.6 g/dL (3.5-5.0); Alkaline Phosphatase 68 U/L (39-117); Anion Gap 12 (12-20); Aspartate Amino Transferase 56 U/L (5-37); Bilirubin Total 0.7 mg/dL (0.0-1.0); Blood Urea Nitrogen 46 mg/dL (9-16); Carbon Dioxide 27 mmol/L (22-29); Chloride 103 mmol/L (96-108); Creatinine Clr Calc Pharmacy 32.9; Estimated Glomerular Filt Rate 43; Glucose Random 89 mg/dL (60-115); Potassium 4.8 mmol/L (3.3-5.1); Sodium 137 mmol/L (135-145); Total Protein 6.5 g/dL (6.5-8.0)
[2021-09-07] MEDS: LORazepam 0.5 MG TABLET PO (13:21)
--- NOTE | 2021-09-07 15:44 | MHC.CM.PN ---
Received notification that patient will be transferred to [facility]. Patient's son, Devendra was made aware via telephone. Contact info for [facility] provided to Devendra.
== END 2021-09-07 13:54 ==
LOC: HO.ED 09-05 01:22 → HO.EDOVER 09-05 04:42
PROVIDERS: Social Worker; Admitting Provider Hospitalist; Emergency Provider Student in an Organized Health Care Education/Training Program; PCP Internal Medicine; Visit Provider Family Medicine
DX: I48.91 Unspecified atrial fibrillation (principal); E43 Unspecified severe protein-calorie malnutrition; I49.3 Ventricular premature depolarization; I71.4 Abdominal aortic aneurysm, without rupture; R41.0 Disorientation, unspecified; R45.850 Homicidal ideations; R45.851 Suicidal ideations; J43.9 Emphysema, unspecified; I13.0 Hypertensive heart and chronic kidney disease with heart failure and stage 1 through stage 4 chronic kidney disease, or unspecified chronic kidney disease; I50.20 Unspecified systolic (congestive) heart failure; N18.30 Chronic kidney disease, stage 3 unspecified; S40.022A Contusion of left upper arm, initial encounter; S40.021A Contusion of right upper arm, initial encounter; S80.212A Abrasion, left knee, initial encounter; S80.211A Abrasion, right knee, initial encounter; W18.09XA Striking against other object with subsequent fall, initial encounter; Y93.F9 Activity, other caregiving; Y92.009 Unspecified place in unspecified non-institutional (private) residence as the place of occurrence of the external cause; Y99.8 Other external cause status; R65.20 Severe sepsis without septic shock; R91.8 Other nonspecific abnormal finding of lung field; N40.0 Benign prostatic hyperplasia without lower urinary tract symptoms; E78.5 Hyperlipidemia, unspecified; R46.0 Very low level of personal hygiene; Z87.891 Personal history of nicotine dependence; Z20.822 Contact with and (suspected) exposure to COVID-19; Z68.21 Body mass index [BMI] 21.0-21.9, adult; Z95.0 Presence of cardiac pacemaker; Z98.890 Other specified postprocedural states; Z90.49 Acquired absence of other specified parts of digestive tract; Z96.0 Presence of urogenital implants; Z88.6 Allergy status to analgesic agent; Z88.8 Allergy status to other drugs, medicaments and biological substances; Z79.01 Long term (current) use of anticoagulants; Z79.899 Other long term (current) drug therapy; Z59.1 Inadequate housing
CPT/HCPCS: 36415; 70450; 71250; 71275; 72125; 74174; 74176; 80048; 80053; 81001; 84145; 85025; 85610; 87635; 93005; 94640; 97162; 99218; 99284; 99285; Q9967

== ENCOUNTER 2021-09-07 14:08 | Inpatient (IN) | payer MEDICARE, SELFPAY ==
[2021-09-07 15:36] VITALS: BP 122/71; PULSE 77; RESP 22; TEMP 37; O2SAT 96
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
[2021-09-07 16:17] VITALS: BMI 16.2
[2021-09-07 16:28] VITALS: BMI 16.2
--- NOTE | 2021-09-07 16:46 | MHC.CLN ---
NUTRITION CONSULT FOR WEIGHT LOSS. DIET=REGULAR. NO TEETH, NO DENTURES BUT STATES CAN TOLERATE REGULAR FOOD. DISLIKES CARDIAC DIET. REQUESTS REGULAR DIET AND REGULAR CONSISTENCY FOODS. ADDING ENSURE TID TO PROVIDE ADDITIONAL 1050 KCAL, 60 G PROTEIN. CONVERSATIONAL AT VISIT BUT NOT ON TOPIC. HAS MEDICAL DX OF SEVERE PROTEIN CALORIE MALNUTRITION. NUTRITION ASSESSMENT SUPPORTS DX. WEIGHT LOSS X ONE YEAR 13.7%, 25#. REPORTED DURING PRIOR ADMISSION THAT HAS LOST 50# X 5 YEARS. FOLLOW FOR DIET TOLERANCE AND INTAKE.
[2021-09-07 18:00] VITALS: BP 93/51; PULSE 79; RESP 18; TEMP 36.2; O2SAT 93
[2021-09-08 06:00] VITALS: BP 95/54; PULSE 87; RESP 18; TEMP 36.3; O2SAT 91
[2021-09-08 09:24] LABS: Alanine Aminotransferase 36 U/L (0-40); Albumin Level 3.4 g/dL (3.5-5.0); Alkaline Phosphatase 62 U/L (39-117); Anion Gap 9 (12-20); Aspartate Amino Transferase 44 U/L (5-37); Bilirubin Total 0.7 mg/dL (0.0-1.0); Blood Urea Nitrogen 44 mg/dL (9-16); Calcium 8.5 mg/dL (8.4-10.2); Carbon Dioxide 25 mmol/L (22-29); Chloride 107 mmol/L (96-108); Cholesterol 130 mg/dL; Creatinine Clr Calc Pharmacy 34.2; Estimated Glomerular Filt Rate 45; Glucose Fasting 81 mg/dL (60-99); HDL Cholesterol 48 mg/dL; LDL Cholesterol Calculated 72 mg/dl; Potassium 4.4 mmol/L (3.3-5.1); Sodium 137 mmol/L (135-145); Triglycerides 54 mg/dL
--- NOTE | 2021-09-08 13:29 | PHA.MEDREC ---
Pharmacy Consult ? Medication Reconciliation Med rec completed by Rosie in the emergency department. Was reviewed by CHRISTY Parmar on 09/05 on medical admission. Due to new admission to [facility] floor, medication had to be reconfirmed. No changes made. Yanni Sampson, PharmD
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
[2021-09-08 15:31] LABS: INTERNATIONAL NORM RATIO 1.7 (0.9-1.1); Prothrombin Time 19.6 SEC (9.9-13.0)
[2021-09-08 18:00] VITALS: BP 116/70; PULSE 75; TEMP 36.6; O2SAT 98
[2021-09-08] MEDS: Midodrine HCl 10 MG TABLET PO (18:02)
[2021-09-08] MEDS: Warfarin Sodium 2.5 MG TABLET PO (18:24)
[2021-09-08 19:05] LABS: Appearance Urine CLEAR; Color Urine YELLOW; Glucose Urine UA NEG (NEG); Leukocyte Esterase Urine 1+ (NEG); Nitrite Urine NEG (NEG); PH 5.5 (5.0-8.0); Specific Gravity - Urine 1.025 (1.005-1.025); Urine Blood 2+ (NEG); Urine Ketones NEG (NEG); Urine Protein TRACE MG/DL (NEG-TRACE)
[2021-09-08 19:56] LABS: Bacteria Urine 1+ /LPF; Squamous Epithelial Cell Urine 1+ /LPF
[2021-09-08] MEDS: HaloperidoL 1 MG TABLET PO (20:57)
[2021-09-08] MEDS: Albuterol Sulfate 90 MCG 8 GM INHALER 2 PUFF INHALE (21:46)
[2021-09-09 07:50] VITALS: BP 113/69; PULSE 88; RESP 16; TEMP 36.7; O2SAT 92
[2021-09-09 08:11] LABS: INTERNATIONAL NORM RATIO 1.7 (0.9-1.1); Prothrombin Time 19.7 SEC (9.9-13.0)
[2021-09-09] MEDS: Sucralfate 1 GM TABLET 2 GM PO (09:19)
[2021-09-09] MEDS: Tamsulosin HCL 0.4 MG CAPSULE PO (09:20)
[2021-09-09] MEDS: Cholecalciferol (Vitamin D3) 25 MCG TABLET 50 MCG PO (09:20)
[2021-09-09] MEDS: Sertraline HCL 100 MG TABLET PO (09:20)
[2021-09-09] MEDS: Midodrine HCl 10 MG TABLET PO ×3 (09:20→17:16)
[2021-09-09] MEDS: Atorvastatin Calcium 10 MG TABLET PO (09:21)
[2021-09-09] MEDS: Digoxin 0.125 MG TABLET PO (09:21)
[2021-09-09] MEDS: HaloperidoL 1 MG TABLET PO ×3 (09:21→20:28)
[2021-09-09] MEDS: Albuterol Sulfate 90 MCG 8 GM INHALER 2 PUFF INHALE ×3 (09:30→20:35)
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
--- NOTE | 2021-09-09 14:24 | MHC.CLN ---
F/U OBSERVED AT LUNCH IN DINING ROOM. ATE SOME, BUT DID NOT APPEAR EAGER TO EAT. PROVIDED WITH ENSURE SUPPLEMENT. CONTINUE REGULAR DIET WITH ENSURE TID. ENCOURAGE INTAKE ABLE.
[2021-09-09] MEDS: Warfarin Sodium 2.5 MG TABLET PO (17:38)
[2021-09-09 19:57] VITALS: BP 105/59; PULSE 75; RESP 16; TEMP 36.4; O2SAT 98
[2021-09-10 07:00] VITALS: BMI 15.5
[2021-09-10 08:00] VITALS: BP 108/71; PULSE 82; RESP 16; TEMP 36.6; O2SAT 95
[2021-09-10 08:09] LABS: INTERNATIONAL NORM RATIO 1.9 (0.9-1.1); Prothrombin Time 22.2 SEC (9.9-13.0)
[2021-09-10] MEDS: Midodrine HCl 10 MG TABLET PO ×3 (09:09→17:36)
[2021-09-10] MEDS: Sertraline HCL 100 MG TABLET PO (09:09)
[2021-09-10] MEDS: HaloperidoL 1 MG TABLET PO ×3 (09:10→22:09)
[2021-09-10] MEDS: Sucralfate 1 GM TABLET 2 GM PO (09:10)
[2021-09-10] MEDS: Cholecalciferol (Vitamin D3) 25 MCG TABLET 50 MCG PO (09:10)
[2021-09-10] MEDS: Atorvastatin Calcium 10 MG TABLET PO (09:10)
[2021-09-10] MEDS: Tamsulosin HCL 0.4 MG CAPSULE PO (09:28)
[2021-09-10] MEDS: Albuterol Sulfate 90 MCG 8 GM INHALER 2 PUFF INHALE ×2 (14:37→22:15)
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
[2021-09-10] MEDS: Warfarin Sodium 5 MG TABLET PO (17:36)
[2021-09-10] MEDS: LORazepam 0.5 MG TABLET PO (17:37)
[2021-09-10 20:06] VITALS: BP 99/53; PULSE 75; RESP 16; TEMP 36.3; O2SAT 96
[2021-09-11] MEDS: LORazepam 0.5 MG TABLET PO (00:47)
[2021-09-11 07:14] LABS: INTERNATIONAL NORM RATIO 1.8 (0.9-1.1); Prothrombin Time 20.9 SEC (9.9-13.0)
[2021-09-11 07:45] VITALS: BP 105/58; PULSE 85; RESP 16; TEMP 36.3; O2SAT 95
[2021-09-11] MEDS: Digoxin 0.125 MG TABLET PO (08:14)
[2021-09-11] MEDS: Sertraline HCL 100 MG TABLET PO (08:14)
[2021-09-11] MEDS: HaloperidoL 1 MG TABLET PO ×3 (08:14→20:11)
[2021-09-11] MEDS: Tamsulosin HCL 0.4 MG CAPSULE PO (08:15)
[2021-09-11] MEDS: Atorvastatin Calcium 10 MG TABLET PO (08:15)
[2021-09-11] MEDS: Sucralfate 1 GM TABLET 2 GM PO (08:15)
[2021-09-11] MEDS: Midodrine HCl 10 MG TABLET PO ×3 (08:15→18:24)
[2021-09-11] MEDS: Cholecalciferol (Vitamin D3) 25 MCG TABLET 50 MCG PO (08:15)
--- NOTE | 2021-09-11 10:44 | MHC.CLN ---
F/U STAFF REPORTS THAT PATIENT IS EATING WELL. CONTINUE REGULAR DIET WITH ENSURE TID. SUPPLEMENT PROVIDES ADDITIONAL 1050 KCALS, 60 G PROTEIN. PATIENT WITH SEVERE PROTEIN CALORIE MALNUTRITION.
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
[2021-09-11 18:00] VITALS: BP 111/62; PULSE 74; RESP 20; TEMP 36.2; O2SAT 95
[2021-09-11] MEDS: Warfarin Sodium 2.5 MG TABLET PO (18:24)
[2021-09-11] MEDS: Albuterol Sulfate 90 MCG 8 GM INHALER 2 PUFF INHALE (23:57)
[2021-09-12 07:53] LABS: INTERNATIONAL NORM RATIO 1.8 (0.9-1.1); Prothrombin Time 20.5 SEC (9.9-13.0)
[2021-09-12 08:00] VITALS: BP 112/65; PULSE 76; RESP 16; TEMP 36.6; O2SAT 94
[2021-09-12] MEDS: Atorvastatin Calcium 10 MG TABLET PO (08:18)
[2021-09-12] MEDS: HaloperidoL 1 MG TABLET PO ×3 (08:18→20:40)
[2021-09-12] MEDS: Cholecalciferol (Vitamin D3) 25 MCG TABLET 50 MCG PO (08:18)
[2021-09-12] MEDS: Digoxin 0.125 MG TABLET PO (08:18)
[2021-09-12] MEDS: Sucralfate 1 GM TABLET 2 GM PO (08:18)
[2021-09-12] MEDS: Midodrine HCl 10 MG TABLET PO ×3 (08:18→17:22)
[2021-09-12] MEDS: Sertraline HCL 100 MG TABLET PO (08:18)
[2021-09-12] MEDS: Tamsulosin HCL 0.4 MG CAPSULE PO (08:19)
[2021-09-12] MEDS: LORazepam 0.5 MG TABLET PO (08:48)
[2021-09-12 10:21] VITALS: BP 112/65; PULSE 76; O2SAT 94
[2021-09-12] MEDS: Albuterol Sulfate 90 MCG 8 GM INHALER 2 PUFF INHALE ×3 (13:31→22:48)
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
[2021-09-12] MEDS: Warfarin Sodium 2.5 MG TABLET PO (17:21)
[2021-09-12 18:00] VITALS: BP 123/58; PULSE 77; RESP 18; TEMP 36.5; O2SAT 97
[2021-09-12] MEDS: traZODone HCL 50 MG TABLET PO (22:56)
[2021-09-13] MEDS: traZODone HCL 50 MG TABLET PO (00:05)
[2021-09-13 07:25] LABS: INTERNATIONAL NORM RATIO 1.7 (0.9-1.1); Prothrombin Time 19.5 SEC (9.9-13.0)
[2021-09-13 08:00] VITALS: BP 107/67; PULSE 94; RESP 17; TEMP 36.4; O2SAT 95
[2021-09-13] MEDS: Tamsulosin HCL 0.4 MG CAPSULE PO (08:34)
[2021-09-13] MEDS: Sertraline HCL 100 MG TABLET PO (08:34)
[2021-09-13] MEDS: Cholecalciferol (Vitamin D3) 25 MCG TABLET 50 MCG PO (08:34)
[2021-09-13] MEDS: Atorvastatin Calcium 10 MG TABLET PO (08:34)
[2021-09-13] MEDS: HaloperidoL 1 MG TABLET PO ×3 (08:34→19:57)
[2021-09-13] MEDS: Sucralfate 1 GM TABLET 2 GM PO (08:34)
[2021-09-13] MEDS: Midodrine HCl 10 MG TABLET PO ×3 (08:35→17:18)
[2021-09-13] MEDS: Albuterol Sulfate 90 MCG 8 GM INHALER 2 PUFF INHALE ×3 (08:37→17:18)
[2021-09-13] MEDS: LORazepam 0.5 MG TABLET PO (08:41)
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
--- NOTE | 2021-09-13 16:57 | PC.NURSE ---
Patient isolative to room throughout shift other than for meals. Appetite poor. Presents as irritable and guarded. Denies SI. Endorses depression 06/04. Patient is med compliant. Harmon cath in place draining pale yellow urine. Patient refuses personal care and is therefore unkempt. Ambulates with walker. Patient is 1:1 due to harmon. Patient has healing abrasions/bruises on BLE.
[2021-09-13] MEDS: Warfarin Sodium 3 MG TABLET PO (17:18)
[2021-09-13 18:00] VITALS: BP 124/65; PULSE 76; RESP 16; TEMP 37; O2SAT 94
[2021-09-14 06:00] VITALS: BP 124/60; PULSE 72; RESP 18; TEMP 36.8; O2SAT 98
[2021-09-14 08:23] LABS: INTERNATIONAL NORM RATIO 1.6 (0.9-1.1); Prothrombin Time 18.7 SEC (9.9-13.0)
[2021-09-14] MEDS: Digoxin 0.125 MG TABLET PO (09:21)
[2021-09-14] MEDS: Atorvastatin Calcium 10 MG TABLET PO (09:21)
[2021-09-14] MEDS: HaloperidoL 1 MG TABLET PO ×3 (09:21→20:59)
[2021-09-14] MEDS: Cholecalciferol (Vitamin D3) 25 MCG TABLET 50 MCG PO (09:22)
[2021-09-14] MEDS: Tamsulosin HCL 0.4 MG CAPSULE PO (09:22)
[2021-09-14] MEDS: Sucralfate 1 GM TABLET 2 GM PO (09:22)
[2021-09-14] MEDS: Midodrine HCl 10 MG TABLET PO ×3 (09:22→16:40)
[2021-09-14] MEDS: Sertraline HCL 100 MG TABLET PO (09:22)
[2021-09-14] MEDS: LORazepam 0.5 MG TABLET PO ×2 (09:31→16:41)
[2021-09-14] MEDS: Albuterol Sulfate 90 MCG 8 GM INHALER 2 PUFF INHALE ×3 (09:36→23:01)
--- NOTE | 2021-09-14 11:25 | MHC.CLN ---
F/U STAFF REPORTS THAT INTAKE IS FAIR TO POOR. CONTINUE REGULAR DIET WITH ENSURE TID. SUPPLEMENT PROVIDES ADDITIONAL 1050 KCALS, 60 G PROTEIN. PATIENT WITH SEVERE PROTEIN CALORIE MALNUTRITION. ENCOURAGE INTAKE ABLE.
--- NOTE | 2021-09-14 13:33 | PC.NURSE ---
Pt. endorses no depression or SI. No active SI on unit. Hannah catheter presents low ligature risk. Fifteen minute checks appropriate for safety at this time.
[2021-09-14] MEDS: Acetaminophen 325 MG TABLET 650 MG PO (16:40)
[2021-09-14] MEDS: Warfarin Sodium 5 MG TABLET PO (16:40)
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
[2021-09-14 20:46] VITALS: BP 97/53; PULSE 78; RESP 14; TEMP 36.6; O2SAT 95
[2021-09-15] MEDS: LORazepam 0.5 MG TABLET PO ×2 (02:55→11:57)
[2021-09-15 06:00] VITALS: BP 109/60; PULSE 77; RESP 16; TEMP 36.2; O2SAT 95
--- NOTE | 2021-09-15 06:34 | PC.NURSE ---
Marta Schwarz NP confirmed patient to be on [employer] camera at HS due to Hannah catheter. Camera in room overnight.
[2021-09-15] MEDS: Tamsulosin HCL 0.4 MG CAPSULE PO (09:02)
[2021-09-15] MEDS: Cholecalciferol (Vitamin D3) 25 MCG TABLET 50 MCG PO (09:02)
[2021-09-15] MEDS: HaloperidoL 1 MG TABLET PO ×2 (09:02→20:59)
[2021-09-15] MEDS: Midodrine HCl 10 MG TABLET PO ×2 (09:02→17:11)
[2021-09-15] MEDS: Sucralfate 1 GM TABLET 2 GM PO (09:03)
[2021-09-15] MEDS: Sertraline HCL 100 MG TABLET PO (09:03)
[2021-09-15] MEDS: Atorvastatin Calcium 10 MG TABLET PO (09:03)
[2021-09-15] MEDS: Albuterol Sulfate 90 MCG 8 GM INHALER 2 PUFF INHALE (09:08)
[2021-09-15 09:30] LABS: INTERNATIONAL NORM RATIO 1.6 (0.9-1.1); Prothrombin Time 17.8 SEC (9.9-13.0)
[2021-09-15] MEDS: Warfarin Sodium 3 MG TABLET PO (17:11)
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
[2021-09-15 18:00] VITALS: BP 98/53; PULSE 87; RESP 17; TEMP 36.4; O2SAT 94
[2021-09-15] MEDS: traZODone HCL 50 MG TABLET PO ×2 (21:40→23:02)
[2021-09-16 06:00] VITALS: BP 129/75; PULSE 93; RESP 16; TEMP 36.6; O2SAT 92
[2021-09-16] MEDS: Sertraline HCL 100 MG TABLET PO (08:08)
[2021-09-16] MEDS: Sucralfate 1 GM TABLET 2 GM PO (08:08)
[2021-09-16] MEDS: Cholecalciferol (Vitamin D3) 25 MCG TABLET 50 MCG PO (08:08)
[2021-09-16] MEDS: Digoxin 0.125 MG TABLET PO (08:09)
[2021-09-16] MEDS: HaloperidoL 1 MG TABLET PO ×3 (08:09→20:18)
[2021-09-16] MEDS: Atorvastatin Calcium 10 MG TABLET PO (08:09)
[2021-09-16] MEDS: Midodrine HCl 10 MG TABLET PO ×3 (08:10→16:20)
[2021-09-16] MEDS: Tamsulosin HCL 0.4 MG CAPSULE PO (08:10)
[2021-09-16] MEDS: Albuterol Sulfate 90 MCG 8 GM INHALER 2 PUFF INHALE ×3 (08:11→23:55)
[2021-09-16 09:20] LABS: INTERNATIONAL NORM RATIO 1.6 (0.9-1.1); Prothrombin Time 17.8 SEC (9.9-13.0)
--- NOTE | 2021-09-16 14:26 | MHC.CLN ---
F/U CONTINUE REGULAR DIET WITH ENSURE TID. SUPPLEMENT PROVIDES ADDITIONAL 1050 KCALS, 60 G PROTEIN. PATIENT WITH SEVERE PROTEIN CALORIE MALNUTRITION. REGULAR DIET, RATHER THAN THERAPEUTIC, TO PROMOTE PO INTAKE. ENCOURAGE INTAKE ABLE. RD TO FOLLOW WEEKLY.
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
[2021-09-16] MEDS: diazePAM 2 MG TABLET PO (16:20)
[2021-09-16 18:00] VITALS: BP 94/54; PULSE 75; RESP 20; TEMP 36.6; O2SAT 95
[2021-09-16] MEDS: Warfarin Sodium 3 MG TABLET PO (20:18)
[2021-09-17 07:00] VITALS: BMI 15.7
[2021-09-17 07:05] VITALS: BP 86/53; PULSE 97; RESP 14; TEMP 36.3; O2SAT 95
[2021-09-17 08:02] LABS: INTERNATIONAL NORM RATIO 1.6 (0.9-1.1); Prothrombin Time 18.2 SEC (9.9-13.0)
[2021-09-17] MEDS: Sertraline HCL 100 MG TABLET PO (08:48)
[2021-09-17] MEDS: Atorvastatin Calcium 10 MG TABLET PO (08:48)
[2021-09-17] MEDS: Cholecalciferol (Vitamin D3) 25 MCG TABLET 50 MCG PO (08:48)
[2021-09-17] MEDS: Tamsulosin HCL 0.4 MG CAPSULE PO (08:48)
[2021-09-17] MEDS: HaloperidoL 1 MG TABLET PO ×3 (08:48→21:17)
[2021-09-17] MEDS: Midodrine HCl 10 MG TABLET PO ×3 (08:48→17:22)
[2021-09-17] MEDS: Sucralfate 1 GM TABLET 2 GM PO (08:48)
[2021-09-17] MEDS: diazePAM 2 MG TABLET PO ×3 (08:48→23:54)
[2021-09-17] MEDS: Albuterol Sulfate 90 MCG 8 GM INHALER 2 PUFF INHALE ×2 (08:49→14:53)
[2021-09-17 11:52] VITALS: BP 94/54; PULSE 75; O2SAT 95
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
[2021-09-17] MEDS: Warfarin Sodium 5 MG TABLET PO (17:22)
[2021-09-17 18:00] VITALS: BP 93/52; PULSE 82; RESP 14; TEMP 36.5; O2SAT 96
[2021-09-17] MEDS: traZODone HCL 50 MG TABLET PO (21:19)
[2021-09-18] MEDS: traZODone HCL 50 MG TABLET PO ×2 (02:35→22:00)
[2021-09-18 06:00] VITALS: BP 93/54; PULSE 75; RESP 16; TEMP 36.7; O2SAT 94
[2021-09-18 08:27] LABS: INTERNATIONAL NORM RATIO 1.6 (0.9-1.1)
[2021-09-18] MEDS: Albuterol Sulfate 90 MCG 8 GM INHALER 2 PUFF INHALE ×4 (09:21→21:54)
[2021-09-18] MEDS: Sucralfate 1 GM TABLET 2 GM PO (09:21)
[2021-09-18] MEDS: Tamsulosin HCL 0.4 MG CAPSULE PO (09:22)
[2021-09-18] MEDS: Midodrine HCl 10 MG TABLET PO ×3 (09:22→17:48)
[2021-09-18] MEDS: HaloperidoL 1 MG TABLET PO ×3 (09:22→20:44)
[2021-09-18] MEDS: Sertraline HCL 100 MG TABLET PO (09:22)
[2021-09-18] MEDS: Cholecalciferol (Vitamin D3) 25 MCG TABLET 50 MCG PO (09:22)
[2021-09-18] MEDS: Atorvastatin Calcium 10 MG TABLET PO (09:22)
[2021-09-18] MEDS: Digoxin 0.125 MG TABLET PO (09:22)
[2021-09-18] MEDS: diazePAM 2 MG TABLET PO ×2 (09:42→17:53)
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
[2021-09-18 17:47] VITALS: BP 116/85; PULSE 84
[2021-09-18] MEDS: Warfarin Sodium 3 MG TABLET PO (17:48)
[2021-09-19] MEDS: diazePAM 2 MG TABLET PO ×3 (00:05→22:14)
[2021-09-19 06:00] VITALS: BP 111/67; PULSE 91; RESP 16; TEMP 36.3; O2SAT 94
[2021-09-19 07:30] LABS: INTERNATIONAL NORM RATIO 1.9 (0.9-1.1); Prothrombin Time 21.9 SEC (9.9-13.0)
[2021-09-19] MEDS: HaloperidoL 1 MG TABLET PO ×3 (08:11→19:56)
[2021-09-19] MEDS: Midodrine HCl 10 MG TABLET PO ×3 (08:11→16:45)
[2021-09-19] MEDS: Tamsulosin HCL 0.4 MG CAPSULE PO (08:11)
[2021-09-19] MEDS: Sucralfate 1 GM TABLET 2 GM PO (08:11)
[2021-09-19] MEDS: Digoxin 0.125 MG TABLET PO (08:11)
[2021-09-19] MEDS: Atorvastatin Calcium 10 MG TABLET PO (08:11)
[2021-09-19] MEDS: Sertraline HCL 100 MG TABLET PO (08:11)
[2021-09-19] MEDS: Cholecalciferol (Vitamin D3) 25 MCG TABLET 50 MCG PO (08:11)
[2021-09-19] MEDS: Albuterol Sulfate 90 MCG 8 GM INHALER 2 PUFF INHALE ×2 (08:18→19:57)
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
[2021-09-19] MEDS: Warfarin Sodium 3 MG TABLET PO (16:45)
[2021-09-19 19:36] VITALS: BP 104/65; PULSE 88; RESP 18; TEMP 36.3; O2SAT 96
[2021-09-19] MEDS: Acetaminophen 325 MG TABLET 650 MG PO (19:56)
[2021-09-20] MEDS: Albuterol Sulfate 90 MCG 8 GM INHALER 2 PUFF INHALE ×4 (02:27→20:16)
[2021-09-20 06:00] VITALS: BP 115/66; PULSE 96; RESP 16; TEMP 36.4; O2SAT 94
[2021-09-20 07:53] LABS: Prothrombin Time 22.6 SEC (9.9-13.0)
[2021-09-20] MEDS: Atorvastatin Calcium 10 MG TABLET PO (08:27)
[2021-09-20] MEDS: Cholecalciferol (Vitamin D3) 25 MCG TABLET 50 MCG PO (08:27)
[2021-09-20] MEDS: Sucralfate 1 GM TABLET 2 GM PO (08:27)
[2021-09-20] MEDS: Midodrine HCl 10 MG TABLET PO ×2 (08:27→16:40)
[2021-09-20] MEDS: Sertraline HCL 100 MG TABLET PO (08:27)
[2021-09-20] MEDS: HaloperidoL 1 MG TABLET PO ×3 (08:27→20:16)
[2021-09-20] MEDS: Tamsulosin HCL 0.4 MG CAPSULE PO (08:28)
[2021-09-20] MEDS: diazePAM 2 MG TABLET PO ×3 (08:40→23:15)
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
[2021-09-20] MEDS: Warfarin Sodium 3 MG TABLET PO (16:41)
[2021-09-20 19:34] VITALS: BP 96/55; PULSE 73; RESP 16; TEMP 36.3; O2SAT 97
[2021-09-21] MEDS: Albuterol Sulfate 90 MCG 8 GM INHALER 2 PUFF INHALE ×5 (02:44→23:58)
[2021-09-21] MEDS: traZODone HCL 50 MG TABLET PO (02:45)
[2021-09-21 07:29] LABS: Prothrombin Time 22.5 SEC (9.9-13.0)
[2021-09-21] MEDS: Midodrine HCl 10 MG TABLET PO ×3 (07:53→16:38)
[2021-09-21] MEDS: Cholecalciferol (Vitamin D3) 25 MCG TABLET 50 MCG PO (07:54)
[2021-09-21] MEDS: HaloperidoL 1 MG TABLET PO ×3 (07:54→20:17)
[2021-09-21] MEDS: Tamsulosin HCL 0.4 MG CAPSULE PO (07:55)
[2021-09-21] MEDS: Sertraline HCL 100 MG TABLET PO (07:55)
[2021-09-21] MEDS: Sucralfate 1 GM TABLET 2 GM PO (07:55)
[2021-09-21] MEDS: Digoxin 0.125 MG TABLET PO (07:56)
[2021-09-21] MEDS: Acetaminophen 325 MG TABLET 650 MG PO (08:05)
[2021-09-21] MEDS: diazePAM 2 MG TABLET PO ×3 (08:06→23:58)
[2021-09-21] MEDS: Atorvastatin Calcium 10 MG TABLET PO (08:08)
[2021-09-21 08:14] VITALS: BP 106/58; PULSE 89; RESP 20; TEMP 36.3; O2SAT 98
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
[2021-09-21 11:05] LABS: COVID-19 Test Negative (Negative)
[2021-09-21] MEDS: Warfarin Sodium 5 MG TABLET PO (17:20)
[2021-09-21 18:00] VITALS: BP 100/50; PULSE 78; RESP 18; TEMP 36.4; O2SAT 96
[2021-09-22 06:00] VITALS: BP 117/67; PULSE 95; RESP 15; O2SAT 96
[2021-09-22] MEDS: Sucralfate 1 GM TABLET 2 GM PO (08:15)
[2021-09-22] MEDS: Sertraline HCL 100 MG TABLET PO (08:15)
[2021-09-22] MEDS: Atorvastatin Calcium 10 MG TABLET PO (08:15)
[2021-09-22] MEDS: Tamsulosin HCL 0.4 MG CAPSULE PO (08:15)
[2021-09-22] MEDS: Midodrine HCl 10 MG TABLET PO ×3 (08:15→17:23)
[2021-09-22] MEDS: Albuterol Sulfate 90 MCG 8 GM INHALER 2 PUFF INHALE ×2 (08:15→14:10)
[2021-09-22] MEDS: HaloperidoL 1 MG TABLET PO ×3 (08:16→21:46)
[2021-09-22] MEDS: Cholecalciferol (Vitamin D3) 25 MCG TABLET 50 MCG PO (08:16)
[2021-09-22 08:18] LABS: INTERNATIONAL NORM RATIO 2.1 (0.9-1.1); Prothrombin Time 24.1 SEC (9.9-13.0)
[2021-09-22] MEDS: diazePAM 2 MG TABLET PO ×3 (08:22→21:46)
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
[2021-09-22 17:14] VITALS: BP 116/61; PULSE 91; RESP 16; TEMP 37.2; O2SAT 96
[2021-09-22] MEDS: Acetaminophen 325 MG TABLET 650 MG PO (17:19)
[2021-09-22] MEDS: Warfarin Sodium 3 MG TABLET PO (17:20)
[2021-09-22 18:00] VITALS: BP 113/65; PULSE 79; RESP 16; TEMP 37; O2SAT 95
[2021-09-23] MEDS: Albuterol Sulfate 90 MCG 8 GM INHALER 2 PUFF INHALE ×2 (03:29→11:54)
[2021-09-23] MEDS: traZODone HCL 50 MG TABLET PO (03:36)
[2021-09-23] MEDS: diazePAM 2 MG TABLET PO ×2 (05:56→12:54)
[2021-09-23] MEDS: Sucralfate 1 GM TABLET 2 GM PO (08:10)
[2021-09-23] MEDS: Atorvastatin Calcium 10 MG TABLET PO (08:11)
[2021-09-23] MEDS: Tamsulosin HCL 0.4 MG CAPSULE PO (08:11)
[2021-09-23] MEDS: Cholecalciferol (Vitamin D3) 25 MCG TABLET 50 MCG PO (08:11)
[2021-09-23] MEDS: Digoxin 0.125 MG TABLET PO (08:12)
[2021-09-23] MEDS: Midodrine HCl 10 MG TABLET PO ×2 (08:12→12:50)
[2021-09-23] MEDS: Sertraline HCL 100 MG TABLET PO (08:12)
[2021-09-23] MEDS: HaloperidoL 1 MG TABLET PO ×2 (08:13→15:39)
[2021-09-23 08:22] VITALS: BP 110/71; PULSE 82; RESP 18; TEMP 36.9; O2SAT 93
[2021-09-23 08:22] LABS: INTERNATIONAL NORM RATIO 2.2 (0.9-1.1); Prothrombin Time 25.9 SEC (9.9-13.0)
[2021-09-23] MEDS: Acetaminophen 325 MG TABLET 650 MG PO (08:28)
--- NOTE | 2021-09-23 10:53 | MHC.CLN ---
F/U CONTINUE REGULAR DIET WITH ENSURE TID. SUPPLEMENT PROVIDES ADDITIONAL 1050 KCALS, 60 G PROTEIN. WEIGHT LOSS OF 2.4% SINCE ADMISSION. ENCOURAGE INTAKE OF MEALS AND SUPPLEMENT ABLE. RD TO FOLLOW WEEKLY.
[2021-09-23 12:07] LABS: COVID-19 Test Negative (Negative); IDNOW Serial# 9DB6401D
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
== END 2021-09-23 16:02 | disposition home or self-care (01) | DRG 885 ==
PROVIDERS: Psychiatry & Neurology Psychiatry; Admitting Provider Psychiatry & Neurology Psychiatry; Visit Provider Psychiatry & Neurology Psychiatry
DX: F29 Unspecified psychosis not due to a substance or known physiological condition (principal); I50.22 Chronic systolic (congestive) heart failure; I48.91 Unspecified atrial fibrillation; N18.30 Chronic kidney disease, stage 3 unspecified; J44.9 Chronic obstructive pulmonary disease, unspecified; Z20.822 Contact with and (suspected) exposure to COVID-19; Z79.01 Long term (current) use of anticoagulants; Z79.899 Other long term (current) drug therapy
CPT/HCPCS: 36415; 70450; 71250; 71275; 72125; 74174; 74176; 80048; 80053; 80061; 81001; 81003; 84145; 85025; 85610; 87635; 93005; 97110; 97116; 97161; 99284; Q9967

== ENCOUNTER 2021-11-05 21:41 | Inpatient (IN) | payer OTHER, MEDICARE, SELFPAY ==
--- NOTE | ~2021-11-05 | CT_ITS ---
EXAMINATION: CT CHEST WITH CONTRAST CLINICAL INFORMATION: Hemoptysis. COMPARISON: Chest x-ray 11/05/[address] chest 09/07/2021 TECHNIQUE: Multidetector volumetric CT imaging of the chest was obtained after the administration of 50 mL of Omnipaque 350 intravenous contrast without immediate adverse reactions. Axial MIP volume rendering provided. Sagittal and coronal reformatted images were obtained. This CT examination was performed using dose optimization techniques as appropriate, variously including the following: *Automated exposure control *Adjustment of mA and/or kV according to patient size (this includes techniques or standardized protocols for targeted exams where dose is matched to indication/reason for exam; i.e. extremities or head) *Use of iterative reconstruction technique DLP: 343 mGy-cm FINDINGS: AQUEDUCT AND RESERVOIR KEEPER: Hyperinflated lungs with the patchy opacity right lung base likely infiltrate/atelectasis. LUNGS: There is diffuse emphysematous lungs with patchy airspace disease right lower lobe and right upper lobe posterior segments. There are large suspicious nodules measuring 2.3 x 2.2 cm right lower lobe axial image 40/4, 2.1 x 1.8 cm pleural-based nodule right lower lobe axial image 45/4 and the adjacent smaller nodule measures 1.7 x 1.2 cm axial image 46/4 better appreciated on the sagittal reconstructions image 92/7. There are additional smaller nodules seen in the right upper lobe measuring approximately 5 mm on axial image 29/4. There is compressive atelectasis right lower lobe MEDIASTINUM: The central trachea and the bronchi widely patent. The heart size is normal with coronary artery calcifications. Solitary pacer electrode tip lies in the right ventricle. There is evidence of previous CABG with median sternotomy sutures. No pericardial effusion seen. The pulmonary arteries well opacified without any intraluminal filling defect. There is mild 60 mL of ascending aorta measuring 4.3 x 4.5 cm. Small shotty lymph nodes in the mediastinum. PLEURA: There is moderate right and small left pleural effusion. No calcified pleural plaques seen. AXILLA: No abnormal axillary lymph nodes seen. UPPER ABDOMEN: There is pneumobilia from previous intervention. No focal lesion seen in the liver, spleen and the pancreas. There is aneurysmal dilatation of proximal abdominal aorta with thrombus occupying 50% of the lumen. The aneurysm measures 4.8 x 5.6 cm on axial image 87/3. OSSEOUS STRUCTURES: No lytic or sclerotic process. CT/CT chest w con IMPRESSION: Multiple pulmonary nodules have increased in size in the right lower lobe since the previous exam 09/07/2021. There are new pulmonary nodules in the right upper lobe. Right lower lobe airspace disease has worsened since the previous exam 09/07/2021. Moderate right and small left pleural effusion which has also increased since the previous exam. Consider diagnostic right pleural tap if not already done so. There is diffuse centrilobular emphysema with right upper lobe prominent interstitial thickening likely pneumonitis or chronic scarring or combination. Aneurysmal dilatation of ascending aorta and aneurysmal dilatation of proximal abdominal aorta. Pneumobilia from previous intervention likely. Fleischner guidelines were followed.
--- NOTE | ~2021-11-05 | US_ITS ---
EXAMINATION: ULTRASOUND-GUIDED THORACENTESIS CLINICAL INFORMATION: Moderate right pleural effusion. SOB. COMPARISON: CT chest 11/11/2021 TECHNIQUE: Following explaining ultrasound-guided paracentesis procedure, benefits and risk, a written consent was obtained. Patient was placed upright sitting on a stretcher. Preliminary CT ultrasound imaging was obtained through the right posterior chest. An optimal site was selected along the right infrascapular line and marked approximately at T10-T11 interspace. The marked site was cleaned and draped in usual sterile manner. 1% lidocaine was injected at puncture site. Through a small skin incision a 4 [place] Price catheter was advanced into the pleural space. After observing fluid return, stylet was withdrawn and catheter connected to vacuum bottle via connecting cannula. After obtaining all fluid and observing normal fluid return the catheter was withdrawn making sure no air leaked in. Complete hemostasis was achieved at puncture site. Sterile dressing was applied postprocedure. Patient on procedure extremely well. Patient was monitored by IR nursing and the radiologist during the exam. FINDINGS: On preliminary ultrasound imaging there is simple moderate free fluid in the right pleural space. Ultrasound-guided right thoracentesis performed with approximately 800 mL clear yellowish fluid was removed. Part of this fluid was sent to lab as per referring physician's request. US/US drain thoracentesis IMPRESSION: Successful ultrasound-guided therapeutic and diagnostic right thoracentesis performed without immediate complications
--- NOTE | ~2021-11-05 | XR_ITS ---
EXAMINATION: XR CHEST CLINICAL INFORMATION: Post right thoracentesis COMPARISON: CT chest 11/11/2021 TECHNIQUE: 2 views of the chest were obtained. FINDINGS: Status post right thoracentesis there is no visible pneumothorax. There is residual small right pleural effusion blunting right CP angle. There are 2 pulmonary nodules in the right lower lobe measuring 2.2 CM and 2.3 cm.. The left lung remains clear. Heart size is enlarged. Pulmonary vascularity is normal. There are pacer electrodes in right atrium and right ventricle. There is cardiac valvular stent and CABG changes. No gross bony abnormality seen. XR/XR chest 2V IMPRESSION: Status post right thoracentesis there is no pneumothorax. There is tiny right pleural effusion. 2 pulmonary nodules in right lower lobe
--- NOTE | ~2021-11-05 | XR_ITS ---
EXAMINATION: XR HUMERUS, RIGHT CLINICAL INFORMATION: Status post fall COMPARISON: None TECHNIQUE: AP and lateral views of the right humerus. FINDINGS: No acute fracture or malalignment. Acromioclavicular arthropathy is noted. Opacities in the right lung better seen/characterized on recent chest x-ray. XR/XR humerus RT IMPRESSION: No acute fracture identified.
--- NOTE | ~2021-11-05 | XR_ITS ---
EXAMINATION: XR CHEST CLINICAL INFORMATION: Hypoxia COMPARISON: Chest radiograph yesterday 11/13/2021 TECHNIQUE: Frontal view of the chest was obtained. FINDINGS: The no pneumothorax is seen. There is no significant interval change when compared to yesterday's study. The left costophrenic angle is not included on the radiographs. Again seen are multiple right lung masses, median sternotomy changes, bipolar pacer/defibrillator and old left-sided rib fractures. XR/XR chest 1V IMPRESSION: No acute intrathoracic disease. No interval change when compared to yesterday's study.
--- NOTE | ~2021-11-05 | CT_ITS ---
EXAMINATION: CT HEAD WITHOUT CONTRAST CLINICAL INFORMATION: Status post fall on Coumadin COMPARISON: Head CT 09/07/2021 TECHNIQUE: Imaging was performed from the skull base to vertex without intravenous administration of contrast. This CT examination was performed using dose optimization techniques as appropriate, variously including the following: *Automated exposure control *Adjustment of mA and/or kV according to patient size (this includes techniques or standardized protocols for targeted exams where dose is matched to indication/reason for exam; i.e. extremities or head) *Use of iterative reconstruction technique Total exam dose length product: 698 mGy-cm FINDINGS: No intra or extra-axial fluid collection, hemorrhage, or mass. No ventriculomegaly. No midline shift or herniation. Basal cisterns are patent. Jacobs-white matter differentiation is maintained. No territorial encephalomalacia. Proportional prominence of the ventricles and sulcal spaces is consistent with moderate volume loss. There is no abnormal attenuation within the brain parenchyma. No calvarial fracture or soft tissue abnormality. The mastoid air cells and visualized portions of the paranasal sinuses are well aerated. CT/CT head/brain wo con IMPRESSION: 1. No acute intracranial pathology or change.
--- NOTE | ~2021-11-05 | XR_ITS ---
EXAMINATION: XR CHEST CLINICAL INFORMATION: Status post fall COMPARISON: Chest x-ray 10/08/2020 TECHNIQUE: Frontal view of the chest was obtained. FINDINGS: Patchy opacity and increased reticular markings in the right mid and lower lung. Indistinct right costophrenic sulcus suspicious for a small right pleural effusion. Couple nodular densities project over the right lower lung corresponding to nodules on chest CT in August. Left lung is hyperinflated but appears clear. No left pleural effusion. No pneumothorax is visualized. Cardiomediastinal silhouette is unchanged. Biventricular pacer/AICD noted. Median sternotomy wires and vascular clips. No acute displaced fractures identified. Couple chronic healed left lower rib fracture deformities are noted. XR/XR chest 1V IMPRESSION: 1. Persistent nodular opacities in the right lower lung since the prior august chest CT, concerning for neoplasm/malignancy. 2. Patchy opacities in the right mid lower lung and increased reticular markings, which could represent inflammatory/infectious etiology. 3. Possible small right pleural effusion. 4. No pneumothorax identified.
--- NOTE | 2021-11-05 21:53 | ED_ITS ---
HPI - Fall General Chief Complaint: Failure to Thrive Stated Complaint: fall,weakness, right arm pain Time Seen by Provider: 11/05/21 21:52 Source: patient Mode of arrival: EMS Limitations: no limitations History of Present Illness HPI Narrative: Patient is 76 years old with history of dementia, AFib on Coumadin CKD CHF abdominal aortic aneurysm,hyperlipidemia diabetes , hypertension, COPD, CKD ,protein calorie malnutrition with frequent falls brought by EMS for mechanical fall yesterday night patient was walking with a walker and tripped and fell on his side right side patient was found on the bed says that he was not able to get up because of weakness in the legs and right arm pain. Per records patient has been falling very often and get admitted to the hospital often refuses to go to rehab or nursing Related Data Home Medications Medication Instructions Recorded Confirmed tiotropium bromide 18 mcg capsule 1 puff inhalation DAILY 10/02/20 11/06/21 with inhalation device (Spiriva with HandiHaler) warfarin 5 mg tablet 2.5 mg PO SUTUWEFRSA@1800 09/05/21 11/06/21 Previous Rx's Medication Instructions Recorded cholecalciferol (vitamin D3) 50 50 mcg PO DAILY #90 caps 02/08/21 mcg (2,000 unit) capsule digoxin 125 mcg (0.125 mg) tablet 125 mcg PO MOWEFRSA@0900 #90 tabs 06/24/21 sertraline 100 mg tablet 100 mg PO DAILY #90 tabs 06/24/21 sucralfate 1 gram tablet 2 g PO DAILY 30 days #60 tabs 08/14/21 simvastatin 10 mg tablet 10 mg PO DAILY #90 tabs 08/26/21 haloperidol 1 mg tablet 1 mg PO TID 30 days #90 tabs 09/23/21 trazodone 50 mg tablet 50 mg PO BEDTIME PRN Insomnia 30 09/23/21 days #30 tabs warfarin 5 mg tablet 5 mg PO Q OTHER DAY #90 tabs 10/09/21 midodrine 10 mg tablet 10 mg PO TID #90 tabs 10/19/21 tamsulosin 0.4 mg capsule 0.4 mg PO DAILY #90 caps 10/19/21 diazepam 2 mg tablet 2 mg PO TID PRN Anxiety 30 days 10/22/21 #60 tabs albuterol sulfate 90 mcg/actuation 2 puff PO QID PRN for wheezing 10/30/21 aerosol inhaler #8.5 ea Allergies Allergy/AdvReac Type Severity Reaction Status Date / Time codeine [Codeine] Allergy Intermediate RASH Verified 11/05/21 21:53 fludrocortisone Allergy Unknown Unknown Verified 11/05/21 21:53 Review of Systems Review of Systems: Yes all other systems are reviewed and are negative [facility] Past Medical History Medical History AAA (abdominal aortic aneurysm) without rupture Abdominal aortic aneurysm Anticoagulated on warfarin Atrial fibrillation Bacteremia Bronchopneumonia COPD (chronic obstructive pulmonary disease) COPD exacerbation Cough with hemoptysis Fall GI bleed Hemoptysis History of epigastric pain Hypotension Irritable bowel syndrome with diarrhea Kidney disease, chronic, stage III (GFR 30-59 ml/min) Need for rapid response team activation Pleural effusion Severe protein-calorie malnutrition Severe sepsis Systolic congestive heart failure Surgical History History of esophagogastroduodenoscopy (EGD) History of open heart surgery Hx of appendectomy Hx of arterial bypass of lower limb Hx of cholecystectomy Hx of colonoscopy Hx of esophageal hernia repair Hx of tonsillectomy Family History Family History Father Myocardial infarction CVD (cardiovascular disease) Mother Myocardial infarction Type 2 diabetes mellitus CVD (cardiovascular disease) Brother Heart failure Brother Heart failure Sister No problems noted. Son No problems noted. Social History Social History Household Members: Spouse Household Members Other:: Kyra. Housing: House Do you presently have visiting nurse or other home services: No ( We will now ) Alcohol intake: never Patient Tobacco Use Status: Former Tobacco user Quit Date: Quit 15 years ago. Tobacco use type: Cigarette Cigarette Packs Per Day: 1 Cigarettes Per Day: 20.0 Years Smoked: Quit 15 years ago. e-Cigarette/Vaping Use: Never Used Second Hand Smoke Exposure: No Advance Directives: Yes Advance Directives on File: Yes Advance Directives Date on File: 09/25/21 service: Yes Current occupational status: retired Current occupational exposures/hazards: No Sexual orientation: Straight/Heterosexual Physical Exam Vital Signs: Vital Signs: Last Vital Signs Temp 97.5 F 11/05/21 23:44 Pulse 75 11/06/21 01:53 Resp 23 H 11/06/21 01:53 BP 119/70 11/06/21 01:53 Pulse Ox 93 11/06/21 01:53 O2 Del Method 11/06/21 01:53 BMI result Body Mass Index 19.5 Appearance: Alert. Oriented X3. No acute distress. Thin emaciated unkep, with low muscle mass Eyes: No pallor or icterus HEENT: Pharynx normal. Oral Mucosa moist atraumatic normocephalic Neck: Normal inspection. Neck supple. CVS: Normal heart rate and rhythm. Pulses normal. Respiratory: No respiratory distress. Equal air entry bilateral, no wheezing/rales/rhonchi Abdomen: Soft and nontender. Bowel sounds are present, no mass palpable, no CVA tenderness Skin: Skin warm and dry. Normal skin color. Normal skin turgor. Extremities: No lower extremity edema. No calf tenderness diffuse tenderness right humerus shaft shoulder control normal pelvis stable Neuro: Oriented X 3. No motor deficit. No sensory deficit.No cerebellar signs , cranial nerves II-XII intact MDM - Fall MDM Narrative Medical decision making narrative: Patient with frequent falls lives in a at home with who is demented the CT scan of the head and C-spine negative for any acute fracture right humerus also no fracture incidentally patient INR was > 26 Lab Data Attestation: I reviewed the patient's lab results. Result diagrams: 11/05/21 22:20 11/05/21 22:19 Labs: Lab Results 11/05/21 11/05/21 11/05/21 Range/Units 22:19 22:19 22:19 WBC (4.8-10.8) X10*3/uL RBC (4.60-5.80) X10*6/uL Hgb (14.0-18.0) g/dl Hct (42.0-52.0) % MCV (80.0-98.0) fL MCH (27.0-33.0) pg MCHC (31.0-36.0) g/dl RDW (11.0-16.0) % Plt Count (160-400) X10*3/uL MPV (9.4-12.4) fL Immature Gran % (Auto) (0.0-0.4) % Neut % (Auto) (45-73) % Lymph % (Auto) (20-40) % [place] % (Auto) (2-11) % Eos % (Auto) (0-4) % Baso % (Auto) (0-2) % Lymph # (Auto) (1.2-4.9) X10*3/uL Kitt[place] # (Auto) (0.1-1.2) X10*3/uL Eos # (Auto) (0.0-0.4) X10*3/uL Baso # (Auto) (0.0-0.2) X10*3/uL Abs Immat Gran (auto) (0.00-0.03) X10*3/uL Absolute Neuts (auto) (2.0-8.3) x10*3/uL Absolute Nucleated RBC (0.0-0.012) X10*3/uL Nucleated RBC % (auto) (0.0-0.2) /100WBC PT > 320.0 H (10.0-13.1) SEC INR > 26.0 H* D (0.9-1.1) APTT (24.1-38.0) SEC Sodium 139 (135-145) mmol/L Potassium 4.1 (3.3-5.1) mmol/L Chloride 106 (96-108) mmol/L Carbon Dioxide 22 (22-29) mmol/L Anion Gap 15 (12-20) BUN 23 H (9-16) mg/dL Creatinine 1.71 H (0.5-1.4) mg/dL Estim Creat Clear Calc 28.0 Estimated GFR 39 Random Glucose 104 (60-115) mg/dL Calcium 8.1 L (8.4-10.2) mg/dL Total Bilirubin 0.6 (0.0-1.0) mg/dL AST 19 D (5-37) U/L ALT 10 (0-40) U/L Alkaline Phosphatase 72 (39-117) U/L Total Creatine Kinase 231 H D (38-174) U/L Total Protein 6.0 L (6.5-8.0) g/dL Albumin 3.3 L (3.5-5.0) g/dL COVID-19 (SHANDA) Negative (Negative) COVID-19 Clin Com See Note 11/05/21 11/05/21 11/05/21 Range/Units 22:20 23:42 23:42 WBC 6.5 (4.8-10.8) X10*3/uL RBC 3.28 L (4.60-5.80) X10*6/uL Hgb 8.8 L (14.0-18.0) g/dl Hct 27.9 L (42.0-52.0) % MCV 85.1 (80.0-98.0) fL MCH 26.8 L (27.0-33.0) pg MCHC 31.5 (31.0-36.0) g/dl RDW 15.0 (11.0-16.0) % Plt Count 174 (160-400) X10*3/uL MPV 8.5 L (9.4-12.4) fL Immature Gran % (Auto) 0.5 H (0.0-0.4) % Neut % (Auto) 75.0 H (45-73) % Lymph % (Auto) 11.8 L (20-40) % Kitt[place] % (Auto) 8.8 (2-11) % Eos % (Auto) 3.7 (0-4) % Baso % (Auto) 0.2 (0-2) % Lymph # (Auto) 0.8 L (1.2-4.9) X10*3/uL [place] # (Auto) 0.6 (0.1-1.2) X10*3/uL Eos # (Auto) 0.2 (0.0-0.4) X10*3/uL Baso # (Auto) 0.0 (0.0-0.2) X10*3/uL Abs Immat Gran (auto) 0.03 (0.00-0.03) X10*3/uL Absolute Neuts (auto) 4.9 (2.0-8.3) x10*3/uL Absolute Nucleated RBC 0.000 (0.0-0.012) X10*3/uL Nucleated RBC % (auto) 0.0 (0.0-0.2) /100WBC PT > 320.0 H (10.0-13.1) SEC INR > 26.0 H* (0.9-1.1) APTT 133.1 H* (24.1-38.0) SEC Sodium (135-145) mmol/L Potassium (3.3-5.1) mmol/L Chloride (96-108) mmol/L Carbon Dioxide (22-29) mmol/L Anion Gap (12-20) BUN (9-16) mg/dL Creatinine (0.5-1.4) mg/dL Estim Creat Clear Calc Estimated GFR Random Glucose (60-115) mg/dL Calcium (8.4-10.2) mg/dL Total Bilirubin (0.0-1.0) mg/dL AST (5-37) U/L ALT (0-40) U/L Alkaline Phosphatase (39-117) U/L Total Creatine Kinase (38-174) U/L Total Protein (6.5-8.0) g/dL Albumin (3.5-5.0) g/dL COVID-19 (SHANDA) (Negative) COVID-19 Clin Com ECG Data Attestation: I personally reviewed and interpreted this ECG as follows: Interpretation: Heart rate 81 beats per minute biventricular pacemaker beats no acute ischemic changes Discharge Plan Discharge Clinical Impression: Frequent falls, Warfarin-induced coagulopathy Patient Disposition: Admitted As Inpatient
--- NOTE | 2021-11-05 21:53 | ECG_ITS ---
Test Reason : FALL Blood Pressure : / mmHG Vent. Rate : 081 BPM Atrial Rate : 078 BPM P-R Int : 000 ms QRS Dur : 180 ms QT Int : 444 ms P-R-T Axes : 000 -66 102 degrees QTc Int : 515 ms Ventricular-paced rhythm with Premature ventricular complexes Biventricular pacemaker detected Abnormal ECG When compared with ECG of 04-SEP-2021 21:58, No significant changes seen Referred By: Jackson Winkler Electronically Signed By:DAYAN LOMAX MD
[2021-11-05 21:54] VITALS: BP 115/70; PULSE 90; O2SAT 95; BMI 19.5
[2021-11-05 21:55] VITALS: BP 102/64; PULSE 87; RESP 18; TEMP 36.5; O2SAT 96
[2021-11-05 22:24] LABS: MANUAL DIFF FLAG NO
[2021-11-05 22:28] LABS: Basophils Percent Auto 0.2 % (0-2); Eosinophils Absolute Auto 0.2 X10*3/uL (0.0-0.4); Eosinophils Percent Auto 3.7 % (0-4); Hematocrit 27.9 % (42.0-52.0); Hemoglobin 8.8 g/dl (14.0-18.0); Imm Gran Abs Auto 0.03 X10*3/uL (0.00-0.03); Imm Gran Pct Auto 0.5 % (0.0-0.4); Lymphocytes Absolute Auto 0.8 X10*3/uL (1.2-4.9); Lymphocytes Percent Auto 11.8 % (20-40); Mean Corpuscular HGB Conc 31.5 g/dl (31.0-36.0); Mean Corpuscular Hemoglobin 26.8 pg (27.0-33.0); Mean Corpuscular Volume 85.1 fL (80.0-98.0); Mean Platelet Volume 8.5 fL (9.4-12.4); Monocytes Absolute Auto 0.6 X10*3/uL (0.1-1.2); Monocytes Percent Auto 8.8 % (2-11); Neutrophils Absolute Auto 4.9 x10*3/uL (2.0-8.3); Platelet Count 174 X10*3/uL (160-400); Red Blood Count 3.28 X10*6/uL (4.60-5.80); White Blood Count 6.5 X10*3/uL (4.8-10.8)
[2021-11-05 22:42] LABS: COVID-19 Test Negative (Negative)
[2021-11-05] MEDS: 0.9 % Sodium Chloride 1,000 ML 999 ML IV (22:55)
[2021-11-05 23:15] LABS: Alanine Aminotransferase 10 U/L (0-40); Albumin Level 3.3 g/dL (3.5-5.0); Alkaline Phosphatase 72 U/L (39-117); Anion Gap 15 (12-20); Aspartate Amino Transferase 19 U/L (5-37); Bilirubin Total 0.6 mg/dL (0.0-1.0); Blood Urea Nitrogen 23 mg/dL (9-16); Calcium 8.1 mg/dL (8.4-10.2); Carbon Dioxide 22 mmol/L (22-29); Chloride 106 mmol/L (96-108); Estimated Glomerular Filt Rate 39; Glucose Random 104 mg/dL (60-115); Potassium 4.1 mmol/L (3.3-5.1); Sodium 139 mmol/L (135-145)
[2021-11-05 23:17] LABS: INTERNATIONAL NORM RATIO > 26.0 (0.9-1.1); Prothrombin Time > 320.0 SEC (10.0-13.1)
[2021-11-05 23:44] VITALS: BP 125/70; PULSE 76; RESP 12; TEMP 36.4; O2SAT 94
[2021-11-06] VITALS (7 sets, daily range): BP systolic 103–126; BP diastolic 56–70; PULSE 72–84; RESP 16–26; TEMP 36–36.9; O2SAT 92–97
[2021-11-06 00:10] LABS: Partial Thromboplastin Time 133.1 SEC (24.1-38.0)
[2021-11-06 00:11] LABS: INTERNATIONAL NORM RATIO > 26.0 (0.9-1.1); Prothrombin Time > 320.0 SEC (10.0-13.1)
[2021-11-06] MEDS: Phytonadione (Vit K1) 10 MG in 0.9 % Sodium Chloride 50 ML 51 MG IV (00:55)
--- NOTE | 2021-11-06 00:58 | PM.IMHP ---
History of Present Illness Date of Service: 11/06/21 Chief Complaint: falling This is a 76-year-old male with past medical history of AAA, AFib on Coumadin, COPD, history of GI bleed, history of IBD, history of systolic CHF, severe protein calorie malnutrition who returns to the hospital with complaints of fall. Patient had a prolonged hospital stay sometime in August discharged on September 28 after also presenting on September 05 with frequent falls. Patient was evaluated and was admitted to geriatric psych for psychosis. Patient refused short-term rehab and was discharged to home. Patient returns stating that he had a fall, and his would not help him get out of bed to use the bathroom therefore he called EMS. Patient reports that he eats well, he is afraid of going to the psych unit the patient is alert and oriented to self and place. He reports compliance with his warfarin, he denies having any bloody bowel movements, no chest pain, no abdominal pain, nausea or vomiting, no diarrhea constipation, no urinary symptoms. He reports that ever since being taking of Valium he has been very unsteady on his gait and has had frequent falls as a result. He also complains that his walker is not working well causing him to have frequent mechanical falls and tripping. Patient reports that this fall was secondary to his walker, he denies having any loss of consciousness during the fall, no palpitations or dizziness, and no head injury. On arrival to the ED patient hemodynamically stable with no significant abnormal vitals Labs are significant for hemoglobin of 8.8, hematocrit 27.9 with a hemoglobin of 9.7 on 09/05, INR of 26, creatinine of 1.71 with a baseline around 1.5 Chest x-ray shows persistent nodular opacities in the right lower lung since the prior august chest CT concerning for neoplasm/malignancy, patchy opacities in the right midlung concerning for infectious etiology Patient given vitamin K and will be admitted for further management Review of Systems Review of Systems: Yes all other systems are reviewed and are negative [facility] Medical History AAA (abdominal aortic aneurysm) without rupture Abdominal aortic aneurysm Anticoagulated on warfarin Atrial fibrillation Bacteremia Bronchopneumonia COPD (chronic obstructive pulmonary disease) COPD exacerbation Cough with hemoptysis Fall GI bleed Hemoptysis History of epigastric pain Hypotension Irritable bowel syndrome with diarrhea Kidney disease, chronic, stage III (GFR 30-59 ml/min) Need for rapid response team activation Pleural effusion Severe protein-calorie malnutrition Severe sepsis Systolic congestive heart failure Family History Father Myocardial infarction CVD (cardiovascular disease) Mother Myocardial infarction Type 2 diabetes mellitus CVD (cardiovascular disease) Brother Heart failure Brother Heart failure Sister No problems noted. Son No problems noted. Surgical History History of esophagogastroduodenoscopy (EGD) History of open heart surgery Hx of appendectomy Hx of arterial bypass of lower limb Hx of cholecystectomy Hx of colonoscopy Hx of esophageal hernia repair Hx of tonsillectomy Social History Household Members: Spouse Household Members Other:: Kyra. Housing: House Do you presently have visiting nurse or other home services: No ( We will now ) Alcohol intake: never Patient Tobacco Use Status: Former Tobacco user Quit Date: Quit 15 years ago. Tobacco use type: Cigarette Cigarette Packs Per Day: 1 Cigarettes Per Day: 20.0 Years Smoked: Quit 15 years ago. e-Cigarette/Vaping Use: Never Used Second Hand Smoke Exposure: No Advance Directives: Yes Advance Directives on File: Yes Advance Directives Date on File: 09/25/21 service: Yes Current occupational status: retired Current occupational exposures/hazards: No Sexual orientation: Straight/Heterosexual Meds Allergies Allergy/AdvReac Type Severity Reaction Status Date / Time codeine [Codeine] Allergy Intermediate RASH Verified 11/05/21 21:53 fludrocortisone Allergy Unknown Unknown Verified 11/05/21 21:53 Active Medications: Current Medications Acetaminophen (Acetaminophen 325 Mg Tablet) 650 mg PO Q6H PRN PRN Reason: Pain, Mild (Pain Scale 1-3) Phytonadione 10 mg/ Sodium (Chloride) 51 mls @ 51 mls/hr IV ONCE ONE Stop: 11/06/21 01:11 Last Admin: 11/06/21 00:55 Dose: 51 mls/hr Ondansetron HCl (Ondansetron Hcl 4 Mg/2 Ml Vial) 4 mg IVPUSH Q8H PRN PRN Reason: Nausea and Vomiting Sodium Chloride (0.9 % Sodium Chloride Flush 3 Ml Syringe) 3 ml IVFLUSH QSHIFT [facility] Home Medications Medication Instructions Recorded Confirmed Last Taken Type tiotropium bromide 18 mcg capsule 1 puff inhalation DAILY 10/02/20 11/06/21 10/02/20 History with inhalation device (Spiriva with HandiHaler) warfarin 5 mg tablet 2.5 mg PO RADHA@1800 09/05/21 11/06/21 Unknown History Physical Exam Vital Signs and Narrative: Vital Signs: Last Vital Signs Temp 97.5 F 11/05/21 23:44 Pulse 75 11/06/21 00:54 Resp 16 11/06/21 00:54 BP 125/70 11/06/21 00:54 Pulse Ox 93 11/06/21 00:54 O2 Del Method 11/06/21 00:54 BMI result Body Mass Index 19.5 Const: Other: Patient is alert, oriented to self and place, patient appears cachectic, malnourished, Patient has significant temporal wasting General: cooperative and no acute distress Orientation/consciousness: patient oriented x3 Eyes: General: appearance normal, both eyes and all related structures Resp: Effort & Inspection: normal respiratory effort Auscultation: clear to auscultation bilaterally Cardio: Rate: regular rate Rhythm: regular rhythm GI: Palpation (GI): Soft to palpation Auscultation: normal bowel sounds Skin: General skin exam: no rashes or lesions noted Neuro: General: patient oriented x3 Cognition (Neuro): normal cognition Extrem: General: Yes normal to inspection and Yes no pedal edema Results Labs CBC and Chem 7: 11/05/21 22:20 11/05/21 22:19 Labs: Laboratory Results - last 24 hr 11/05/21 11/05/21 11/05/21 22:19 22:19 22:19 MCV MCH MCHC RDW Plt Count MPV Immature Gran % (Auto) Neut % (Auto) Lymph % (Auto) [place] % (Auto) Eos % (Auto) Baso % (Auto) Lymph # (Auto) [place] # (Auto) Eos # (Auto) Baso # (Auto) Abs Immat Gran (auto) Absolute Neuts (auto) Absolute Nucleated RBC Nucleated RBC % (auto) PT > 320.0 H INR > 26.0 H* D APTT Anion Gap 15 Estim Creat Clear Calc 28.0 Estimated GFR 39 Random Glucose 104 Calcium 8.1 L Total Bilirubin 0.6 AST 19 D ALT 10 Alkaline Phosphatase 72 Total Creatine Kinase 231 H D Total Protein 6.0 L Albumin 3.3 L COVID-19 (SHANDA) Negative COVID-19 Clin Com See Note 11/05/21 11/05/21 11/05/21 22:20 23:42 23:42 MCV 85.1 MCH 26.8 L MCHC 31.5 RDW 15.0 Plt Count 174 MPV 8.5 L Immature Gran % (Auto) 0.5 H Neut % (Auto) 75.0 H Lymph % (Auto) 11.8 L [place] % (Auto) 8.8 Eos % (Auto) 3.7 Baso % (Auto) 0.2 Lymph # (Auto) 0.8 L [place] # (Auto) 0.6 Eos # (Auto) 0.2 Baso # (Auto) 0.0 Abs Immat Gran (auto) 0.03 Absolute Neuts (auto) 4.9 Absolute Nucleated RBC 0.000 Nucleated RBC % (auto) 0.0 PT > 320.0 H INR > 26.0 H* APTT 133.1 H* Anion Gap Estim Creat Clear Calc Estimated GFR Random Glucose Calcium Total Bilirubin AST ALT Alkaline Phosphatase Total Creatine Kinase Total Protein Albumin COVID-19 (SHANDA) COVID-19 Clin Com Imaging Radiologist's Impressions: Impressions Head CT 11/05/21 22:32 IMPRESSION: 1. No acute intracranial pathology or change. Chest X-Ray 11/05/21 22:34 IMPRESSION: 1. Persistent nodular opacities in the right lower lung since the prior august chest CT, concerning for neoplasm/malignancy. 2. Patchy opacities in the right mid lower lung and increased reticular markings, which could represent inflammatory/infectious etiology. 3. Possible small right pleural effusion. 4. No pneumothorax identified. Humerus X-Ray 11/05/21 22:34 IMPRESSION: No acute fracture identified. Assessment and Plan (1) Warfarin-induced coagulopathy: Status: Acute (2) Supratherapeutic INR: Status: Acute (3) Lung nodule seen on imaging study: Status: Acute (4) Frequent falls: Status: Acute Plan 76-year-old male with history of AFib on Coumadin presents to the hospital with a fall found to have INR of 26 # supratherapeutic INR - although patient reports compliance with the appropriate dose, it appears that he significantly malnourished causing me to believe that this is likely in the setting of malnutrition compounding on FX of warfarin - patient given vitamin K - will follow PT INR closely - monitor for acute bleed # lung nodule seen on chest x-ray concerning for malignancy - will consult Hematology-Oncology - I do not believe patient has acute infection in the lungs as he has no leukocytosis, not coughing, has no shortness of breath, afebrile - monitor for any development of the above # frequent falls - likely deconditioned as well as secondary to malnutrition - patient will likely need STR but has refused in the past - will consult PT OT # AAA - 6 cm in size making a very prone to rupture and bleed specially in the setting of supratherapeutic INR - patient follows with vascular surgery outpatient - given his supratherapeutic INR unlikely to undergo any surgical intervention at this time - will continue to monitor DVT prophylaxis: Supratherapeutic INR Given his supratherapeutic INR as well as his inability to care for himself at home and danger of falling and causing hemorrhagic bleed patient will require a minimum 2 night hospital stay for further management and monitoring Quality Stroke Does the patient have a stroke diagnosis?: No VTE Prior VTE?: No VTE Risk Level:: Medical - moderate - high VTE Device Contraindication: Treatment Not Tolerated VTE Drug Contraindication: N/A - Med Ordered
--- NOTE | 2021-11-06 05:25 | PC.NURSE ---
pt asking this RN for clarification. pt states he was told his blood coagulates too slow, but his elevated PT/INR actually reflects that his blood clots slower than desired. pt was reassured, rexplained the purpose of vit K infusion. pt still did not understand and became frustrated. pt reassured again. resting in bed in no distress
[2021-11-06 06:43] LABS: MANUAL DIFF FLAG NO
[2021-11-06] MEDS: Lactated Ringers 1,000 ML 100 ML IVCONT (06:43)
[2021-11-06 06:52] LABS: Basophils Percent Auto 0.3 % (0-2); Eosinophils Absolute Auto 0.3 X10*3/uL (0.0-0.4); Eosinophils Percent Auto 4.4 % (0-4); Hematocrit 25.2 % (42.0-52.0); Hemoglobin 7.9 g/dl (14.0-18.0); Imm Gran Abs Auto 0.05 X10*3/uL (0.00-0.03); Imm Gran Pct Auto 0.8 % (0.0-0.4); Lymphocytes Percent Auto 15.4 % (20-40); Mean Corpuscular HGB Conc 31.3 g/dl (31.0-36.0); Mean Corpuscular Hemoglobin 26.8 pg (27.0-33.0); Mean Corpuscular Volume 85.4 fL (80.0-98.0); Mean Platelet Volume 9.2 fL (9.4-12.4); Monocytes Absolute Auto 0.5 X10*3/uL (0.1-1.2); Monocytes Percent Auto 7.1 % (2-11); Neutrophils Absolute Auto 4.8 x10*3/uL (2.0-8.3); Platelet Count 180 X10*3/uL (160-400); Red Blood Count 2.95 X10*6/uL (4.60-5.80); Red Cell Distribution Width 15.1 % (11.0-16.0); White Blood Count 6.6 X10*3/uL (4.8-10.8)
--- NOTE | 2021-11-06 06:56 | PC.NURSE ---
pt has bruises to bilateral upper and lower extremities. resting in bed, in no distress
[2021-11-06 07:04] LABS: INTERNATIONAL NORM RATIO 3.5 (0.9-1.1)
[2021-11-06 07:17] LABS: Anion Gap 11 (12-20); Blood Urea Nitrogen 20 mg/dL (9-16); Calcium 7.9 mg/dL (8.4-10.2); Carbon Dioxide 23 mmol/L (22-29); Chloride 109 mmol/L (96-108); Estimated Glomerular Filt Rate 47; Glucose Random 78 mg/dL (60-115); Sodium 139 mmol/L (135-145)
--- NOTE | 2021-11-06 09:25 | PHA.MEDREC ---
Pharmacy Consult ? Medication Reconciliation Pharmacy has completed the medication reconciliation. Spoke with , not 100% sure about warfarin dose, will let provider know.
[2021-11-06] MEDS: Digoxin 0.125 MG TABLET PO (10:18)
[2021-11-06] MEDS: Sucralfate 1 GM TABLET 2 GM PO (10:18)
[2021-11-06] MEDS: Midodrine HCl 10 MG TABLET PO ×3 (10:18→23:02)
[2021-11-06] MEDS: HaloperidoL 1 MG TABLET PO ×3 (10:18→23:04)
[2021-11-06] MEDS: Sertraline HCL 100 MG TABLET PO (10:19)
[2021-11-06] MEDS: Cholecalciferol (Vitamin D3) 25 MCG TABLET 50 MCG PO (10:19)
[2021-11-06] MEDS: Phytonadione (Vit K1) Oral 10 MG/ML AMPUL 5 MG PO (10:19)
[2021-11-06] MEDS: diazePAM 2 MG TABLET PO ×2 (11:12→23:04)
--- NOTE | 2021-11-06 13:36 | PM.EVENT ---
Event Note Date of Service: 11/06/21 Event Note: Day Team note in brief Seen and examined this morning Reports no pain Wants to go home Thinks he fell because walker was not working appropriately Discussed with him about his elevated INR and he reports that he has been taking his Coumadin as directed. I am not certain that he completely understands his medical conditions. Will get psych input for competency. Continue care as outlined in the admission H&P
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
--- NOTE | 2021-11-06 20:22 | PC.NURSE ---
pt has been resting in nad throughout the day. Resp even and nonlaboured, skin pwd. Has eaten 100% of lunch and dinner.
[2021-11-06] MEDS: Atorvastatin Calcium 10 MG TABLET PO (23:02)
[2021-11-06] MEDS: Tamsulosin HCL 0.4 MG CAPSULE PO (23:02)
--- NOTE | 2021-11-07 00:09 | PC.NURSE ---
This Rn to bedside. pt aaox4, resting on stretcher in NAD breathing with ease on RA, VSS. Pt coughing up blood tinged sputum. Pt reports improvement in anxiety sx but states at home I take 5mg three times a day but here I have only gotten 2mg at a time. Can I have 5mg? Pt's request forwarded to Dr Correa. Per Sunny, she will look at his previous admission notes where she believes dose was decreased from 5mg to 2mg.
[2021-11-07] MEDS: diazePAM 2 MG TABLET PO (00:42)
[2021-11-07 04:24] VITALS: BP 113/62; PULSE 75; RESP 19; O2SAT 94
[2021-11-07] MEDS: 0.9 % Sodium Chloride Flush 3 ML SYRINGE IVFLUSH ×2 (07:49→17:11)
[2021-11-07 07:55] VITALS: BP 112/68; PULSE 74; RESP 19; TEMP 36; O2SAT 93
--- NOTE | 2021-11-07 08:51 | HO.PM.IMPN ---
Subjective Subjective Date of Service: 11/07/21 Interval History: seen and examined this AM no specific complaints Review of Systems negative except HPI Physical Exam Vital Signs: Vital Signs: Last Vital Signs Temp 96.8 F 11/07/21 07:55 Pulse 74 11/07/21 07:55 Resp 19 11/07/21 07:55 BP 112/68 11/07/21 07:55 Pulse Ox 93 11/07/21 07:55 O2 Del Method 11/07/21 07:55 BMI result Body Mass Index 19.5 Const: Other: General - no acute distress, appears comfortable, cachectic in appearance Cardiovascular - regular rate and rhythm, S1-S2 Lungs - normal respiratory effort, clear to auscultation bilaterally, no wheezing Abdomen - soft, nontender, no rebound or guarding Extremities - no edema bilaterally Neuro - awake and alert, no focal deficits Psych - poor insight Objective Data Active Medications Acetaminophen (Acetaminophen 325 Mg Tablet) 650 mg PO Q6H PRN PRN Reason: Pain, Mild (Pain Scale 1-3) Albuterol Sulfate (Albuterol Sulfate 90 Mcg 8 Gm Inhaler) 2 puff INHALE QID PRN PRN Reason: for wheezing Atorvastatin Calcium (Atorvastatin Calcium 10 Mg Tablet) 10 mg PO BEDTIME [facility] Last Admin: 11/06/21 23:02 Dose: 10 mg Documented By: RENO Diazepam (Diazepam 5 Mg Tablet) 5 mg PO TID PRN PRN Reason: Anxiety Digoxin (Digoxin 0.125 Mg Tablet) 0.125 mg PO MoWeFr@0900 [facility] Last Admin: 11/06/21 10:18 Dose: 0.125 mg Documented By: MINERVA Haloperidol (Haloperidol 1 Mg Tablet) 1 mg PO TID [facility] Last Admin: 11/06/21 23:04 Dose: 1 mg Documented By: RENO Midodrine (Midodrine Hcl 10 Mg Tablet) 10 mg PO TID [facility] Last Admin: 11/06/21 23:02 Dose: 10 mg Documented By: RENO Ondansetron HCl (Ondansetron Hcl 4 Mg/2 Ml Vial) 4 mg IVPUSH Q8H PRN PRN Reason: Nausea and Vomiting Sertraline HCl (Sertraline Hcl 100 Mg Tablet) 100 mg PO DAILY [facility] Last Admin: 11/06/21 10:19 Dose: 100 mg Documented By: MINERVA Sodium Chloride (0.9 % Sodium Chloride Flush 3 Ml Syringe) 3 ml IVFLUSH QSHIFT [facility] Last Admin: 11/07/21 07:49 Dose: 3 ml Documented By: HARINI Sucralfate (Sucralfate 1 Gm Tablet) 2 gm PO DAILY [facility] Last Admin: 11/06/21 10:18 Dose: 2 gm Documented By: MINERVA Tamsulosin HCl (Tamsulosin Hcl 0.4 Mg Capsule) 0.4 mg PO BEDTIME [facility] Last Admin: 11/06/21 23:02 Dose: 0.4 mg Documented By: RENO Tiotropium [place] (Tiotropium [place] 18 Mcg Cap.W.Dev) 1 puff INHALE RDAILY [facility] Last Admin: 11/06/21 07:45 Dose: Not Given Documented By: LEONARDO Non-Admin Reason: Med Not Available Vitamin D (Cholecalciferol (Vitamin D3) 25 Mcg Tablet) 50 mcg PO DAILY [facility] Last Admin: 11/06/21 10:19 Dose: 50 mcg Documented By: MINERVA Labs CBC & Chem 7: 11/06/21 06:22 11/06/21 06:22 Assessment and Plan (1) Supratherapeutic INR: Status: Acute Plan 76-year-old male with history of AFib on Coumadin presents to the hospital with a fall found to have INR of 26 # supratherapeutic INR Probably multifactorial including poor nutrition as well as noncompliance, inappropriate dosing of Coumadin INR it has been down trending, will repeat 1 now and restart Coumadin pending results # lung nodule seen on chest x-ray concerning for malignancy will need outpatient f/u with hematology/oncology # frequent falls - likely deconditioned as well as secondary to malnutrition - patient will likely need STR but has refused in the past - will consult PT OT # AAA - 6 cm in size making a very prone to rupture and bleed specially in the setting of supratherapeutic INR - patient follows with vascular surgery outpatient - f/u with them #poor insight psych consult completed -- lacks insight #A. fib continue baseline meds, dose coumadin pending INR #chronic HFrEF Unable to tolerate neurohormonal due to orthostatic hypotension for which he is on midodrine #chronic anemia slightly lower than baseline, no evidence of bleeding monitor #CKD3 baseline #COPD inhalers Full Code DVT pptx -- on coumadin Disposition pending PT evaluation. Given that the patient lacks capacity psychiatry has recommended that the healthcare proxy be invoked Quality Stroke Does the patient have a stroke diagnosis?: No VTE Prior VTE?: No VTE Risk Level:: Medical - moderate - high VTE Device Contraindication: Treatment Not Tolerated VTE Drug Contraindication: N/A - Med Ordered
[2021-11-07 09:43] LABS: INTERNATIONAL NORM RATIO 1.2 (0.9-1.1); Prothrombin Time 14.3 SEC (10.0-13.1)
[2021-11-07] MEDS: Sucralfate 1 GM TABLET 2 GM PO (09:51)
[2021-11-07] MEDS: Midodrine HCl 10 MG TABLET PO ×3 (09:51→22:44)
[2021-11-07] MEDS: Cholecalciferol (Vitamin D3) 25 MCG TABLET 50 MCG PO (09:51)
[2021-11-07] MEDS: Sertraline HCL 100 MG TABLET PO (09:51)
[2021-11-07] MEDS: HaloperidoL 1 MG TABLET PO ×3 (09:52→22:44)
--- NOTE | 2021-11-07 13:46 | MHC.CM.PN ---
Patient was deemed by Psych yesterday to lack Capacity; CM spoke with Son/HCP/Devendra @ [phone] and CM addressed IMM with Devendra (original to be mailed certified letter to Devendra and a copy to be placed on the chart). 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 PT is recommending STR and Devendra is agreeable to a broad SNF search being initiated. CM has initiated and will follow for dc planning. PCP is Dr. Garcia and Patient has received [employer] vax X2.
[2021-11-07 17:03] VITALS: BP 116/54; PULSE 74; RESP 18; O2SAT 94
[2021-11-07] MEDS: Warfarin Sodium 5 MG TABLET PO (17:10)
[2021-11-07] MEDS: diazePAM 5 MG TABLET PO (17:15)
--- NOTE | 2021-11-07 18:57 | PC.NURSE ---
Addendum entered by Edelmira Morin 11/07/21 20:54: report given to HIRAL Galicia Addendum entered by Edelmira Morin 11/07/21 19:52: pt resting in bed, no signs of acute distress notice. alert and oriented to self. pt on continuos cardiac monitoring Original Note: report received from HIRAL Savage
[2021-11-07 19:47] VITALS: BP 100/54; PULSE 79; RESP 20; TEMP 36.9; O2SAT 95
[2021-11-07] MEDS: Tamsulosin HCL 0.4 MG CAPSULE PO (22:45)
[2021-11-07] MEDS: Atorvastatin Calcium 10 MG TABLET PO (22:45)
[2021-11-07 23:22] VITALS: BP 134/71; PULSE 89; RESP 20; TEMP 36.4; O2SAT 95
[2021-11-08] VITALS: BP 134/71; PULSE 86; RESP 16; TEMP 36.4; O2SAT 94
[2021-11-08 01:07] VITALS: BMI 19.6
[2021-11-08] MEDS: Albuterol Sulfate 90 MCG 8 GM INHALER 2 PUFF INHALE (05:00)
[2021-11-08 07:07] LABS: INTERNATIONAL NORM RATIO 1.2 (0.9-1.1); Prothrombin Time 14.1 SEC (10.0-13.1)
[2021-11-08 08:00] VITALS: BP 124/71; PULSE 76; RESP 20; TEMP 36.6; O2SAT 91
--- NOTE | 2021-11-08 09:03 | P.PNIM_ITS ---
Subjective Subjective Date of Service: 11/08/21 Interval History: seen and examined this AM no specific complaints denies any pain Review of Systems negative except HPI Physical Exam Vital Signs: Vital Signs: Last Vital Signs Temp 97.8 F 11/08/21 08:00 Pulse 76 11/08/21 08:00 Resp 20 11/08/21 08:00 BP 124/71 11/08/21 08:00 Pulse Ox 91 L 11/08/21 08:00 O2 Del Method 11/08/21 08:00 BMI result Body Mass Index 19.6 Const: Other: General - no acute distress, appears comfortable, cachectic in appearance Cardiovascular - regular rate and rhythm, S1-S2 Lungs - normal respiratory effort, clear to auscultation bilaterally, no wheezing Abdomen - soft, nontender, no rebound or guarding Extremities - no edema bilaterally Neuro - awake and alert, no focal deficits Psych - poor insight skin - various areas of bruising on body, in differing stages Objective Data Active Medications Acetaminophen (Acetaminophen 325 Mg Tablet) 650 mg PO Q6H PRN PRN Reason: Pain, Mild (Pain Scale 1-3) Albuterol Sulfate (Albuterol Sulfate 90 Mcg 8 Gm Inhaler) 2 puff INHALE QID PRN PRN Reason: for wheezing Last Admin: 11/08/21 05:00 Dose: 2 puff Documented By: HENRY Atorvastatin Calcium (Atorvastatin Calcium 10 Mg Tablet) 10 mg PO BEDTIME [facility] Last Admin: 11/07/21 22:45 Dose: 10 mg Documented By: HENRY Diazepam (Diazepam 5 Mg Tablet) 5 mg PO TID PRN PRN Reason: Anxiety Last Admin: 11/07/21 17:15 Dose: 5 mg Documented By: HARINI Digoxin (Digoxin 0.125 Mg Tablet) 0.125 mg PO MoWeFr@0900 [facility] Last Admin: 11/06/21 10:18 Dose: 0.125 mg Documented By: MINERVA Haloperidol (Haloperidol 1 Mg Tablet) 1 mg PO TID [facility] Last Admin: 11/07/21 22:44 Dose: 1 mg Documented By: HENRY Midodrine (Midodrine Hcl 10 Mg Tablet) 10 mg PO TID [facility] Last Admin: 11/07/21 22:44 Dose: 10 mg Documented By: HENRY Ondansetron HCl (Ondansetron Hcl 4 Mg/2 Ml Vial) 4 mg IVPUSH Q8H PRN PRN Reason: Nausea and Vomiting Sertraline HCl (Sertraline Hcl 100 Mg Tablet) 100 mg PO DAILY [facility] Last Admin: 11/07/21 09:51 Dose: 100 mg Documented By: HARINI Sodium Chloride (0.9 % Sodium Chloride Flush 3 Ml Syringe) 3 ml IVFLUSH QSHIFT [facility] Last Admin: 11/08/21 01:02 Dose: Not Given Documented By: HENRY Non-Admin Reason: Previously Administered Sucralfate (Sucralfate 1 Gm Tablet) 2 gm PO DAILY [facility] Last Admin: 11/07/21 09:51 Dose: 2 gm Documented By: HARINI Tamsulosin HCl (Tamsulosin Hcl 0.4 Mg Capsule) 0.4 mg PO BEDTIME [facility] Last Admin: 11/07/21 22:45 Dose: 0.4 mg Documented By: HENRY Tiotropium [place] (Tiotropium [place] 18 Mcg Cap.W.Dev) 1 puff INHALE RDAILY [facility] Last Admin: 11/08/21 08:45 Dose: Not Given Documented By: LEONARDO Non-Admin Reason: Med Not Available Vitamin D (Cholecalciferol (Vitamin D3) 25 Mcg Tablet) 50 mcg PO DAILY [facility] Last Admin: 11/07/21 09:51 Dose: 50 mcg Documented By: HARINI Warfarin Sodium (Warfarin Sodium 5 Mg Tablet) 5 mg PO DAILY@1800 [facility] Last Admin: 11/07/21 17:10 Dose: 5 mg Documented By: HARINI Labs CBC & Chem 7: 11/06/21 06:22 11/06/21 06:22 Labs: Laboratory Results - last 24 hr 11/07/21 11/08/21 09:21 06:03 PT 14.3 H 14.1 H INR 1.2 H D 1.2 H Assessment and Plan (1) Supratherapeutic INR: Status: Acute Plan 76-year-old male with history of AFib on Coumadin presents to the hospital with a fall found to have INR of 26 # supratherapeutic INR (initially), now subtherapeutic s/p vit K in the ED Probably multifactorial including poor nutrition as well as noncompliance, inappropriate dosing of Coumadin continue coumadin # lung nodule seen on chest x-ray concerning for malignancy will need outpatient f/u with hematology/oncology # frequent falls - likely deconditioned as well as secondary to malnutrition - patient will likely need STR but has refused in the past - will consult PT OT -- STR recommended # AAA - 6 cm in size making a very prone to rupture and bleed specially in the setting of supratherapeutic INR - patient follows with vascular surgery outpatient - f/u with them #poor insight psych consult completed -- lacks insight #A. fib continue baseline meds, dose coumadin pending INR #chronic HFrEF Unable to tolerate neurohormonal due to orthostatic hypotension for which he is on midodrine #chronic anemia slightly lower than baseline, no evidence of bleeding monitor #CKD3 baseline #COPD inhalers Full Code DVT pptx -- on coumadin dispo: STR once bed available Quality Stroke Does the patient have a stroke diagnosis?: No VTE Prior VTE?: No VTE Risk Level:: Medical - moderate - high VTE Device Contraindication: Treatment Not Tolerated VTE Drug Contraindication: N/A - Med Ordered
--- NOTE | 2021-11-08 09:05 | MHC.CM.PN ---
Per MD, Patient is medically cleared for dc to SNF/STR today. CM has initiated and updated a broad SNF search and await a bed offer. CM will follow.
[2021-11-08] MEDS: Cholecalciferol (Vitamin D3) 25 MCG TABLET 50 MCG PO (09:50)
[2021-11-08] MEDS: HaloperidoL 1 MG TABLET PO ×3 (09:50→20:55)
[2021-11-08] MEDS: Sucralfate 1 GM TABLET 2 GM PO (09:51)
[2021-11-08] MEDS: Sertraline HCL 100 MG TABLET PO (09:51)
[2021-11-08] MEDS: 0.9 % Sodium Chloride Flush 3 ML SYRINGE IVFLUSH ×3 (09:51→20:55)
[2021-11-08] MEDS: Midodrine HCl 10 MG TABLET PO ×3 (09:51→20:55)
[2021-11-08] MEDS: diazePAM 5 MG TABLET PO ×2 (09:59→20:56)
[2021-11-08 12:00] VITALS: BP 104/62; PULSE 75; RESP 18; TEMP 36.4; O2SAT 91
[2021-11-08 16:00] VITALS: BP 119/66; PULSE 74; RESP 18; TEMP 37.1; O2SAT 92
[2021-11-08] MEDS: Warfarin Sodium 5 MG TABLET PO (16:22)
[2021-11-08 19:19] VITALS: BP 120/67; PULSE 74; RESP 18; TEMP 36; O2SAT 99
[2021-11-08] MEDS: Tamsulosin HCL 0.4 MG CAPSULE PO (20:55)
[2021-11-08] MEDS: Atorvastatin Calcium 10 MG TABLET PO (20:55)
[2021-11-08 23:22] VITALS: BP 128/78; PULSE 98; RESP 18; TEMP 36.8; O2SAT 90
[2021-11-09] VITALS (8 sets, daily range): BP systolic 94–128; BP diastolic 52–77; PULSE 75–98; RESP 17–20; TEMP 36.1–36.9; O2SAT 92–98; BMI 19.6
[2021-11-09 07:13] LABS: INTERNATIONAL NORM RATIO 1.6 (0.9-1.1); Prothrombin Time 19.1 SEC (10.0-13.1)
[2021-11-09] MEDS: Midodrine HCl 10 MG TABLET PO ×3 (10:10→22:12)
[2021-11-09] MEDS: Sertraline HCL 100 MG TABLET PO (10:10)
[2021-11-09] MEDS: Digoxin 0.125 MG TABLET PO (10:10)
[2021-11-09] MEDS: Cholecalciferol (Vitamin D3) 25 MCG TABLET 50 MCG PO (10:10)
[2021-11-09] MEDS: HaloperidoL 1 MG TABLET PO ×3 (10:11→22:12)
[2021-11-09] MEDS: Sucralfate 1 GM TABLET 2 GM PO (10:11)
--- NOTE | 2021-11-09 11:50 | MHC.CM.PN ---
EMR REVIEWED, PER HOSPITALIST PT MEDICALLY CLEARED FOR D/C AND AWAITING BED OFFERS, [facility] [place] SHOWING INTEREST, CM AWAITING RESPONSE IF EITHER CAN TAKE PT TODAY. CM WILL CONT TO FOLLOW D/C NEEDS.
--- NOTE | 2021-11-09 12:35 | P.PNIM_ITS ---
Subjective Subjective Date of Service: 11/09/21 Interval History: seen and examined this AM reports not sleeping much last night Review of Systems negative except HPI Physical Exam Vital Signs: Vital Signs: Last Vital Signs Temp 97.7 F 11/09/21 11:28 Pulse 83 11/09/21 11:28 Resp 18 11/09/21 11:28 BP 94/54 L 11/09/21 11:28 Pulse Ox 98 11/09/21 11:28 O2 Del Method 11/09/21 11:28 O2 Flow Rate 2 11/09/21 11:28 BMI result Body Mass Index 19.6 Const: Other: General - no acute distress, appears comfortable, cachectic in appearance Cardiovascular - regular rate and rhythm, S1-S2 Lungs - normal respiratory effort, clear to auscultation bilaterally, no wheezing Abdomen - soft, nontender, no rebound or guarding Extremities - no edema bilaterally Neuro - awake and alert, no focal deficits Psych - poor insight skin - various areas of bruising on body, in differing stages Objective Data Active Medications Acetaminophen (Acetaminophen 325 Mg Tablet) 650 mg PO Q6H PRN PRN Reason: Pain, Mild (Pain Scale 1-3) Albuterol Sulfate (Albuterol Sulfate 90 Mcg 8 Gm Inhaler) 2 puff INHALE QID PRN PRN Reason: for wheezing Last Admin: 11/08/21 05:00 Dose: 2 puff Documented By: HENRY Atorvastatin Calcium (Atorvastatin Calcium 10 Mg Tablet) 10 mg PO BEDTIME [facility] Last Admin: 11/08/21 20:55 Dose: 10 mg Documented By: JEWELS Diazepam (Diazepam 5 Mg Tablet) 5 mg PO TID PRN PRN Reason: Anxiety Last Admin: 11/08/21 20:56 Dose: 5 mg Documented By: JEWELS Digoxin (Digoxin 0.125 Mg Tablet) 0.125 mg PO MoWeFr@0900 [facility] Last Admin: 11/09/21 10:10 Dose: 0.125 mg Documented By: JOSE Haloperidol (Haloperidol 1 Mg Tablet) 1 mg PO TID [facility] Last Admin: 11/09/21 10:11 Dose: 1 mg Documented By: JOSE Midodrine (Midodrine Hcl 10 Mg Tablet) 10 mg PO TID [facility] Last Admin: 11/09/21 10:10 Dose: 10 mg Documented By: JOSE Ondansetron HCl (Ondansetron Hcl 4 Mg/2 Ml Vial) 4 mg IVPUSH Q8H PRN PRN Reason: Nausea and Vomiting Sertraline HCl (Sertraline Hcl 100 Mg Tablet) 100 mg PO DAILY [facility] Last Admin: 11/09/21 10:10 Dose: 100 mg Documented By: JOSE Sodium Chloride (0.9 % Sodium Chloride Flush 3 Ml Syringe) 3 ml IVFLUSH QSHIFT [facility] Last Admin: 11/09/21 07:53 Dose: Not Given Documented By: JOSE Non-Admin Reason: See Note Sucralfate (Sucralfate 1 Gm Tablet) 2 gm PO DAILY [facility] Last Admin: 11/09/21 10:11 Dose: 2 gm Documented By: JOSE Tamsulosin HCl (Tamsulosin Hcl 0.4 Mg Capsule) 0.4 mg PO BEDTIME [facility] Last Admin: 11/08/21 20:55 Dose: 0.4 mg Documented By: JEWELS Tiotropium [place] (Tiotropium [place] 18 Mcg Cap.W.Dev) 1 puff INHALE RDAILY [facility] Last Admin: 11/09/21 10:18 Dose: Not Given Documented By: JOSE Non-Admin Reason: Patient Refused Vitamin D (Cholecalciferol (Vitamin D3) 25 Mcg Tablet) 50 mcg PO DAILY [facility] Last Admin: 11/09/21 10:10 Dose: 50 mcg Documented By: JOSE Warfarin Sodium (Warfarin Sodium 5 Mg Tablet) 5 mg PO DAILY@1800 [facility] Last Admin: 11/08/21 16:22 Dose: 5 mg Documented By: REAL Labs CBC & Chem 7: 11/06/21 06:22 11/06/21 06:22 Labs: Laboratory Results - last 24 hr 11/09/21 06:41 PT 19.1 H INR 1.6 H Assessment and Plan (1) Supratherapeutic INR: Status: Acute Plan 76-year-old male with history of AFib on Coumadin presents to the hospital with a fall found to have INR of 26 # supratherapeutic INR (initially), now subtherapeutic s/p vit K in the ED Probably multifactorial including poor nutrition as well as noncompliance, inappropriate dosing of Coumadin continue coumadin (INR slowly increasing) # lung nodule seen on chest x-ray concerning for malignancy will need outpatient f/u with hematology/oncology # frequent falls - likely deconditioned as well as secondary to malnutrition - will consult PT OT -- STR recommended # AAA - 6 cm in size making a very prone to rupture and bleed specially in the setting of supratherapeutic INR - patient follows with vascular surgery outpatient - f/u with them #poor insight psych consult completed -- lacks insight, HCP envoked #A. fib continue baseline meds, dose coumadin pending INR #chronic HFrEF Unable to tolerate neurohormonal due to orthostatic hypotension for which he is on midodrine #chronic anemia slightly lower than baseline, no evidence of bleeding monitor #CKD3 baseline #COPD inhalers Full Code DVT pptx -- on coumadin dispo: STR once bed available Requires hospitalization pending accepting facility Quality Stroke Does the patient have a stroke diagnosis?: No VTE Prior VTE?: No VTE Risk Level:: Medical - moderate - high VTE Device Contraindication: Treatment Not Tolerated VTE Drug Contraindication: N/A - Med Ordered
--- NOTE | 2021-11-09 15:48 | PC.NURSE ---
informed pt tele rhythm change while tachy up to 112. placed order for stat labs. will continue to assess. safety and fall precautions in place. call leyva within reach. pt repo'ed Q2.
[2021-11-09] MEDS: diazePAM 5 MG TABLET PO ×2 (15:55→22:17)
[2021-11-09 16:43] LABS: Anion Gap 12 (12-20); Blood Urea Nitrogen 31 mg/dL (9-16); Calcium 8.7 mg/dL (8.4-10.2); Carbon Dioxide 24 mmol/L (22-29); Chloride 108 mmol/L (96-108); Creatinine Clr Calc Pharmacy 32.2; Estimated Glomerular Filt Rate 45; Glucose Random 95 mg/dL (60-115); Magnesium 1.8 mg/dL (1.6-2.6); Potassium 4.4 mmol/L (3.3-5.1); Sodium 140 mmol/L (135-145)
[2021-11-09] MEDS: Warfarin Sodium 5 MG TABLET PO (17:48)
[2021-11-09] MEDS: Atorvastatin Calcium 10 MG TABLET PO (22:12)
[2021-11-09] MEDS: Tamsulosin HCL 0.4 MG CAPSULE PO (22:12)
[2021-11-09] MEDS: 0.9 % Sodium Chloride Flush 3 ML SYRINGE IVFLUSH (22:13)
[2021-11-10] VITALS (7 sets, daily range): BP systolic 105–160; BP diastolic 58–87; PULSE 73–80; RESP 16–19; TEMP 36.2–37; O2SAT 93–98
[2021-11-10 07:30] LABS: INTERNATIONAL NORM RATIO 2.5 (0.9-1.1)
[2021-11-10] MEDS: 0.9 % Sodium Chloride Flush 3 ML SYRINGE IVFLUSH ×3 (09:40→19:54)
[2021-11-10] MEDS: Cholecalciferol (Vitamin D3) 25 MCG TABLET 50 MCG PO (09:50)
[2021-11-10] MEDS: Sucralfate 1 GM TABLET 2 GM PO (09:50)
[2021-11-10] MEDS: Sertraline HCL 100 MG TABLET PO (09:50)
[2021-11-10] MEDS: HaloperidoL 1 MG TABLET PO ×3 (09:50→19:54)
[2021-11-10] MEDS: Midodrine HCl 10 MG TABLET PO ×2 (09:51→19:54)
--- NOTE | 2021-11-10 11:50 | P.PNIM_ITS ---
Subjective Subjective Date of Service: 11/10/21 Interval History: seen and examined this AM he does not have any complaints eating breakfast Review of Systems negative except HPI Physical Exam Vital Signs: Vital Signs: Last Vital Signs Temp 97.7 F 11/10/21 11:40 Pulse 76 11/10/21 11:40 Resp 16 11/10/21 11:40 BP 111/63 11/10/21 11:40 Pulse Ox 97 11/10/21 11:40 O2 Del Method 11/10/21 11:40 O2 Flow Rate 2 11/10/21 11:40 BMI result Body Mass Index 19.6 Const: Other: General - no acute distress, appears comfortable, cachectic in appearance Cardiovascular - regular rate and rhythm, S1-S2 Lungs - normal respiratory effort, clear to auscultation bilaterally, no wheezing Abdomen - soft, nontender, no rebound or guarding Extremities - no edema bilaterally Neuro - awake and alert, no focal deficits Psych - poor insight skin - various areas of bruising on body, in differing stages Objective Data Active Medications Acetaminophen (Acetaminophen 325 Mg Tablet) 650 mg PO Q6H PRN PRN Reason: Pain, Mild (Pain Scale 1-3) Albuterol Sulfate (Albuterol Sulfate 90 Mcg 8 Gm Inhaler) 2 puff INHALE QID PRN PRN Reason: for wheezing Last Admin: 11/08/21 05:00 Dose: 2 puff Documented By: HENRY Atorvastatin Calcium (Atorvastatin Calcium 10 Mg Tablet) 10 mg PO BEDTIME [facility] Last Admin: 11/09/21 22:12 Dose: 10 mg Documented By: SCHUYLER Diazepam (Diazepam 5 Mg Tablet) 5 mg PO TID PRN PRN Reason: Anxiety Last Admin: 11/09/21 22:17 Dose: 5 mg Documented By: SCHUYLER Digoxin (Digoxin 0.125 Mg Tablet) 0.125 mg PO MoWeFr@0900 [facility] Last Admin: 11/09/21 10:10 Dose: 0.125 mg Documented By: JOSE Haloperidol (Haloperidol 1 Mg Tablet) 1 mg PO TID [facility] Last Admin: 11/10/21 09:50 Dose: 1 mg Documented By: FARHAT Midodrine (Midodrine Hcl 10 Mg Tablet) 10 mg PO TID [facility] Last Admin: 11/10/21 09:51 Dose: 10 mg Documented By: FARHAT Ondansetron HCl (Ondansetron Hcl 4 Mg/2 Ml Vial) 4 mg IVPUSH Q8H PRN PRN Reason: Nausea and Vomiting Sertraline HCl (Sertraline Hcl 100 Mg Tablet) 100 mg PO DAILY [facility] Last Admin: 11/10/21 09:50 Dose: 100 mg Documented By: FARHAT Sodium Chloride (0.9 % Sodium Chloride Flush 3 Ml Syringe) 3 ml IVFLUSH QSHIFT [facility] Last Admin: 11/10/21 09:40 Dose: 3 ml Documented By: FARHAT Sucralfate (Sucralfate 1 Gm Tablet) 2 gm PO DAILY [facility] Last Admin: 11/10/21 09:50 Dose: 2 gm Documented By: FARHAT Tamsulosin HCl (Tamsulosin Hcl 0.4 Mg Capsule) 0.4 mg PO BEDTIME [facility] Last Admin: 11/09/21 22:12 Dose: 0.4 mg Documented By: SCHUYLER Tiotropium [place] (Tiotropium [place] 18 Mcg Cap.W.Dev) 1 puff INHALE RDAILY [facility] Last Admin: 11/10/21 09:40 Dose: 1 puff Documented By: FARHAT Vitamin D (Cholecalciferol (Vitamin D3) 25 Mcg Tablet) 50 mcg PO DAILY [facility] Last Admin: 11/10/21 09:50 Dose: 50 mcg Documented By: FARHAT Warfarin Sodium (Warfarin Sodium 1 Mg Tablet) 1 mg PO DAILY@1800 [facility] Labs CBC & Chem 7: 11/06/21 06:22 11/09/21 16:13 Labs: Laboratory Results - last 24 hr 11/09/21 11/10/21 16:13 06:31 PT 30.0 H INR 2.5 H Anion Gap 12 Estim Creat Clear Calc 32.2 Estimated GFR 45 Random Glucose 95 Calcium 8.7 D Magnesium 1.8 Assessment and Plan (1) Supratherapeutic INR: Status: Acute Plan 76-year-old male with history of AFib on Coumadin presents to the hospital with a fall found to have INR of 26 # supratherapeutic INR (initially), s/p vit K in the ED Probably multifactorial including poor nutrition as well as noncompliance, inappropriate dosing of Coumadin INR significantly elevated upon admission; subsequently subtherapeutic and now in the acceptable range -- however the rise is quiet rapid, will decrease his coumadin from 5mg daily to 1mg daily. I suspected he will need a lower daily dose given how quickly his INR [place] # lung nodule seen on chest x-ray concerning for malignancy will need outpatient f/u with hematology/oncology # frequent falls - likely deconditioned as well as secondary to malnutrition - will consult PT OT -- STR recommended # AAA - 6 cm in size making a very prone to rupture and bleed specially in the setting of supratherapeutic INR - patient follows with vascular surgery outpatient - f/u with them #poor insight psych consult completed -- lacks insight, HCP envoked #A. fib continue baseline meds, dose coumadin pending INR #chronic HFrEF Unable to tolerate neurohormonal due to orthostatic hypotension for which he is on midodrine #chronic anemia slightly lower than baseline, no evidence of bleeding monitor #CKD3 baseline #COPD inhalers Full Code DVT pptx -- on coumadin dispo: STR once bed available Requires hospitalization pending accepting facility; medically stable for d/c Quality Stroke Does the patient have a stroke diagnosis?: No VTE Prior VTE?: No VTE Risk Level:: Medical - moderate - high VTE Device Contraindication: Treatment Not Tolerated VTE Drug Contraindication: N/A - Med Ordered
--- NOTE | 2021-11-10 14:49 | MHC.CM.PN ---
CM CONTACTED PT'S SON/HCP YANNICK THOMAS AT 2:35PM, IMM REVIEWED AND TO BE EMAILED PER REQUEST TO [email or web address], YANNICK IS AGREEABLE TO D/C PLAN FOR TOMORROW AT 11AM TO [facility], TRANSPORTATION REFERRAL PLACED IN [facility]. CM WILL FOLLOW FOR ANT CHANGE IN DC NEEDS.
[2021-11-10] MEDS: Albuterol Sulfate 90 MCG 8 GM INHALER 2 PUFF INHALE (18:04)
[2021-11-10] MEDS: Warfarin Sodium 1 MG TABLET PO (18:14)
[2021-11-10] MEDS: Acetaminophen 325 MG TABLET 650 MG PO (18:24)
[2021-11-10] MEDS: Tamsulosin HCL 0.4 MG CAPSULE PO (19:54)
[2021-11-10] MEDS: diazePAM 5 MG TABLET PO (19:54)
[2021-11-10] MEDS: Atorvastatin Calcium 10 MG TABLET PO (19:54)
[2021-11-11] VITALS (7 sets, daily range): BP systolic 100–125; BP diastolic 57–73; PULSE 73–88; RESP 16–20; TEMP 36.2–36.8; O2SAT 91–96
[2021-11-11 07:01] LABS: INTERNATIONAL NORM RATIO 3.6 (0.9-1.1)
[2021-11-11] MEDS: Cholecalciferol (Vitamin D3) 25 MCG TABLET 50 MCG PO (09:36)
[2021-11-11] MEDS: Midodrine HCl 10 MG TABLET PO ×3 (09:36→21:05)
[2021-11-11] MEDS: HaloperidoL 1 MG TABLET PO ×3 (09:36→21:05)
[2021-11-11] MEDS: diazePAM 5 MG TABLET PO ×2 (09:37→21:12)
[2021-11-11] MEDS: Digoxin 0.125 MG TABLET PO (09:37)
[2021-11-11] MEDS: 0.9 % Sodium Chloride Flush 3 ML SYRINGE IVFLUSH ×3 (09:37→21:22)
[2021-11-11] MEDS: Sucralfate 1 GM TABLET 2 GM PO (09:37)
[2021-11-11] MEDS: Sertraline HCL 100 MG TABLET PO (09:37)
--- NOTE | 2021-11-11 11:51 | P.CDIC_ITS ---
CDI Concurrent Query Documentation Clarification: PHYSICIAN'S DOCUMENTATION REQUEST Date of Query: 11/11/21 1151 Patient Name: Aristides Lujan Admit Date: 11/06/21 Dear Doctor, A review of the medical record indicates additional documentation may be needed. Please review below and update the documentation accordingly. Clinical Indicators: Height: [] 5'6 Weight: [] 55.3 KG BMI: [] 19.7 Other Clinical Notes Supporting Significance of the BMI: Risk Factors/Clinical Indicators/Treatments per Clinical Nutrition Assessment 11/09/21: severely depleted subcutaneous fat and muscle mass. Chronic poor po intake, cachectic per MD ? If possible, please provide an associated diagnosis related to the abnormal BMI, such as: For a BMI <= 19: * Underweight * Weight loss * Cachexia * Anorexia * Malnutrition, please specify if mild, moderate or severe Or: * BMI is not significant * Other (please specify) * Unable to determine Use of terms such as suspected, likely, concern for, or probable (associated with a specific diagnosis that is being evaluated, monitored, or treated as if it exists) are acceptable and can be coded in the inpatient setting, when documented at the time of discharge. Thank you, Kristy Cartagena RN Extension: [phone] Please use your independent medical judgment in providing your response. THIS QUERY IS PART OF THE PERMANENT MEDICAL RECORD Provider Response: Other Other Diagnosis: BMI >19
--- NOTE | 2021-11-11 12:59 | MHC.CM.PN ---
Per MD D/C cancelled due to blood in the sputum. Gabriela Butler is willing to follow patient when med ready. CM will continue to follow for discharge planning.
--- NOTE | 2021-11-11 15:11 | MHC.CLN ---
PT IS SEVERELY MALNOURISHED SEE FULL CLINICAL NUTRITION ASSESSMENT DATED 11/09/21 PO 50% X 3 MEALS DIET RX: REGULAR-APPROPRIATE MD STARTED ENSURE ENLIVE TID PROVIDES 1020KCALS, 60G PROTEIN CONTINUE TO MONITOR PO INTAKE CLOSELY
--- NOTE | 2021-11-11 15:31 | HO.PM.IMPN ---
Subjective Subjective Date of Service: 11/11/21 Interval History: Seen and evaluated this morning Upon talking to the patient he coughed a clot of blood denies any difficulty breathing or having other episodes of bleeding No reported events overnight Review of Systems Review of Systems: Yes all other systems are reviewed and are negative Physical Exam Vital Signs: Vital Signs: Last Vital Signs Temp 97.4 F 11/11/21 15:01 Pulse 75 11/11/21 15:01 Resp 18 11/11/21 15:01 BP 102/57 L 11/11/21 15:01 Pulse Ox 94 11/11/21 15:01 O2 Del Method 11/11/21 15:01 O2 Flow Rate 2 11/11/21 03:31 BMI result Body Mass Index 19.6 Const: Other: General - no acute distress, appears comfortable, cachectic in appearance Cardiovascular - regular rate and rhythm, S1-S2 Lungs - normal respiratory effort, clear to auscultation bilaterally, no wheezing Abdomen - soft, nontender, no rebound or guarding Extremities - no edema bilaterally Neuro - awake and alert, no focal deficits Psych - poor insight skin - various areas of bruising on body, in differing stages Objective Data Active Medications Acetaminophen (Acetaminophen 325 Mg Tablet) 650 mg PO Q6H PRN PRN Reason: Pain, Mild (Pain Scale 1-3) Last Admin: 11/10/21 18:24 Dose: 650 mg Documented By: FARHAT Albuterol Sulfate (Albuterol Sulfate 90 Mcg 8 Gm Inhaler) 2 puff INHALE QID PRN PRN Reason: for wheezing Last Admin: 11/10/21 18:04 Dose: 2 puff Documented By: FARHAT Atorvastatin Calcium (Atorvastatin Calcium 10 Mg Tablet) 10 mg PO BEDTIME [facility] Last Admin: 11/10/21 19:54 Dose: 10 mg Documented By: SCHUYLER Diazepam (Diazepam 5 Mg Tablet) 5 mg PO TID PRN PRN Reason: Anxiety Last Admin: 11/11/21 09:37 Dose: 5 mg Documented By: REAL Digoxin (Digoxin 0.125 Mg Tablet) 0.125 mg PO MoWeFr@0900 [facility] Last Admin: 11/11/21 09:37 Dose: 0.125 mg Documented By: REAL Haloperidol (Haloperidol 1 Mg Tablet) 1 mg PO TID [facility] Last Admin: 11/11/21 09:36 Dose: 1 mg Documented By: REAL Midodrine (Midodrine Hcl 10 Mg Tablet) 10 mg PO TID [facility] Last Admin: 11/11/21 09:36 Dose: 10 mg Documented By: REAL Ondansetron HCl (Ondansetron Hcl 4 Mg/2 Ml Vial) 4 mg IVPUSH Q8H PRN PRN Reason: Nausea and Vomiting Sertraline HCl (Sertraline Hcl 100 Mg Tablet) 100 mg PO DAILY [facility] Last Admin: 11/11/21 09:37 Dose: 100 mg Documented By: ERAL Sodium Chloride (0.9 % Sodium Chloride Flush 3 Ml Syringe) 3 ml IVFLUSH QSHIFT [facility] Last Admin: 11/11/21 09:37 Dose: 3 ml Documented By: REAL Sucralfate (Sucralfate 1 Gm Tablet) 2 gm PO DAILY [facility] Last Admin: 11/11/21 09:37 Dose: 2 gm Documented By: REAL Tamsulosin HCl (Tamsulosin Hcl 0.4 Mg Capsule) 0.4 mg PO BEDTIME [facility] Last Admin: 11/10/21 19:54 Dose: 0.4 mg Documented By: SCHUYLER Tiotropium [place] (Tiotropium [place] 18 Mcg Cap.W.Dev) 1 puff INHALE RDAILY [facility] Last Admin: 11/11/21 08:13 Dose: 1 puff Documented By: YUNG Vitamin D (Cholecalciferol (Vitamin D3) 25 Mcg Tablet) 50 mcg PO DAILY [facility] Last Admin: 11/11/21 09:36 Dose: 50 mcg Documented By: REAL Warfarin Sodium (Warfarin Sodium 1 Mg Tablet) 1 mg PO DAILY@1800 [facility] Last Admin: 11/10/21 18:14 Dose: 1 mg Documented By: BUTCH-EDLEK Labs CBC & Chem 7: 11/06/21 06:22 11/09/21 16:13 Labs: Laboratory Results - last 24 hr 11/11/21 06:36 PT 44.0 H INR 3.6 H Assessment and Plan (1) Supratherapeutic INR: Status: Acute (2) Lung nodule seen on imaging study: Status: Acute (3) Hemoptysis: Status: Acute Plan 76-year-old male with history of AFib on Coumadin presents to the hospital with a fall found to have INR of 26 # hemoptysis INR mildly elevated at 3.[address] scan with contrast to evaluate for possible mass reported on x-ray Get pulmonology evaluation Hold warfarin for now # supratherapeutic INR (initially), s/p vit K in the ED Probably multifactorial including poor nutrition as well as noncompliance, inappropriate dosing of Coumadin INR significantly elevated upon admission; subsequently subtherapeutic and now in the acceptable range -- for rapid rise his coumadin decreased from 5mg daily to 1mg daily but still increased to 3.5 Consider even lower dose of warfarin upon restarting it # lung nodule seen on chest x-ray concerning for malignancy will need outpatient f/u with hematology/oncology # frequent falls likely deconditioned as well as secondary to malnutrition will consult PT OT -- STR recommended # AAA 6 cm in size making a very prone to rupture and bleed specially in the setting of supratherapeutic INR patient follows with vascular surgery outpatient - f/u with them #poor insight psych consult completed -- lacks insight, HCP envoked #A. fib continue baseline meds, dose coumadin pending INR #chronic HFrEF Unable to tolerate neurohormonal due to orthostatic hypotension for which he is on midodrine #chronic anemia slightly lower than baseline, no evidence of bleeding monitor #CKD3 baseline #COPD inhalers Full Code DVT pptx -- on coumadin dispo: STR once bed available if pending further evaluation for an episode of hemoptysis Quality Stroke Does the patient have a stroke diagnosis?: No VTE Prior VTE?: No VTE Risk Level:: Medical - moderate - high VTE Device Contraindication: Treatment Not Tolerated VTE Drug Contraindication: N/A - Med Ordered
[2021-11-11 18:07] LABS: COVID-19 Test Negative (Negative)
--- NOTE | 2021-11-11 18:09 | P.CONPL_ITS ---
History of Present Illness History of Present Illness Consult date: 11/11/21 Chief complaint: Supratherapeutic INR Narrative: This is an inpatient pulmonary consultation. This is a 76-year-old male with past medical history of AAA, AFib on Coumadin, COPD, history of GI bleed, history of IBD, history of systolic CHF, severe protein calorie malnutrition who returns to the hospital with complaints of fall.? Patient had a prolonged hospital stay sometime in August discharged on September 28 after also presenting on September 05 with frequent falls The patient returns stating that he had a fall, and his would not help him get out of bed to use the bathroom therefore he called EMS.?He reports compliance with his warfarin, he denies having any bloody bowel movements, no chest pain, no abdominal pain, nausea or vomiting, no diarrhea constipation, no urinary symptoms.? He reports that ever since being taking of Valium he has been very unsteady on his gait. On arrival to the ED patient hemodynamically stable with no significant abnormal vitalsLabs are significant for hemoglobin of 8.8, hematocrit 27.9 with a hemoglobin of 9.7 on 09/05. Chest x-ray Personally by me, shows persistent nodular opacities in the right lower lung since the prior august chest CT concerning for neoplasm/malignancy, patchy opacities in the right midlung concerning for infectious etiology. He was started on antibiotics. While in hospital the patient started developing some hemoptysis so therefore Pulmonary was consulted. During my evaluation patient patient cough and no sputum came up. He states that his minimal sputum mixed in with a little blood. Currently is on room air. His INR is currently suprath erapeutic. Which may be also contributing to the bleeding. Review of Systems Constitutional: Constitutional: Denies night sweats ENT: Denies change in voice, Denies lip swelling, Denies mouth pain, Reports nasal congestion, Reports nasal discharge and Denies tongue swelling Cardiovascular: Cardiovascular: Denies chest pain and Reports dyspnea Respiratory: Respiratory: Reports cough, Reports hemoptysis (scant) and Reports dyspnea Gastrointestinal: Gastrointestinal: Denies abdominal pain, Reports dyspepsia, Reports nausea and Reports vomiting Musculoskeletal: Musculoskeletal: Denies no additional musculoskeletal complaints Neurologic: Denies Neuro-related abnormal movements Psychiatric: Psychiatric: Denies no additional psychiatric complaints Hematologic/Lymphatic: Hematologic/Lymphatic: Denies easy bleeding and Denies lymphadenopathy Allergic/Immunologic: Allergic/Immunologic: Denies lip swelling and Denies tongue swelling [facility] Past Medical History Medical History (Updated 11/11/21 @ 18:17 by Juan Alberto Mckinney MD) AAA (abdominal aortic aneurysm) without rupture Abdominal aortic aneurysm Anticoagulated on warfarin Atrial fibrillation Bacteremia Bronchopneumonia COPD (chronic obstructive pulmonary disease) COPD exacerbation Cough with hemoptysis Fall GI bleed Hemoptysis History of epigastric pain Hypotension Irritable bowel syndrome with diarrhea Kidney disease, chronic, stage III (GFR 30-59 ml/min) Need for rapid response team activation Pleural effusion Severe protein-calorie malnutrition Severe sepsis Systolic congestive heart failure Family History Family History Father Myocardial infarction CVD (cardiovascular disease) Mother Myocardial infarction Type 2 diabetes mellitus CVD (cardiovascular disease) Brother Heart failure Brother Heart failure Sister No problems noted. Son No problems noted. Surgical History Surgical History History of esophagogastroduodenoscopy (EGD) History of open heart surgery Hx of appendectomy Hx of arterial bypass of lower limb Hx of cholecystectomy Hx of colonoscopy Hx of esophageal hernia repair Hx of tonsillectomy Social History Social History Household Members: Spouse Household Members Other:: Kyra. Housing: House Do you presently have visiting nurse or other home services: Yes Alcohol intake: never Patient Tobacco Use Status: Former Tobacco user Quit Date: Quit 15 years ago. Tobacco use type: Cigarette Cigarette Packs Per Day: 1 Cigarettes Per Day: 20.0 Years Smoked: Quit 15 years ago. e-Cigarette/Vaping Use: Never Used Second Hand Smoke Exposure: No Advance Directives Date on File: 09/25/21 service: Yes Current occupational status: retired Current occupational exposures/hazards: No Sexual orientation: Straight/Heterosexual Meds Allergies Allergy/AdvReac Type Severity Reaction Status Date / Time codeine [Codeine] Allergy Intermediate RASH Verified 11/05/21 21:53 fludrocortisone Allergy Unknown Unknown Verified 11/05/21 21:53 Active Medications: Current Medications Acetaminophen (Acetaminophen 325 Mg Tablet) 650 mg PO Q6H PRN PRN Reason: Pain, Mild (Pain Scale 1-3) Last Admin: 11/10/21 18:24 Dose: 650 mg Albuterol Sulfate (Albuterol Sulfate 90 Mcg 8 Gm Inhaler) 2 puff INHALE QID PRN PRN Reason: for wheezing Last Admin: 11/10/21 18:04 Dose: 2 puff Atorvastatin Calcium (Atorvastatin Calcium 10 Mg Tablet) 10 mg PO BEDTIME [facility] Last Admin: 11/10/21 19:54 Dose: 10 mg Diazepam (Diazepam 5 Mg Tablet) 5 mg PO TID PRN PRN Reason: Anxiety Last Admin: 11/11/21 09:37 Dose: 5 mg Digoxin (Digoxin 0.125 Mg Tablet) 0.125 mg PO MoWeFr@0900 [facility] Last Admin: 11/11/21 09:37 Dose: 0.125 mg Haloperidol (Haloperidol 1 Mg Tablet) 1 mg PO TID [facility] Last Admin: 11/11/21 16:24 Dose: 1 mg Midodrine (Midodrine Hcl 10 Mg Tablet) 10 mg PO TID [facility] Last Admin: 11/11/21 16:24 Dose: 10 mg Ondansetron HCl (Ondansetron Hcl 4 Mg/2 Ml Vial) 4 mg IVPUSH Q8H PRN PRN Reason: Nausea and Vomiting Sertraline HCl (Sertraline Hcl 100 Mg Tablet) 100 mg PO DAILY [facility] Last Admin: 11/11/21 09:37 Dose: 100 mg Sodium Chloride (0.9 % Sodium Chloride Flush 3 Ml Syringe) 3 ml IVFLUSH QSHIFT [facility] Last Admin: 11/11/21 16:26 Dose: 3 ml Sucralfate (Sucralfate 1 Gm Tablet) 2 gm PO DAILY [facility] [place] Last Admin: 11/11/21 09:37 Dose: 2 gm Tamsulosin HCl (Tamsulosin Hcl 0.4 Mg Capsule) 0.4 mg PO BEDTIME [facility] [place] Last Admin: 11/10/21 19:54 Dose: 0.4 mg Tiotropium [place] (Tiotropium [place] 18 Mcg Cap.W.Dev) 1 puff INHALE RDAILY [facility] Last Admin: 11/11/21 08:13 Dose: 1 puff Vitamin D (Cholecalciferol (Vitamin D3) 25 Mcg Tablet) 50 mcg PO DAILY [facility] [place] Last Admin: 11/11/21 09:36 Dose: 50 mcg Warfarin Sodium (Warfarin Sodium 1 Mg Tablet) 1 mg PO DAILY@1800 [facility] Last Admin: 11/10/21 18:14 Dose: 1 mg Home Medications Medication Instructions Recorded Confirmed Last Taken Type tiotropium bromide 18 mcg capsule 1 puff inhalation DAILY 10/02/20 11/06/2102/12 History with inhalation device (Spiriva with HandiHaler) digoxin 125 mcg (0.125 mg) tablet 1 tab PO MOWEFR@0900 11/06/21 11/06/21 Unknown History warfarin 5 mg tablet 1 tab PO DAILY@1800 11/06/21 11/06/21 Unknown History trazodone 50 mg tablet 1 tab PO BEDTIME PRN insomnia 11/07/21 11/07/21 Unknown History Physical Exam Vital Signs: Vital Signs: Last Vital Signs Temp 97.4 F 11/11/21 15:01 Pulse 75 11/11/21 15:01 Resp 18 11/11/21 15:01 BP 102/57 L 11/11/21 15:01 Pulse Ox 94 11/11/21 15:01 O2 Del Method 11/11/21 15:01 O2 Flow Rate 2 11/11/21 03:31 BMI result Body Mass Index 19.6 Const: General: no acute distress, ill appearing and tired appearing Nutritional Appearance: underweight Neck: Neck: Yes normal visual inspection, Yes full ROM and Yes no lymphadenopathy Chest: Chest palpation & inspection: normal inspection of the chest Resp: Auscultation: diminished lung sounds Cardio: Rate: regular rate Rhythm: regular rhythm Heart sounds: S1 normal heart sound present and S2 normal heart sound present GI: Palpation (GI): Soft to palpation and nontender Auscultation: normal bowel sounds Skin: General skin exam: rashes and/or lesions noted Results Laboratory Findings CBC and BMP: 11/06/21 06:22 11/09/21 16:13 ABG, PT/INR, D-dimer: PT/INR, D-dimer PT 44.0 SEC (10.0-13.1) H 11/11/21 06:36 INR 3.6 (0.9-1.1) H 11/11/21 06:36 Abnormal lab findings: Abnormal Labs 11/05/21 11/05/21 11/05/21 22:19 22:19 22:20 RBC 3.28 L Hgb 8.8 L Hct 27.9 L MCH 26.8 L MPV 8.5 L Immature Gran % (Auto) 0.5 H Neut % (Auto) 75.0 H Lymph % (Auto) 11.8 L Eos % (Auto) Lymph # (Auto) 0.8 L Abs Immat Gran (auto) PT > 320.0 H INR > 26.0 H* D APTT Chloride Anion Gap BUN 23 H Creatinine 1.71 H Calcium 8.1 L Total Creatine Kinase 231 H D Total Protein 6.0 L Albumin 3.3 L 11/05/21 11/05/21 11/06/21 23:42 23:42 06:22 RBC 2.95 L Hgb 7.9 L Hct 25.2 L MCH 26.8 L MPV 9.2 L Immature Gran % (Auto) 0.8 H Neut % (Auto) Lymph % (Auto) 15.4 L Eos % (Auto) 4.4 H Lymph # (Auto) 1.0 L Abs Immat Gran (auto) 0.05 H PT > 320.0 H INR > 26.0 H* APTT 133.1 H* Chloride Anion Gap BUN Creatinine Calcium Total Creatine Kinase Total Protein Albumin 11/06/21 11/06/21 11/07/21 06:22 06:22 09:21 RBC Hgb Hct MCH MPV Immature Gran % (Auto) Neut % (Auto) Lymph % (Auto) Eos % (Auto) Lymph # (Auto) Abs Immat Gran (auto) PT 42.0 H 14.3 H INR 3.5 H D 1.2 H D APTT Chloride 109 H Anion Gap 11 L BUN 20 H Creatinine 1.45 H Calcium 7.9 L Total Creatine Kinase Total Protein Albumin 11/08/21 11/09/21 11/09/21 06:03 06:41 16:13 RBC Hgb Hct MCH MPV Immature Gran % (Auto) Neut % (Auto) Lymph % (Auto) Eos % (Auto) Lymph # (Auto) Abs Immat Gran (auto) PT 14.1 H 19.1 H INR 1.2 H 1.6 H APTT Chloride Anion Gap BUN 31 H D Creatinine 1.50 H Calcium Total Creatine Kinase Total Protein Albumin 11/10/21 11/11/21 06:31 06:36 RBC Hgb Hct MCH MPV Immature Gran % (Auto) Neut % (Auto) Lymph % (Auto) Eos % (Auto) Lymph # (Auto) Abs Immat Gran (auto) PT 30.0 H 44.0 H INR 2.5 H 3.6 H APTT Chloride Anion Gap BUN Creatinine Calcium Total Creatine Kinase Total Protein Albumin Assessment and Plan (1) Hemoptysis: Status: Acute (2) Supratherapeutic INR: Status: Acute (3) Lung nodule seen on imaging study: Status: Acute (4) COPD (chronic obstructive pulmonary disease): Status: Acute Plan Reversing coumadin, monitor INR Continue antibiotics CT chest to address abnormal opacity Legionella/strep Ur Ag Procedures Date of Service Date of Service: 11/11/21
[2021-11-11] MEDS: iohexoL 350 MG/ML 100 ML INFUS..BTL IV (18:39)
[2021-11-11] MEDS: Atorvastatin Calcium 10 MG TABLET PO (21:04)
[2021-11-11] MEDS: Tamsulosin HCL 0.4 MG CAPSULE PO (21:04)
[2021-11-12] VITALS (7 sets, daily range): BP systolic 99–134; BP diastolic 54–79; PULSE 73–80; RESP 16–18; TEMP 36.3–36.8; O2SAT 90–100
[2021-11-12 06:55] LABS: Hematocrit 26.4 % (42.0-52.0); Hemoglobin 8.2 g/dl (14.0-18.0); Mean Corpuscular HGB Conc 31.1 g/dl (31.0-36.0); Mean Corpuscular Hemoglobin 26.7 pg (27.0-33.0); Mean Platelet Volume 9.3 fL (9.4-12.4); Platelet Count 195 X10*3/uL (160-400); Red Blood Count 3.07 X10*6/uL (4.60-5.80); Red Cell Distribution Width 16.5 % (11.0-16.0); White Blood Count 8.2 X10*3/uL (4.8-10.8)
[2021-11-12 06:57] LABS: INTERNATIONAL NORM RATIO 3.7 (0.9-1.1); Prothrombin Time 44.3 SEC (10.0-13.1)
[2021-11-12 07:19] LABS: Anion Gap 13 (12-20); Blood Urea Nitrogen 35 mg/dL (9-16); Calcium 8.5 mg/dL (8.4-10.2); Carbon Dioxide 25 mmol/L (22-29); Chloride 106 mmol/L (96-108); Creatinine Clr Calc Pharmacy 28.9; Estimated Glomerular Filt Rate 40; Glucose Random 75 mg/dL (60-115); Potassium 4.2 mmol/L (3.3-5.1); Sodium 140 mmol/L (135-145)
[2021-11-12] MEDS: 0.9 % Sodium Chloride Flush 3 ML SYRINGE IVFLUSH ×3 (09:11→21:19)
[2021-11-12] MEDS: Acetaminophen 325 MG TABLET 650 MG PO (09:11)
[2021-11-12] MEDS: Sucralfate 1 GM TABLET 2 GM PO (09:12)
[2021-11-12] MEDS: Cholecalciferol (Vitamin D3) 25 MCG TABLET 50 MCG PO (09:12)
[2021-11-12] MEDS: HaloperidoL 1 MG TABLET PO ×3 (09:12→21:18)
[2021-11-12] MEDS: Midodrine HCl 10 MG TABLET PO ×3 (09:12→21:18)
[2021-11-12] MEDS: Sertraline HCL 100 MG TABLET PO (09:12)
[2021-11-12] MEDS: Phytonadione (Vit K1) Oral 10 MG/ML AMPUL 5 MG PO (14:05)
--- NOTE | 2021-11-12 14:15 | P.PNIM_ITS ---
Subjective Subjective Date of Service: 11/12/21 Interval History: Complaining of persistent cough but better coughed up small amount of blood this morning, denies fever chills, no nausea, no vomiting, no diarrhea, requesting for Valium, no other acute issues overnight, Review of Systems Review of Systems: Yes all other systems are reviewed and are negative Physical Exam Vital Signs: Vital Signs: Last Vital Signs Temp 97.5 F 11/12/21 11:34 Pulse 74 11/12/21 11:34 Resp 16 11/12/21 11:34 BP 102/60 11/12/21 11:34 Pulse Ox 94 11/12/21 11:34 O2 Del Method 11/12/21 11:34 O2 Flow Rate 2 11/12/21 11:34 BMI result Body Mass Index 19.6 Const: Other: General - no acute distress, appears comfortable, cach ectic in appearanc e Neck no JVD Card iovascular - regul ar rate and rhythm , S1-S2/pacemaker left anterior ches t wall Lungs - nor mal respiratory ef fort, clear to aus cultation bilatera lly, no wheezing A bdomen - soft, non tender, no rebound or guarding Extre mities - no edema bilaterally Neuro - awake and alert, no focal deficits Psych - poor insi ght skin - fading bruises Objective Data Active Medications Acetaminophen (Acetaminophen 325 Mg Tablet) 650 mg PO Q6H PRN PRN Reason: Pain, Mild (Pain Scale 1-3) Last Admin: 11/12/21 09:11 Dose: 650 mg Documented By: REAL Albuterol Sulfate (Albuterol Sulfate 90 Mcg 8 Gm Inhaler) 2 puff INHALE QID PRN PRN Reason: for wheezing Last Admin: 11/10/21 18:04 Dose: 2 puff Documented By: FARHAT Atorvastatin Calcium (Atorvastatin Calcium 10 Mg Tablet) 10 mg PO BEDTIME [facility] Last Admin: 11/11/21 21:04 Dose: 10 mg Documented By: HENRY Diazepam (Diazepam 5 Mg Tablet) 5 mg PO BID PRN PRN Reason: Anxiety Digoxin (Digoxin 0.125 Mg Tablet) 0.125 mg PO MoWeFr@0900 [facility] Last Admin: 11/11/21 09:37 Dose: 0.125 mg Documented By: REAL Haloperidol (Haloperidol 1 Mg Tablet) 1 mg PO TID [facility] Last Admin: 11/12/21 14:09 Dose: 1 mg Documented By: REAL Midodrine (Midodrine Hcl 10 Mg Tablet) 10 mg PO TID [facility] Last Admin: 11/12/21 14:05 Dose: 10 mg Documented By: REAL Ondansetron HCl (Ondansetron Hcl 4 Mg/2 Ml Vial) 4 mg IVPUSH Q8H PRN PRN Reason: Nausea and Vomiting Sertraline HCl (Sertraline Hcl 100 Mg Tablet) 100 mg PO DAILY [facility] Last Admin: 11/12/21 09:12 Dose: 100 mg Documented By: REAL Sodium Chloride (0.9 % Sodium Chloride Flush 3 Ml Syringe) 3 ml IVFLUSH QSHIFT [facility] Last Admin: 11/12/21 09:11 Dose: 3 ml Documented By: REAL Sucralfate (Sucralfate 1 Gm Tablet) 2 gm PO DAILY [facility] Last Admin: 11/12/21 09:12 Dose: 2 gm Documented By: REAL Tamsulosin HCl (Tamsulosin Hcl 0.4 Mg Capsule) 0.4 mg PO BEDTIME [facility] Last Admin: 11/11/21 21:04 Dose: 0.4 mg Documented By: HENRY Tiotropium [place] (Tiotropium [place] 18 Mcg Cap.W.Dev) 1 puff INHALE RDAILY [facility] Last Admin: 11/12/21 09:27 Dose: 1 puff Documented By: ANNE-MARIE Vitamin D (Cholecalciferol (Vitamin D3) 25 Mcg Tablet) 50 mcg PO DAILY [facility] Last Admin: 11/12/21 09:12 Dose: 50 mcg Documented By: REAL Labs CBC & Chem 7: 11/12/21 06:09 11/12/21 06:09 Labs: Laboratory Results - last 24 hr 11/11/21 11/12/21 11/12/21 17:30 06:09 06:09 MCV 86.0 MCH 26.7 L MCHC 31.1 RDW 16.5 H Plt Count 195 MPV 9.3 L Absolute Nucleated RBC 0.000 Nucleated RBC % (auto) 0.0 PT 44.3 H INR 3.7 H Anion Gap Estim Creat Clear Calc Estimated GFR Random Glucose Calcium COVID-19 (SHANDA) Negative COVID-19 Clin Com See Note 11/12/21 06:09 MCV MCH MCHC RDW Plt Count MPV Absolute Nucleated RBC Nucleated RBC % (auto) PT INR Anion Gap 13 Estim Creat Clear Calc 28.9 Estimated GFR 40 Random Glucose 75 Calcium 8.5 COVID-19 (SHANDA) COVID-19 Clin Com Assessment and Plan (1) Supratherapeutic INR: Status: Acute (2) Lung nodule seen on imaging study: Status: Acute (3) Hemoptysis: Status: Acute Plan 76-year-old male with history of AFib on Coumadin presents to the hospital with a fall found to have INR of 26 # hemoptysis Only 1 episode this a.m.INR 3.7 CT chest showed multiple pulmonary nodules, moderate right pleural effusion, right lower lobe airspace disease on worse from before Case discussed with pulmonology will proceed with right thoracocentesis once INR is below 1.7 Will DC Coumadin follow PT INR # supratherapeutic INR Give vitamin K 5 mg, hold Coumadin Probably multifactorial including poor nutrition , inappropriate dosing of Coumadin INR significantly elevated upon admission; subsequently subtherapeutic and now elevated # frequent falls likely deconditioned as well as secondary to malnutrition PT recommend STR /patient refused to participate with PT # AAA 6 cm in size patient follows with vascular surgery outpatient recommend close follow-up #poor insight psych consult completed -- lacks insight, HCP envoked #A. fib continue baseline meds, coumadin on hold to undergo thoracocentesis #chronic HFrEF Unable to tolerate neurohormonal due to orthostatic hypotension for which he is on midodrine #chronic anemia Hematocrit stable , no evidence of bleeding monitor #CKD3 baseline #COPD No acute exacerbation, continue inhalers Full Code DVT pptx --supratherapeutic INR dispo: STR once bed available Need continued inpatient hospitalization for further workup for multiple pulmonary nodules pleural effusion and elevated INR Quality Stroke Does the patient have a stroke diagnosis?: No VTE Prior VTE?: No VTE Risk Level:: Medical - moderate - high VTE Device Contraindication: Treatment Not Tolerated VTE Drug Contraindication: N/A - Med Ordered
[2021-11-12] MEDS: Atorvastatin Calcium 10 MG TABLET PO (21:18)
[2021-11-12] MEDS: diazePAM 5 MG TABLET PO (21:18)
[2021-11-12] MEDS: Tamsulosin HCL 0.4 MG CAPSULE PO (21:20)
[2021-11-13 03:09] VITALS: BP 126/78; PULSE 86; RESP 17; TEMP 36.2; O2SAT 91
[2021-11-13 07:20] LABS: INTERNATIONAL NORM RATIO 1.5 (0.9-1.1); Prothrombin Time 17.3 SEC (10.0-13.1)
[2021-11-13 08:00] VITALS: BP 124/70; PULSE 72; RESP 16; TEMP 36.2; O2SAT 96
[2021-11-13] MEDS: Cholecalciferol (Vitamin D3) 25 MCG TABLET 50 MCG PO (10:13)
[2021-11-13] MEDS: 0.9 % Sodium Chloride Flush 3 ML SYRINGE IVFLUSH ×3 (10:13→20:48)
[2021-11-13] MEDS: Sucralfate 1 GM TABLET 2 GM PO (10:13)
[2021-11-13] MEDS: Sertraline HCL 100 MG TABLET PO (10:14)
[2021-11-13] MEDS: HaloperidoL 1 MG TABLET PO ×3 (10:14→20:48)
[2021-11-13] MEDS: Midodrine HCl 10 MG TABLET PO ×3 (10:14→20:48)
[2021-11-13] MEDS: Digoxin 0.125 MG TABLET PO (10:14)
[2021-11-13] MEDS: diazePAM 5 MG TABLET PO (10:33)
[2021-11-13] MEDS: Lidocaine HCl 1 % MPF 5 ML VIAL SUBCUT (11:22)
[2021-11-13 12:00] VITALS: BP 115/68; PULSE 86; RESP 18; TEMP 36.4; O2SAT 97
--- NOTE | 2021-11-13 12:04 | MHC.CLN ---
F/U PO 50-100% DIET RX: REGULAR-APPROPRIATE PT RECEIVING ENSURE ENLIVE TID PROVIDES 1020KCALS, 60G PROTEIN CONTINUE TO MONITOR PO INTAKE CLOSELY
[2021-11-13 15:14] VITALS: BP 104/53; PULSE 75; RESP 18; TEMP 36.3; O2SAT 98
--- NOTE | 2021-11-13 16:43 | MHC.CM.PN ---
EMR REVIEWED, THORACENTESIS COMPLETED, NEG FOR PNEUMOTHORAX, NO PLAN FOR D/C TODAY, [facility] FOLLOWING, PT'S CONTACTED AT NUMBER ON FILE AND WOULD LIKE TO BE CONTACTED PRIOR TO D/C WELL. CM WILL CONT TO FOLLOW D/C NEEDS.
--- NOTE | 2021-11-13 17:09 | P.PNIM_ITS ---
Subjective Subjective Date of Service: 11/14/21 Interval History: No recurrent episode of hemoptysis in last 24 hours, no acute issues overnight, oxygenation remains stable. Review of Systems Review of Systems: Yes all other systems are reviewed and are negative Physical Exam Vital Signs: Vital Signs: Last Vital Signs Temp 97.4 F 11/13/21 15:14 Pulse 75 11/13/21 15:14 Resp 18 11/13/21 15:14 BP 104/53 L 11/13/21 15:14 Pulse Ox 98 11/13/21 15:14 O2 Del Method 11/13/21 15:14 O2 Flow Rate 2 11/13/21 15:14 BMI result Body Mass Index 19.6 Const: Other: General - no acute?distress, appears?comfortable, cachectic in appearance Neck no JVD Cardiovascular - regular rate and rhythm, S1-S2 pace maker left anterior chest wall Lungs - normal respiratory effort, clear to auscultation bilaterally, no wheezing Abdomen - soft, non tender, no rebound?or guarding Extremities - no edema bilaterally Neuro- awake and alert,?no focal deficits Psych - poor insight skin - fading bruises Objective Data Active Medications Acetaminophen (Acetaminophen 325 Mg Tablet) 650 mg PO Q6H PRN PRN Reason: Pain, Mild (Pain Scale 1-3) Last Admin: 11/12/21 09:11 Dose: 650 mg Documented By: REAL Albuterol Sulfate (Albuterol Sulfate 90 Mcg 8 Gm Inhaler) 2 puff INHALE QID PRN PRN Reason: for wheezing Last Admin: 11/10/21 18:04 Dose: 2 puff Documented By: FARHAT Atorvastatin Calcium (Atorvastatin Calcium 10 Mg Tablet) 10 mg PO BEDTIME [facility] Last Admin: 11/12/21 21:18 Dose: 10 mg Documented By: HENRY Diazepam (Diazepam 5 Mg Tablet) 5 mg PO BID PRN PRN Reason: Anxiety Last Admin: 11/13/21 10:33 Dose: 5 mg Documented By: AMIRA Digoxin (Digoxin 0.125 Mg Tablet) 0.125 mg PO MoWeFr@0900 [facility] Last Admin: 11/13/21 10:14 Dose: 0.125 mg Documented By: AMIRA Haloperidol (Haloperidol 1 Mg Tablet) 1 mg PO TID [facility] Last Admin: 11/13/21 10:14 Dose: 1 mg Documented By: AMIRA Midodrine (Midodrine Hcl 10 Mg Tablet) 10 mg PO TID [facility] Last Admin: 11/13/21 10:14 Dose: 10 mg Documented By: AMIRA Ondansetron HCl (Ondansetron Hcl 4 Mg/2 Ml Vial) 4 mg IVPUSH Q8H PRN PRN Reason: Nausea and Vomiting Sertraline HCl (Sertraline Hcl 100 Mg Tablet) 100 mg PO DAILY [facility] Last Admin: 11/13/21 10:14 Dose: 100 mg Documented By: AMIRA Sodium Chloride (0.9 % Sodium Chloride Flush 3 Ml Syringe) 3 ml IVFLUSH QSHIFT [facility] Last Admin: 11/13/21 10:13 Dose: 3 ml Documented By: AMIRA Sucralfate (Sucralfate 1 Gm Tablet) 2 gm PO DAILY [facility] Last Admin: 11/13/21 10:13 Dose: 2 gm Documented By: AMIRA Tamsulosin HCl (Tamsulosin Hcl 0.4 Mg Capsule) 0.4 mg PO BEDTIME [facility] Last Admin: 11/12/21 21:20 Dose: 0.4 mg Documented By: HENRY Tiotropium [place] (Tiotropium [place] 18 Mcg Cap.W.Dev) 1 puff INHALE RDAILY [facility] Last Admin: 11/13/21 07:41 Dose: Not Given Documented By: LEONARDO Non-Admin Reason: Patient Asleep Vitamin D (Cholecalciferol (Vitamin D3) 25 Mcg Tablet) 50 mcg PO DAILY [facility] Last Admin: 11/13/21 10:13 Dose: 50 mcg Documented By: AMIRA Labs CBC & Chem 7: 11/12/21 06:09 11/12/21 06:09 Labs: Laboratory Results - last 24 hr 11/13/21 06:35 PT 17.3 H INR 1.5 H D Microbiology Microbiology Results: Microbiology 11/13/21 11:15 Gram Stain - Final Pleural Fluid Assessment and Plan (1) Supratherapeutic INR: Status: Acute (2) Lung nodule seen on imaging study: Status: Acute (3) Hemoptysis: Status: Acute Plan 76-year-old male with history of AFib on Coumadin presents to the hospital with a fall found to have INR of 26 # hemoptysis No recurrent episodes in last 24 hours INR dropped to 1.5 from 3.7 with vitamin K 5mg CT chest showed multiple pulmonary nodules, moderate right pleural effusion, right lower lobe airspace disease worse from before right thoracocentesis done today fluid send for Gram stain culture sensitivities, cell count and cytology. # supratherapeutic INR INR improved to 1.5 will resume low-dose Coumadin will avoid recurrent episodes of supratherapeutic INR # frequent falls likely deconditioned as well as secondary to malnutrition PT recommend STR /patient refused to participate with PT # AAA 6 cm in size patient follows with vascular surgery outpatient recommend close follow-up #poor insight psych consult completed -- lacks insight, HCP envoked #A. fib continue baseline meds, resume Coumadin #chronic HFrEF Unable to tolerate neuro hormonal due to orthostatic hypotension continue midodrine #chronic anemia Hematocrit stable , no evidence of bleeding monitor #CKD3 baseline #COPD No acute exacerbation, continue inhalers Full Code DVT pptx --on Coumadin dispo: STR once bed available Need continued inpatient hospitalization for further workup for multiple pulmonary nodules pleural effusion and management of Coumadin. Quality Stroke Does the patient have a stroke diagnosis?: No VTE Prior VTE?: No VTE Risk Level:: Medical - moderate - high VTE Device Contraindication: Treatment Not Tolerated VTE Drug Contraindication: N/A - Med Ordered
[2021-11-13 19:03] VITALS: BP 115/60; PULSE 74; RESP 18; TEMP 36.4; O2SAT 98
[2021-11-13] MEDS: Warfarin Sodium 2 MG TABLET PO (19:52)
[2021-11-13] MEDS: Tamsulosin HCL 0.4 MG CAPSULE PO (20:48)
[2021-11-13] MEDS: Atorvastatin Calcium 10 MG TABLET PO (20:48)
[2021-11-13 22:59] VITALS: BP 112/55; PULSE 79; RESP 18; TEMP 36.7; O2SAT 100
[2021-11-14] VITALS (7 sets, daily range): BP systolic 113–141; BP diastolic 55–74; PULSE 60–107; RESP 16–20; TEMP 36.2–37.5; O2SAT 93–100
[2021-11-14 06:52] LABS: INTERNATIONAL NORM RATIO 1.2 (0.9-1.1); Prothrombin Time 13.5 SEC (10.0-13.1)
[2021-11-14 09:11] LABS: BF Shift QC OK YES; Eosinophils Pleural Fluid 1 %; Lymphocytes Pleural Fluid 33 %; Monocytes Pleural Fluid 6 %; Neutrophils Pleural Fluid 58 %; Other Cells Plerual Fl 2 %
[2021-11-14 09:12] LABS: WBC Pleural Fluid 0.179 X10*3/uL
[2021-11-14 09:13] LABS: RBC Pleural Fluid < 0.002 X10*3/uL
[2021-11-14] MEDS: Midodrine HCl 10 MG TABLET PO ×2 (09:15→17:16)
[2021-11-14] MEDS: Sucralfate 1 GM TABLET 2 GM PO (09:15)
[2021-11-14] MEDS: Cholecalciferol (Vitamin D3) 25 MCG TABLET 50 MCG PO (09:16)
[2021-11-14] MEDS: diazePAM 5 MG TABLET PO (09:16)
[2021-11-14] MEDS: HaloperidoL 1 MG TABLET PO ×2 (09:16→17:16)
[2021-11-14] MEDS: Sertraline HCL 100 MG TABLET PO (09:16)
[2021-11-14] MEDS: 0.9 % Sodium Chloride Flush 3 ML SYRINGE IVFLUSH ×3 (09:19→20:38)
--- NOTE | 2021-11-14 09:43 | MHC.CM.PN ---
[facility] INFORMED PT MAY BE READY TO DC TODAY OR TOMORROW CM AWAITING RESPONSE TO CONFIRM BED AVAILABILITY
--- NOTE | 2021-11-14 15:28 | P.PNIM_ITS ---
Subjective Subjective Date of Service: 11/14/21 Interval History: No further episodes of hemoptysis, no acute events overnight, Review of Systems Review of Systems: Yes all other systems are reviewed and are negative Physical Exam Vital Signs: Vital Signs: Last Vital Signs Temp 97.1 F 11/14/21 11:29 Pulse 75 11/14/21 11:29 Resp 16 11/14/21 11:29 BP 113/61 11/14/21 11:29 Pulse Ox 96 11/14/21 11:29 O2 Del Method 11/14/21 11:29 O2 Flow Rate 2 11/14/21 11:29 BMI result Body Mass Index 19.6 Const: Other: General - no acute?distress, appears?comfortable, cachectic in appearance Neck no JVD Cardiovascular - regular rate and rhythm, S1-S2 pace maker left anterior chest wall Lungs - normal respiratory effort, clear to auscultation bilaterally, no wheezing Abdomen - soft, non tender, no rebound?or guarding Extremities - no edema bilaterally Neuro- awake and alert,?no focal deficits Psych - poor insight Objective Data Active Medications Acetaminophen (Acetaminophen 325 Mg Tablet) 650 mg PO Q6H PRN PRN Reason: Pain, Mild (Pain Scale 1-3) Last Admin: 11/12/21 09:11 Dose: 650 mg Documented By: REAL Albuterol Sulfate (Albuterol Sulfate 90 Mcg 8 Gm Inhaler) 2 puff INHALE QID PRN PRN Reason: for wheezing Last Admin: 11/10/21 18:04 Dose: 2 puff Documented By: FARHAT Atorvastatin Calcium (Atorvastatin Calcium 10 Mg Tablet) 10 mg PO BEDTIME [facility] Last Admin: 11/13/21 20:48 Dose: 10 mg Documented By: GABRIELLE Diazepam (Diazepam 5 Mg Tablet) 5 mg PO BID PRN PRN Reason: Anxiety Last Admin: 11/14/21 09:16 Dose: 5 mg Documented By: BECKY Digoxin (Digoxin 0.125 Mg Tablet) 0.125 mg PO MoWeFr@0900 [facility] Last Admin: 11/13/21 10:14 Dose: 0.125 mg Documented By: AMIRA Haloperidol (Haloperidol 1 Mg Tablet) 1 mg PO TID [facility] Last Admin: 11/14/21 09:16 Dose: 1 mg Documented By: BECKY Midodrine (Midodrine Hcl 10 Mg Tablet) 10 mg PO TID [facility] Last Admin: 11/14/21 09:15 Dose: 10 mg Documented By: BECKY Ondansetron HCl (Ondansetron Hcl 4 Mg/2 Ml Vial) 4 mg IVPUSH Q8H PRN PRN Reason: Nausea and Vomiting Sertraline HCl (Sertraline Hcl 100 Mg Tablet) 100 mg PO DAILY [facility] Last Admin: 11/14/21 09:16 Dose: 100 mg Documented By: BECKY Sodium Chloride (0.9 % Sodium Chloride Flush 3 Ml Syringe) 3 ml IVFLUSH QSHIFT [facility] Last Admin: 11/14/21 09:19 Dose: 3 ml Documented By: BECKY Sucralfate (Sucralfate 1 Gm Tablet) 2 gm PO DAILY [facility] Last Admin: 11/14/21 09:15 Dose: 2 gm Documented By: BECKY Tamsulosin HCl (Tamsulosin Hcl 0.4 Mg Capsule) 0.4 mg PO BEDTIME [facility] Last Admin: 11/13/21 20:48 Dose: 0.4 mg Documented By: GABRIELLE Tiotropium [place] (Tiotropium [place] 18 Mcg Cap.W.Dev) 1 puff INHALE RDAILY [facility] Last Admin: 11/14/21 08:28 Dose: 1 puff Documented By: YUNG Vitamin D (Cholecalciferol (Vitamin D3) 25 Mcg Tablet) 50 mcg PO DAILY [facility] Last Admin: 11/14/21 09:16 Dose: 50 mcg Documented By: BECKY Labs CBC & Chem 7: 11/12/21 06:09 11/12/21 06:09 Labs: Laboratory Results - last 24 hr 11/13/21 11/14/21 11:15 06:08 PT 13.5 H INR 1.2 H Pleural WBC 0.179 Pleural RBC < 0.002 Pleural Neutrophils 58 Pleural Lymphocytes 33 Pleural Monocytes 6 Pleural Eosinophils 1 Pleural Other Cells 2 Microbiology Microbiology Results: Microbiology 11/13/21 11:15 Gram Stain - Final Pleural Fluid Routine Culture - Preliminary No growth to date. Anaerobic Culture - Preliminary No growth to date. Assessment and Plan (1) Supratherapeutic INR: Status: Acute (2) Lung nodule seen on imaging study: Status: Acute (3) Hemoptysis: Status: Acute Plan 76-year-old male with history of AFib on Coumadin presents to the hospital with a fall found to have INR of 26 # hemoptysis No recurrent episodes in last 24 hours INR dropped to 1.5 from 3.7 with vitamin K 5mg CT chest showed multiple pulmonary nodules, moderate right pleural effusion, right lower lobe airspace disease worse from before right thoracocentesis done on 11/13 g pain/culture showed no growth, LDH pending, and cytology pending. # supratherapeutic INR INR dropped to 1.2,give ow-dose Coumadin will avoid recurrent episodes of supratherapeutic INR # frequent falls likely deconditioned as well as secondary to malnutrition PT recommend STR /patient refused to participate with PT # AAA 6 cm in size patient follows with vascular surgery outpatient recommend close follow-up #poor insight psych consult completed -- lacks insight, HCP envoked #A. fib continue baseline meds, resume Coumadin #chronic HFrEF Unable to tolerate neuro hormonal due to orthostatic hypotension continue midodrine #chronic anemia Hematocrit stable , no evidence of bleeding monitor #CKD3 baseline #COPD No acute exacerbation, continue inhalers Full Code DVT pptx --on Coumadin dispo: STR once bed available Need continued inpatient hospitalization for further workup for multiple pulmonary nodules pleural effusion and management of Coumadin. Quality Stroke Does the patient have a stroke diagnosis?: No VTE Prior VTE?: No VTE Risk Level:: Medical - moderate - high VTE Device Contraindication: Treatment Not Tolerated VTE Drug Contraindication: N/A - Med Ordered
[2021-11-14] MEDS: Warfarin Sodium 2.5 MG TABLET PO (17:15)
--- NOTE | 2021-11-14 17:28 | PM.EVENT ---
Event Note Date of Service: 11/14/21 Event Note: [employer] called. patient had coughing fit with hemoptysis, then became cyanotics, desaturated into 60s. tachycardic, sinus 140s. was placed on NRB, saturation recovered to 100% and heart rate improved to 110s. patient did have air movement bilaterally, will check CXR, suspect aspiration event.
[2021-11-14 17:30] LABS: Glucose, Whole Blood 116 mg/dL (60-115)
--- NOTE | 2021-11-14 17:52 | PC.NURSE ---
At 1600 the pt's vital signs were within normal limits. At @1715 I entered the pt's room to give him medications. After he swallowed the meds he coughed up blood; another nurse determined that the patient was cyanotic. I called a rapid response. At 1800 the patient's VS are temp 98.1, BP 139/74, pulse 97, O2 95%, RR 20.
[2021-11-15] VITALS (8 sets, daily range): BP systolic 113–169; BP diastolic 68–94; PULSE 72–85; RESP 16–20; TEMP 36–36.9; O2SAT 97–100
[2021-11-15 03:43] LABS: LDH Pleural Fluid 67 U/L
[2021-11-15 07:00] LABS: INTERNATIONAL NORM RATIO 1.3 (0.9-1.1); Prothrombin Time 14.8 SEC (10.0-13.1)
[2021-11-15 08:49] LABS: Hematocrit 27.4 % (42.0-52.0); Hemoglobin 8.5 g/dl (14.0-18.0); Mean Platelet Volume 9.5 fL (9.4-12.4); Platelet Count 160 X10*3/uL (160-400); Red Blood Count 3.15 X10*6/uL (4.60-5.80); Red Cell Distribution Width 16.6 % (11.0-16.0); White Blood Count 15.1 X10*3/uL (4.8-10.8)
[2021-11-15 09:05] LABS: Anion Gap 12 (12-20); Blood Urea Nitrogen 35 mg/dL (9-16); Calcium 8.7 mg/dL (8.4-10.2); Carbon Dioxide 24 mmol/L (22-29); Chloride 106 mmol/L (96-108); Creatinine Clr Calc Pharmacy 29.3; Estimated Glomerular Filt Rate 41; Glucose Random 96 mg/dL (60-115); Potassium 4.3 mmol/L (3.3-5.1); Sodium 138 mmol/L (135-145)
[2021-11-15] MEDS: Midodrine HCl 10 MG TABLET PO ×3 (09:46→20:20)
[2021-11-15] MEDS: HaloperidoL 1 MG TABLET PO ×2 (09:46→16:31)
[2021-11-15] MEDS: Sertraline HCL 100 MG TABLET PO (09:46)
[2021-11-15] MEDS: Cholecalciferol (Vitamin D3) 25 MCG TABLET 50 MCG PO (09:49)
[2021-11-15] MEDS: Sucralfate 1 GM TABLET 2 GM PO (09:49)
[2021-11-15] MEDS: 0.9 % Sodium Chloride Flush 3 ML SYRINGE IVFLUSH ×3 (09:53→20:20)
--- NOTE | 2021-11-15 11:02 | P.PNIM_ITS ---
Subjective Subjective Date of Service: 11/15/21 Interval History: Events from last evening noted patient noted to have a coughing fit while eating with hemoptysis, noted to have small fresh blood, became cyanotic desaturated into 60s became tachycardia ache heart rate in 140 sinus patient recovered quickly chest x-ray showed no acute abnormality, at present awake alert denies shortness of breath oxygenation 100% on 2 L of nasal cannula, no recurrent bout of hemoptysis this morning, denies chest pain, no palpitation, no shortness of breath, no fevers no chills. Review of Systems Review of Systems: Yes all other systems are reviewed and are negative Physical Exam Vital Signs: Vital Signs: Last Vital Signs Temp 98.0 F 11/15/21 07:36 Pulse 83 11/15/21 07:50 Resp 20 11/15/21 07:50 BP 113/68 11/15/21 07:36 Pulse Ox 100 11/15/21 07:36 O2 Del Method 11/15/21 07:36 O2 Flow Rate 4 11/15/21 07:36 BMI result Body Mass Index 19.6 Const: Other: General - no acute?distress, appears?comfortable, awake, alert, cachectic in [place] Neck no JVD Cardiovascular - regular rate and rhythm, S1-S2 pace maker left anterior chest w all Lungs - normal respiratory effort, clear to auscultation bilaterally, no wheezing Abdomen - soft, non tender, no rebound?or guarding Extremities - no edema bilaterally Neuro- awake and alert,?no focal deficits Psych - poor insight Objective Data Active Medications Acetaminophen (Acetaminophen 325 Mg Tablet) 650 mg PO Q6H PRN PRN Reason: Pain, Mild (Pain Scale 1-3) Last Admin: 11/12/21 09:11 Dose: 650 mg Documented By: REAL Albuterol Sulfate (Albuterol Sulfate 90 Mcg 8 Gm Inhaler) 2 puff INHALE QID PRN PRN Reason: for wheezing Last Admin: 11/10/21 18:04 Dose: 2 puff Documented By: FARHAT Atorvastatin Calcium (Atorvastatin Calcium 10 Mg Tablet) 10 mg PO BEDTIME [facility] Last Admin: 11/14/21 20:39 Dose: Not Given Documented By: GABRIELLE Non-Admin Reason: NPO Diazepam (Diazepam 5 Mg Tablet) 5 mg PO BID PRN PRN Reason: Anxiety Last Admin: 11/14/21 09:16 Dose: 5 mg Documented By: BECKY Digoxin (Digoxin 0.125 Mg Tablet) 0.125 mg PO MoWeFr@0900 [facility] Last Admin: 11/13/21 10:14 Dose: 0.125 mg Documented By: AMIRA Haloperidol (Haloperidol 1 Mg Tablet) 1 mg PO TID [facility] Last Admin: 11/15/21 09:46 Dose: 1 mg Documented By: BECKY Midodrine (Midodrine Hcl 10 Mg Tablet) 10 mg PO TID [facility] Last Admin: 11/15/21 09:46 Dose: 10 mg Documented By: BECKY Ondansetron HCl (Ondansetron Hcl 4 Mg/2 Ml Vial) 4 mg IVPUSH Q8H PRN PRN Reason: Nausea and Vomiting Sertraline HCl (Sertraline Hcl 100 Mg Tablet) 100 mg PO DAILY [facility] Last Admin: 11/15/21 09:46 Dose: 100 mg Documented By: BECKY Sodium Chloride (0.9 % Sodium Chloride Flush 3 Ml Syringe) 3 ml IVFLUSH QSHIFT [facility] Last Admin: 11/15/21 09:53 Dose: 3 ml Documented By: BECKY Sucralfate (Sucralfate 1 Gm Tablet) 2 gm PO DAILY [facility] Last Admin: 11/15/21 09:49 Dose: 2 gm Documented By: BECKY Tamsulosin HCl (Tamsulosin Hcl 0.4 Mg Capsule) 0.4 mg PO BEDTIME [facility] Last Admin: 11/14/21 20:39 Dose: Not Given Documented By: GABRIELLE Non-Admin Reason: NPO Tiotropium [place] (Tiotropium [place] 18 Mcg Cap.W.Dev) 1 puff INHALE RDAILY [facility] Last Admin: 11/15/21 07:45 Dose: 1 puff Documented By: YUNG Vitamin D (Cholecalciferol (Vitamin D3) 25 Mcg Tablet) 50 mcg PO DAILY [facility] Last Admin: 11/15/21 09:49 Dose: 50 mcg Documented By: BECKY Labs CBC & Chem 7: 11/15/21 06:32 11/15/21 06:32 Labs: Laboratory Results - last 24 hr 11/13/21 11/14/2111/15/22 17:15 17:24 06:32 MCV MCH MCHC RDW Plt Count MPV Absolute Nucleated RBC Nucleated RBC % (auto) PT 14.8 H INR 1.3 H Anion Gap Estim Creat Clear Calc Estimated GFR POC Glucose 116 H Random Glucose Calcium Pleural LDH 67 11/15/21 11/15/21 06:32 06:32 MCV 87.0 MCH 27.0 MCHC 31.0 RDW 16.6 H Plt Count 160 MPV 9.5 Absolute Nucleated RBC 0.000 Nucleated RBC % (auto) 0.0 PT INR Anion Gap 12 Estim Creat Clear Calc 29.3 Estimated GFR 41 POC Glucose Random Glucose 96 Calcium 8.7 Pleural LDH Microbiology Microbiology Results: Microbiology 11/13/21 11:15 Gram Stain - Final Pleural Fluid Routine Culture - Final No growth after 2 days Anaerobic Culture - Preliminary No growth to date. Assessment and Plan (1) Supratherapeutic INR: Status: Acute (2) Lung nodule seen on imaging study: Status: Acute (3) Hemoptysis: Status: Acute Plan 76-year-old male with history of AFib on Coumadin presents to the hospital with a fall found to have INR of 26 # hemoptysis Had an episode of hemoptysis was small amount of fresh blood while choking and coughing with significant desaturation and tachycardia INR subtherapeutic last 48 hours, INR 1.3 today Likely hemoptysis due to multiple pulmonary nodules, hematocrit stable this morning right thoracocentesis done on 11/13 g pain/culture showed no growth, LDH 67, pleural WBC less than 1000 suggestive of non exudate and cytology pending. # supratherapeutic INR INR remains low in last 72 hours, 1.3 today, due to persistent recurrent hemoptysis will hold Coumadin, will discuss further treatment plan with pulmonology # choking/aspiration with food will obtain speech therapy eval changed to pureed and nectar thick liquids for now, crush all meds in applesauce, chest x-ray unremarkable oxygen stable hold off on antibiotics, follow clinical course # frequent falls likely deconditioned as well as secondary to malnutrition PT recommend STR /patient refusing to participate with PT # AAA 6 cm in size patient follows with vascular surgery outpatient recommend close follow-up #poor insight psych consult completed -- lacks insight, HCP envoked #A. fib continue digoxin,hold Coumadin due to hemoptysis #chronic HFrEF Unable to tolerate neuro hormonal due to orthostatic hypotension continue midodrine #chronic anemia Hematocrit stable , monitor CBC #CKD3 baseline #COPD No acute exacerbation, continue inhalers Full Code DVT pptx --mechanical device dispo: STR once bed available Need continued inpatient hospitalization for further workup for multiple pulmonary nodules, recurrent hemoptysis and management of Coumadin. Quality Stroke Does the patient have a stroke diagnosis?: No VTE Prior VTE?: No VTE Risk Level:: Medical - moderate - high VTE Device Contraindication: Treatment Not Tolerated VTE Drug Contraindication: N/A - Med Ordered
[2021-11-15 17:08] LABS: Magnesium 1.9 mg/dL (1.6-2.6)
[2021-11-15] MEDS: Dextrose 5 % and 0.9 % NaCl 1,000 ML 125 ML IVCONT (18:38)
[2021-11-15] MEDS: Atorvastatin Calcium 10 MG TABLET PO (20:20)
[2021-11-15] MEDS: Tamsulosin HCL 0.4 MG CAPSULE PO (20:20)
[2021-11-16 04:00] VITALS: BP 114/69; PULSE 82; RESP 20; TEMP 35.8; O2SAT 93
[2021-11-16 06:35] LABS: INTERNATIONAL NORM RATIO 1.4 (0.9-1.1); Prothrombin Time 16.8 SEC (10.0-13.1)
[2021-11-16 07:25] VITALS: BP 127/76; PULSE 113; RESP 20; TEMP 36.7; O2SAT 94
[2021-11-16 08:21] VITALS: PULSE 105; RESP 16; O2SAT 95
--- NOTE | 2021-11-16 10:27 | P.CONCA_ITS ---
History of Present Illness History of Present Illness Date of Service: 11/16/21 Chief complaint: Supratherapeutic INR Narrative: This is a cardiology consultation regarding atrial fibrillation and cardiomyopathy. We had seen the patient many years ago, but subsequently, patient switched his cardiology care to [facility]. He has severe ischemic cardiomyopathy. He also has chronic atrial fibrillation. Current admission is due to hemoptysis and supratherapeutic INR. In this context, reported atrial fibrillation with rapid rate. Patient himself does not have any specific cardiac symptoms. A question numerous times and he states he feels okay. However he appears extremely frail and has a very low voice. Review of Systems Review of Systems: Yes all other systems are reviewed and are negative Constitutional: Constitutional: Reports as per HPI Eyes: Eyes: Reports as per HPI ENT: Reports as per HPI Cardiovascular: Cardiovascular: Reports as per HPI, Denies acrocyanosis, Denies cool extremities, Denies chest pain, Denies leg edema, Denies lightheadedness, Denies palpitations and Denies dyspnea Respiratory: Respiratory: Reports as per HPI, Reports no additional respiratory complaints and Denies dyspnea Gastrointestinal: Gastrointestinal: Reports as per HPI and Reports no additional gastrointestinal complaints Genitourinary: Genitourinary: Reports no additional male genitourinary complaints and Reports as per HPI Musculoskeletal: Musculoskeletal: Reports no additional musculoskeletal complaints and Reports as per HPI Integumentary/Breasts: Skin/Breast: Reports system reviewed and no additional complaints, except as docu Neurologic: Reports system reviewed and no additional complaints, except as documented and Reports as per HPI Psychiatric: Psychiatric: Reports no additional psychiatric complaints and Reports as per HPI Endocrine: Endocrine: Reports no additional endocrine complaints, Reports as per HPI and Denies palpitations Hematologic/Lymphatic: Hematologic/Lymphatic: Reports no additional hematologic/lymphatic complaints and Reports as per HPI Allergic/Immunologic: Allergic/Immunologic: Reports no additional allergic/immunologic complaints and Reports as per HPI [facility] Past Medical History Medical History (Updated 11/16/21 @ 10:39 by Walter Greenwood MD) AAA (abdominal aortic aneurysm) without rupture Abdominal aortic aneurysm Anticoagulated on warfarin Atrial fibrillation Bacteremia Bronchopneumonia COPD (chronic obstructive pulmonary disease) COPD exacerbation Cough with hemoptysis Fall GI bleed Hemoptysis History of epigastric pain Hypotension Irritable bowel syndrome with diarrhea Kidney disease, chronic, stage III (GFR 30-59 ml/min) Need for rapid response team activation Pleural effusion Severe protein-calorie malnutrition Severe sepsis Systolic congestive heart failure Family History Family History Father Myocardial infarction CVD (cardiovascular disease) Mother Myocardial infarction Type 2 diabetes mellitus CVD (cardiovascular disease) Brother Heart failure Brother Heart failure Sister No problems noted. Son No problems noted. Surgical History Surgical History History of esophagogastroduodenoscopy (EGD) History of open heart surgery Hx of appendectomy Hx of arterial bypass of lower limb Hx of cholecystectomy Hx of colonoscopy Hx of esophageal hernia repair Hx of tonsillectomy Social History Social History Household Members: Spouse Household Members Other:: Kyra. Housing: House Do you presently have visiting nurse or other home services: Yes Alcohol intake: never Patient Tobacco Use Status: Former Tobacco user Quit Date: Quit 15 years ago. Tobacco use type: Cigarette Cigarette Packs Per Day: 1 Cigarettes Per Day: 20.0 Years Smoked: Quit 15 years ago. Smoked in Last 30 Days: No e-Cigarette/Vaping Use: Never Used Second Hand Smoke Exposure: No Use of substances other than those prescribed or required for medical reasons: No Currently Displaying Signs/Symptoms of Drug Intoxication Withdrawal: No Any prior treatment program specific to substance use: No Have you been hit, kicked, punched, or otherwise hurt by someone within the past year? If so, by whom?: No Do you feel safe in your current relationship?: Yes Is there a partner from a previous relationship who is making you feel unsafe now?: No Are you made to feel afraid or neglected: No Advance Directives: Yes Advance Directives on File: Yes Advance Directives Date on File: 09/25/21 Do you have thoughts of harming others: None Do you have a plan to hurt others: No Plan Eating poorly because of decreased appetite: No Nutrition Risks: Emaciation/Cachexia service: Yes Current occupational status: retired Current occupational exposures/hazards: No Sexual orientation: Straight/Heterosexual Meds Allergies Allergy/AdvReac Type Severity Reaction Status Date / Time codeine [Codeine] Allergy Intermediate RASH Verified 07/14/22 21:53 fludrocortisone Allergy Unknown Unknown Verified 11/05/21 21:53 Active Medications: Current Medications Acetaminophen (Acetaminophen 325 Mg Tablet) 650 mg PO Q6H PRN PRN Reason: Pain, Mild (Pain Scale 1-3) Last Admin: 11/12/21 09:11 Dose: 650 mg Albuterol Sulfate (Albuterol Sulfate 90 Mcg 8 Gm Inhaler) 2 puff INHALE QID PRN PRN Reason: for wheezing Last Admin: 11/10/21 18:04 Dose: 2 puff Atorvastatin Calcium (Atorvastatin Calcium 10 Mg Tablet) 10 mg PO BEDTIME [facility] Last Admin: 11/15/21 20:20 Dose: 10 mg Diazepam (Diazepam 5 Mg Tablet) 5 mg PO BID PRN PRN Reason: Anxiety Last Admin: 11/14/21 09:16 Dose: 5 mg Digoxin (Digoxin 0.125 Mg Tablet) 0.125 mg PO MoWeFr@0900 [facility] Last Admin: 11/13/21 10:14 Dose: 0.125 mg Haloperidol (Haloperidol 1 Mg Tablet) 1 mg PO TID [facility] Last Admin: 11/15/21 16:31 Dose: 1 mg Midodrine (Midodrine Hcl 2.5 Mg Tablet) 2.5 mg PO TID [facility] Ondansetron HCl (Ondansetron Hcl 4 Mg/2 Ml Vial) 4 mg IVPUSH Q8H PRN PRN Reason: Nausea and Vomiting Sertraline HCl (Sertraline Hcl 100 Mg Tablet) 100 mg PO DAILY [facility] Last Admin: 11/15/21 09:46 Dose: 100 mg Sodium Chloride (0.9 % Sodium Chloride Flush 3 Ml Syringe) 3 ml IVFLUSH QSHIFT [facility] Last Admin: 11/16/21 07:21 Dose: Not Given Sucralfate (Sucralfate 1 Gm Tablet) 2 gm PO DAILY [facility] Last Admin: 11/15/21 09:49 Dose: 2 gm Tamsulosin HCl (Tamsulosin Hcl 0.4 Mg Capsule) 0.4 mg PO BEDTIME [facility] Last Admin: 11/15/21 20:20 Dose: 0.4 mg Tiotropium [place] (Tiotropium [place] 18 Mcg Cap.W.Dev) 1 puff INHALE RDAILY [facility] Last Admin: 11/16/21 08:19 Dose: 1 puff Vitamin D (Cholecalciferol (Vitamin D3) 25 Mcg Tablet) 50 mcg PO DAILY [facility] Last Admin: 11/15/21 09:49 Dose: 50 mcg Home Medications Medication Instructions Recorded Confirmed Last Taken Type tiotropium bromide 18 mcg capsule 1 puff inhalation DAILY 10/02/20 11/06/21 10/02/20 History with inhalation device (Spiriva with HandiHaler) digoxin 125 mcg (0.125 mg) tablet 1 tab PO MOWEFR@0900 11/06/21 11/06/21 Unknown History warfarin 5 mg tablet 1 tab PO DAILY@1800 11/06/21 11/06/21 Unknown History trazodone 50 mg tablet 1 tab PO BEDTIME PRN insomnia 11/07/21 11/07/21 Unknown History Physical Exam Vital Signs: Vital Signs: Last Vital Signs Temp 98.0 F 11/16/21 07:25 Pulse 105 H 11/16/21 08:21 Resp 16 11/16/21 08:21 BP 127/76 11/16/21 07:25 Pulse Ox 94 11/16/21 07:25 O2 Del Method 11/16/21 07:25 O2 Flow Rate 2 11/16/21 07:25 BMI result Body Mass Index 19.6 Const: General: cooperative, no acute distress, ill appearing and tired a ppearing Nutritional Appearance: cachectic, malnourished and underweight HEENT: Other: Unremarkable Head: Yes normal to inspection Neck: Neck: Yes normal visual inspection Chest: Chest palpation & inspection: normal inspection of the chest Resp: Auscultation: clear to auscultation bilaterally Cardio: Palpation: normal PMI Heart sounds: S1 normal heart sound present, S2 normal heart sound present, no gallops, no murmurs and no rubs GI: Palpation (GI): Soft to palpation Back/Spine/Pelvis: Other: unremarkable Skin: General skin exam: no rashes or lesions noted Neuro: General: no focal motor deficits Extrem: General: Yes normal to inspection Psych: Mental Status: mental status grossly normal Objective Labs and Meds Result diagrams: 11/15/21 06:32 11/15/21 06:32 Lab results: Laboratory Results - last 24 hr 11/15/21 11/16/21 06:32 06:13 PT 16.8 H INR 1.4 H Magnesium 1.9 ECG Interpretation: EKG from 11/05-underlying atrial fibrillation with paced complexes. QTc measured at 515 milliseconds but that is from the widened QRS from paced rhythm. Assessment and Plan (1) Ischemic cardiomyopathy: Status: Acute (2) Atrial fibrillation with rapid ventricular response: Status: Acute (3) Hemoptysis: Status: Acute (4) Supratherapeutic INR: Status: Acute (5) NSVT (nonsustained ventricular tachycardia): Status: Acute (6) Frailty: Status: Acute Plan On telemetry, in atrial fibrillation. Current rate is in the 80s to 90s. Some rapid rates but does not seem persistent. Probably 1 episode of NSVT but most others are other atrial fibrillation. Echocardiogram from [facility] 2017 with LVEF of 15-20% with wall motion abnormalities from underlying coronary artery disease. [id number] mitral regurgitation. Overall, he appears extremely frail. Considering the extent of cardiac as well as other medical comorbidities, no active cardiac intervention at this time. He may continue digoxin as he was on in the past. If blood pressure allows, low- dose beta-blockers. Per documentation, he has not been able to take neurohormonal due to low blood pressure issues. Goals of care will need to be addressed and to consider palliative care/hospice. Discussed with . [facility] dcoumentation also reviewed, with similar goals of care. Procedures Date of Service Date of Service: 11/16/21
[2021-11-16] MEDS: Sertraline HCL 100 MG TABLET PO (10:37)
[2021-11-16] MEDS: Sucralfate 1 GM TABLET 2 GM PO (10:37)
[2021-11-16] MEDS: Cholecalciferol (Vitamin D3) 25 MCG TABLET 50 MCG PO (10:37)
[2021-11-16] MEDS: Digoxin 0.125 MG TABLET PO (10:37)
[2021-11-16] MEDS: diazePAM 5 MG TABLET PO (10:44)
[2021-11-16 11:52] VITALS: BP 103/63; PULSE 81; RESP 17; TEMP 36.4; O2SAT 96
--- NOTE | 2021-11-16 12:37 | MHC.CLN ---
F/U PO 50% AVG DIET RX: PUREED WITH NT LIQ-APPROPRIATE PT RECEIVING ENSURE ENLIVE TID PROVIDES 1020KCALS, 60G PROTEIN CONTINUE TO MONITOR PO INTAKE CLOSELY
--- NOTE | 2021-11-16 12:56 | MHC.SL.SWA ---
Speech Pathologist Impression: Oropharyngeal dysphagia Risk of Aspiration Due to: Respiratory status Dysphasia Diet Status:DOWNGRADE Liquid Consistency and Strategies for Safe Swallow: Liquid Intake Recommendation: NPO Solid Food Consistency: Dietary Recommendations: NPO Additional Modifications to Solid Foods: Overt s/s of aspiration w/ PO trials. Recommend downgrade to NPO. Notified MD, RN, RD via [place] Message. Recommend frequent oral care, elevate head of bed at least 30 degrees to reduce risk of aspiration. Oral Medication Intake: NPO Please contact the pharmacy regarding appropriate crushable or liquid drug formulations that are available whenever modified delivery is recommended. Supervision While Eating and Drinking for Safe Swallow: PO with VESSEL BUILDER Swallowing Recommended Treatments: Gustatory Stimulation Compens. Strategy Educat. Recommendation for Speech: Inpatient Speech Therapy Machinist Linotype Clinican/Clinical Fellow: No Supervisory Statement: I have reviewed and agree with the student/clinical fellow's documentation: N/A Speech Language Pathologist: Viviane Nickerson M.A., CCC-VESSEL BUILDER
--- NOTE | 2021-11-16 14:29 | PC.NURSE ---
speech eval assessed pt today. Per speech therapist, keep pt NPO. was informed. safety and fall precautions in place. call cell within reach.
--- NOTE | 2021-11-16 15:23 | HO.PM.IMPN ---
Subjective Subjective Date of Service: 11/17/21 Interval History: Resting in bed home offers no acute complaints, tele monitor shows intermittent episodes of atrial fibrillation and 1 episode of nonsustained V-tach, patient remained asymptomatic, blood pressure is stable, no other acute overnight events. Review of Systems Review of Systems: Yes all other systems are reviewed and are negative Physical Exam Vital Signs: Vital Signs: Last Vital Signs Temp 97.5 F 11/16/21 11:52 Pulse 81 11/16/21 11:52 Resp 17 11/16/21 11:52 BP 103/63 11/16/21 11:52 Pulse Ox 96 11/16/21 11:52 O2 Del Method 11/16/21 11:52 O2 Flow Rate 2 11/16/21 07:25 BMI result Body Mass Index 19.6 Const: Other: General - no acute?distress, appears?comfortable, awake, alert, cachectic/frail in appearance Neck no JVD Cardiovascular - irregular rate and rhythm, S1-S2 pace maker left anterior chest wall Lungs - normal respiratory effort, clear to auscultation bilaterally, no wheezing Abdomen - soft, non tender, no rebound?or guarding Extremities - no edema bilaterally Neuro- awake and alert,?no focal deficits Psych - poor insight Objective Data Active Medications Acetaminophen (Acetaminophen 325 Mg Tablet) 650 mg PO Q6H PRN PRN Reason: Pain, Mild (Pain Scale 1-3) Last Admin: 11/12/21 09:11 Dose: 650 mg Documented By: REAL Albuterol Sulfate (Albuterol Sulfate 90 Mcg 8 Gm Inhaler) 2 puff INHALE QID PRN PRN Reason: for wheezing Last Admin: 11/10/21 18:04 Dose: 2 puff Documented By: FARHAT Atorvastatin Calcium (Atorvastatin Calcium 10 Mg Tablet) 10 mg PO BEDTIME [facility] Last Admin: 11/15/21 20:20 Dose: 10 mg Documented By: GABRIELLE Diazepam (Diazepam 5 Mg Tablet) 5 mg PO BID PRN PRN Reason: Anxiety Last Admin: 11/16/21 10:44 Dose: 5 mg Documented By: JOSE Digoxin (Digoxin 0.125 Mg Tablet) 0.125 mg PO MoWeFr@0900 [facility] Last Admin: 11/16/21 10:37 Dose: 0.125 mg Documented By: JOSE Haloperidol (Haloperidol 1 Mg Tablet) 1 mg PO TID [facility] Last Admin: 11/16/21 13:39 Dose: Not Given Documented By: JOSE Non-Admin Reason: NPO Midodrine (Midodrine Hcl 2.5 Mg Tablet) 2.5 mg PO TID [facility] Last Admin: 11/16/21 13:39 Dose: Not Given Documented By: JOSE Non-Admin Reason: NPO Ondansetron HCl (Ondansetron Hcl 4 Mg/2 Ml Vial) 4 mg IVPUSH Q8H PRN PRN Reason: Nausea and Vomiting Sertraline HCl (Sertraline Hcl 100 Mg Tablet) 100 mg PO DAILY [facility] Last Admin: 11/16/21 10:37 Dose: 100 mg Documented By: JOSE Sodium Chloride (0.9 % Sodium Chloride Flush 3 Ml Syringe) 3 ml IVFLUSH QSHIFT [facility] Last Admin: 11/16/21 07:21 Dose: Not Given Documented By: JOSE Non-Admin Reason: assessed Sucralfate (Sucralfate 1 Gm Tablet) 2 gm PO DAILY [facility] Last Admin: 11/16/21 10:37 Dose: 2 gm Documented By: JOSE Tamsulosin HCl (Tamsulosin Hcl 0.4 Mg Capsule) 0.4 mg PO BEDTIME [facility] Last Admin: 11/15/21 20:20 Dose: 0.4 mg Documented By: GABRIELLE Tiotropium [place] (Tiotropium [place] 18 Mcg Cap.W.Dev) 1 puff INHALE RDAILY [facility] Last Admin: 11/16/21 08:19 Dose: 1 puff Documented By: YUNG Vitamin D (Cholecalciferol (Vitamin D3) 25 Mcg Tablet) 50 mcg PO DAILY [facility] Last Admin: 11/16/21 10:37 Dose: 50 mcg Documented By: JOSE Labs CBC & Chem 7: 11/15/21 06:32 11/15/21 06:32 Labs: Laboratory Results - last 24 hr 11/15/21 11/16/21 06:32 06:13 PT 16.8 H INR 1.4 H Magnesium 1.9 Microbiology Microbiology Results: Microbiology 11/13/21 11:15 Gram Stain - Final Pleural Fluid Routine Culture - Final No growth after 2 days Anaerobic Culture - Preliminary No growth to date. Assessment and Plan (1) Supratherapeutic INR: Status: Acute (2) Lung nodule seen on imaging study: Status: Acute (3) Hemoptysis: Status: Acute Plan 76-year-old male with history of AFib on Coumadin presents to the hospital with a fall found to have INR of 26 # hemoptysis Had an episode of hemoptysis was small amount of fresh blood while choking and coughing with significant desaturation and tachycardia INR subtherapeutic last 4 days , INR 1.4 today Likely hemoptysis due to multiple pulmonary nodules, hematocrit stable this morning right thoracocentesis done on 11/13 g pain/culture showed no growth, LDH 67, pleural WBC less than 1000 suggestive of non exudate and cytology pending. Will discuss further treatment options with pulmonology # supratherapeutic INR INR remains low in last 72 hours, 1.3 today, due to persistent recurrent hemoptysis will hold Coumadin, will discuss further treatment plan with pulmonology # dysphagia with choking/aspiration with food, speech therapy recommend NPO spoke with patient's son who is also healthcare proxy he agrees with no G-tube placement since patient at high risk of pulling G-tube and also has multiple comorbidities , therefore will feed for comfort, son aware of risk of aspiration with feeding. # frequent falls likely deconditioned as well as secondary to malnutrition PT recommend STR /patient refusing to participate with PT # AAA 6 cm in size patient follows with vascular surgery outpatient recommend close follow-up #poor insight psych consult completed -- lacks insight, HCP envoked #A. fib with episodes of AFib with RVR in nonsustained V-tach Obtain cardiology consultation case discussed with Dr. Greenwood, he recommend no active cardiac intervention in view of his medical comorbidities he recommend to continue digoxin, and recommend low-dose beta-blockers if blood pressure allows he recommend to address goal of care more towards palliated/hospice continue digoxin,hold Coumadin due to hemoptysis #chronic HFrEF Unable to tolerate neuro hormonal due to orthostatic hypotension continue midodrine #chronic anemia Hematocrit stable , monitor CBC #CKD3 baseline #COPD No acute exacerbation, continue inhalers Code status discussed with patient's son Devendra Lujan [phone] who is also healthcare proxy he agreed for DNR DNI therefore code status will be changed to reflect healthcare proxy wishes DVT pptx --mechanical device dispo: STR once bed available Need continued inpatient hospitalization for further workup for multiple pulmonary nodules, recurrent hemoptysis,npo on IV fluid and management of Coumadin. Quality Stroke Does the patient have a stroke diagnosis?: No VTE Prior VTE?: No VTE Risk Level:: Medical - moderate - high VTE Device Contraindication: Treatment Not Tolerated VTE Drug Contraindication: N/A - Med Ordered
[2021-11-16 15:27] VITALS: BP 136/65; PULSE 92; RESP 16; TEMP 36.6; O2SAT 99
--- NOTE | 2021-11-16 17:15 | MHC.SLORD ---
Speech Language Pathology Order Status: Pt was evaluated by ACCOUNTING SUPERVISOR earlier this date, recommended NPO status d/t overt s/s of aspiration. Per chart review, MD spoke with patient's son who is also healthcare proxy, he agrees with no G-tube placement since patient at high risk of pulling G-tube and also has multiple comorbidities. ACCOUNTING SUPERVISOR communicated w/ MD via [place] Message. Per MD, pt's son agreed to feed with risk of aspiration. ACCOUNTING SUPERVISOR to follow to provide education and support to family.
--- NOTE | 2021-11-16 17:29 | MHC.SLORD ---
Speech Language Pathology Order Status: Message from Dr. Patel forwarded to covering ALARM SIGNAL OPERATOR for tomorrow.
[2021-11-17] VITALS (7 sets, daily range): BP systolic 98–131; BP diastolic 57–78; PULSE 78–95; RESP 16–24; TEMP 36–36.6; O2SAT 95–100
[2021-11-17] MEDS: Tamsulosin HCL 0.4 MG CAPSULE PO ×2 (00:04→22:13)
[2021-11-17] MEDS: Midodrine HCl 2.5 MG TABLET PO ×3 (00:04→14:19)
[2021-11-17] MEDS: Atorvastatin Calcium 10 MG TABLET PO ×2 (00:04→22:13)
[2021-11-17] MEDS: HaloperidoL 1 MG TABLET PO ×4 (00:04→22:13)
[2021-11-17] MEDS: Dextrose 5 % and 0.9 % NaCl 1,000 ML 50 ML IVCONT (00:04)
[2021-11-17] MEDS: 0.9 % Sodium Chloride Flush 3 ML SYRINGE IVFLUSH ×2 (00:05→22:13)
[2021-11-17] MEDS: diazePAM 5 MG TABLET PO ×3 (00:05→22:13)
[2021-11-17 06:11] LABS: INTERNATIONAL NORM RATIO 1.5 (0.9-1.1); Prothrombin Time 16.9 SEC (10.0-13.1)
[2021-11-17] MEDS: Cholecalciferol (Vitamin D3) 25 MCG TABLET 50 MCG PO (09:45)
[2021-11-17] MEDS: Sertraline HCL 100 MG TABLET PO (09:45)
[2021-11-17] MEDS: Sucralfate 1 GM TABLET 2 GM PO (09:45)
--- NOTE | 2021-11-17 13:40 | P.PNIM_ITS ---
Subjective Subjective Date of Service: 11/17/21 Interval History: Awake alert this morning, complaining of timing of his medications, no acute issues overnight tolerating pureed diet downgraded to honey thick liquids to decrease risk of aspiration, denies chest pain no palpitations, no shortness of breath no episodes of hemoptysis in last 24 hours, no fevers chills. Review of Systems Review of Systems: Yes all other systems are reviewed and are negative Physical Exam Vital Signs: Vital Signs: Last Vital Signs Temp 97.0 F 11/17/21 11:55 Pulse 78 11/17/21 11:55 Resp 24 H 11/17/21 11:55 BP 98/57 L 11/17/21 11:55 Pulse Ox 100 11/17/21 11:55 O2 Del Method 11/17/21 11:55 O2 Flow Rate 2 11/17/21 08:00 BMI result Body Mass Index 19.6 Const: Other: General - no acute ?distress, appears ?comfortable, awak e, alert, cachecti c/frail in appeara nce Neck no JVD Ca rdiovascular - irr egular rate and rh ythm, S1-S2 pace m nini left anterior chest wall Lungs - normal respirato ry effort, clear t o auscultation conner aterally, no wheez ing Abdomen - soft , non tender, no r ebound?or guarding Extremities - no edema bilaterally Neuro- awake and a lert,?no focal def icits Psych - poor insight Objective Data Active Medications Acetaminophen (Acetaminophen 325 Mg Tablet) 650 mg PO Q6H PRN PRN Reason: Pain, Mild (Pain Scale 1-3) Last Admin: 11/12/21 09:11 Dose: 650 mg Documented By: REAL Albuterol Sulfate (Albuterol Sulfate 90 Mcg 8 Gm Inhaler) 2 puff INHALE QID PRN PRN Reason: for wheezing Last Admin: 11/10/21 18:04 Dose: 2 puff Documented By: FARHAT Atorvastatin Calcium (Atorvastatin Calcium 10 Mg Tablet) 10 mg PO BEDTIME [facility] Last Admin: 11/17/21 00:04 Dose: 10 mg Documented By: BRODIE Diazepam (Diazepam 5 Mg Tablet) 5 mg PO BID [facility] Last Admin: 11/17/21 09:45 Dose: 5 mg Documented By: JOSE Digoxin (Digoxin 0.125 Mg Tablet) 0.125 mg PO MoWeFr@0900 [facility] Last Admin: 11/16/21 10:37 Dose: 0.125 mg Documented By: JOSE Haloperidol (Haloperidol 1 Mg Tablet) 1 mg PO TID [facility] Last Admin: 11/17/21 09:45 Dose: 1 mg Documented By: JOSE Midodrine (Midodrine Hcl 2.5 Mg Tablet) 2.5 mg PO TID [facility] Last Admin: 11/17/21 09:45 Dose: 2.5 mg Documented By: JOSE Ondansetron HCl (Ondansetron Hcl 4 Mg/2 Ml Vial) 4 mg IVPUSH Q8H PRN PRN Reason: Nausea and Vomiting Sertraline HCl (Sertraline Hcl 100 Mg Tablet) 100 mg PO DAILY [facility] Last Admin: 11/17/21 09:45 Dose: 100 mg Documented By: JOSE Sodium Chloride (0.9 % Sodium Chloride Flush 3 Ml Syringe) 3 ml IVFLUSH QSHIFT [facility] Last Admin: 11/17/21 07:02 Dose: Not Given Documented By: JOSE Non-Admin Reason: assessed Sucralfate (Sucralfate 1 Gm Tablet) 2 gm PO DAILY [facility] Last Admin: 11/17/21 09:45 Dose: 2 gm Documented By: JOSE Tamsulosin HCl (Tamsulosin Hcl 0.4 Mg Capsule) 0.4 mg PO BEDTIME [facility] Last Admin: 11/17/21 00:04 Dose: 0.4 mg Documented By: BRODIE Tiotropium [place] (Tiotropium [place] 18 Mcg Cap.W.Dev) 1 puff INHALE RDAILY [facility] Last Admin: 11/17/21 09:20 Dose: 1 puff Documented By: ANNE-MARIE Vitamin D (Cholecalciferol (Vitamin D3) 25 Mcg Tablet) 50 mcg PO DAILY [facility] Last Admin: 11/17/21 09:45 Dose: 50 mcg Documented By: JOSE Labs CBC & Chem 7: 11/15/21 06:32 11/15/21 06:32 Labs: Laboratory Results - last 24 hr 11/17/21 05:58 PT 16.9 H INR 1.5 H Microbiology Microbiology Results: Microbiology 11/13/21 11:15 Gram Stain - Final Pleural Fluid Routine Culture - Final No growth after 2 days Anaerobic Culture - Preliminary No growth to date. Assessment and Plan (1) Supratherapeutic INR: Status: Acute (2) Lung nodule seen on imaging study: Status: Acute (3) Hemoptysis: Status: Acute Plan 76-year-old male with history of AFib on Coumadin presents to the hospital with a fall found to have INR of 26 # hemoptysis No episodes of hemoptysis since lots 24 hours INR subtherapeutic last 4 days , INR 1.5 today Likely hemoptysis due to multiple pulmonary nodules, hematocrit stable this morning right thoracocentesis done on 11/13 g pain/culture showed no growth, LDH 67, pleu ral WBC less than 1000 suggestive of non exudate and cytology showed no malignant cells, case discussed with Dr. Mckinney he recommend to hold Coumadin for 2 weeks and to have outpatient follow-up with him he recommend no further invasive testing at this time. # supratherapeutic INR INR remains low in last 72 hours, 1.5 today, due to persistent recurrent hemoptysis will DC Coumadin, and recommend outpatient follow-up with pulmonology # dysphagia with choking/aspiration with food, speech therapy recommend NPO, since patient not a candidate for G-tube placement due to multiple comorbidities son opted to continue current diet and is aware of high risk of aspiration. DC IV fluid. # frequent falls likely deconditioned as well as secondary to malnutrition PT recommend STR will obtain COVID test # AAA 6 cm in size patient follows with vascular surgery outpatient recommend close follow-up #poor insight psych consult completed -- lacks insight, HCP envoked, son Devendra Lujan [phone] wishes to be contacted with all questions since mother also has memory issues who is also healthcare proxy #A. fib with episodes of AFib with RVR in nonsustained V-tach Obtain cardiology consultation case discussed with Dr. Greenwood, he recommend no active cardiac intervention in view of his medical comorbidities he recommend to continue digoxin, and recommend low-dose beta-blockers if blood pressure allows he recommend to address goal of care more towards palliated/hospice continue digoxin,hold Coumadin due to hemoptysis #chronic HFrEF Unable to tolerate neuro hormonal due to orthostatic hypotension continue midodrine dose reduced to 2.5 mg t.i.d. #chronic anemia Hematocrit stable , monitor CBC #CKD3 baseline #COPD No acute exacerbation, continue inhalers Code status discussed with patient's son Devendra Lujan [phone] who is also healthcare proxy he agreed for DNR DNI therefore code status will be changed to reflect healthcare proxy wishes DVT pptx --mechanical device dispo: STR once bed available Need continued inpatient hospitalization for further workup for multiple pulmonary nodules, recurrent hemoptysis,and management of Coumadin. financial services technician arranging for safe discharge to rehab, patient will receive COVID booster prior to discharge to rehab. Quality Stroke Does the patient have a stroke diagnosis?: No VTE Prior VTE?: No VTE Risk Level:: Medical - moderate - high VTE Device Contraindication: Treatment Not Tolerated VTE Drug Contraindication: N/A - Med Ordered
--- NOTE | 2021-11-17 13:58 | MHC.CM.PN ---
Male 76 DX Supratherapeutic INR PT rec STR. Preferences obtained, referrals updated. Patient will receive a [employer] booster tomorrow. [facility] has offered a bed after Boosted. Patients son has agreed to the Booster. Patient will travel via [employer].
--- NOTE | 2021-11-17 16:12 | PC.NURSE ---
pt's son at bedside this AM speaking with music writer and MD in regards to pt's care and plan. Pt's son requested that the pt be on the same med regimen at home, md informed. fluids were d/c'ed as ordered. PT assessing pt, pt 2a with walker, unsteady gait, tremulous and spastic. Pt and son informed of the reason as to why pt is not receiving coumadin. safety and fall precautions in place. call leyva within reach.
[2021-11-17] MEDS: Midodrine HCl 5 MG TABLET PO (17:02)
[2021-11-18] VITALS: BP 92/59; PULSE 75; RESP 18; TEMP 35.6; O2SAT 97
[2021-11-18 03:37] LABS: COVID-19 Test Negative (Negative)
[2021-11-18 04:00] VITALS: BP 108/70; PULSE 75; RESP 18; TEMP 36.1; O2SAT 98
[2021-11-18 07:35] VITALS: BP 100/69; PULSE 100; RESP 19; TEMP 36.7; O2SAT 96
--- NOTE | 2021-11-18 08:48 | MHC.CM.PN ---
Addendum entered by Radha Recinos 11/18/21 12:34: DC Summary and Packet have been sent to the facility via [employer]. The Pfizer Booster is pending. The signed consent has been faxed to the provider. Original Note: IMM 11/18/21 Male 76 DX Supratheraputic INR He will discharge today. He is scheduled for picker tender helper at 16:00. [facility] will provide transport to [facility]. A negative covid test result has been sent to the facility. The patient will receive a Pfizer Booster this afternoon, prior to dc. The RN has been notified of DP. She has been provided contact info for N2N report to DON. The patient's Son/HCP, Devendra is in agreement with the discharge plan.
[2021-11-18] MEDS: Digoxin 0.125 MG TABLET PO (09:41)
[2021-11-18] MEDS: Sucralfate 1 GM TABLET 2 GM PO (09:41)
[2021-11-18] MEDS: Midodrine HCl 5 MG TABLET PO (09:41)
[2021-11-18] MEDS: Sertraline HCL 100 MG TABLET PO (09:41)
[2021-11-18] MEDS: Cholecalciferol (Vitamin D3) 25 MCG TABLET 50 MCG PO (09:41)
[2021-11-18] MEDS: diazePAM 5 MG TABLET PO ×2 (09:41→14:32)
[2021-11-18] MEDS: 0.9 % Sodium Chloride Flush 3 ML SYRINGE IVFLUSH (09:42)
[2021-11-18] MEDS: HaloperidoL 1 MG TABLET PO ×2 (09:42→14:32)
[2021-11-18 11:31] VITALS: BP 131/77; PULSE 92; RESP 18; TEMP 36.4; O2SAT 96
--- NOTE | 2021-11-18 11:36 | MHC.SL.SWA ---
Speech Pathologist Impression: Oropharyngeal dysphagia Dysphasia Diet Status: As per MD order: PUREE (NDD1) with DOWNGRADE to Honey Thick liquids by TSP, Pills CRUSHED in Puree. Liquid Consistency and Strategies for Safe Swallow: Liquid Intake Recommendation: Honey Thick Liquid Intake Strategies: Small Sips No Straws Liquids by Teaspoon Only Solid Food Consistency: Dietary Recommendations: Pureed (NDD1) Additional Modifications to Solid Foods: Pt is able to independently self feed and prefers to. However, Pt requires some assistance making sure food and liquid is ready for him to access (e.g. lids removed, cutlery accessible) and should be fully supervised during meals due to high risk for aspiration. Recommend patient take liquids by tsp or small cup sips, NO STRAW. Oral Medication Intake: Crushed with Puree Please contact the pharmacy regarding appropriate crushable or liquid drug formulations that are available whenever modified delivery is recommended. Compensatory Strategies and Precautions to be Taken for Safe Swallow: Sitting Upright (90 deg) No Straw Liquids from Straw Small Bites and Sips Alternate Liquids/Solids Rate of Ingestion Change Oral Check Supervision While Eating and Drinking for Safe Swallow: Total Supervision (1:1) Foods to Avoid: mixed consistencies: e.g. sauces or gravies w/ puree should be blended in. Avoid sticky/congealed consistencies. Swallowing Recommended Treatments: Compens. Strategy Educat. Recommendation for Speech: Continue ST for dysphagia at next level of care On 11/16/21, when patient was seen for Bedside Swallow in a.m., Pt evidenced overt signs of aspiration on PO intake of purees, thin liquid, with SURVEILLANCE INSPECTOR recommending NPO. Pt has previously had an event while taking meds with puree of hypoxia, likely due to aspiration, requiring significant medical intervention. MD reported that in discussion with son who is HCP regarding alternative feeding that son rejected PEG placement and accepted risks associated with aspiration if patient continued to take food orally. MD ordered diet of Puree with [place] Thick liquids, and re-contacted SURVEILLANCE INSPECTOR to make additional saftey recommendations and education for patient and family. Liquids subsequently downgraded to honey thick consistency. City Route Driver Clinican/Clinical Fellow: No Supervisory Statement: I have reviewed and agree with the student/clinical fellow's documentation: N/A Speech Language Pathologist: Viviane Nickerson M.A., CCC-SURVEILLANCE INSPECTOR
[2021-11-18] MEDS: Midodrine HCl 10 MG TABLET PO (11:47)
[2021-11-18] MEDS: Metoprolol Tartrate 12.5 MG HALFTAB PO (11:47)
--- NOTE | 2021-11-18 11:49 | P.DS_ITS ---
DS: Providers Provider Date of Service: 11/18/21 Date of admission: 11/06/21 00:52 Primary care physician: Marlon Garcia MD Consults: 11/06/21 13:11 Consult to Psychiatry Routine Consulting Provider: Psych Covering Reason for consultation: compentency evalution 11/11/21 11:40 Consult to Pulmonology Routine Consulting Provider: Juan Alberto Mckinney Reason for consultation: hemoptysis 11/16/21 07:50 Consult to Cardiology Routine Consulting Provider: Walter Greenwood Reason for consultation: atfib/rvr nsvtach Has provider been notified: No DS: Diagnosis Discharge Diagnosis (1) Supratherapeutic INR: Status: Acute (2) Lung nodule seen on imaging study: Status: Acute (3) Hemoptysis: Status: Acute DS: Summary Hospital Course Hospital Course: history of presenting illness/ date of admission 11/06/2021 Chief Complaint: falling This is a 76-year-old male with past medical history of AAA, AFib on Coumadin, COPD, history of GI bleed, history of IBD, history of systolic CHF, severe protein calorie malnutrition who returns to the hospital with complaints of fall.? Patient had a prolonged hospital stay sometime in August discharged on September 28 after also presenting on September 05 with frequent falls.? Patient was evaluated and was admitted to geriatric psych for psychosis.? Patient refused short-term rehab and was discharged to home.? Patient returns stating that he had a fall, and his would not help him get out of bed to use the bathroom therefore he called EMS.? Patient reports that he eats well, he is afraid of going to the psych unit the patient is alert and oriented to self and place.? He reports compliance with his warfarin, he denies having any bloody bowel movements, no ch est pain, no abdominal pain, nausea or vomiting, no diarrhea constipation, no urinary symptoms.? He reports that ever since being taking of Valium he has been very unsteady on his gait and has had frequent falls as a result.? He also complains that his walker is not working well causing him to have frequent mechanical falls and tripping.? Patient reports that this fall was secondary to his walker, he denies having any loss of consciousness during the fall, no palpitations or dizziness, and no head injury. On arrival to the ED patient hemodynamically stable with no significant abnormal vitals Labs are significant for hemoglobin of 8.8, hematocrit 27.9 with a hemoglobin of 9.7 on 09/05, INR of 26, creatinine of 1.71 with a baseline around 1.5 Chest x-ray shows persistent nodular opacities in the right lower lung since the prior august chest CT concerning for neoplasm/malignancy, patchy opacities in the right midlung concerning for infectious etiology Patient given vitamin K and will be admitted for further management hospital course Supratherapeutic INR/ hemoptysis. 76-year-old male with history of AFib on Coumadin presents to the hospital with a fall found to have INR of 26, patient admitted to medical floor with a diagnosis of supratherapeutic INR, likely multifactorial from poor nutrition, noncompliance, inappropriate dosing of Coumadin, Coumadin was held, PT INR was followed closely, subsequently INR trended down and patient was restarted back on Coumadin lower dose, however patient noted to have episodes of hemoptysis, therefore seen by electric gas appliances demonstrator Dr. Mckinney hel obtained a CT chest that showed worsening of bilateral pulmonary nodules with large right pleural effusion, therefore patient underwent right thoracocentesis on November 13, pleural fluid cytology showed no malignant cells, due to ongoing recurrent hemoptysis electric gas appliances demonstrator recommend to hold Coumadin for 2 weeks and to have outpatient follow-up with him in his office to decide further treatment plan. last INR on 11/17 is 1.5. no episode of hemoptysis noted in last 48 hours. Dysphagia with choking/aspiration with food, speech therapy recommend pureed with honey thick liquids and Ensure can t.i.d. patient is high risk for aspiration the patient's son is aware, since patient not a candidate for G-tube placement due to multiple comorbidities son opted to continue current diet and is aware of high risk of aspiration.? Abdominal aortic aneurysm 6 cm in size patient follows with vascular surgery outpatient recommend close follow-up Poor insight seen by psych patient lacks insight therefore healthcare proxy is invoked, son Devendra Lujan [phone]? wishes to be contacted with all questions since mother also has memory issues who is also healthcare proxy Chronic persistent A. fib with episodes of AFib with RVR / 1 episode of nonsustained V-tach seen by Cardiology Dr. Greenwood, he recommend no active cardiac intervention in view of his medical comorbidities he recommend to continue digoxin, and recommend low-dose beta-blockers if blood pressure allows he recommend to address goal of care more towards palliative/hospice, patient's son is aware about patient's clinical condition and agrees with no aggressive intervention, continue digoxin, Coumadin is held for hemoptysis In regard to Chronic HFrEF Unable to tolerate neuro hormonal due to orthostatic hypotension continue midodrine 10 mg 3 times a day Chronic anemia Hematocrit stable , monitor CBC Chronic kidney disease creatinine is at baseline COPD No acute exacerbation, continue home inhalers. Mood disorder continue Haldol and diazepam as ordered. Time Spent with Patient Time attestation: Total time spent providing and/or coordinating discharge services: Discharge coordination time: Greater than 30 minutes Quality: Safe Use of Opioids Does Pt have an Active Cancer Diagnosis on the Problem List?: No Quality: Stroke Does the patient have a stroke diagnosis?: No Physical Exam Vital Signs: Vital Signs: Last Vital Signs Temp 97.5 F 11/18/21 11:31 Pulse 92 11/18/21 11:31 Resp 18 11/18/21 11:31 BP 131/77 11/18/21 11:31 Pulse Ox 96 11/18/21 11:31 O2 Del Method 11/18/21 11:31 O2 Flow Rate 2 11/18/21 11:31 BMI result Body Mass Index 19.6 Const: Other: General - no acute?distress, appears?comfortable, awake, alert, cachectic in appearance Neck no JVD Cardiovascular - irregular rate and rhythm, S1-S2 pace maker left anterior chest wall Lungs - normal respiratory effort, clear to auscultation bilaterally, no wheezing, intermittent cough Abdomen - soft, non tender, no rebound?or guarding Extremities - no edema bilaterally Neuro- awake and alert,?no focal deficits Psych - poor insight DS: Data Data Completed and Pending Completed studies during hospitalization [Text1]: Pending at discharge 11/13/21 10:45 Cytology [PTH] Routine Procedures Introduction of Vasopressor into Peripheral Vein, Percutaneous Approach (10/02/20) Labs on day of discharge: Laboratory Results - last 24 hr 11/18/21 03:15 COVID-19 (SHANDA) Negative COVID-19 Clin Com See Note Discharge Plan Discharge Patient Disposition: er SNF Discharge Diagnosis: hemoptysis supratherapeutic INR dysphagia abdominal aortic aneurysm chronic persistent atrial fibrillation with RVR heart failure with reduced EF chronic anemia Referrals: Marlon Garcia MD [Primary Care Provider] - 1 Week Discharge Medications: New diazepam 5 mg Tablet 5 mg PO TID Qty: 60 0RF Continued cholecalciferol (vitamin D3) 50 mcg (2,000 unit) capsule 50 mcg PO DAILY Qty: 90 1RF sertraline 100 mg tablet 100 mg PO DAILY Qty: 90 1RF sucralfate 1 gram tablet 2 g PO DAILY 30 Days Qty: 60 0RF simvastatin 10 mg tablet 10 mg PO DAILY Qty: 90 1RF midodrine 10 mg tablet 10 mg PO TID Qty: 90 1RF tamsulosin 0.4 mg capsule 0.4 mg PO DAILY Qty: 90 1RF albuterol sulfate 90 mcg/actuation HFA aerosol inhaler 2 puff PO QID PRN (Reason: for wheezing) Qty: 8.5 0RF Spiriva with HandiHaler 18 mcg capsule, w/inhalation device 1 puff inhalation DAILY haloperidol 1 mg Tablet 1 mg PO TID 30 Days Qty: 90 0RF digoxin 125 mcg (0.125 mg) tablet 1 tab PO MOWEFR@0900 Discontinued diazepam 5 mg tablet 5 mg PO BID PRN (Reason: anxiety) Qty: 30 0RF diazepam 2 mg tablet 2 mg PO BID Qty: 60 0RF Rx Instructions: to be taken at lunch and dinner warfarin 5 mg tablet 1 tab PO DAILY@1800 trazodone 50 mg tablet 1 tab PO BEDTIME PRN (Reason: insomnia) Discharge Orders: Discharge Order (Routine); Ordered 11/18/21 Ordered By: Salvador Patel Diet: Advance to usual diet Activity on Discharge: As tolerated Stand Alone Forms: Patient Portal Discharge page Care Plan Goals: chronic persistent atrial fibrillation with RVR, continue digoxin not on anticoagulation due to hemoptysis, continue all other medications as prescribed. Health Concerns: for dysphagia take pureed, honey thick liquids and Ensure can t.i.d. patient is high risk of aspiration, continue aspiration precaution, needs supervision with meals to make sure patient is accessing food and liquids properly, give pills crushed in puree Plan of Treatment: Outpatient follow-up with electric gas appliances demonstrator Dr. Mckinney in 2 weeks to discuss use of Coumadin outpatient follow-up with primary care physician Assessment: as per discharge summary
== END 2021-11-18 16:39 | disposition skilled nursing facility (03) | DRG 917 ==
LOC: HO.ED 23:39 → HO.EDOVER 11-06 01:00 → HO.IMC 11-07 20:18
PROVIDERS: Family Medicine; Radiology Diagnostic Radiology; Student in an Organized Health Care Education/Training Program; Admitting Provider Internal Medicine; Emergency Provider Internal Medicine; PCP Internal Medicine; Visit Provider Hospitalist
PROC: 0W993ZZ Drainage of Right Pleural Cavity, Percutaneous Approach (ICD-10-PCS; principal; 2021-11-13 10:30)
DX: T45.511A Poisoning by anticoagulants, accidental (unintentional), initial encounter (principal); E43 Unspecified severe protein-calorie malnutrition; I48.20 Chronic atrial fibrillation, unspecified; D68.32 Hemorrhagic disorder due to extrinsic circulating anticoagulants; R04.2 Hemoptysis; I50.22 Chronic systolic (congestive) heart failure; I13.0 Hypertensive heart and chronic kidney disease with heart failure and stage 1 through stage 4 chronic kidney disease, or unspecified chronic kidney disease; Z68.1 Body mass index [BMI] 19.9 or less, adult; R64 Cachexia; I47.1 Supraventricular tachycardia; Z66 Do not resuscitate; N18.30 Chronic kidney disease, stage 3 unspecified; E11.22 Type 2 diabetes mellitus with diabetic chronic kidney disease; D63.1 Anemia in chronic kidney disease; F41.9 Anxiety disorder, unspecified; J44.9 Chronic obstructive pulmonary disease, unspecified; R91.8 Other nonspecific abnormal finding of lung field; I71.4 Abdominal aortic aneurysm, without rupture; I25.5 Ischemic cardiomyopathy; R29.6 Repeated falls; Z91.81 History of falling; Z20.822 Contact with and (suspected) exposure to COVID-19; Z87.891 Personal history of nicotine dependence; Z88.5 Allergy status to narcotic agent; Z88.8 Allergy status to other drugs, medicaments and biological substances; Z79.01 Long term (current) use of anticoagulants; Z79.899 Other long term (current) drug therapy
CPT/HCPCS: 32557; 36415; 70450; 71045; 71046; 71260; 73060; 80048; 80053; 82550; 82947; 83615; 83735; 85025; 85027; 85610; 85730; 87071; 87073; 87205; 87635; 88112; 89051; 92526; 92610; 92950; 93005; 94664; 96361; 96365; 97110; 97162; 97530; 99285; J3430; Q9967